=== PATIENT | female | born 1950 | race Caucasian/White ===

== ENCOUNTER 2021-12-28 18:05 | Outpatient (RCR) | payer BC, SELFPAY | END 2022-08-10 15:57 | disposition home or self-care (01) | LOC: MOW 18:05 | PROVIDERS: PCP Internal Medicine; Visit Provider Internal Medicine | DX: Z76.0 Encounter for issue of repeat prescription (principal) | CPT/HCPCS: S5170 ==

== ENCOUNTER 2021-12-30 14:07 | Outpatient (RCR) | payer MEDICARE, BC, MEDICAID, SELFPAY ==
--- OUTSIDE RECORDS SUMMARY | 2021-12-24 09:28 | XMS_ITS | Continuity of Care Document ---
:1950 Author Care Team Providers Name Role Phone MD Kaley E Attending Physician MD Kaley E Primary Care Physician Health Concerns Concerns Review problems and other documentation throughout for health concerns. Allergies, Adverse Reactions, Alerts Allergen Type Severity Reaction Last Verified Status Updated Nitrofurantoin Allergy Mild Rash November 26, Yes Activ e 2021 Lisinopril Allergy Mild Rash November 26, Yes Active 2021 Simvastatin Allergy Mild Rash November 26, Yes Active 2021 Atorvastatin Allergy Mild Rash November 26, Yes Active 2021 Rosuvastatin Allergy Mild Rash November 26, Yes Active 2021 Sulfa Antibiotics Allergy Moderate Rash November 26, Yes Ac tive 2021 Social History Smoking Status Status Start Date End Date Date of Observat ion Current some day November 28, 2021 12:35am smoker Observation Status Observation Response Date of Response History provided by Patient October 28, 2021 1:3 6am Medical Record October 28, 2021 1:3 6am Where do you live? Own home/apt October 28, 2021 1:3 6am With whom do you live? 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 Obstructive sleep apnea 2016 Active Vitamin D insufficiency Active Paroxysmal atrial fibrillation 2017 Active Macrocytosis without anemia 2018 Active Subjective memory complaints Active Mild cognitive impairment 2019 Active Lacunar infarct, acute 2021 Active Basal ganglia stroke 2021 Active Health care directive on file May 11, 2016 Active Cataract extraction status of eye Resolv ed Stapidectomy Resolved History of colonoscopy 2017 Resolved Medications Medication Status Dose Units Route Directions Qty Days Start End Ins tructions Date Date Acetaminophe Active 500 MG OR Daily as n needed (Acetaminoph en Extra Stren) 500 Mg TAB Apixaban Active 2.5 MG PO Twice A Day 180 Decembe (Eliquis) r 2nd, 2.5 Mg TAB 2020 4:57pm Aspirin Active 81 MG PO Daily 100 Calcium-Magn Active Unknow OR esium W/ n Dose Vitamin D (Calcium 600/Magnesiu m 300) Unknown Strength CAP Cholecalcife Active 1000 UNIT PO Daily 100 October rol (Vitamin 2nd, D) 1,000 2021 Unit TAB 3:28pm Flecainide Active 50 MG PO Twice A Day 90 Decembe Acetate r 2018 10:04am Folic Acid Active 3 MG PO Daily 30 Insulin Active 8 UNIT SUBQ Three Times 15 Aspart Daily With (Novolog Meals Flexpen) 100 Unit/Ml INJ Insulin Active 25 UNIT SC Qam Glargine-Yfg W/Breakfast n (Insulin Glargine) 100 Unit/Ml INJ Losartan Active 50 MG PO Daily 90 October Potassium 2021 4:02pm Melatonin Active 5 MG PO Bedtime as 100 needed Methotrexate Active 10 MG PO Every 7 Sodium Days Pravastatin Active 40 MG PO Bedtime 30 Sodium Sertraline Active 50 MG PO Daily 90 Decembe Hcl r 2020 3:00pm Triamcinolon Active 1 YUNIER TOP Twice A Day 15 e Acetonide (Triamcinolo ne Acetonide (Cream)) 0.1 % CRE Acetaminophe Disconti 650 MG PO Daily as Juluar n (Tylenol 8 nued needed y Hour , Arthritis) 2021 650 Mg TAB 1:18pm Acetaminophe Disconti 650 MG PO Februa n (Tylenol 8 nued ry Hour 27, Arthritis) 2019 650 Mg TAB 2:52pm Acetaminophe Disconti 1-2 TAB PO Every July Februa n/Hydrocodon nued Hours as e Bitart needed 2015, (Hydrocodone 2:04pm 2015 -Acetaminoph 9:39am en) 5 Mg/325 Mg TAB Albuterol Disconti 2 PUFF INH Every 4 January (Ventolin nued Hours as Hfa) 90 Mcg needed 2020, DOSE 1:43pm 2020 3:01pm Apixaban [facility] 2.5 MG [facility], er 2.5 Mg TAB 2019 08, 10:10am 2020 4:57pm Apixaban Disconti 2.5 MG PO Tw[facility] A Day [facility]ued r 21st, er 2.5 Mg TAB 2019, 4:38pm 2019 10:10a m Apixaban Disconti 5 MG PO Twice A Day 180 December (Eliquis) 5 nued 30th, 4th, Mg TAB 2016 2016 11:43am 2:39pm Aspirin Disconti 81 MG PO Daily December (Aspir-81) nued 4th, 81 Mg TAB 2016 5:20pm Azithromycin Disconti 250-50 MG PO Daily Januaryem 5 00 mg x 1 nued 0 17, day then 250 2020, mg daily x 4 1:43pm 2020 days 3:01pm Azithromycin Disconti 250-50 MG PO As Directed 6 uar A pril 500 MG ON DAY (Zithromax nued 0 y 24, 18, 1 THEN 250 MG Z-Julio Cesar) 250 2015 2015 DAILY X 4 Mg TAB 12:25pm 10:03a MORE DAYS m Calcium Disconti 500 MG PO Daily 100 January Carbonate nued 2019 9:56am Calcium Disconti 500 MG PO Twice A Day 200 January Carbonate nued 2017 1:57pm Carboxymethy Disconti 0.5 % OP as needed Januar lcellulose nued y Sodium , (Refresh 2017 Tears) 0.5 % 10:06a MARTÍN m Cephalexin Disconti 500 MG PO Three Times 30 Octo be nued A Day er r , 2019 1:16pm 1:32pm Cephalexin Disconti 500 MG PO Three Times 30 Novem Dece mb (Keflex) 500 nued A Day r , er Mg CAP 2018 12, 2:44pm 2018 9:43am Cephalexin Disconti 500 MG PO Three Times 17 July Febr ua (Keflex) 500 nued A Day , ry Mg CAP 2017, 2:00pm 2017 10:54a m Cephalexin Disconti 500 MG PO Three Times Decemberem (Keflex) 500 nued A Day , thao Mg CAP 2017 05, 12:15pm 2016 10:00a m Cephalexin Disconti 500 MG PO Three Times 20 January Januar (Keflex) 500 nued A Day , y Mg CAP 2015, 2:32pm 2016 10:06a m Cholecalcife Disconti 400 UNIT PO Daily January rol (Vitamin nued , D) 400 Unit 2019 TAB 9:56am Cholecalcife Disconti 400 UNIT PO Daily Decemb rol (Vitamin nued er D-3) 400 8th, Unit TAB 2017 8:31am Coral Disconti 1 OR Januar Calcium-Magn nued y esium W/ Vit , (Coral 2018 Calcium) CAP 1:15pm Covid-19 Disconti 30 MCG IM Once Marem (Sars-Cov-2) nued er thao Mrna Vir , , (Pfizer-Bion 2020 2020 tech 10:50am 11:47a Covid-19) 30 m Mcg/0.3 Ml INJ Diltiazem Disconti 120 MG PO Daily 30 Decee [facility] Hcl nued r 15, er (Diltiazem 2016, Hcl Er (12 3:26pm 2016 Hr)) 120 Mg 2:07pm CAP Diltiazem Disconti 120 MG PO Daily 90 Decee [facility] Hcl nued r 12th, er (Diltiazem 2016, Hcl Er (12 9:03am 2016 Hr)) 120 Mg 3:26pm CAP Diltiazem Disconti 120 MG PO Daily Januar Hcl Cd nued y 2017 1:15pm Ergocalcifer Disconti 36021 UNIT PO Once Weekly No vemb ol (Vitamin nued er er D) 50,000 , 15, Unit CAP 2016 2017 12:19pm 1:32pm Ergocalcifer Disconti 67104 UNIT PO Weekly October ol (Vitamin nued 30, D) 50,000 2016 Unt CAP 10:07a m Ergocalcifer Disconti 84910 UNIT PO Weekly Januaryuar ol (Vitamin nued , y D) 50,000 2015, Unt CAP 12:56pm 2016 10:06a m Ergocalcifer Disconti 70853 UNIT PO Weekly August ol (Vitamin nued , , D) 50,000 2015 2015 Unt CAP 1:05pm 1:51pm Flecainide Disconti 50 MG PO Twice A Day Februa Acetate nued ry 2019 2:52pm Flecainide Disconti 100 MG PO Twice A Day 60 October Acetate nued 2017 3:06pm 1:57pm Flecainide Disconti 100 MG PO Twice A Day 60 Februar October Acetate nued y 2017 11:48am 11:18a m Flecainide Disconti 100 MG PO Twice A Day 60 Decembe Febr ua Acetate nued r , ry 2016, 9:03am 2017 11:48a m Flecainide Disconti 50 MG PO Twice A Day Decemb Acetate nued er 2016 9:03am Fluconazole Disconti 150 MG PO Once ta ke once, the other tablets are to be held in reserve if (Diflucan) nued er er it recurr s 150 Mg TAB , 2016 10:55am 2:21pm Folic Acid Disconti 4 MG PO Daily nued ry 2018 11:40a m Folic Acid Disconti 3 MG GT Daily ua nued ry 2015 9:39am Gabapentin Disconti 600 MG PO Daily December 10:08a m Gabapentin Disconti 600-12 MG PO Bedtime r nued 2016 10:06a m Gabapentin Disconti 600 MG PO Bedtime Januaryuar nued , y 2015, 8:04am 2016 10:06a m Hydroxychlor Disconti 200 MG PO Daily 90 Decembe Decemb [place] nued r , er Sulfate 2019, 3:07pm 2019 12:08p m Hydroxychlor Disconti 200 MG PO Daily 90 Decembe Decemb [place] nued r , er Sulfate 2020 02, 3:43pm 2019 3:07pm Hydroxychlor Disconti 200 MG PO Daily 90 Decembe Decemb [place] nued r , er Sulfate 2019 7th, 11:47am 2019 3:43pm Hydroxychlor Disconti 200 MG PO Daily oquine nued er er Sulfate , 2017 3:01pm 11:47a m Infliximab Disconti 500 MG IV Q 8 Weeks October (Remicade nued , Admin Fee) 2021 10 Mg/Ml 12:26p SOLN m Influenza Disconti 0.5 ML IM Once Marem Virus nued er thao Vaccine , (Fluzone 2017 2017 High-Dose 3:00pm 3:18pm (65 Yrs And Older) 2017-) 1 Inj INJ Influenza Disconti 0.5 ML IM Once Virus nued r , er Vaccine 2018 10, Split 9:32am 2018 (Fluzone 9:35am High-Dose Pf 2019 0.5 Ml) 1 Inj INJ Influenza Disconti 0.5 ML IM Once Marem Virus nued er thao Vaccine , Split 2016 2016 (Fluzone 10:13am 10:15a High-Dose m (65 Yrs And Older) 2015-) 1 Inj INJ Influenza Disconti 0.5 ML IM Once Aprilobe Virus nued 6th, r 6th, Vaccine 2016 2016 Split 1:35pm 1:42pm (Fluzone High-Dose (65 Yrs And Older) 2015-) 1 Inj INJ Insulin Disconti 50 UNIT SUBQ Daily August Use as di rected, total daily dose approximately 50 units Aspart nued , , every day. (Novolog 2016 2021 Vial) 100 8:33am 10:48a Unit/1 Ml m SOLN Insulin Disconti 50 UNIT SUBQ Daily August Use as di rected, total daily dose approximately 50 units Aspart nued , , every day. (Novolog 2016 2016 Vial) 100 10:08am 8:33am Unit/1 Ml SOLN Insulin Disconti 50 UNIT SUBQ Daily August Use as directed, total daily dose approximately 50 units Aspart nued er , , every day. (Novolog 2015 2016 Vial) 100 11:02am 10:08a Unit/1 Ml m SOLN Insulin Disconti 5 UNIT SUBQ Three Times Aspart nued Daily With y (Novolog Meals , Vial) 100 2017 Unit/1 Ml 10:06a SOLN m Losartan Disconti 50 MG PO Daily 29 November Potassium nued 2021 4:02pm Methotrexate Disconti Unknow PO Every 7 ua Sodium nued n Dose Days ry 2018 8:12am Metoprolol Disconti 25 MG PO Daily December Succinate nued , , (Metoprolol 2016 2016 Succinate 11:39am 5:20pm Er) 25 Mg TABCR Naproxen Disconti 500 MG PO Daily as 19 January nued needed 2016 2:39pm Oseltamivir Disconti 75 MG PO Twice A Day August Phosphate nued , , (Tamiflu) 75 2017 2017 Mg CAP 4:32pm 1:59pm Polyethylene Disconti 17 GM PO Daily Januaryobe Pl ease take Glycol 3350 nued , r 17g suman y (Miralax) 2017, with full 3,350 Nf POW 4:28pm 2017 glass of 2:08pm liquid. Pravastatin Disconti 20 MG PO Bedtime July Sodium nued , , 2021 2021 11:50am 10:48a m Pravastatin Disconti 20 MG PO Bedtime 90 Decemb Sodium nued r 7th, er (Pravachol) 2019 8th, 20 Mg TAB 3:43pm 2019 3:07pm Pravastatin Disconti 20 MG PO Bedtime 90 mb Sodium nued y 27, er (Pravachol) 2019 7th, 20 Mg TAB 3:35pm 2019 3:43pm Pravastatin Disconti 20 MG PO Bedtime Augustua Sodium nued 4th, ry (Pravachol) 2018 27th, 20 Mg TAB 12:24pm 2019 3:35pm Pravastatin Disconti 20 MG PO Bedtime August Sodium nued r 4th, 4th, (Pravachol) 2017 2018 20 Mg TAB 3:48pm 12:24p m Pravastatin Disconti 20 MG PO Bedtime Decemb Sodium nued er er (Pravachol) 11th, 4th, 20 Mg TAB 2016 2017 10:36am 3:48pm Pravastatin Disconti 20 MG PO Bedtime Januaryem Sodium nued , thao (Pravachol) 2017 11th, 20 Mg TAB 11:54am 2017 10:36a m Pravastatin Disconti 20 MG PO Bedtime December Sodium nued , , (Pravachol) 2015 2016 20 Mg TAB 2:32pm 11:54a m Pravastatin Disconti 20 MG PO Bedtime 29 January Sodium nued , (Pravachol) 2015 20 Mg TAB 2:32pm Prednisone Disconti 20 MG PO Daily nued er er , 2016 10:46am 2:21pm Rivaroxaban Disconti 20 MG PO Bedtime 90 Decembe Decemb WITH MEAL (Xarelto) 20 nued r , er Mg TAB 2016, 10:13am 2016 2:17pm Sertraline Disconti 50 MG PO Daily 90 Decembe Decemb Hcl nued r 8th, er 2019, 3:07pm 2020 3:00pm Sertraline Disconti 50 MG PO Daily 90 Decembe Decemb Hcl nued r 7th, er 2020 8th, 3:43pm 2019 3:07pm Sertraline Disconti 50 MG PO Daily 90 Februar Decemb Hcl nued y , er 2020 , 3:35pm 2019 3:43pm Sertraline Disconti 50 MG PO Daily December Februa Hcl nued , 2018, 12:56pm 2019 3:35pm Sertraline Disconti 50 MG PO Daily December Hcl nued , 2018 3:53pm 12:56p m Sertraline Disconti 50 MG PO Daily December Hcl nued , 2017 4:34pm 3:53pm Sertraline Disconti 50 MG PO Daily 30 December Hcl nued 2017 4:34pm Sertraline Disconti 25 MG PO Daily December Hcl nued , 2015 2:32pm 10:07a m Sertraline Disconti 25 MG PO Daily 29 January Hcl nued 2015 2:32pm Varenicline Disconti 1 TABLET PO As Directed 02 April Trey keen TITRATE (Chantix nued , y DIRECTED ON Starter 2015, PACKAGE Pack) 0.5 4:49pm 2017 Mg/1 Mg TAB 10:06a m Varenicline Disconti 1 MG PO Twice A Day April uar Tartrate nued 14th, y (Chantix 2015, Continuing 4:49pm 2017 Pack) 1 Mg 10:06a TAB m Warfarin Disconti 2.5-5 MG PO Daily 180 [facility] Sun: 5mg, Mon:5mg, Tues:5mg, Wed:5mg, Thur:5mg, Fri:5mg Sodium nued r 9th, er Sat:5mg 2019, 12:22pm 2019 4:38pm Warfarin Disconti 2.5 MG PO Daily [facility] [place] 5 MG, M 5 Sodium nued r 8th, er MG, Tu 5 MG, 2020 02, W 5 MG, 5 3:07pm 2020 MG, F 5 MG, 3:55pm Sa 5 MG Warfarin Disconti 2.5 MG PO Daily [facility] [place] 5 MG, M 5 Sodium nued r 1st, er MG, Tu 5 MG, 2020 02, W 5 MG, 5 12:41pm 2020 MG, F 5 MG, 3:07pm Sa 5 MG Warfarin Disconti 2.5 MG PO Daily [place] 2. 5 MG, M 5 MG, Tu 2.5 MG, W 2.5 MG, Th 2.5 MG, F 2.5 Sodium nued r 16th, er MG, Sa 2.5 MG 2019 07, 3:09pm 2019 12:41p m Warfarin Disconti 2.5 MG PO Daily [place] 2. 5 MG, M 5 MG, Tu 2.5 MG, W 2.5 MG, Th 2.5 MG, F 2.5 Sodium nued r 2nd, er MG, Sa 2.5 M G 2019, 2:03pm 2019 3:09pm Warfarin Disconti 2.5 MG PO Daily April [place] 2. 5 MG, M 5 MG, Tu 2.5 MG, W 2.5 MG, Th 2.5 MG, F 2.5 Sodium nued 8th, er MG, Sa 2.5 MG 2019 08, 4:35pm 2019 2:03pm Warfarin Disconti 2.5 MG PO Daily [place] 2. 5 MG, M 5 MG, Tu 2.5 MG, W 2.5 MG, Th 2.5 MG, F 2.5 Sodium nued er r 8th, MG, Sa 2.5 M G 2019 4:35pm 1:31pm Warfarin Disconti 2.5 MG PO Daily January [place] 2.5 MG, M 5 MG, Tu 2.5 MG, W 2.5 MG, Th 2.5 MG, F 2.5 Sodium nued 27, thao MG, Sa 2.5 MG 2020 04, 8:24am 2019 1:31pm Warfarin Disconti 2.5 MG PO Daily January [place] 2.5 MG, M 5 MG, Tu 2.5 MG, W 2.5 MG, Th 2.5 MG, F 2.5 Sodium nued , , MG, Sa 2.5 MG 2019 2019 11:28am 8:24am Warfarin Disconti 2.5 MG PO Daily January [place] 2.5 MG, M 5 MG, Tu 2.5 MG, W 2.5 MG, Th 2.5 MG, F 2.5 Sodium nued , MG, Sa 2.5 MG 2019 2019 2:53pm 11:28a m Warfarin Disconti 2.5 MG PO Daily October [place] 2.5 MG, M 5 MG, Tu 2.5 MG, W 2.5 MG, Th 2.5 MG, F 2.5 Sodium nued , , MG, Sa 2.5 MG 2019 2019 1:33pm 2:53pm Warfarin Disconti 2.5 MG PO Daily October [place] 2.5 M G, M 5 MG, Tu 2.5 MG, W 2.5 MG, Th 2.5 MG, F 2.5 Sodium nued , nd, MG, Sa 2.5 MG 2019 2019 3:25pm 1:33pm Warfarin Disconti 2.5 MG PO Daily August [place] 2.5 M G, M 5 MG, Tu 2.5 MG, W 2.5 MG, Th 2.5 MG, F 5 MG, Sodium nued 24, 7th, Sa 2.5 MG 2019 2019 11:08am 3:25pm Warfarin Disconti 2.5 MG PO Daily August [place] 2.5 M G, M 5 MG, Tu 2.5 MG, W 2.5 MG, Th 2.5 MG, F 5 MG, Sodium nued 17, 24th, Sa 2.5 MG 2019 2019 1:21pm 11:08a m Warfarin Disconti 2.5 MG PO Daily August [place] 2.5 MG, M 5 MG, Tu 2.5 MG, W 2.5 MG, Th 2.5 MG, F 5 MG, Sodium nued y 18, 17th, Sa 2.5 MG 2019 2019 1:20pm 1:21pm Warfarin Disconti 2.5 MG PO Daily July [place] 2. 5 MG, M 5 MG, Tu 2.5 MG, W 2.5 MG, Th 2.5 MG, F 5 MG, Sodium nued , ry Sa 2.5 MG 2019, 3:06pm 2019 1:20pm Warfarin Disconti 2.5 MG PO Daily July [place] 2. 5 MG, M 5 MG, Tu 2.5 MG, W 2.5 MG, Th 2.5 MG, F 5 MG, Sodium nued th, y Sa 2.5 MG 2019, 3:53pm 2019 3:06pm Warfarin Disconti 2.5 MG PO Daily July [place] 2. 5 MG, M 5 MG, Tu 2.5 MG, W 2.5 MG, Th 2.5 MG, F 5 MG, Sodium nued 6th, y Sa 2.5 MG 2019, 3:07pm 2019 3:53pm Warfarin Disconti 2.5 MG PO Daily [place] 2. 5 MG, M 2.5 MG, Tu 2.5 MG, W 2.5 MG, Th 2.5 MG, F 5 Sodium nued r 27th, y 6th, MG, Sa 2.5 MG 2018 2019 10:47am 3:07pm Warfarin Disconti 2.5 MG PO Daily mb [place] 2. 5 MG, M 2.5 MG, Tu 2.5 MG, W 2.5 MG, Th 2.5 MG, F 5 Sodium nued r 6th, er MG, Sa 2.5 M G 2018, 2:09pm 2018 10:47a m Warfarin Disconti 2.5 MG PO Daily [facility] [place] 2. 5 MG, M 2.5 MG, Tu 2.5 MG, W 2.5 MG, Th 2.5 MG, F 5 Sodium nued r 29th, er MG, Sa 2.5 MG 2018 12, 2:05pm 2018 2:09pm Warfarin Disconti 2.5 MG PO Daily [place] 2. 5 MG, M 2.5 MG, Tu 2.5 MG, W 2.5 MG, Th 2.5 MG, F 2.5 Sodium nued r 19th, er MG, Sa 2.5 MG 2018, 3:02pm 2018 2:05pm Warfarin Disconti 2.5 MG PO Daily [place] 2. 5 MG, M 2.5 MG, Tu 2.5 MG, W 2.5 MG, Th 2.5 MG, F 2.5 Sodium nued r 15th, er MG, Sa 2.5 MG 2018, 12:17pm 2018 3:02pm Warfarin Disconti 2.5 MG PO Daily April [place] 2. 5 MG, M 2.5 MG, Tu 5 MG, W 2.5 MG, Th 5 MG, F 2.5 MG, Sodium nued rd, er Sa 2.5 MG 2018, 2:30pm 2018 12:17p m Warfarin Disconti 2.5 MG PO Daily April [place] 2. 5 MG, M 2.5 MG, Tu 5 MG, W 2.5 MG, Th 5 MG, F 2.5 MG, Sodium nued , r Sa 2.5 MG 2018, 2:38pm 2018 2:30pm Warfarin Disconti 2.5 MG PO Daily [facility] [place] 2. 5 MG, M 2.5 MG, Tu 5 MG, W 2.5 MG, Th 5 MG, F 2.5 MG, Sodium nued er r Sa 2.5 MG , 2018 9:31am 2:38pm Warfarin Disconti 2.5 MG PO Daily January [place] 2.5 MG, M 2.5 MG, Tu 5 MG, W 2.5 MG, Th 5 MG, F 2.5 MG, Sodium nued rd, thao Sa 2.5 MG 2018, 9:55am 2018 9:31am Warfarin Disconti 2.5 MG PO Daily December [place] 2.5 MG, M 2.5 MG, Tu 2.5 MG, W 2.5 MG, Th 2.5 MG, F 2.5 Sodium nued , , MG, Sa 2.5 MG 2018 2018 1:43pm 9:55am Warfarin Disconti 2.5 MG PO Daily December [place] 2.5 M G, M 2.5 MG, Tu 2.5 MG, W 2.5 MG, Th 2.5 MG, F 2.5 Sodium nued , , MG, Sa 2.5 MG 2018 2018 3:59pm 1:43pm Warfarin Disconti 2.5 MG PO Daily October [place] 2.5 M G, M 2.5 MG, Tu 2.5 MG, W 2.5 MG, Th 2.5 MG, F 2.5 Sodium nued , , MG, Sa 2.5 MG 2018 2018 2:58pm 3:59pm Warfarin Disconti 2.5 MG PO Daily October [place] 2.5 M G, M 2.5 MG, Tu 2.5 MG, W 2.5 MG, Th 2.5 MG, F 2.5 Sodium nued , , MG, Sa 2.5 MG 2018 2018 4:35pm 2:58pm Warfarin Disconti 2.5 MG PO Daily August [place] 2.5 M G, M 2.5 MG, Tu 2.5 MG, W 2.5 MG, Th 2.5 MG, F 2.5 Sodium nued , , MG, Sa 2.5 MG 2018 2018 12:56pm 4:35pm Warfarin Disconti 2.5 MG PO Daily July [place] 2.5 MG, M 2.5 MG, Tu 2.5 MG, W 2.5 MG, Th 2.5 MG, F 2.5 Sodium nued , , MG, Sa 2.5 MG 2018 2018 1:11pm 12:56p m Warfarin Disconti 2.5 MG PO Daily July [place] 2. 5 MG, M 2.5 MG, Tu 2.5 MG, W 2.5 MG, Th 2.5 MG, F 2.5 Sodium nued , MG, Sa 2.5 MG 2018, 4:23pm 2018 1:11pm Warfarin Disconti 2.5 MG PO Daily Julyr [place] 2. 5 MG, M 2.5 MG, Tu 2.5 MG, W 2.5 MG, Th 2.5 MG, F 5 Sodium nued , y MG, Sa 2.5 MG 2018, 1:40pm 2018 4:23pm Warfarin Disconti 2.5 MG PO Daily July [place] 2. 5 MG, M 5 MG, Tu 2.5 MG, W 5 MG, Th 2.5 MG, F 5 MG, Sa Sodium nued th, y 2.5 MG 2018, 4:05pm 2018 1:40pm Warfarin Disconti 2.5 MG PO Daily [facility] [place] 2. 5 MG, M 5 MG, Tu 2.5 MG, W 5 MG, Th 2.5 MG, F 5 MG, Sa Sodium nued r 26th, y 2.5 MG 2017, 3:00pm 2018 4:05pm Warfarin Disconti 2.5 MG PO Daily [facility] [place] 2. 5 MG, M 5 MG, Tu 2.5 MG, W 5 MG, Th 2.5 MG, F 5 MG, Sa Sodium nued r 10th, er 2.5 MG 2017, 2:56pm 2017 3:00pm Warfarin Disconti 2.5 MG PO Daily [place] 2. 5 MG, M 1.25 MG, Tu 2.5 MG, W 1.25 MG, Th 2.5 MG, F Sodium nued r , er 1.25 MG, Sa 2.5 MG 2018 04, 3:35pm 2017 2:56pm Warfarin Disconti 2.5 MG PO Daily [place] 2. 5 MG, M 2.5 MG, Tu 2.5 MG, W 2.5 MG, Th 2.5 MG, F 2.5 Sodium nued r , er MG, Sa 2.5 MG 2017, 2:16pm 2017 3:35pm Warfarin Disconti 2.5 MG PO Daily April [place] 2. 5 MG, M 2.5 MG, Tu 2.5 MG, W 2.5 MG, Th 2.5 MG, F 2.5 Sodium nued 24th, er MG, Sa 2.5 MG 2018 06, 8:44am 2017 2:16pm Warfarin Disconti 2.5 MG PO Daily Aprilobe [place] 2. 5 MG, M 2.5 MG, Tu 2.5 MG, W 2.5 MG, Th 2.5 MG, F 2.5 Sodium nued , r MG, Sa 2.5 MG 2017, 3:36pm 2017 8:44am Warfarin Disconti 2.5-5 MG PO Daily Aprilobe [place] 5 MG, M 5 MG, Tu 2.5 MG, W 5 MG, Th 0 MG, F 0 MG, Sa 2.5 Sodium nued 2nd, r MG 2017, 9:10am 2017 1:35pm Warfarin Disconti 2.5-5 MG PO Daily [facility] [place] 5 MG, M 5 MG, Tu 2.5 MG, W 5 MG, Th 0 MG, F 0 MG, Sa 2.5 Sodium nued er r 2nd, MG 2017 9:10am 4:20pm Warfarin Disconti 2.5-5 MG PO Daily 140 January [place] 5 M G, M 5 MG, Tu 2.5 MG, W 5 MG, Th 0 MG, F 0 MG, Sa 2.5 Sodium nued 2nd, thao MG 2017, 2:25pm 2017 4:20pm Warfarin Disconti 2.5-5 MG PO Daily 140 January [place] 5 M G, M 5 MG, Tu 2.5 MG, W 5 MG, Th 0 MG, F 0 MG, Sa 2.5 Sodium nued , 2nd, MG 2017 2017 11:02am 2:25pm Warfarin Disconti 2.5-5 MG PO Daily 140 December [place] 5 MG , M 5 MG, Tu 2.5 MG, W 5 MG, Th 0 MG, F 0 MG, Sa 2.5 Sodium nued , 2nd, MG 2017 2017 10:28am 11:02a m Warfarin Disconti 2.5-5 MG PO Daily 140 December [place] 5 MG, M 5 MG, Tu 2.5 MG, W 5 MG, Th 0 MG, F 0 MG, Sa 2.5 Sodium nued , 12th, MG 2017 2017 2:12pm 10:28a m Warfarin Disconti 2.5-5 MG PO Daily 140 December [place] 5 MG, M 5 MG, Tu 2.5 MG, W 5 MG, Th 2.5 MG, F 5 MG, Sa Sodium nued 14th, 14th, 2.5 MG 2017 2017 10:53am 2:12pm Warfarin Disconti 2.5-5 MG PO Daily 140 December [place] 5 MG, M 5 MG, Tu 2.5 MG, W 5 MG, Th 2.5 MG, F 5 MG, Sa Sodium nued 6th, 14th, 2.5 MG 2017 2017 4:20pm 10:53a m Warfarin Disconti 2.5-5 MG PO Daily 180 October [place] 5 MG, M 5 MG, Tu 2.5 MG, W 5 MG, Th 2.5 MG, F 5 MG, Sa Sodium nued 15th, 6th, 2.5 MG 2017 2017 11:17am 4:20pm Warfarin Disconti 2.5-5 MG PO Daily October [place] 5 MG, M 5 MG, Tu 2.5 MG, W 5 MG, Th 2.5 MG, F 5 MG, Sa Sodium nued 15, 15th, 2.5 MG 2017 2017 9:07am 11:17a m Warfarin Disconti 2.5-5 MG PO Daily 180 October [place] 2.5 M G, M 5 MG, Tu 5 MG, W 2.5 MG, Th 5 MG, F 2.5 MG, Sa Sodium nued 30, 15th, 5 MG 2017 2017 1:59pm 9:07am Warfarin Disconti 2.5-5 MG PO Daily October [place] 2.5 M G, M 5 MG, Tu 2.5 MG, W 2.5 MG, Th 5 MG, F 2.5 MG, Sodium nued , 30th, Sa 5 MG 2017 2017 1:27pm 1:59pm Warfarin Disconti 2.5-5 MG PO Daily August [place] 5 MG, M 2.5 MG, Tu 5 MG, W 2.5 MG, Th 5 MG, F 2.5 MG, Sa Sodium nued , 30th, 2.5 MG 2017 2017 1:59pm 1:27pm Warfarin Disconti 2.5-5 MG PO Daily July Sodium nued , 2017 4:07pm 1:59pm Warfarin Disconti 2.5-5 MG PO Daily 180 Sodium nued y 2017 4:07pm Warfarin Disconti 2.5-5 MG PO Daily 01 March [place] 2.5 MG, M Sodium nued th, 2.5 MG, Tu 2017 2.5 MG, W 2.5 9:55am MG, F 5 MG, Sa 2.5 MG Warfarin Disconti 2.5-5 MG PO Daily 01 March [place] 2.5 MG, M 0 MG, Tu 2.5 MG, W 2.5 MG, Th 0 MG, F 2.5 MG, Sodium nued 18th, Sa 2.5 MG 2016 1:41pm Warfarin Disconti 2.5-5 MG PO Daily 01 March [place] 2.5 MG, M 0 MG, Tu 2.5 MG, W 2.5 MG, Th 0 MG, F 2.5 MG, Sodium nued , Sa 2.5 MG 2016 10:20a m Warfarin Disconti 2.5-5 MG PO Daily 01 March Tu 0 MG , W 0 Sodium nued , MG, Th 5 MG 2016 1:56pm Warfarin Disconti 2.5-5 MG PO Daily 29 January [place] 2.5 M G, M 2.5 MG, Tu 0 MG, W 0 MG, Th 5 MG, F 2.5 MG, Sa Sodium nued , 2.5 MG 2016 10:13a m Warfarin Disconti 2.5-5 MG PO Daily 29 January [place] 2.5 M G, M 5 MG, Tu 2.5 MG, W 2.5 MG, Th 5 MG, F 2.5 MG, Sodium nued th, Sa 2.5 MG 2016 1:57pm Warfarin Disconti 2.5-5 MG PO Daily 29 January [place] 5 MG, W Sodium nued 17, 2.5 MG, Th 2016 2.5 MG, F 2.5 2:20pm MG, Sa 5 MG Warfarin Disconti 2.5-5 MG PO Daily 29 January Sodium nued 2016 10:50a m Warfarin Disconti 2.5 MG PO Daily December W 2.5 MG , Th Sodium nued , 2.5 MG, F 2.5 2016 2017 MG 11:18am 10:36a m Warfarin Disconti 2.5 MG PO Daily December Sodium nued 2016 11:52am 11:18a m Warfarin Disconti 5 MG PO Daily December Sodium nued 2016 5:20pm 11:52a m Immunizations Immunization Event Date Not Given Dose [employer]ine Reason Number Number Informatio n Statement (VIS) Deta esthela COVID-19 Pfizer July 032020 COVID-19 Pfizer August 042020 COVID-19 Pfizer March 07 PFIZER-BIO 2020 COVID-19 Pfizer November 092021 Hepatitis B Adult October 071999 Hepatitis B Adult February 211999 Hepatitis B Adult January 262010 HIB April 022012 Influenza May 032014 Influenza April 07 Sanofi 2015 Influenza March 05 Sanofi 2016 Influenza March 06 SANOFI 2017 Influenza May 08 SANOFI 2018 Influenza April 082020 Meningococcal April 02 (11Y-15Y) 2012 Prevnar Adult January 272014 Pneumovax Adult April 032012 Pneumovax Adult April 022007 Shingrix April 082020 Shingrix July 042021 Tetanus/Diptheria March 012011 Tdap March 01 (adolescent/adult 2011 ) Procedures Procedure Date Performed Status URINALYSIS AUTO W/SCOPE November 24, 2021 completed Relevant Diagnostic Tests and/or Laboratory Data Laboratory Results Test Date/Time Result Interpretation Reference Result Comment Performing Range Site Urine Color November 24, YELLOW YELLOW [facility] 2021 [address] [facility] 11:00am [facility] [address] Urine November 24, CLEAR CLEAR [facility] Lab Appearance 2021 [address] [facility] [facility] [place] 11:00am [facility] [address] Urine Glucose November 24, 3+ NEGATIVE [facility] Lab (UA) 2021 1999 [facility] 11:00am [facility] [address] Urine November 24, NEGATIVE NEGATIVE [facility] Bilirubin 2021 1999 [facility] 11:00am [facility] [address] Urine Ketones November 24, NEGATIVE NEGATIVE [facility] 2021 1999 [facility] 11:00am [facility] [address] Urine November 24, 1.025 1.000-1.03 [facility] Lab Specific 2021 0 1999 [facility] [place] 11:00am [facility] [address] Urine pH November 24, 6.0 5.0 - 8.5 [facility] 2021 1999 [facility] 11:00am [place] [address] Urine Protein November 24, NEGATIVE NEGATIVE [facility] 2021 1999 [facility] 11:00am [place] [address] Urine November 24, 0.2 0.2 [facility] Urobilinogen [facility]00am [place] [address] Urine Nitrite November 24, NEGATIVE NEGATIVE [facility] Lab 2021 1999 [facility] 11:00am [place] [address] Urine Blood November 24, NEGATIVE NEGATIVE [facility] 2021 1999 [facility] 11:00am [place] [address] Urine November 24, NEGATIVE NEGATIVE [facility] Leukocyte 2021 1999 [facility] Esterase 11:00am [place] [address] Urine WBC November 24, 0 0-2 [facility] 2021 1999 [facility] 11:00am [facility] [address] Urine RBC November 24, 0 0-2 [facility] 2021 1999 [facility] 11:00am [place] [address] Urine Other November 24, 0 0 [facility] Casts 2021 1999 [facility] 11:00am [place] [address] Urine Other November 24, 0 0 [facility] Crystals 2021 1999 [facility] 11:00am [place] [address] Urine November 24, FEW 0-FEW [facility] Squamous 2021 1999 [facility] Epithelial 11:00am [place] [address] Cells Urine November 24, 0 0-FEW [facility] Bacteria 2021 1999 [facility] 11:00am [place] [address] Urine Mucus November 24, 0 0 [facility] 2021 1999 [facility] 11:00am [place] [address] Urine November 24, 0 0 [facility] Amorphous 2021 1999 [facility] Sediment 11:00am [place] [address] Urine Other November 24, 0 [facility] Sediment 2021 1999 [facility] 11:00am [place] [address] Hepatitis C October NEGATIVE NEGATIVE [facility] Antibody 2021 [facility] [place] Screen 9:50am [place] [address] Hepatitis B October Positive NEGATIVE [facility] Surface 2021 [facility] [place] Antibody 9:50am [place] [address] TB Test (QFT) October NEGATIVE NEGATIVE M. Tuberculosis [facility] Gold In Tube 2021 infection NOT 20 00 [facility] 9:50am LIKELY but [facility] [address] cannot be excluded in cases of immunosuppressi on. CAUTION: The performance of QuantiFERON-TB Gold has not been evaluated in specimens from- Individuals with impaired or altered immune functions (HIV infections, transplant patients, those receiving immunosuppressi ve drugs such as corticosteroids ) and those with other clinical conditions (e.g., diabetes, hematological disorders)- Individuals younger than 17 years old- womenTesting performed at [facility], [address], [place] [address] Hepatitis B October Negative Negative INTERPRETIVE [facility] Core Total 2021 INFORMATION: [address] Antibody 9:50am Hepatitis B [facility] [address] Core Ab (Total)This assay should not be used for blood donor screening,assoc iated re-entry protocols, or for screening Human Cells,Tissues and Cellular and Tissue-Based Products (HCT/P).Perform ed By: [address] [id number] Director: Annabelle Cage MD, MS Diagnostic Imaging Reports Report Dictated Date/Time Dictated By Status May 11, 2017 Liz Ridley MD active 3:08pm [address] [address] ~DISCHARG E SUMMARY~ Patient: DIANN WONG MR #: [id number] : 1950 Age: 67 Sex: F MD: Liz Ridley MD Report #: [id number] Loc: NFP Dr montoya May 11, 2017 DIANN WONG [address] [facility] [address] A[address] [facility] [address] Dear Selma ([facility]), I looked up some information on the caus es of brittle nails and I learned the following. First of all, just getting o lder makes our nails more brittle. Secondly, sometimes there is an abnormal ity of the thyroid hormone level. You had your thyroid hormone checked in December and you had a normal level at that time. Thirdly, sometimes this is relate d to vitamin D deficiency and I see that your vitamin D level has been checked pe riodically over the last few years and that you are always low. On 03/16/2017 y our vitamin D level was 20, normal is 30-80, and I see that you were prescribe d the vitamin D 50,000 international units weekly for 3 months. After that I usually recommend that a person start on 2000 international units daily. I us ually recommend [employer] brand. Fourthly, sometimes dryness is affecting the nails, dryness of the skin and the hands also dries out the nails and they become more brittle. 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 It is also recommended to use a good nisha sturizer. The reference I checked said to use something containing alpha hydrox y acid or lanolin. I personally like a product called Working Hands. I get m ine in a little green tube and I bought mine on the internet on [employer]. Lastly, I found a good reference to the use of biotin; this is a type of a B vitamin. The recommendation is to get a biotin ultra formulation, 1 mg 2-3 times daily for 6 months. Of course it is recommended that we reduce trauma to the nails including biting of the nails, and it is also recommended to use a very fine nail file to file off any rough edges. I hope this information is helpful for y jethro. Thank you for allowing me to participate in your healthcare. Sincerely, Lzi Ridley M.D. [facility] [place] [facility] [place] jerardo COELLO:aliza Dictated By: Liz Ridley MD Signed By: Report Dictated Date/Time Dictated By Status September 10, 2018 Nata Roche MD active 12:44pm [place] [address] ~DISCHARG E SUMMARY~ Patient: DIANN WONG MR #: [id number] : 1950 Age: 68 Sex: F MD: Nata Roche MD Report #: [id number] Loc: NIM Dr montoya September 10, 2018 DIANN WONG [address] [place] [address] DR ALEMAN [address] [place] [id number] Dear Madhuri, ?? I hope this letter finds you well. This is to let you know results from your recent bone density test. As you may rem ember, your outside records indicated a past osteoporosis diagnosis, when previo usly checked at the [facility]. When I checked it here, you have osteopenia, wh ich is not quite as bad as osteoporosis, which is a good finding. You are not on any medication for your current osteoporosis/osteopenia, but do get adeq uate calcium and vitamin D. ?? I think the main thing would be to have you continue to get adequate weightbearing exercise, which stimulates the bone as a living crystal, and that would be the proper treatment. I would n ot make any other changes at this time. I am enclosing a copy for your review. ?? Very sincerely yours, Nata Roche MD Internal Medicine [facility] ? [facility]:aliza Enclosures: DEXA scan dated 09/06/2018. Dictated By: Nata Roche MD Signed By: Vital Signs Vital Reading Result Reference Range Collection Date/ Time Height 62 [in_i] November 26, 2021 9 :04am Height 157.48 cm November 26, 2021 9 :04am Weight 192.00 [lb_av] November 26, 2021 9 :04am Weight 87.30672 kg November 26, 2021 9 :04am Body Temperature 96.3 [degF] November 26, 2021 9:04am Body Temperature 35.72 Aliza November 26, 2021 9:04am BP Systolic 120 mm[Hg] November 26, 2021 9 :04am BP Diastolic 60 mm[Hg] November 26, 2021 9 :04am Heart Rate 80 /min November 26, 2021 9 :04am Respiratory rate 14 /min November 26, 2021 9:04am Body surface area 1.88 m2 November 26, 2021 9:04am BMI (Body Mass Index) 35.1 kg/m2 November 26, 2021 9:04am Advance Directives Advance Directive Response Recorded Date/Time Does Pt have Health Care No October 18 12:39pm Directive? Has patient completed a Yes November 28, 2021 1 2:35am Health Care Directive? Insurance Providers Guarantor Diann Wong Address [address] [facility] [address] Contact Info. 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 Type 1 diabetes with insulin pump failure: I will contact the [employer] rep to see if I can facilitate a replacement pump being sent out. I will also arrange for an educator from [employer] to meet with her. I have adjusted the sensitivity of her pump from 42 down to 25. We discussed that her sensitivity will be significantly less when her sugars are elevated and we discussed how to adjust her correction boluses for that. Plan of Treatment Instructions from visit on: 11/26/21 Please follow the provider's instructions as discussed during your visit. Future Tests Future scheduled test information is unavailable Pending Tests Pending diagnostic test information is unavailable Future Visits Future appointment information is unavailable Referrals to Other Providers Reason for Referral Start Provider Provider Contact Provider Address Referral Date Information Nata Roche Work Phone: [facility] [address] [facility] [phone] Future Procedures Procedure Name Scheduled Date CARD Echo W/ CF Dop STRESS Adenosine Regan Future Medications Future medication information is unavailable Patient Instructions Warfarin (By mouth) A-fib (Atrial Fibrillation) (DC) Vitamin K in Foods (GEN) Goals Ambulatory Goals Reach or maintain optimal well being.
[2021-12-30 14:30] VITALS: BP 147/84; PULSE 76; RESP 16; TEMP 36.3; O2SAT 96
[2021-12-30] MEDS: ACETAMINOPHEN 325 MG TABLET 650 MG PO (14:46)
[2021-12-30] MEDS: diphenhydrAMINE 25 MG CAPSULE PO (14:47)
[2021-12-30] MEDS: ABATACEPT IVPB (15:03)
[2021-12-30] MEDS: MALTOSE IVPB (15:03)
[2021-12-30] MEDS: TUBING PRIMARY IVPB (15:03)
[2021-12-30] MEDS: [UNRECOGNIZED DRUG - OTHER] IVPB (15:03)
== END 2021-12-30 23:59 | disposition home or self-care (01) ==
LOC: CCIC 14:07
PROVIDERS: PCP Internal Medicine; Visit Provider Clinical Nurse Specialist
DX: M06.9 Rheumatoid arthritis, unspecified (principal)
CPT/HCPCS: 96413; A9270; J0129

== ENCOUNTER 2022-01-27 13:59 | Outpatient (RCR) | payer MEDICARE, BC, MEDICAID, SELFPAY ==
--- NOTE | 2022-01-24 15:11 | ONC.NURNOTE ---
Authorization: User: Alisha Major Date: 12/02/21 07:04 Type: Eligibility Determination Note... Request received from [facility] for prior authorization of Nivolumab [id number]. Patient carries [employer] as primary insurance. Per [employer] Nivolumab has been approved for 480 Units(this equals 480 mg) per visit from 11/30/2021 through 12/02/2022. Authorization #[id number]
[2022-01-27 14:27] VITALS: BP 111/69; PULSE 74; RESP 16; TEMP 36.5; O2SAT 96
[2022-01-27] MEDS: diphenhydrAMINE 25 MG CAPSULE PO (14:42)
[2022-01-27] MEDS: ACETAMINOPHEN 325 MG TABLET 650 MG PO (14:43)
[2022-01-27] MEDS: ABATACEPT IVPB (15:09)
[2022-01-27] MEDS: MALTOSE IVPB (15:09)
[2022-01-27] MEDS: TUBING PRIMARY IVPB (15:09)
[2022-01-27] MEDS: [UNRECOGNIZED DRUG - OTHER] IVPB (15:09)
== END 2022-01-30 23:59 | disposition home or self-care (01) ==
LOC: CCIC 13:59
PROVIDERS: PCP Internal Medicine; Visit Provider Clinical Nurse Specialist
DX: M06.9 Rheumatoid arthritis, unspecified (principal)
CPT/HCPCS: 96365; A9270; J0129

== ENCOUNTER 2022-02-17 15:38 | Outpatient (REF) | payer MEDICARE, BC, SELFPAY ==
[2022-02-17 16:13] LABS: Basophils Absolute Auto 0.05 K/uL (0.00-0.30); Basophils Percent Auto 0.7 % (0.0-3.0); Eosinophils Absolute Auto 0.12 K/uL (0.00-0.50); Eosinophils Percent Auto 1.7 % (0.0-7.0); Hematocrit 37.2 % (33.0-51.0); Hemoglobin* 12.6 gm/dL (12.0-16.0); Lymphocytes Absolute Auto 1.91 K/uL (0.90-2.90); Lymphocytes Percent Auto 26.7 % (20-44); Mean Corpuscular HGB Conc 34 gm/dL (32-36); Mean Corpuscular Hemoglobin 34 pg (26-34); Mean Corpuscular Volume 102 fL (80-100); Monocytes Percent Auto 9.6 % (0.0-11.0); Neutrophils Absolute Auto 4.39 K/uL (1.7-7.0); Neutrophils Percent Auto 61.3 % (42.0-72.0); Platelet Count* 268 K/uL (140-440); RDW Coefficient of Variation % 15.2 % (11.5-15.5); Red Blood Count 3.66 m/uL (4.00-5.20); White Blood Count* 7.16 K/uL (4.50-11.00)
[2022-02-17 16:18] LABS: Slide Review Reflex No
[2022-02-17 16:22] LABS: Aspartate Amino Transferase* 33 U/L (12-35); Creatinine* 0.7 mg/dL (0.5-1.5); Estimated Glomerular Filt Rate 91 ml/min
[2022-02-17 16:26] LABS: C Reactive Protein* < 0.5 mg/dL (0.5-1.0)
[2022-02-17 17:10] LABS: Erythrocyte SedimentationRate* 34 mm/hr (2-20)
== END 2022-02-17 15:39 | disposition home or self-care (01) ==
LOC: NPINS 15:38
PROVIDERS: PCP Internal Medicine
DX: Z00.01 Encounter for general adult medical examination with abnormal findings (principal); E10.9 Type 1 diabetes mellitus without complications; E55.9 Vitamin D deficiency, unspecified; I48.0 Paroxysmal atrial fibrillation; M81.0 Age-related osteoporosis without current pathological fracture; G47.33 Obstructive sleep apnea (adult) (pediatric); N39.46 Mixed incontinence; E66.9 Obesity, unspecified; Z79.4 Long term (current) use of insulin; G31.84 Mild cognitive impairment of uncertain or unknown etiology; M06.9 Rheumatoid arthritis, unspecified; D75.89 Other specified diseases of blood and blood-forming organs; F33.41 Major depressive disorder, recurrent, in partial remission
CPT/HCPCS: 80048; 80061; 82043; 82565; 82570; 84450; 85025; 85651; 86140

== ENCOUNTER 2022-03-29 10:00 | Outpatient (RCR) | payer BC, MEDICARE, SELFPAY, MEDICAID ==
--- NOTE | 2022-01-11 12:45 | PT.OPEX ---
PT [place] Outpatient Eval PT [facility] Outpatient Eval Start: 01/10/22 13:56 Freq: Status: Active Protocol: Document 01/11/22 06:58 COBY (Rec: 01/11/22 07:05 COBY [id number]) E-Signed By Genesis Tan PT Physical Therapy Outpatient Evaluation Insurance Information Recert Due Date 04/07/22 Insurance Name Medicare B Medical Diagnosis S/P Stroke with Secondary Lt sided Hemiparesis and Lt sided Facial Droop Impaired ambulation Eval and Rx Referring MD Lawrence Tidwell suffered a stroke on . A brain MRI and CT of Head and Neck were completed for DX. She was stabilized and transfered to [place] for in-house rehabilitation. She was there for about 10 days and at [facility] terminal carman care until November 21 or so. [place] home. Using walker, which she had only been using if walking for more than 45 min or so (fairs, reunion gatherings, etc). We live in apartments on 2nd floor with elevator, live with her . No stairs required, but she can A/D stairs if required. She reports having some shoulder pain, but not terrible. Back to sleeping as before (get up 2-3 x to use bathroom). Denies N/T. Denies any falls since the stroke. Standing tolerance of 5 min, walk tolerance of 10 min with walking. Sitting is fine. Able to get in/out of cars. Careful with Lt leg. 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 Before the stroke I did all of our house keeping , grocery shopping and meal prep, laundry. Now, my is in the bathroom with me when I shower for safety, have grab bars. I can cook but just simple 3 ingredient meals . I am much more tired and rest/nap much more than before . They added a bar to help me get out of the bed so I am much more IND. Overall, I feel like I am about 75% my prior abilities. Primary difference is I get tired so fast, not vacuuming or dusting yet. Cannot stand safely, don't trust myself without the walker for more than 3-4 min or short 10-20 feet walking. Pain Comments Some dull pain at back of my neck, primarily with laying down to rest/pressure. No real RASHID. Tylenol helps. Some Lt shoulder pain and Lt hand pain (hand pain was present before the stroke) Date of Last Physician Visit 12/23/21 Current Work Status Retired Precautions Treatment Precautions/Contraindications CA, Diabetes, Arthritis, depression, heart condition, metal implants (stapes of ear) Weight Bearing Status Full Weight Bearing Objective Range of Motion grossly WFL with exception of trunk EXT 50% of normal. Feel tight not pain. hip EXT 0-3 deg Strength Rt sided grossly 4+/5 and Lt side grossly 4-/5 Swelling Monika LL use of compression socks, she has used them on/ off for many years, not from the stroke Palpation Hypertonicity at monika UT and report of discomfort at monika UB . She has been seen in PT for this in the past. No shoulder joint pain reported. Balance & Gait tandom stance average 7 sec SLS average: Rt Posture Slight FF at trunk and hips. Sensation/Reflexes Normal and symmetric monika patellar and biceps DTR Other/Pertinent Objective Sit to stand without use of UE on chair arms Functional Test Performed & Score LOMAS 48/56 Assessment Assessment/Impression 71 yo who suffered a stroke on 10/27/21. She was in a [facility] rehab facility and then [facility]. She has been home about 6 weeks. She arrived to dept via IND ambulation with use of walker. She ambulates with good stride length, slightly reduced heel strike, toe push off and occasional Lt toe catch. She can sit to stand without use of arms. Can NBOS with EC for 60 sec. SLS only 2 second average Rt leg and 1 sec on Lt leg. Reduced walking tolerance, fatiques quickly with ex (rests for a few min after 10 min of task completion). Her LOMAS score was 48/56. She is IND in bed mobility, good log rolling. She has weakness average of 4+ /5 on Rt side and 4-/5 on Lt UE/LE. She ambulates well with WW, but can ambulate for short durations (5 min) wihtout walker with only occasional reaching for brand. She can turn a full [place] of [place] slowly. A/D flight of 5 steps X 2 reps with use of hand rail and step to gait with dominant Rt side. She will benefit from cont skilled physical therapy to provide education in appropriate strength and endurance tasks, gait skills and balance/prop. Thank you for this referral. Plan of Care Rehabilitation Potential Good Physical Therapy Goals In 4-6 visits, Diann will be able to: 1. IND in/out of car without assistance in Lt leg lift 2. Shower IND with increased safety, feel comfortable without in room with her. 3. Increased standing tolerance with light UE use to resume dusting, meal prep up to 20 min In 10-12 visits, Diann will be able to: 1. A/D flight of 10 steps with use of just one hand railing and reciprocal pattern 2. Walk up to 30 min with least necessary AD, absence of toe catch 3. Resume vacuuming and reaching overhead to put away laundry 4. Report increased activity level to at least 90% PLOF ( currently at 75%) Coordination/Communication With Referral Source Treatment Plan/Direct Interventions Gait Training,Neuromuscular Re -ed,Therapeutic Activities, Therapeutic Exercises Frequency/Duration 1X/Wk for 12 visits Patient Will Be Discharged From Therapy Completion of LTG(s),Skills Plateau,Independent w/HEP, Independently Progressing Evaluation Billing Complexity Moderate Certification Information Initial Certification Date 01/11/22 Ending Certification Date 04/07/22 Document 01/11/22 10:21 CLK (Rec: 01/11/22 10:27 CLK [id number]) E-Signed By Genesis Tan, PT Physical Therapy Outpatient Evaluation Insurance Information Recert Due Date 04/07/22 Insurance Name Medicare B Medical Diagnosis S/P Stroke with Secondary Lt sided Hemiparesis and Lt sided Facial Droop Impaired ambulation Eval and Rx Referring MD Lawrence Mcdonough Diann suffered a stroke on . A brain MRI and CT of Head and Neck were completed for DX. She was stabilized and transfered to [place] for in-house rehabilitation. She was there for about 10 days and at [facility] detention care until November 21 or so. DC home. Using walker, which she had only been using if walking for more than 45 min or so (fairs, reunion gatherings, etc). We live in apartments on 2nd floor with elevator, live with her . No stairs required, but she can A/D stairs if required. She reports having some shoulder pain, but not terrible. Back to sleeping as before (get up 2-3 x to use bathroom). Denies N/T. Denies any falls since the stroke. Standing tolerance of 5 min, walk tolerance of 10 min with walking. Sitting is fine. Able to get in/out of cars. Careful with Lt leg. 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 Before the stroke I did all of our house keeping , grocery shopping and meal prep, laundry. Now, my is in the bathroom with me when I shower for safety, have grab bars. I can cook but just simple 3 ingredient meals . I am much more tired and rest/nap much more than before . They added a bar to help me get out of the bed so I am much more IND. Overall, I feel like I am about 75% my prior abilities. Primary difference is I get tired so fast, not vacuuming or dusting yet. Cannot stand safely, don't trust myself without the walker for more than 3-4 min or short 10-20 feet walking. Pain Comments Some dull pain at back of my neck, primarily with laying down to rest/pressure. No real RASHID. Tylenol helps. Some Lt shoulder pain and Lt hand pain (hand pain was present before the stroke) Date of Last Physician Visit 12/23/21 Current Work Status Retired Precautions Treatment Precautions/Contraindications CA, Diabetes, Arthritis, depression, heart condition, metal implants (stapes of ear) Weight Bearing Status Full Weight Bearing Objective Range of Motion grossly WFL with exception of trunk EXT 50% of normal. Feel tight not pain. hip EXT 0-3 deg Strength Rt sided grossly 4+/5 and Lt side grossly 4-/5 Swelling Monika LL use of compression socks, she has used them on/ off for many years, not from the stroke Palpation Hypertonicity at monika UT and report of discomfort at monika UB . She has been seen in PT for this in the past. No shoulder joint pain reported. Balance & Gait tandom stance average 7 sec SLS average: Rt Posture Slight FF at trunk and hips. Sensation/Reflexes Normal and symmetric monika patellar and biceps DTR Other/Pertinent Objective Sit to stand without use of UE on chair arms Functional Test Performed & Score LOMAS 48/56 Assessment Assessment/Impression 71 yo who suffered a stroke on 10/27/21. She was in a [facility] rehab facility and then [facility]. She has been home about 6 weeks. She arrived to dept via IND ambulation with use of walker. She ambulates with good stride length, slightly reduced heel strike, toe push off and occasional Lt toe catch. She can sit to stand without use of arms. Can NBOS with EC for 60 sec. SLS only 2 second average Rt leg and 1 sec on Lt leg. Reduced walking tolerance, fatiques quickly with ex (rests for a few min after 10 min of task completion). Her LOMAS score was 48/56. She is IND in bed mobility, good log rolling. She has weakness average of 4+ /5 on Rt side and 4-/5 on Lt UE/LE. She ambulates well with WW, but can ambulate for short durations (5 min) wihtout walker with only occasional reaching for brand. She can turn a full [place] of [place] slowly. A/D flight of 5 steps X 2 reps with use of hand rail and step to gait with dominant Rt side. She will benefit from cont skilled physical therapy to provide education in appropriate strength and endurance tasks, gait skills and balance/prop. Thank you for this referral. Plan of Care Rehabilitation Potential Good Physical Therapy Goals In 4-6 visits, Diann will be able to: 1. IND in/out of car without assistance in Lt leg lift 2. Shower IND with increased safety, feel comfortable without in room with her. 3. Increased standing tolerance with light UE use to resume dusting, meal prep up to 20 min In 10-12 visits, Diann will be able to: 1. A/D flight of 10 steps with use of just one hand railing and reciprocal pattern 2. Walk up to 30 min with least necessary AD, absence of toe catch 3. Resume vacuuming and reaching overhead to put away laundry 4. Report increased activity level to at least 90% PLOF ( currently at 75%) Coordination/Communication With Referral Source Treatment Plan/Direct Interventions Gait Training,Neuromuscular Re -ed,Therapeutic Activities, Therapeutic Exercises Frequency/Duration 1X/Wk for 12 visits Patient Will Be Discharged From Therapy Completion of LTG(s),Skills Plateau,Independent w/HEP, Independently Progressing Evaluation Billing Untimed Code Treatment Minutes 35 Complexity Moderate Certification Information Initial Certification Date 01/11/22 Ending Certification Date 04/07/22
--- NOTE | 2022-01-12 09:05 | PT.OPEX ---
PT [place] Outpatient Eval PT [facility] Outpatient Eval Start: 01/10/22 13:56 Freq: Status: Active Protocol: Document 01/11/22 06:58 COBY (Rec: 01/11/22 07:05 COBY [id number]) E-Signed By Genesis Tan PT Physical Therapy Outpatient Evaluation Insurance Information Recert Due Date 04/07/22 Insurance Name Medicare B Medical Diagnosis S/P Stroke with Secondary Lt sided Hemiparesis and Lt sided Facial Droop Impaired ambulation Eval and Rx Referring MD Lawrence Tidwell suffered a stroke on . A brain MRI and CT of Head and Neck were completed for DX. She was stabilized and transfered to [place] for in-house rehabilitation. She was there for about 10 days and at [facility]erman care until November 21 or so. DC home. Using walker, which she had only been using if walking for more than 45 min or so (fairs, reunion gatherings, etc). We live in apartments on 2nd floor with elevator, live with her . No stairs required, but she can A/D stairs if required. She reports having some shoulder pain, but not terrible. Back to sleeping as before (get up 2-3 x to use bathroom). Denies N/T. Denies any falls since the stroke. Standing tolerance of 5 min, walk tolerance of 10 min with walking. Sitting is fine. Able to get in/out of cars. Careful with Lt leg. 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 Before the stroke I did all of our house keeping , grocery shopping and meal prep, laundry. Now, my is in the bathroom with me when I shower for safety, have grab bars. I can cook but just simple 3 ingredient meals . I am much more tired and rest/nap much more than before . They added a bar to help me get out of the bed so I am much more IND. Overall, I feel like I am about 75% my prior abilities. Primary difference is I get tired so fast, not vacuuming or dusting yet. Cannot stand safely, don't trust myself without the walker for more than 3-4 min or short 10-20 feet walking. Pain Comments Some dull pain at back of my neck, primarily with laying down to rest/pressure. No real RASHID. Tylenol helps. Some Lt shoulder pain and Lt hand pain (hand pain was present before the stroke) Date of Last Physician Visit 12/23/21 Current Work Status Retired Precautions Treatment Precautions/Contraindications CA, Diabetes, Arthritis, depression, heart condition, metal implants (stapes of ear) Weight Bearing Status Full Weight Bearing Objective Range of Motion grossly WFL with exception of trunk EXT 50% of normal. Feel tight not pain. hip EXT 0-3 deg Strength Rt sided grossly 4+/5 and Lt side grossly 4-/5 Swelling Mon[place] use of compression socks, she has used them on/ off for many years, not from the stroke Palpation Hypertonicity at monika UT and report of discomfort at monika [facility] . She has been seen in PT for this in the past. No shoulder joint pain reported. Balance & Gait tandom stance average 7 sec SLS average: Rt Posture Slight FF at trunk and hips. Sensation/Reflexes Normal and symmetric monika patellar and biceps DTR Other/Pertinent Objective Sit to stand without use of UE on chair arms Functional Test Performed & Score LOMAS 48/56 Assessment Assessment/Impression 71 yo who suffered a stroke on 10/27/21. She was in a [facility] rehab facility and then [facility]. She has been home about 6 weeks. She arrived to dept via IND ambulation with use of walker. She ambulates with good stride length, slightly reduced heel strike, toe push off and occasional Lt toe catch. She can sit to stand without use of arms. Can NBOS with EC for 60 sec. SLS only 2 second average Rt leg and 1 sec on Lt leg. Reduced walking tolerance, fatiques quickly with ex (rests for a few min after 10 min of task completion). Her LOMAS score was 48/56. She is IND in bed mobility, good log rolling. She has weakness average of 4+ /5 on Rt side and 4-/5 on Lt UE/LE. She ambulates well with WW, but can ambulate for short durations (5 min) wihtout walker with only occasional reaching for brand. She can turn a full [place] slowly. A/D flight of 5 steps X 2 reps with use of hand rail and step to gait with dominant Rt side. She will benefit from cont skilled physical therapy to provide education in appropriate strength and endurance tasks, gait skills and balance/prop. Thank you for this referral. Plan of Care Rehabilitation Potential Good Physical Therapy Goals In 4-6 visits, Diann will be able to: 1. IND in/out of car without assistance in Lt leg lift 2. Shower IND with increased safety, feel comfortable without in room with her. 3. Increased standing tolerance with light UE use to resume dusting, meal prep up to 20 min In 10-12 visits, Diann will be able to: 1. A/D flight of 10 steps with use of just one hand railing and reciprocal pattern 2. Walk up to 30 min with least necessary AD, absence of toe catch 3. Resume vacuuming and reaching overhead to put away laundry 4. Report increased activity level to at least 90% PLOF ( currently at 75%) Coordination/Communication With Referral Source Treatment Plan/Direct Interventions Gait Training,Neuromuscular Re -ed,Therapeutic Activities, Therapeutic Exercises Frequency/Duration 1X/Wk for 12 visits Patient Will Be Discharged From Therapy Completion of LTG(s),Skills Plateau,Independent w/HEP, Independently Progressing Evaluation Billing Complexity Moderate Certification Information Initial Certification Date 01/11/22 Ending Certification Date 04/07/22 Document 01/11/22 10:21 CLK (Rec: 01/11/22 10:27 CLK [id number]) E-Signed By Genesis Tan, PT Physical Therapy Outpatient Evaluation Insurance Information Recert Due Date 04/07/22 Insurance Name Medicare B Medical Diagnosis S/P Stroke with Secondary Lt sided Hemiparesis and Lt sided Facial Droop Impaired ambulation Eval and Rx Referring MD Lawrence Mcdonough Diann suffered a stroke on . A brain MRI and CT of Head and Neck were completed for DX. She was stabilized and transfered to [place] for in-house rehabilitation. She was there for about 10 days and at [facility] retirement care until November 21 or so. DC home. Using walker, which she had only been using if walking for more than 45 min or so (fairs, reunion gatherings, etc). We live in apartments on 2nd floor with elevator, live with her . No stairs required, but she can A/D stairs if required. She reports having some shoulder pain, but not terrible. Back to sleeping as before (get up 2-3 x to use bathroom). Denies N/T. Denies any falls since the stroke. Standing tolerance of 5 min, walk tolerance of 10 min with walking. Sitting is fine. Able to get in/out of cars. Careful with Lt leg. 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 Before the stroke I did all of our house keeping , grocery shopping and meal prep, laundry. Now, my is in the bathroom with me when I shower for safety, have grab bars. I can cook but just simple 3 ingredient meals . I am much more tired and rest/nap much more than before . They added a bar to help me get out of the bed so I am much more IND. Overall, I feel like I am about 75% my prior abilities. Primary difference is I get tired so fast, not vacuuming or dusting yet. Cannot stand safely, don't trust myself without the walker for more than 3-4 min or short 10-20 feet walking. Pain Comments Some dull pain at back of my neck, primarily with laying down to rest/pressure. No real RASHID. Tylenol helps. Some Lt shoulder pain and Lt hand pain (hand pain was present before the stroke) Date of Last Physician Visit 12/23/21 Current Work Status Retired Precautions Treatment Precautions/Contraindications CA, Diabetes, Arthritis, depression, heart condition, metal implants (stapes of ear) Weight Bearing Status Full Weight Bearing Objective Range of Motion grossly WFL with exception of trunk EXT 50% of normal. Feel tight not pain. hip EXT 0-3 deg Strength Rt sided grossly 4+/5 and Lt side grossly 4-/5 Swelling Mon[place] LL use of compression socks, she has used them on/ off for many years, not from the stroke Palpation Hypertonicity at monika [place] and report of discomfort at monika [facility] . She has been seen in PT for this in the past. No shoulder joint pain reported. Balance & Gait tandom stance average 7 sec SLS average: Rt Posture Slight FF at trunk and hips. Sensation/Reflexes Normal and symmetric monika patellar and biceps DTR Other/Pertinent Objective Sit to stand without use of UE on chair arms Functional Test Performed & Score LOMAS 48/56 Assessment Assessment/Impression 71 yo who suffered a stroke on 10/27/21. She was in a [facility] rehab facility and then [facility]. She has been home about 6 weeks. She arrived to dept via IND ambulation with use of walker. She ambulates with good stride length, slightly reduced heel strike, toe push off and occasional Lt toe catch. She can sit to stand without use of arms. Can NBOS with EC for 60 sec. SLS only 2 second average Rt leg and 1 sec on Lt leg. Reduced walking tolerance, fatiques quickly with ex (rests for a few min after 10 min of task completion). Her LOMAS score was 48/56. She is IND in bed mobility, good log rolling. She has weakness average of 4+ /5 on Rt side and 4-/5 on Lt UE/LE. She ambulates well with WW, but can ambulate for short durations (5 min) wihtout walker with only occasional reaching for brand. She can turn a full [place] slowly. A/D flight of 5 steps X 2 reps with use of hand rail and step to gait with dominant Rt side. She will benefit from cont skilled physical therapy to provide education in appropriate strength and endurance tasks, gait skills and balance/prop. Thank you for this referral. Plan of Care Rehabilitation Potential Good Physical Therapy Goals In 4-6 visits, Diann will be able to: 1. IND in/out of car without assistance in Lt leg lift 2. Shower IND with increased safety, feel comfortable without in room with her. 3. Increased standing tolerance with light UE use to resume dusting, meal prep up to 20 min In 10-12 visits, Diann will be able to: 1. A/D flight of 10 steps with use of just one hand railing and reciprocal pattern 2. Walk up to 30 min with least necessary AD, absence of toe catch 3. Resume vacuuming and reaching overhead to put away laundry 4. Report increased activity level to at least 90% PLOF ( currently at 75%) Coordination/Communication With Referral Source Treatment Plan/Direct Interventions Gait Training,Neuromuscular Re -ed,Therapeutic Activities, Therapeutic Exercises Frequency/Duration 1X/Wk for 12 visits Patient Will Be Discharged From Therapy Completion of LTG(s),Skills Plateau,Independent w/HEP, Independently Progressing Evaluation Billing Untimed Code Treatment Minutes 35 Complexity Moderate Certification Information Initial Certification Date 01/11/22 Ending Certification Date 04/07/22
--- NOTE | 2022-01-12 14:52 | PT.OPDNX ---
[place] Outpatient Daily Note PT [facility] Outpatient Daily Note Start: 01/10/22 13:56 Freq: Status: Active Protocol: Document 01/11/22 10:21 CLK (Rec: 01/11/22 10:27 COBY [id number]) E-Signed By Genesis Tan, PT PT OP Daily Progress Note Visit Information Note Type Daily Note Visit Number 1 Insurance Information Recert Due Date 04/07/22 Insurance Name Medicare B Medical Diagnosis S/P Stroke with Secondary Lt sided Hemiparesis and Lt sided Facial Droop Impaired ambulation Eval and Rx Referring MD Lawrence Tidwell suffered a stroke on . A brain MRI and CT of Head and Neck were completed for DX. She was stabilized and transfered to [place] for in-house rehabilitation. She was there for about 10 days and at [facility] jail care until November 21 or so. [place] home. Using walker, which she had only been using if walking for more than 45 min or so (fairs, reunion gatherings, etc). We live in apartments on 2nd floor with elevator, live with her . No stairs required, but she can A/D stairs if required. She reports having some shoulder pain, but not terrible. Back to sleeping as before (get up 2-3 x to use bathroom). Denies N/T. Denies any falls since the stroke. Standing tolerance of 5 min, walk tolerance of 10 min with walking. Sitting is fine. Able to get in/out of cars. Careful with Lt leg. 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 Before the stroke I did all of our house keeping , grocery shopping and meal prep, laundry. Now, my is in the bathroom with me when I shower for safety, have grab bars. I can cook but just simple 3 ingredient meals . I am much more tired and rest/nap much more than before . They added a bar to help me get out of the bed so I am much more IND. Overall, I feel like I am about 75% my prior abilities. Primary difference is I get tired so fast, not vacuuming or dusting yet. Cannot stand safely, don't trust myself without the walker for more than 3-4 min or short 10-20 feet walking. Pain Comments Some dull pain at back of my neck, primarily with laying down to rest/pressure. No real RASHID. Tylenol helps. Some Lt shoulder pain and Lt hand pain (hand pain was present before the stroke) Precautions Treatment Precautions/Contraindications CA, Diabetes, Arthritis, depression, heart condition, metal implants (stapes of ear) Weight Bearing Status Full Weight Bearing Home Exercise Home Exercise Comments She reports/and demonstrates, HEP form PT in [facility] of: -standing with repetative arm use (sorting, reaching) -walk around center is of kitchen forward and backward' -Dbl heel raises -forward and side lunges -seated march in place and knee EXT -side to side weight shift in stance Objective Other/Pertinent Objective Sit to stand without use of UE on chair arms Functional Test Performed & Score LOMAS 48/56 Patient Instructed in Risks/Benefits Yes Therapeutic Exercise Therapeutic Exercise Minutes (minutes) 25 Therapeutic Exercise: To Restore We completed her above noted Functional Status current HEP , with additions for HEP and HO given for: -supine hip FF SLR X 5 reps -supine bridge wtih 3 sec HOLD X 5 reps -sdly hip ABD with OTB X 5 reps -sdly clam with OTB X 5 reps Gait & Stair Training Gait & Stair Training Comments Amb with WW, able to A/D flight of 5 steps with use of railing and step to gait. Treatment Minutes Untimed Code Treatment Minutes 35 Timed Code Treatment Minutes 25 Total Treatment Time 60 Billing Units Therapeutic Exercise Units 2 Assessment/Impression Assessment/Impression 71 yo who suffered a stroke on 10/27/21. She was in a [facility] rehab facility and then [facility]. She has been home about 6 weeks. She arrived to dept via IND ambulation with use of walker. She ambulates with good stride length, slightly reduced heel strike, toe push off and occasional Lt toe catch. She can sit to stand without use of arms. Can NBOS with EC for 60 sec. SLS only 2 second average Rt leg and 1 sec on Lt leg. Reduced walking tolerance, fatiques quickly with ex (rests for a few min after 10 min of task completion). Her LOMAS score was 48/56. She is IND in bed mobility, good log rolling. She has weakness average of 4+ /5 on Rt side and 4-/5 on Lt UE/LE. She ambulates well with WW, but can ambulate for short durations (5 min) wihtout walker with only occasional reaching for brand. She can turn a full [place] slowly. A/D flight of 5 steps X 2 reps with use of hand rail and step to gait with dominant Rt side. She will benefit from cont skilled physical therapy to provide education in appropriate strength and endurance tasks, gait skills and balance/prop. Thank you for this referral. Plan of Care Physical Therapy Goals In 4-6 visits, Diann will be able to: 1. IND in/out of car without assistance in Lt leg lift 2. Shower IND with increased safety, feel comfortable without in room with her. 3. Increased standing tolerance with light UE use to resume dusting, meal prep up to 20 min In 10-12 visits, Diann will be able to: 1. A/D flight of 10 steps with use of just one hand railing and reciprocal pattern 2. Walk up to 30 min with least necessary AD, absence of toe catch 3. Resume vacuuming and reaching overhead to put away laundry 4. Report increased activity level to at least 90% PLOF ( currently at 75%) Daily Plan of Care Continue per POC Daily Plan of Care Comments Progress with gait, prop/ balance and functional strength , kymberly Lt side Recertification Information Clinical Certification # #[id number] Patient's H.I.C.N.# # Initial Certification Date 01/11/22 I Certify That I Have Established All Therapy Services/Plan Physician Signature Shows Agreement Dates & Medical Necessity Physician Comment/Change Comment or Changes Physician Signature & Date Please Sign/Date Here Physician NPI Number #
== END 2022-05-11 11:07 | disposition home or self-care (01) ==
PROVIDERS: PCP Internal Medicine; Visit Provider Internal Medicine
DX: I69.354 Hemiplegia and hemiparesis following cerebral infarction affecting left non-dominant side (principal); Z51.89 Encounter for other specified aftercare
CPT/HCPCS: 97110; 97162

== ENCOUNTER 2022-03-29 14:00 | Outpatient (RCR) | payer BC, MEDICARE, MEDICAID, SELFPAY ==
[2022-03-01 13:53] VITALS: BP 112/71; PULSE 90; RESP 16; TEMP 36; O2SAT 95
[2022-03-01] MEDS: ACETAMINOPHEN 325 MG TABLET 650 MG PO (14:35)
[2022-03-01] MEDS: diphenhydrAMINE 25 MG CAPSULE PO (14:35)
[2022-03-01] MEDS: [UNRECOGNIZED DRUG - OTHER] IVPB (14:57)
[2022-03-01] MEDS: ABATACEPT IVPB (14:57)
[2022-03-01] MEDS: TUBING PRIMARY IVPB (14:57)
[2022-03-01] MEDS: MALTOSE IVPB (14:57)
--- NOTE | 2022-03-23 15:41 | ONC.NURNOTE ---
traffic i manager called stating pt had a change in insurance, pt has an infusion scheduled next week. Agriculture Laborer instructed RN to have pt or family fax or bring in copy of insurance care so that we can check to see if a PA is needed.
--- NOTE | 2022-03-25 12:05 | URNOTE ---
Addendum entered by Flor Urrutia RN 03/25/22 12:36: Note written in error. Addendum entered by Flor Urrutia RN 03/25/22 12:24: Authorization #[id number] from [employer]. Original Note: Request received for authorization for Abatacept ([id number]). Prior Authorization per [facility] ([facility]) Approved Orencia (Abatacept) 250mg vial, for 03/25/2022-03/24/2023 for Dx rheumatoid arthritis.
--- NOTE | 2022-03-25 14:27 | URNOTE ---
Request received from [facility] for prior authorization of Abatacept ([id number]). Per insurance [employer] plus patient is Approved for Orencia (Abatacept) from 03/25/2022- 03/24/2023. Authorization #[id number]
--- NOTE | 2022-03-25 15:06 | URNOTE ---
Request received from [facility] for prior authorization of Abatacept ([id number]). Per insurance [employer] plus patient is Approved for Orencia (Abatacept) from 03/25/2022- 03/24/2023. Authorization #[id number]
[2022-03-29 14:01] VITALS: BP 138/83; PULSE 83; RESP 16; TEMP 35.8; O2SAT 96
[2022-03-29] MEDS: diphenhydrAMINE 25 MG CAPSULE PO (14:17)
[2022-03-29] MEDS: ACETAMINOPHEN 325 MG TABLET 650 MG PO (14:17)
[2022-03-29] MEDS: TUBING PRIMARY IVPB (14:48)
[2022-03-29] MEDS: MALTOSE IVPB (14:48)
[2022-03-29] MEDS: [UNRECOGNIZED DRUG - OTHER] IVPB (14:48)
[2022-03-29] MEDS: ABATACEPT IVPB (14:48)
--- NOTE | 2022-04-22 08:33 | ONC.NURNOTE ---
Received notes from her Rheumatology clinic discontinuing Orencia and she will start injections at home of Methotrexate and Actemra and labs will be monitored per clinic.
== END 2022-08-28 23:59 | disposition home or self-care (01) ==
LOC: CCIC 14:00
PROVIDERS: PCP Internal Medicine; Referring Provider Internal Medicine; Visit Provider Clinical Nurse Specialist
DX: M06.9 Rheumatoid arthritis, unspecified (principal)
CPT/HCPCS: 96365; 97110; A9270; J0129

== ENCOUNTER 2022-08-04 10:39 | Observation (INO) | payer BC, SELFPAY ==
[2022-08-04] VITALS (25 sets, daily range): BP systolic 115–157; BP diastolic 60–104; PULSE 64–86; RESP 14–20; TEMP 35.7–36.8; O2SAT 92–97; BMI 34.8; BMI 36.5
--- NOTE | 2022-08-04 11:19 | ED_ITS ---
HPI - General Adult General Time Seen by Provider: 11:19 Date Seen: 08/04/22 Chief complaint: Altered Mental Status Stated complaint: Uncontrolled Glucose, Type 1 Time Seen by Provider: 08/04/22 11:18 Source: patient, family, RN notes reviewed and other ( Home health nurse was called and reviewed her concerns with nursing staff.) Mode of arrival: ambulatory Limitations: no limitations History of Present Illness HPI narrative: Gabi is a 72-year-old female accompanied by her into the ER with concerns for overall decline in inability to stay at home. Her home health nurse who visits once a week feels she is not safe at home anymore. Patient is a type 1 diabetic and has been so since age 29. Historically her control has been excellent. Her notes that she is the model diabetic care. She has an insulin pump and glucose monitor. Her sugars have been quite labile, she has been having them up into the 4 and 600s. She fell about a week ago on carpet, was just getting out of her chair. Did not hit her head and nothing was injured. She felt like her left leg just gave way. 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 They wonder she is maybe having some mini strokes at home. She has been having increased difficulty managing her diabetes, attempting to reset her pump herself. Her feels that ultimately she does get it right but there are concerns with this. He does not feel that he can help her or safely manage this. She initially went into rehabilitation after her stroke but they both agreed that they are going to try it at home and she was subsequently discharged to home. He is not feeling safe caring for her anymore. She has underlying rheumatoid arthritis. She states at night both of her legs just ache, not any specific joint. She has been feeling more short of breath as of late. They note more confusion at times. At times she states she feels a bit panicky but it does tend to go away. Related Data Home Medications Medication Instructions Recorded Confirmed acetaminophen 500 mg capsule 500 mg PO Q4-6H PRN 12/28/21 08/04/22 folic acid 1 mg tablet 3 mg PO DAILY 12/28/21 08/04/22 methotrexate sodium 2.5 mg tablet 10 mg PO QWEEK 12/28/21 08/04/22 blood sugar diagnostic (Contour #10 ea 03/03/22 06/28/22 Next Test Strips) pen needle, diabetic 31 gauge x #1,200 ea 03/03/22 06/28/22 5/16 (Droplet Pen Needle) alendronate 70 mg tablet 70 mg PO QWEEK 06/28/22 08/04/22 multivitamin with folic acid 400 1 tab PO QAM 06/28/22 08/04/22 mcg tablet (Tab-A-Imer) insulin lispro 100 unit/mL 55 unit subcut DAILY 08/04/22 08/04/22 subcutaneous solution pravastatin 40 mg tablet 40 mg PO HS 08/04/22 08/04/22 solifenacin 5 mg tablet (Vesicare) 5 mg PO DAILY 08/04/22 08/04/22 tocilizumab 162 mg/0.9 mL 162 mg subcut Q14D 08/04/22 08/04/22 subcutaneous syringe (Actemra) Previous Rx's Medication Instructions Recorded apixaban 2.5 mg tablet 2.5 mg PO BID #180 tabs 03/08/22 aspirin 81 mg tablet,delayed 81 mg PO DAILY #90 tabs 03/08/22 release (Adult Low Dose Aspirin) cholecalciferol (vitamin D3) 25 1,000 unit PO DAILY #90 caps 03/08/22 mcg (1,000 unit) capsule flecainide 50 mg tablet 50 mg PO Q12H #180 tabs 03/08/22 losartan 50 mg tablet 50 mg PO DAILY #90 tabs 03/08/22 sertraline 100 mg tablet 100 mg PO DAILY #90 tabs 03/08/22 blood-glucose sensor (Dexcom G6 #9 ea 03/09/22 Sensor device) blood-glucose transmitter (Dexcom #1 ea 03/09/22 G6 Transmitter device) isai.stocking,knee,reg,smal #6 ea 03/15/22 (T.E.D. Knee [id number]-Afuuphk misc) incontinence pad, liner, disp #60 ea 03/15/22 varenicline 1 mg tablet (Chantix) 1 mg PO BID #56 tabs 06/28/22 Allergies Allergy/AdvReac Type Severity Reaction Status Date / Time Sulfa (Sulfonamide Allergy Intermediate Rash Verified 08/04/22 10:56 Antibiotics) atorvastatin Allergy Mild Rash Verified 08/04/22 10:56 lisinopril Allergy Mild Rash Verified 08/04/22 10:56 nitrofurantoin Allergy Mild Rash Verified 08/04/22 10:56 rosuvastatin Allergy Mild Rash Verified 08/04/22 10:56 simvastatin Allergy Mild Rash Verified 08/04/22 10:56 Review of Systems Status of ROS: Reports: 10 or more systems reviewed and unremarkable except as noted in History and below PFSH PFSH Surgical History History of colonoscopy (2017) Status post cataract extraction Family History Father Colon cancer Sister Colon cancer, Onset Age: 70 Brother Colon cancer Other Family history of colon cancer Social History Narrative: , nonsmoker, retired Smoking Status: Former smoker What tobacco products do you use: cigarettes Smoking quit date/years: <= 15 years ago Do you use any of these nicotine containing products: None Second hand tobacco smoke exposure: No How often do you have a drink containing alcohol: monthly or less How many standard drinks containing alcohol do you have on a typical day: 1 or 2 AUDIT-C Alcohol total score: 1 Non-prescribed substance use: denies use Little interest or pleasure in doing things: nearly every day Feeling down, depressed, or hopeless: more than half the days service: No Exam Const: Vital Signs, click to edit/add: Vital Signs - 24 hr 08/04/22 11:01 08/04/22 12:51 08/04/22 11:47 Temperature 96.2 F L Pulse Rate 73 Pulse Rate [Pulse Oximeter] 83 Respiratory Rate 16 Blood Pressure Blood Pressure [Ri ght Upper Arm] 115/70 Pulse Oximetry 96 95 95 Oxygen Delivery Me thod Room Air 08/04/22 11:49 08/04/22 12:00 08/04/22 12:02 Temperature Pulse Rate 68 73 66 Pulse Rate [Pulse Oximeter] Respiratory Rate Blood Pressure 124/77 132/71 Blood Pressure [Ri ght Upper Arm] Pulse Oximetry 96 96 96 Oxygen Delivery Me thod 08/04/22 12:30 08/04/22 12:31 08/04/22 13:00 Temperature Pulse Rate 66 64 67 Pulse Rate [Pulse Oximeter] Respiratory Rate Blood Pressure 128/67 Blood Pressure [Ri ght Upper Arm] Pulse Oximetry 95 96 96 Oxygen Delivery Me thod 08/04/22 13:02 08/04/22 13:12 08/04/22 13:32 Temperature Pulse Rate 67 79 Pulse Rate [Pulse Oximeter] Respiratory Rate 16 Blood Pressure 135/67 129/104 H Blood Pressure [Ri ght Upper Arm] Pulse Oximetry 97 96 Oxygen Delivery Me thod Documenting provider has reviewed patient's vital signs: yes Common normals: no apparent distress, oriented x3, no limitations, alert and well nourished General appearance: cooperative, comfortable, well kempt, well developed and frail appearing Nutritional appearance: overweight HENMT: Common normals: normocephalic, head/scalp atraumatic, hearing grossly normal bilaterally, external ears normal, external nose normal, nasal mucous membranes and turbinates normal, moist oral mucous membranes, oropharynx normal, dentition normal and gingiva normal Head and scalp: normocephalic and atraumatic Face and sinus: normal facial exam Nose: external nose normal and nasal mucous membranes and turbinates normal External ear: external ears normal Eye: Common normals: PERRL, EOMs intact bilaterally, conjunctivae normal and no scleral icterus Conjunctiva: conjunctiva(e) normal Pupil: PERRL Neck & C-Spine: Common normals: full ROM, no lymphadenopathy, supple, no meningeal signs, no JVD and thyroid normal Thyroid: thyroid normal Resp: Common normals: normal respiratory effort, no retractions, no use of accessory muscles and clear to auscultation bilaterally Auscultation: clear to auscultation bilaterally Cardio: Common normals: no JVD, regular rate, regular rhythm, S1 normal heart sound, S2 normal heart sound, no gallops, no clicks, no murmurs and no rub Rate: regular rate Rhythm: regular rhythm Heart sounds: S1 normal and S2 normal GI: Common normals: Normal to inspection, nondistended, normoactive bowel sounds present, soft to palpation, non-tender, no hepatosplenomegaly and no masses Palpation: soft and no hepatosplenomegaly Extremity: Other: Has compression stockings on, undoubtedly probably has some underlying pitting edema but her compression stockings are tight. Neuro: Common normals: oriented x3, CN's II-XII intact bilaterally, moves all extremities and no sensory deficits noted Sensorium/orientation: alert Meningeal signs: no meningeal signs Speech: speech normal Other: On rapid alternating finger movements I can only get her to do a pincer grasp, does not move through her other fingers on her right hand. Interestingly on her left she does the rapid alternating finger movements normally. Facial no upper extremity strength are symmetrical and normal. She has normal strength about her feet on the left side but her leg lift on the left side is certainly weaker than the right. Psych: Appearance: [facility] Course Course Hospital Course: We will do full complement of labs, look at the viral triple swab. We will get a portable chest x-ray. I am ordering a plain noncontrast MRI of her brain to see if there is any more ischemic or stroke pathology that is developed. I see no new symptoms as far as neurologic changes given her history. Is possible that her diabetes is becoming labile. The nursing staff notes that she is due for a new monitor or perhaps pump. There are attempting to get that situated and worked out. In any event, they report not feeling safe with her at home. Is likely she will need hospitalization. I will look for any potential sources such as stroke, respiratory, infectious, metabolic, cardiac reasons for her changes. Will be doing a D-dimer but am doubtful that shortness of breath would be due to pulmonary emboli given that she is on chronic anticoagulation. Have put in a social and political studies professor consult, will likely be talking to our hospitalist. Consultations Consultation #1: Have spoken with the hospitalist, they will accept. Have reviewed labs and imaging. MRI did not end up being done as patient had just placed a new monitor on and did not have another 1. Thus went ahead and did a noncontrast head CT. Patient had no acute symptoms that would require the advanced imaging certainly, but did think MRI would be most helpful in delineating underlying stroke pathology. Nonetheless, noncontrast head CT was obtained and only showed the prior old stroke. Did review the elevated D-dimer with the hospitalist, no hypoxia, no tachycardia here, on Eliquis already. Agreed with not proceeding with chest CT PE protocol at this time. She has underlying autoimmune disease which could certainly escalate a D-dimer. Time: 14:38 Vital Signs Vital signs: Initial Vital Signs Temperature 96.2 F L 08/04/22 11:01 Temperature Source Temporal Artery Scan 08/04/22 11:01 Pulse Rate 83 08/04/22 11:01 Pulse Rhythm 08/04/22 11:01 Pulse Strength 3+ Normal 08/04/22 11:01 Respiratory Rate 16 08/04/22 11:01 Blood Pressure 115/70 08/04/22 11:01 Blood Pressure Mean 85 08/04/22 11:01 Blood Pressure Position Sitting 08/04/22 11:01 Pulse Oximetry 96 08/04/22 11:01 Oxygen Delivery Method 08/04/22 11:01 Vital Signs Temperature 96.2 F L 08/04/22 11:01 Pulse Rate 83 08/04/22 11:01 Respiratory Rate 16 08/04/22 11:01 Blood Pressure 115/70 08/04/22 11:01 Pulse Oximetry 96 08/04/22 11:01 Oxygen Delivery Method 08/04/22 11:01 Temperature 96.2 F L 08/04/22 11:01 Pulse Rate 79 08/04/22 13:12 Respiratory Rate 16 08/04/22 13:02 Blood Pressure 129/104 H 08/04/22 13:32 Pulse Oximetry 96 08/04/22 13:12 Oxygen Delivery Method 08/04/22 11:01 Medical Decision Making Lab Data Lab results reviewed: Yes I reviewed the patient's lab results Labs: Lab Results 08/04/22 08/04/22 08/04/22 Range/Units 11:40 11:45 11:45 WBC 5.71 (4.50-11.00) K/uL RBC 3.61 L (4.00-5.20) m/uL Hgb 12.8 (12.0-16.0) gm/dL Hct 36.3 (33.0-51.0) % MCV 101 H (80-100) fL MCH 36 H (26-34) pg MCHC 35 (32-36) gm/dL RDW Coeff of Steve 15.6 H (11.5-15.5) % Plt Count 221 (140-440) K/uL Neut % (Auto) 59.4 (42.0-72.0) % Lymph % (Auto) 27.1 (20-44) % Ponce % (Auto) 10.3 (0.0-11.0) % Eos % (Auto) 2.1 (0.0-7.0) % Baso % (Auto) 0.9 (0.0-3.0) % Neut # (Auto) 3.39 (1.7-7.0) K/uL Lymph # (Auto) 1.55 (0.90-2.90) K/uL Ponce # (Auto) 0.60 (0.00-0.90) K/UL Eos # (Auto) 0.12 (0.00-0.50) K/uL Baso # (Auto) 0.05 (0.00-0.30) K/uL ESR 7 (2-20) mm/hr D-Dimer Quant (PE/DVT) (0.00-0.50) ug/ml VBG pH (7.32-7.43) VBG pCO2 (40-50) mmHG VBG pO2 (25-47) mmHG VBG HCO3 (21-28) mmol/L Sodium (135-149) mmol/L Potassium (3.6-5.1) mmol/L Chloride (96-114) mmol/L Carbon Dioxide (20-32) mmol/L BUN (7-30) mg/dL Creatinine (0.5-1.5) mg/dL Estimated Creat Clear Estimated GFR ml/min Glucose (60-115) mg/dL Lactate (0.5-1.9) mmol/L Calcium (8.4-10.6) mg/dL Magnesium (1.5-2.6) mg/dL Total Bilirubin (0.1-1.5) mg/dL AST (12-35) U/L ALT (4-35) U/L Alkaline Phosphatase (40-150) U/L C-Reactive Protein (0.5-1.0) mg/dL NT-Pro-B Natriuret Pep pg/mL Total Protein (6.0-8.3) g/dL Albumin (3.3-5.0) g/dL Urine Color (Yellow) Urine Appearance (Clear) Urine pH (5.0-8.5) Ur Specific [place] (1.000-1.030) Urine Protein (Negative) Urine Glucose (UA) (Negative) Urine Ketones (Negative) Urine Blood (Negative) Urine Nitrite (Negative) Urine Bilirubin (Negative) Urine Urobilinogen (0.2-1.0) Ur Leukocyte Esterase (Negative) Urine RBC (0-2) Urine WBC (0-5) Ur Squamous Epith Cells (None-Few) Urine Bacteria (None) SARS-CoV-2 (PCR) (Negative) Influenza Type A (PCR) (Negative) Influenza Type B (PCR) (Negative) RSV (PCR) (Negative) POC Troponin I 0.00 L (0.01-0.04) ng/ml 08/04/22 08/04/22 08/04/22 Range/Units 11:45 11:45 11:45 WBC (4.50-11.00) K/uL RBC (4.00-5.20) m/uL Hgb (12.0-16.0) gm/dL Hct (33.0-51.0) % MCV (80-100) fL MCH (26-34) pg MCHC (32-36) gm/dL RDW Coeff of Steve (11.5-15.5) % Plt Count (140-440) K/uL Neut % (Auto) (42.0-72.0) % Lymph % (Auto) (20-44) % Ponce % (Auto) (0.0-11.0) % Eos % (Auto) (0.0-7.0) % Baso % (Auto) (0.0-3.0) % Neut # (Auto) (1.7-7.0) K/uL Lymph # (Auto) (0.90-2.90) K/uL Ponce # (Auto) (0.00-0.90) K/UL Eos # (Auto) (0.00-0.50) K/uL Baso # (Auto) (0.00-0.30) K/uL ESR (2-20) mm/hr D-Dimer Quant (PE/DVT) 2.22 H (0.00-0.50) ug/ml VBG pH (7.32-7.43) VBG pCO2 (40-50) mmHG VBG pO2 (25-47) mmHG VBG HCO3 (21-28) mmol/L Sodium 131 L (135-149) mmol/L Potassium 4.3 (3.6-5.1) mmol/L Chloride 100 (96-114) mmol/L Carbon Dioxide 25 (20-32) mmol/L BUN 15 (7-30) mg/dL Creatinine 0.5 (0.5-1.5) mg/dL Estimated Creat Clear 39.63 Estimated GFR 99 ml/min Glucose 296 H (60-115) mg/dL Lactate (0.5-1.9) mmol/L Calcium 8.6 (8.4-10.6) mg/dL Magnesium (1.5-2.6) mg/dL Total Bilirubin 0.8 (0.1-1.5) mg/dL AST 38 H (12-35) U/L ALT 48 H (4-35) U/L Alkaline Phosphatase 59 (40-150) U/L C-Reactive Protein 0.5 (0.5-1.0) mg/dL NT-Pro-B Natriuret Pep pg/mL Total Protein 6.7 (6.0-8.3) g/dL Albumin 3.8 (3.3-5.0) g/dL Urine Color (Yellow) Urine Appearance (Clear) Urine pH (5.0-8.5) Ur Specific [place] (1.000-1.030) Urine Protein (Negative) Urine Glucose (UA) (Negative) Urine Ketones (Negative) Urine Blood (Negative) Urine Nitrite (Negative) Urine Bilirubin (Negative) Urine Urobilinogen (0.2-1.0) Ur Leukocyte Esterase (Negative) Urine RBC (0-2) Urine WBC (0-5) Ur Squamous Epith Cells (None-Few) Urine Bacteria (None) SARS-CoV-2 (PCR) Negative SARS-CoV-2 (Negative) Influenza Type A (PCR) Negative PCR FLU A (Negative) Influenza Type B (PCR) Negative PCR FLU B (Negative) RSV (PCR) Negative PCR RSV (Negative) POC Troponin I (0.01-0.04) ng/ml 08/04/22 08/04/22 08/04/22 Range/Units 11:45 11:45 11:45 WBC (4.50-11.00) K/uL RBC (4.00-5.20) m/uL Hgb (12.0-16.0) gm/dL Hct (33.0-51.0) % MCV (80-100) fL MCH (26-34) pg MCHC (32-36) gm/dL RDW Coeff of Steve (11.5-15.5) % Plt Count (140-440) K/uL Neut % (Auto) (42.0-72.0) % Lymph % (Auto) (20-44) % Ponce % (Auto) (0.0-11.0) % Eos % (Auto) (0.0-7.0) % Baso % (Auto) (0.0-3.0) % Neut # (Auto) (1.7-7.0) K/uL Lymph # (Auto) (0.90-2.90) K/uL [place]once # (Auto) (0.00-0.90) K/UL Eos # (Auto) (0.00-0.50) K/uL Baso # (Auto) (0.00-0.30) K/uL ESR (2-20) mm/hr D-Dimer Quant (PE/DVT) (0.00-0.50) ug/ml VBG pH 7.432 H (7.32-7.43) VBG pCO2 42 (40-50) mmHG VBG pO2 42.8 (25-47) mmHG VBG HCO3 28 (21-28) mmol/L Sodium (135-149) mmol/L Potassium (3.6-5.1) mmol/L Chloride (96-114) mmol/L Carbon Dioxide (20-32) mmol/L BUN (7-30) mg/dL Creatinine (0.5-1.5) mg/dL Estimated Creat Clear Estimated GFR ml/min Glucose (60-115) mg/dL Lactate 2.5 H (0.5-1.9) mmol/L Calcium (8.4-10.6) mg/dL Magnesium 1.7 (1.5-2.6) mg/dL Total Bilirubin (0.1-1.5) mg/dL AST (12-35) U/L ALT (4-35) U/L Alkaline Phosphatase (40-150) U/L C-Reactive Protein (0.5-1.0) mg/dL NT-Pro-B Natriuret Pep 120 pg/mL Total Protein (6.0-8.3) g/dL Albumin (3.3-5.0) g/dL Urine Color (Yellow) Urine Appearance (Clear) Urine pH (5.0-8.5) Ur Specific [place] (1.000-1.030) Urine Protein (Negative) Urine Glucose (UA) (Negative) Urine Ketones (Negative) Urine Blood (Negative) Urine Nitrite (Negative) Urine Bilirubin (Negative) Urine Urobilinogen (0.2-1.0) Ur Leukocyte Esterase (Negative) Urine RBC (0-2) Urine WBC (0-5) Ur Squamous Epith Cells (None-Few) Urine Bacteria (None) SARS-CoV-2 (PCR) (Negative) Influenza Type A (PCR) (Negative) Influenza Type B (PCR) (Negative) RSV (PCR) (Negative) POC Troponin I (0.01-0.04) ng/ml 08/04/22 Range/Units 13:05 WBC (4.50-11.00) K/uL RBC (4.00-5.20) m/uL Hgb (12.0-16.0) gm/dL Hct (33.0-51.0) % MCV (80-100) fL MCH (26-34) pg MCHC (32-36) gm/dL RDW Coeff of Steve (11.5-15.5) % Plt Count (140-440) K/uL Neut % (Auto) (42.0-72.0) % Lymph % (Auto) (20-44) % [place]once % (Auto) (0.0-11.0) % Eos % (Auto) (0.0-7.0) % Baso % (Auto) (0.0-3.0) % Neut # (Auto) (1.7-7.0) K/uL Lymph # (Auto) (0.90-2.90) K/uL [place]once # (Auto) (0.00-0.90) K/UL Eos # (Auto) (0.00-0.50) K/uL Baso # (Auto) (0.00-0.30) K/uL ESR (2-20) mm/hr D-Dimer Quant (PE/DVT) (0.00-0.50) ug/ml VBG pH (7.32-7.43) VBG pCO2 (40-50) mmHG VBG pO2 (25-47) mmHG VBG HCO3 (21-28) mmol/L Sodium (135-149) mmol/L Potassium (3.6-5.1) mmol/L Chloride (96-114) mmol/L Carbon Dioxide (20-32) mmol/L BUN (7-30) mg/dL Creatinine (0.5-1.5) mg/dL Estimated Creat Clear Estimated GFR ml/min Glucose (60-115) mg/dL Lactate (0.5-1.9) mmol/L Calcium (8.4-10.6) mg/dL Magnesium (1.5-2.6) mg/dL Total Bilirubin (0.1-1.5) mg/dL AST (12-35) U/L ALT (4-35) U/L Alkaline Phosphatase (40-150) U/L C-Reactive Protein (0.5-1.0) mg/dL NT-Pro-B Natriuret Pep pg/mL Total Protein (6.0-8.3) g/dL Albumin (3.3-5.0) g/dL Urine Color Yellow (Yellow) Urine Appearance Clear (Clear) Urine pH 6.5 (5.0-8.5) Ur Specific [place] 1.025 (1.000-1.030) Urine Protein Negative (Negative) Urine Glucose (UA) 2+ A (Negative) Urine Ketones Negative (Negative) Urine Blood Negative (Negative) Urine Nitrite Negative (Negative) Urine Bilirubin Negative (Negative) Urine Urobilinogen 0.2 (0.2-1.0) Ur Leukocyte Esterase Negative (Negative) Urine RBC 0-2 (0-2) Urine WBC 0-2 (0-5) Ur Squamous Epith Cells Few (None-Few) Urine Bacteria Moderate A (None) SARS-CoV-2 (PCR) (Negative) Influenza Type A (PCR) (Negative) Influenza Type B (PCR) (Negative) RSV (PCR) (Negative) POC Troponin I (0.01-0.04) ng/ml Imaging Data Chest x-ray: Attestation: I have reviewed the pertinent imaging results. My impression: I see no acute pneumonia, no CHF on my preliminary review this portable chest x- ray. Radiologist's impression: Patient: KATE WONG Facility:?[facility] Patient ID:?[id number] Site Patient ID:?[id number]. Site :?[id number] Study:?XRay Chest 1 VIEW PORTABLE-08/04/2022 11:58:41 AM Ordering Physician:?Jasmin Méndez Final Report: INDICATION: shortness of breath TECHNIQUE: Chest radiograph 1 view COMPARISON: 06/21/2017, 01/03/2017 FINDINGS: The sensitivity and specificity of the exam are moderately limited by the patient`s body habitus. Mediastinum: The mediastinum is normal in appearance. The heart silhouette is normal in size and morphology. Lung: Both lungs are unremarkable in appearance. No sign of pleural effusion seen. No pneumothorax is identified. Bone and Soft tissue: Unremarkable for age. IMPRESSION: 1. No acute cardiopulmonary disease is seen. Dictated by: Dionicio Rivera MD @ 08/04/2022 12:37:20 (Electronic Signature) CT scan - head: Attestation: I have reviewed the pertinent imaging results. Radiologist's impression: Patient: KATE WONG Facility:?[facility] Patient ID:?[id number] Site Patient ID:?[id number]. Site :?[id number] Study:?CT Head w/o Contrast-08/04/2022 12:58:32 PM Ordering Physician:?Jasmin Méndez Final Report: INDICATION: Increasing weakness and confusion TECHNIQUE: CT head without contrast. COMPARISON: Head CT 10/27/2021 FINDINGS: CSF spaces: Within normal limits for age. Brain parenchyma: The sarkar-white differentiation is normal. No sign of mass, hemorrhage, or midline shift. Mild low-density in the deep white matter. 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 Skull base and calvarium: The visualized paranasal sinuses and mastoid air cells demonstrate no acute or significant findings. The visualized orbits are grossly unremarkable. No skull fractures. Atherosclerosis. IMPRESSION: 1. No intracranial bleed or mass effect. 2. 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 Nonspecific white matter disease, likely microangiopathy. Please note that all CT scans at this facility use dose modulation, iterative reconstruction, and/or weight-based dosing when appropriate to reduce radiation dose to as low as reasonably achievable. Dictated by Jesus Farmer MD @ 08/04/2022 2:14:17 PM (Electronic Signature) ECG Data Attestation: I personally reviewed and interpreted this ECG as follows: (Normal sinus rhythm, 65 beats per minute. No arrhythmia, no acute ischemia on my review. QT corrected 426 milliseconds.) Critical Care Time Critical Care Time Critical Care Time: No Discharge Plan Discharge Clinical Impression: Rheumatoid arthritis, Frailty syndrome in geriatric patient, Shortness of breath, Type 1 diabetes mellitus, Falls Prescriptions: No Action (DME) pen needle, diabetic [Droplet Pen Needle] 31 gauge x 5/16 needle See Rx Instructions .ROUTE .MEDSUPPLY Qty: 1200 Rx Instructions: As directed (DME) Contour Next Test Strips Strip See Rx Instructions .ROUTE .MEDSUPPLY Qty: 10 Label Comments: TEST FIVE TIMES DAILY Rx Instructions: As directed alendronate 70 mg tablet 70 mg PO QWEEK Rx Instructions: MONDAY multivitamin with folic acid [Tab-A-Imer] 400 mcg tablet 1 tab PO QAM varenicline [Chantix] 1 mg tablet 1 mg PO BID Qty: 56 6RF acetaminophen 500 mg capsule 500 mg PO Q4-6H PRN folic acid 1 mg tablet 3 mg PO DAILY methotrexate sodium 2.5 mg tablet 10 mg PO QWEEK Rx Instructions: MONDAY Actemra 162 mg/0.9 mL syringe 162 mg SUBCUT Q14D pravastatin 40 mg tablet 40 mg PO HS insulin lispro 100 unit/mL solution 55 unit subcut DAILY Rx Instructions: Per insulin pump solifenacin [Vesicare] 5 mg tablet 5 mg PO DAILY apixaban 2.5 mg tablet 2.5 mg PO BID Qty: 180 0RF aspirin [Adult Low Dose Aspirin] 81 mg tablet,delayed release (DR/EC) 81 mg PO DAILY Qty: 90 2RF cholecalciferol (vitamin D3) 25 mcg (1,000 unit) capsule 1,000 unit PO DAILY Qty: 90 2RF flecainide 50 mg tablet 50 mg PO Q12H Qty: 180 2RF losartan 50 mg tablet 50 mg PO DAILY Qty: 90 2RF sertraline 100 mg tablet 100 mg PO DAILY Qty: 90 3RF (DME) Dexcom G6 Transmitter Device See Rx Instructions .Route Qty: 1 3RF Rx Instructions: Change every 3 months. (DME) Dexcom G6 Sensor Device See Rx Instructions .Route Qty: 9 3RF Rx Instructions: Change every 10 days (DME) T.E.D. Knee Ppycri-[id number]-Oscfsvg Misc See Rx Instructions .Route Qty: 6 0RF Rx Instructions: As directed (DME) incontinence pad, liner, disp Pad See Rx Instructions .Route Qty: 60 6RF Rx Instructions: As directed Follow Up/Referrals: Nata Roche MD [Primary Care Provider] -
--- NOTE | 2022-08-04 11:29 | PC.NURSE ---
Spoke with patients [facility] nurse, Gabby. [phone]. She stated that she has been seeing Patient weekly since october after her stroke. She has noticed that she has been more sleepy over the last few months and her blood sugar reports from her dexacom have been very high and very low. She said patient has been falling more at home and her isn't able pick her up safely or manage her blood sugars safely. Family was with patient over luisana and realized how poor her cognition is. Dr. Roche is her PCP but Dr. Beebe manages her diabetes. She stated that patient should get a new pump but has not been able to get that yet.
--- NOTE | 2022-08-04 11:39 | CRLHL7_ITS ---
For Patients: As a result of the Century Cures Act, medical imaging exams and procedure reports are released immediately into your electronic medical record. You may view this report before your referring provider. If you have questions, please contact your health care provider. INDICATION: shortness of breath TECHNIQUE: Chest radiograph 1 view COMPARISON: 06/21/2017, 01/03/2017 FINDINGS: The sensitivity and specificity of the exam are moderately limited by the patient`s body habitus. Mediastinum: The mediastinum is normal in appearance. The heart silhouette is normal in size and morphology. Lung: Both lungs are unremarkable in appearance. No sign of pleural effusion seen. No pneumothorax is identified. Bone and Soft tissue: Unremarkable for age. IMPRESSION: 1. No acute cardiopulmonary disease is seen. Dictated by: Dionicio Rivera MD @ 08/04/2022 12:37:20 (Electronically Signed)
[2022-08-04 11:57] LABS: HCO3 VBG 28 mmol/L (21-28); PCO2 VBG 42 mmHG (40-50); PO2 VBG 42.8 mmHG (25-47); pH VBG 7.432 (7.32-7.43)
[2022-08-04 11:58] LABS: Lactate* 2.5 mmol/L (0.5-1.9)
[2022-08-04 12:01] LABS: Basophils Absolute Auto 0.05 K/uL (0.00-0.30); Basophils Percent Auto 0.9 % (0.0-3.0); Eosinophils Absolute Auto 0.12 K/uL (0.00-0.50); Eosinophils Percent Auto 2.1 % (0.0-7.0); Hematocrit 36.3 % (33.0-51.0); Hemoglobin* 12.8 gm/dL (12.0-16.0); Immature Granulocytes Abs Auto 0.01 K/uL (0.00-0.30); Immature Granulocytes Pct Auto 0.2 %; Lymphocytes Absolute Auto 1.55 K/uL (0.90-2.90); Lymphocytes Percent Auto 27.1 % (20-44); Mean Corpuscular HGB Conc 35 gm/dL (32-36); Mean Corpuscular Hemoglobin 36 pg (26-34); Mean Corpuscular Volume 101 fL (80-100); Monocytes Percent Auto 10.3 % (0.0-11.0); Neutrophils Absolute Auto 3.39 K/uL (1.7-7.0); Neutrophils Percent Auto 59.4 % (42.0-72.0); Platelet Count* 221 K/uL (140-440); RDW Coefficient of Variation % 15.6 % (11.5-15.5); Red Blood Count 3.61 m/uL (4.00-5.20); White Blood Count* 5.71 K/uL (4.50-11.00)
[2022-08-04 12:10] LABS: Slide Review Reflex No
[2022-08-04 12:22] LABS: Chloride* 100 mmol/L (96-114)
[2022-08-04 12:23] LABS: Albumin* 3.8 g/dL (3.3-5.0); D Dimer Quantitative* 2.22 ug/ml (0.00-0.50); Potassium* 4.3 mmol/L (3.6-5.1); Sodium* 131 mmol/L (135-149)
[2022-08-04 12:25] LABS: Creatinine* 0.5 mg/dL (0.5-1.5); Est. Creatinine Clearance* 39.63; Estimated Glomerular Filt Rate 99 ml/min
[2022-08-04 12:26] LABS: Alanine Aminotransferase* 48 U/L (4-35); Alkaline Phosphatase* 59 U/L (40-150); Aspartate Amino Transferase* 38 U/L (12-35); Bilirubin Total* 0.8 mg/dL (0.1-1.5); Blood Urea Nitrogen* 15 mg/dL (7-30); Carbon Dioxide* 25 mmol/L (20-32); Glucose* 296 mg/dL (60-115); Total Protein* 6.7 g/dL (6.0-8.3)
[2022-08-04 12:27] LABS: Calcium* 8.6 mg/dL (8.4-10.6); Magnesium* 1.7 mg/dL (1.5-2.6)
[2022-08-04 12:29] LABS: C Reactive Protein* 0.5 mg/dL (0.5-1.0)
--- NOTE | 2022-08-04 12:29 | CRLHL7_ITS ---
For Patients: As a result of the Century Cures Act, medical imaging exams and procedure reports are released immediately into your electronic medical record. You may view this report before your referring provider. If you have questions, please contact your health care provider. INDICATION: Increasing weakness and confusion TECHNIQUE: CT head without contrast. COMPARISON: Head CT 10/27/2021 FINDINGS: CSF spaces: Within normal limits for age. Brain parenchyma: The sarkar-white differentiation is normal. No sign of mass, hemorrhage, or midline shift. Mild low-density in the deep white matter. 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 Skull base and calvarium: The visualized paranasal sinuses and mastoid air cells demonstrate no acute or significant findings. The visualized orbits are grossly unremarkable. No skull fractures. Atherosclerosis. IMPRESSION: 1. No intracranial bleed or mass effect. 2. 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 Nonspecific white matter disease, likely microangiopathy. Please note that all CT scans at this facility use dose modulation, iterative reconstruction, and/or weight-based dosing when appropriate to reduce radiation dose to as low as reasonably achievable. Dictated by Jesus Farmer MD @ 08/04/2022 2:14:17 PM (Electronically Signed)
[2022-08-04 12:36] LABS: NT Pro B Type NatriureticPept* 120 pg/mL
[2022-08-04 12:39] LABS: PCR FLU A Negative PCR FLU A (Negative); PCR FLU B Negative PCR FLU B (Negative); PCR RSV Negative PCR RSV (Negative)
[2022-08-04 12:46] LABS: Erythrocyte SedimentationRate* 7 mm/hr (2-20)
[2022-08-04 13:01] LABS: SARS PCR* Negative SARS-CoV-2 (Negative)
[2022-08-04 13:20] LABS: Appearance Urine Clear (Clear); Bilirubin Urine Negative (Negative); Blood Urine Negative (Negative); Color Urine Yellow (Yellow); Glucose Urine 2+ (Negative); Ketones Urine Negative (Negative); Leukocyte Esterase Urine Negative (Negative); Nitrite Urine Negative (Negative); Protein Urine Negative (Negative); Specific Gravity Urine 1.025 (1.000-1.030); Urobilinogen Urine 0.2 (0.2-1.0); pH Urine 6.5 (5.0-8.5)
[2022-08-04 13:37] LABS: Bacteria Urine Moderate; RBC Urine 0-2 (0-2); Squamous Epithelial Cell Urine Few (None-Few); WBC Urine 0-2 (0-5)
--- NOTE | 2022-08-04 14:29 | PC.NURSE ---
Blood glucose checked on patient's dexacom before lunch. This was 209. Checked 30min after lunch and it was 228.
--- NOTE | 2022-08-04 15:15 | PC.NURSE ---
Report given to ZENIA Short on M/[facility]. All belongings sent with patient. Called patients , to let him know what room she was going to. Patients also stated that he ordered another dexacom and it should be here tomorrow. If the MDs decide she needs an MRI, her current dexacom can be removed but not thrown as there is a chip in there that is thousands of dollars and can be reused on the next one. Called [facility] and communicated this to them.
--- NOTE | 2022-08-04 15:54 | PM.IMHP1 ---
Hospitalist- H&P: HPI History of Present Illness Time Seen by Provider: 15:00 Date Seen: 08/04/22 Chief complaint: multiple falls, labile blood glucose levels, DMT1 Narrative: Diann Hahn is a 72 year old woman with known DMT1, on insulin pump, receiving about 55 units insulin daily, with labile blood sugars ranging from 100-600, not able to manage on her own. Has not been working with her physician, Dr. Adriel Beebe, but has been making adjustments on her own. She is not sure why this is occurring. Denies fever, rigors, diaphoresis. Denies dysuria, urgency, frequency, hematuria. Denies diarrhea. Denies any cellulitis. Additionally, she has had multiple falls, usually when trying to transfer even with use of her walker. She states that her her right leg gives out on her, as it has since her thalamic stroke this past October 2021. Some days she does not notice the lower extremity weakness another day she does. Denies head injury, or any other injuries. Acknowledges intermittent episodes of confusion, or at least do more difficulty with concentrating. Patient's home health nurse has concluded that it is not safe for the patient to be home any longer at this time. Reportedly her has made the same conclusion, indicating that he can no longer keep up with her needs. Additionally, does receive some support from family members live nearby as well, and particularly her son, Edisno. Review of Systems Status of ROS: Reports: 10 or more systems reviewed and unremarkable except as noted in History and below Narrative: She indicates that since her stroke she has been rather sleepy. She sometimes sleeps upwards of 14-16 hours per day. Not nearly as active as she has been in the past. After her stroke this past October of 2021, she received transitional care services in the [facility] with help from Physical and Occupational therapy for a while. Subsequently she was discharged home with home health nursing support once a week. She has continued to receive this level of support since then. Nurse sets up her medications weekly. Denies weight gain or weight loss. Denies night sweats. Denies polyuria, polydipsia, polyphagia. Nevertheless her blood sugars are quite high. Acknowledges decreased interest in eating. Denies any new focal motor neurologic deficits. No recent febrile illnesses. Denies myalgias or arthralgias. Denies blood loss of any sort. Taking her medications as prescribed. Has chronic intermittent left-sided chest discomfort as she has had for years. This is not new. This is not different. Denies chest heaviness, pressure, or tightness. States she has had more dyspnea with exertion over the last several weeks. Denies paroxysmal nocturnal dyspnea or orthopnea. Denies syncope or near-syncope. Denies loss of consciousness. Denies vertigo or lightheadedness. Denies nausea or vomiting. Denies palpitations or chest fluttering. Denies unilateral bilateral lower extremity edema. Indicates that her bowel and bladder function are satisfactory. No concerns in that regard. Denies difficulty with swallowing. Denies dyspepsia. [facility] Medical History (Updated 08/04/22 @ 16:38 by Cas Grijalva MD) Adenomatous polyp of colon (2016) Cerebrovascular disease Depression (2011) Essential hypertension Family history of colon cancer Health care directive on file (05/11/16) Macrocytosis without anemia (2017) Mild cognitive impairment (2019) Mixed incontinence Nicotine dependence Obesity with body mass index 30 or greater Obstructive sleep apnea syndrome (2015) Osteoporosis Paroxysmal atrial fibrillation (2016) Rheumatoid arthritis (2010) Subjective memory complaints Type 1 diabetes mellitus (1979) Surgical History History of colonoscopy (2016) Status post cataract extraction Family History Father Colon cancer Sister Colon cancer, Onset Age: 70 Brother Colon cancer Other Family history of colon cancer Social History Narrative: , nonsmoker, retired Highest level of school completed/degree received: high school graduate Smoking Status: Former smoker What tobacco products do you use: cigarettes Smoking quit date/years: <= 15 years ago Do you use any of these nicotine containing products: None Second hand tobacco smoke exposure: No How often do you have a drink containing alcohol: monthly or less How many standard drinks containing alcohol do you have on a typical day: 1 or 2 AUDIT-C Alcohol total score: 1 Non-prescribed substance use: denies use Little interest or pleasure in doing things: nearly every day Feeling down, depressed, or hopeless: more than half the days service: No Meds Home Medications and Allergies Home Medications Medication Instructions Recorded Confirmed Type acetaminophen 500 mg capsule 500 mg PO Q4-6H PRN 12/28/21 08/04/22 History folic acid 1 mg tablet 3 mg PO DAILY 12/28/21 08/04/22 History methotrexate sodium 2.5 mg tablet 10 mg PO QWEEK 12/28/21 08/04/22 History blood sugar diagnostic (Contour #10 ea 03/03/22 06/28/22 History Next Test Strips) pen needle, diabetic 31 gauge x #1,200 ea 03/03/22 06/28/22 History 5/16 (Droplet Pen Needle) alendronate 70 mg tablet 70 mg PO QWEEK 06/28/22 08/04/22 History multivitamin with folic acid 400 1 tab PO QAM 06/28/22 08/04/22 History mcg tablet (Tab-A-Imer) insulin lispro 100 unit/mL 55 unit subcut DAILY 08/04/22 08/04/22 History subcutaneous solution pravastatin 40 mg tablet 40 mg PO HS 08/04/22 08/04/22 History solifenacin 5 mg tablet (Vesicare) 5 mg PO DAILY 08/04/22 08/04/22 History tocilizumab 162 mg/0.9 mL 162 mg subcut Q14D 08/04/22 08/04/22 History subcutaneous syringe (Actemra) Allergies Allergy/AdvReac Type Severity Reaction Status Date / Time Sulfa (Sulfonamide Allergy Intermediate Rash Verified 08/04/22 10:56 Antibiotics) atorvastatin Allergy Mild Rash Verified 08/04/22 10:56 lisinopril Allergy Mild Rash Verified 08/04/22 10:56 nitrofurantoin Allergy Mild Rash Verified 08/04/22 10:56 rosuvastatin Allergy Mild Rash Verified 08/04/22 10:56 simvastatin Allergy Mild Rash Verified 08/04/22 10:56 Exam Narrative: Exam Narrative: Appears comfortable. No acute distress. Appears tired. Alert, oriented to self, place, time, situation. Interactive, articulate, cooperative. Mood and affect are congruent. Vision and hearing are grossly normal. No conjunctival injection or icterus. Buccal mucosa is dry with dentition in fair repair. Midline nasal septum. Neck is supple. Midline trachea. Normal thyroid. No JVD or hepatojugular reflux. No carotid bruits. Does not have lymphadenopathy in the pre or postauricular chains, anterior or posterior cervical chains, supra or infraclavicular fossa, submental worse sub mandibular fossa, or axilla bilaterally. Lungs are clear to auscultation without wheezing rhonchi, or rales. Chest wall excursions are full. No CVA tenderness. Heart tones with regular rhythm with occasional extrasystole. Normal S1-S2. No obvious murmur, gallop, or rub. PMI is not laterally displaced. Abdomen with active bowel sounds, soft, nontender. No rebound or guarding. Trace edema pretibially bilaterally. Skin is warm, dry, intact. I do not test her gait or ability to transfer at this time. Able to sit up in the bed psych examine her. No obvious focal abnormalities. Const: Vital Signs, click to edit/add: Vital Signs - 24 hr 08/04/22 11:01 08/04/22 12:51 08/04/22 11:47 Temperature 96.2 F L Pulse Rate 73 Pulse Rate [Pulse Oximeter] 83 Pulse Rate [Right Radial] Respiratory Rate 16 Blood Pressure Blood Pressure [Ri ght Arm] Blood Pressure [Ri ght Upper Arm] 115/70 Pulse Oximetry 96 95 95 Oxygen Delivery Me thod Room Air 08/04/22 11:49 08/04/22 12:00 08/04/22 12:02 Temperature Pulse Rate 68 73 66 Pulse Rate [Pulse Oximeter] Pulse Rate [Right Radial] Respiratory Rate Blood Pressure 124/77 132/71 Blood Pressure [Ri ght Arm] Blood Pressure [Ri ght Upper Arm] Pulse Oximetry 96 96 96 Oxygen Delivery Me thod 08/04/22 12:30 08/04/22 12:31 08/04/22 13:00 Temperature Pulse Rate 66 64 67 Pulse Rate [Pulse Oximeter] Pulse Rate [Right Radial] Respiratory Rate Blood Pressure 128/67 Blood Pressure [Ri ght Arm] Blood Pressure [Ri ght Upper Arm] Pulse Oximetry 95 96 96 Oxygen Delivery Me thod 08/04/22 13:02 08/04/22 13:12 08/04/22 13:32 Temperature Pulse Rate 67 79 Pulse Rate [Pulse Oximeter] Pulse Rate [Right Radial] Respiratory Rate 16 Blood Pressure 135/67 129/104 H Blood Pressure [Ri ght Arm] Blood Pressure [Ri ght Upper Arm] Pulse Oximetry 97 96 Oxygen Delivery Me thod 08/04/22 13:55 08/04/22 14:00 08/04/22 14:01 Temperature Pulse Rate 78 75 76 Pulse Rate [Pulse Oximeter] Pulse Rate [Right Radial] Respiratory Rate Blood Pressure 136/70 Blood Pressure [Ri ght Arm] Blood Pressure [Ri ght Upper Arm] Pulse Oximetry 94 95 95 Oxygen Delivery Me thod 08/04/22 14:30 08/04/22 14:31 08/04/22 15:00 Temperature Pulse Rate 82 83 86 Pulse Rate [Pulse Oximeter] Pulse Rate [Right Radial] Respiratory Rate Blood Pressure 117/60 Blood Pressure [Ri ght Arm] Blood Pressure [Ri ght Upper Arm] Pulse Oximetry 94 92 96 Oxygen Delivery Me thod 08/04/22 15:02 08/04/22 15:40 08/04/22 15:40 Temperature 97.0 F L Pulse Rate 83 Pulse Rate [Pulse Oximeter] Pulse Rate [Right Radial] 79 Respiratory Rate 20 Blood Pressure 137/70 Blood Pressure [Ri ght Arm] 157/80 H Blood Pressure [Ri ght Upper Arm] Pulse Oximetry 96 97 97 [facility] 08/04/22 15:43 08/04/22 15:50 Temperature 97.0 F L Pulse Rate Pulse Rate [Pulse Oximeter] Pulse Rate [Right Radial] 79 Respiratory Rate 20 20 Blood Pressure Blood Pressure [Ri ght Arm] 157/80 H Blood Pressure [Ri ght Upper Arm] Pulse Oximetry 97 97 Oxygen Delivery Me od Room Air Room Air Hospitalist - H&P: Result Labs Labs: Short CBC 08/04/22 Range/Units 11:45 WBC 5.71 (4.50-11.00) K/uL Hgb 12.8 (12.0-16.0) gm/dL Hct 36.3 (33.0-51.0) % Plt Count 221 (140-440) K/uL BMP 08/04/22 11:45 Sodium 131 L Potassium 4.3 Chloride 100 Carbon Dioxide 25 BUN 15 Creatinine 0.5 Glucose 296 H Calcium 8.6 Liver Function 08/04/22 Range/Units 11:45 Total Bilirubin 0.8 (0.1-1.5) mg/dL AST 38 H (12-35) U/L ALT 48 H (4-35) U/L Alkaline Phosphatase 59 (40-150) U/L Albumin 3.8 (3.3-5.0) g/dL Urine 08/04/22 Range/Units 13:05 Urine Color Yellow (Yellow) Urine Appearance Clear (Clear) Urine pH 6.5 (5.0-8.5) Ur Specific [place] 1.025 (1.000-1.030) Urine Protein Negative (Negative) Urine Glucose (UA) 2+ A (Negative) Imaging CT scan - head: Attestation: I have reviewed the pertinent imaging results. Radiologist's impression: 1. No intracranial bleed or mass effect. 2. 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 Nonspecific white matter disease, likely microangiopathy. Assessment and Plan Assessment and plan (1) Frailty syndrome in geriatric patient: Status: Acute (2) Shortness of breath: Problem comment: Differential diagnoses includes decreased LV function, rheumatoid lung, COPD, physically deconditioned state, physical debility. Doubt pulmonary embolism given chronically anticoagulated state. Status: Acute (3) Falls: Problem comment: Suspect this is multifactorial including from physically deconditioned state, physical debility, and possibly related to her evolving decline in cognition as well. Status: Acute (4) Labile blood glucose: Status: Acute (5) Type 1 diabetes mellitus: Problem comment: followed by Dr. Beebe Status: Acute (6) Rheumatoid arthritis: Status: Acute (7) Subjective memory complaints: Problem comment: MMSE 28/30 with minimally abnormal clock face 06/21 Status: Acute Plan 1. Reviewed impression with patient. 2. Recommended admission to the hospital for observation given that it is unsafe for her to return to her home at this time. 3. Have already initiated dialogue with social services assistant who will initiate efforts to find a safe place for the patient to live in. 4. Will monitor her blood glucose levels here in the hospital for now continue with her insulin pump use. May need to discuss with Dr. Beebe in terms of how to make adjustments in the administration of her insulin via the insulin pump. 5. Physical therapy and occupational therapy to assist with efforts to further assess patient and render recommendations. 6. Will check echocardiogram given the patient's sense of dyspnea. 7. Patient agreeable with above stated plans and recommendations. 8. Will work with patient family.
[2022-08-04 16:38] LABS: Hemoglobin A1C* 8.46 % (0-5.6)
--- NOTE | 2022-08-04 18:40 | PC.NURSE ---
end of shift. pt was admitted @ 1520. she is weak no pain, SL is patent. she has a Dexcom to her left upper arm. SL to left arm/ she is up with 1 assist walker and GB. she is a fall risk, alarms are on. she has a insulin pump to her abd. 2.5 basal and she got 4.2 units with meals carb counting. BS was 99 @ supper. Echo was done. she is alert x3. she has able to change her insulin pump site and add insulin to her pump. RN was watching and she did it correct.
[2022-08-04] MEDS: INSULIN PUMP (PT OWN) 1 EACH SUBCUT (18:52)
[2022-08-04] MEDS: PRAVASTATIN SODIUM 20 MG TABLET 40 MG PO (20:28)
[2022-08-04] MEDS: FLECAINIDE ACETATE 50 MG TABLET PO (20:30)
[2022-08-04] MEDS: APIXABAN 5 MG TABLET 2.5 MG PO (20:31)
[2022-08-04] MEDS: SODIUM CHLORIDE 0.9 % (FLUSH) 10 ML SYRINGE 5 ML IVF (20:33)
[2022-08-05] VITALS (7 sets, daily range): BP systolic 116–159; BP diastolic 60–83; PULSE 69–78; RESP 18; TEMP 36.4–37.1; O2SAT 93–96
--- NOTE | 2022-08-05 06:30 | PC.NURSE ---
END OF SHIFT NOTE: PT PLEASANT AND COOPERATIVE WITH CARES. PT REPORTS HAVING CHRONIC INTERMITTENT CHEST DISCOMFORT. PT REPORTS SOB WITH EXERTION.?AMBULATES WITH 4WHEELED WALKER, GB, A1. VSS ON RA; AFEBRILE.?DM TYPE 1; PT HAS DEXCOM GLUCOMETER AND MEDTRONIC INSULIN PUMP.?PT BASAL RATE OF 2.6UNITS/HR. PT GAVE 2UNITS OF INSULIN BOLUS FOR A BG OF 267 @2030. PT CONTINUES TO MONITOR SELF WITH DEXCOM NOC. PT DENIES N/V. MILD COGNITIVE IMPAIRMENT; OCCASIONALLY FORGETFUL. EKG COMPLETED THIS MORNING.
[2022-08-05] MEDS: APIXABAN 5 MG TABLET 2.5 MG PO ×2 (08:32→20:50)
[2022-08-05] MEDS: ASPIRIN 81 MG TABLET EC PO (08:33)
[2022-08-05] MEDS: FOLIC ACID 1 MG TABLET 3 MG PO (08:34)
[2022-08-05] MEDS: FLECAINIDE ACETATE 50 MG TABLET PO ×2 (08:34→20:50)
[2022-08-05] MEDS: SERTRALINE 100 MG TABLET PO (08:35)
[2022-08-05] MEDS: LOSARTAN POTASSIUM 50 MG TABLET PO (08:35)
[2022-08-05 09:25] LABS: HCO3 VBG 32 mmol/L (21-28); Ionized Calcium* 1.13 mmol/L (1.11-1.30); Lactate* 1.2 mmol/L (0.5-1.9); PCO2 VBG 53 mmHG (40-50); PO2 VBG 27.3 mmHG (25-47)
[2022-08-05 09:28] LABS: Hematocrit 39.6 % (33.0-51.0); Hemoglobin* 13.6 gm/dL (12.0-16.0); Mean Corpuscular HGB Conc 34 gm/dL (32-36); Mean Corpuscular Hemoglobin 35 pg (26-34); Mean Corpuscular Volume 102 fL (80-100); Platelet Count* 233 K/uL (140-440); Red Blood Count 3.87 m/uL (4.00-5.20); White Blood Count* 4.05 K/uL (4.50-11.00)
[2022-08-05 09:30] LABS: Slide Review Reflex No
[2022-08-05 09:50] LABS: Chloride* 101 mmol/L (96-114); Potassium* 4.6 mmol/L (3.6-5.1); Sodium* 135 mmol/L (135-149)
[2022-08-05 09:53] LABS: Blood Urea Nitrogen* 12 mg/dL (7-30); Calcium* 8.7 mg/dL (8.4-10.6); Carbon Dioxide* 30 mmol/L (20-32); Creatinine* 0.5 mg/dL (0.5-1.5); Est. Creatinine Clearance* 37.81; Estimated Glomerular Filt Rate 99 ml/min; Glucose* 200 mg/dL (60-115)
[2022-08-05 09:54] LABS: Magnesium* 1.8 mg/dL (1.5-2.6)
[2022-08-05 10:08] LABS: NT Pro B Type NatriureticPept* 179 pg/mL; Troponin I* < 0.01 ng/mL (0.01-0.04)
[2022-08-05 10:10] LABS: Procalcitonin* 0.09 ng/mL (<0.50)
[2022-08-05] MEDS: ACETAMINOPHEN 325 MG TABLET 650 MG PO (12:04)
[2022-08-05] MEDS: SODIUM CHLORIDE 0.9 % (FLUSH) 10 ML SYRINGE 5 ML IVF ×2 (12:27→20:52)
[2022-08-05] MEDS: 0.9 % SODIUM CHLORIDE 500 ML 500 ML 250 ML IV (12:37)
--- NOTE | 2022-08-05 14:37 | PC.SOCIAL ---
Discharge Planning: Pt resides at home in [place] with spouse. Pt understands recommendations for SNF at time of discharge for rehab stay, indicates that she has medical assistance that was used for prior SNF stay (insurance card provided to registration), and prefers [facility] or [place] facilities. [facility] has bed availability and will accept pt for admission on Monday if medically stable for discharge at that time. Pt provides permission for social services counselor to speak with spouse, Roni, and spouse approves of d/c plan as well. PAS complete: [id number]. UR completing pre-authorization that is needed. No further SW needs at this time.
--- NOTE | 2022-08-05 14:46 | P.IMPN_ITS ---
Progress Note: A&P Assessment and plan (1) Frailty syndrome in geriatric patient: Problem details: -multifactorial. insulin mismanagement, h/o of stroke and failed rehab, cognitive decline, inactivity/sedentary lifestyle. supposted to go down to our LT on 08/08 Status: Acute (2) Shortness of breath: Problem details: -echo reassuring. remains on room air. Differential diagnoses includes decreased LV function, rheumatoid lung, COPD, physically deconditioned state, physical debility. Doubt pulmonary embolism given chronically anticoagulated state. Status: Acute (3) Falls: Problem details: Suspect this is multifactorial including from physically deconditioned state, physical debility, and possibly related to her evolving decline in cognition as well. Status: Acute (4) Labile blood glucose: Problem details: will likely need to monitor all use of the pump or just d/c this treatment option for injectable insulin. Status: Acute (5) Type 1 diabetes mellitus: Problem details: on bolus/basal insulin pump and CGM A1C is 8.4 Status: Acute (6) Rheumatoid arthritis: Status: Acute (7) Subjective memory complaints: Problem details: MMSE 28/30 with minimally abnormal clock face 06/21 Status: Acute Subjective Date Seen: 08/05/22 Interval history: Daily Progress Note - Hospital Medicine Day #: 2 CC: Type 1 DM, frequent falls, cognitive decline, hx of stroke in 2021 OVERNIGHT UPDATES FROM STAFF & MED, LAB, IMAGING UPDATES -stable overnight -demonstrates she gets confused easy with her pump, there is executive function loss and poor memory -weak left leg; getting some therapy over the last year from LT, acute rehab, home health. -SOB - deconditioning. Afebrile since admission Blood pressure 116/60 Pulse 70 Respiratory rate 18 Pulse ox 93, room air White blood cell count 4.0 Hemoglobin stable Platelet count 233 PH 7.4 Electrolytes are normal, renal functions normal Lactate has come down from 2.5-1.2 Hemoglobin A1c 8.5 TSH, procalcitonin, BNP, troponin, CRP are all negative/reassuring CT reveals the old thalamic lacunar infarct that we knew about Chest x-ray negative Urine is negative Echo yesterday shows a normal left ventricular function. EF is normal. Some mild diastolic filling pressures under increased. I will enlarged left atrium. Normal pulmonary pressures. Objective: Vitals: see above Lungs: Clear. Cardiac: S1S2. Disposition/Potential discharge - Likely to return to previous living situation. Total time is 35 minutes with greater than 50% spent in counseling and coordination of care. Exam Const: Vital Signs, click to edit/add: Vital Signs - 24 hr 08/04/22 15:00 08/04/22 15:02 08/04/22 15:40 Temperature 97.0 F L Pulse Rate 86 83 Pulse Rate [Pulse Oximeter] Pulse Rate [Right Radial] 79 Respiratory Rate 20 Blood Pressure 137/70 Blood Pressure [Ri ght Arm] 157/80 H Pulse Oximetry 96 96 97 Oxygen Delivery Ma thod Room Air 08/04/22 15:40 08/04/22 15:43 08/04/22 15:50 Temperature 97.0 F L Pulse Rate Pulse Rate [Pulse Oximeter] Pulse Rate [Right Radial] 79 Respiratory Rate 20 20 Blood Pressure Blood Pressure [Ri ght Arm] 157/80 H Pulse Oximetry 97 97 97 [facility] Room Air Room Air 08/04/22 19:00 08/04/22 20:20 08/04/22 20:20 Temperature 97.6 F Pulse Rate Pulse Rate [Pulse Oximeter] 83 83 Pulse Rate [Right Radial] Respiratory Rate 14 14 14 Blood Pressure Blood Pressure [Ri ght Arm] 125/77 Pulse Oximetry 96 96 Oxygen Delivery Ma thod Room Air Room Air 08/04/22 23:30 08/05/22 03:00 08/05/22 07:00 Temperature 98.3 F 97.6 F Pulse Rate Pulse Rate [Pulse Oximeter] 65 78 Pulse Rate [Right Radial] Respiratory Rate 16 18 18 Blood Pressure Blood Pressure [Ri ght Arm] 127/65 131/68 Pulse Oximetry 95 95 94 Oxygen Delivery Ma thod Room Air Room Air Room Air 08/05/22 07:00 08/05/22 07:00 08/05/22 12:04 Temperature 97.7 F 97.9 F Pulse Rate Pulse Rate [Pulse Oximeter] 71 Pulse Rate [Right Radial] 71 Respiratory Rate 18 18 Blood Pressure Blood Pressure [Ri ght Arm] 118/83 Pulse Oximetry 95 Oxygen Delivery Ma thod Room Air 08/05/22 11:00 Temperature 97.9 F Pulse Rate Pulse Rate [Pulse Oximeter] 70 Pulse Rate [Right Radial] Respiratory Rate 18 Blood Pressure Blood Pressure [Ri ght Arm] 116/60 Pulse Oximetry 93 Oxygen Delivery Me thod Room Air Labs Labs: Laboratory Results - last 24 hr 08/04/22 08/04/22 08/05/22 11:45 11:45 09:17 WBC 4.05 L RBC 3.87 L Hgb 13.6 Hct 39.6 MCV 102 H MCH 35 H MCHC 34 Plt Count 233 VBG pH VBG pCO2 VBG pO2 VBG HCO3 Sodium Potassium Chloride Carbon Dioxide BUN Creatinine Estimated Creat Clear Estimated GFR Glucose Hemoglobin A1c 8.46 H Lactate Calcium Ionized Calcium Prasad Magnesium Troponin I NT-Pro-B Natriuret Pep Procalcitonin TSH 1.970 08/05/22 08/05/22 08/05/22 09:17 09:17 09:17 WBC RBC Hgb Hct MCV MCH MCHC Plt Count VBG pH 7.390 VBG pCO2 53 H VBG pO2 27.3 VBG HCO3 32 H Sodium 135 Potassium 4.6 Chloride 101 Carbon Dioxide 30 BUN 12 Creatinine 0.5 Estimated Creat Clear 37.81 Estimated GFR 99 Glucose 200 H Hemoglobin A1c Lactate 1.2 Calcium 8.7 Ionized Calcium Prasad 1.13 Magnesium 1.8 Troponin I < 0.01 L NT-Pro-B Natriuret Pep 179 Procalcitonin 0.09 TSH 2.310
[2022-08-05] MEDS: INSULIN PUMP (PT OWN) 1 EACH SUBCUT (17:21)
--- NOTE | 2022-08-05 17:51 | PC.NURSE ---
Shift Note: Pt cheerful and pleasant. VS WNL and LS COA. Afebrile. Pt sounds knowledgeable when discussing insulin pump, has some difficulty navigating her pump for historical information/setting checks. She is successful with minimal staff assistance. Pt accurately able to count carbs for meals. Stated this morning her bolus dose, but with history check it appears she did not actually administer the intended dose with breakfast. Patient was later able to demonstrate total competency with her pump and administering bolus insulin at lunch and with afternoon snack. She appropriately counted carbs and administered bolus doses independently. in to visit this afternoon, brought new Dexacom. verified he is willing to change it when due and will update nursing staff. Pt plan is to discharge to [facility] on Monday.
[2022-08-05] MEDS: PRAVASTATIN SODIUM 20 MG TABLET 40 MG PO (20:50)
[2022-08-06] MEDS: ACETAMINOPHEN 325 MG TABLET 650 MG PO (00:27)
[2022-08-06 02:58] VITALS: BP 157/75; PULSE 76; RESP 18; TEMP 36.6; O2SAT 95
--- NOTE | 2022-08-06 06:22 | PC.NURSE ---
Status [id number] Alert and oriented but forgetful. Denies pain. VSS on room air. Glucose monitoring per Dexcom. Pt has insulin pump and is managing with RN witnessing. HS glucose of 233, pt declined to give bolus dose of insulin d/t dropping fast at night. Up with stand by and walker. Pt requesting something for sleep, PRN Tylenol and aromatherapy given with relief noted. Pt observed resting well between cares. ?
[2022-08-06 06:34] LABS: Hematocrit 35.5 % (33.0-51.0); Hemoglobin* 12.1 gm/dL (12.0-16.0); Mean Corpuscular HGB Conc 34 gm/dL (32-36); Mean Corpuscular Hemoglobin 35 pg (26-34); Mean Corpuscular Volume 103 fL (80-100); Platelet Count* 203 K/uL (140-440); Red Blood Count 3.46 m/uL (4.00-5.20); White Blood Count* 4.82 K/uL (4.50-11.00)
[2022-08-06 06:47] LABS: Slide Review Reflex No
[2022-08-06 06:49] LABS: Albumin* 3.4 g/dL (3.3-5.0); Chloride* 104 mmol/L (96-114)
[2022-08-06 06:50] LABS: Sodium* 135 mmol/L (135-149)
[2022-08-06 06:52] LABS: Aspartate Amino Transferase* 53 U/L (12-35); Bilirubin Total* 0.5 mg/dL (0.1-1.5); Carbon Dioxide* 27 mmol/L (20-32); Creatinine* 0.5 mg/dL (0.5-1.5); Est. Creatinine Clearance* 37.81; Estimated Glomerular Filt Rate 99 ml/min
[2022-08-06 06:53] LABS: Alanine Aminotransferase* 59 U/L (4-35); Alkaline Phosphatase* 58 U/L (40-150); Blood Urea Nitrogen* 15 mg/dL (7-30); Calcium* 8.3 mg/dL (8.4-10.6); Glucose* 132 mg/dL (60-115); Total Protein* 6.3 g/dL (6.0-8.3)
[2022-08-06 07:00] VITALS: BP 146/74; PULSE 73; RESP 18; TEMP 36.8; O2SAT 93; O2SAT 96
--- NOTE | 2022-08-06 08:06 | PM.IMPN1 ---
Progress Note: A&P Assessment and plan (1) Frailty syndrome in geriatric patient: Problem details: -multifactorial. insulin mismanagement, h/o of stroke and failed rehab, cognitive decline, inactivity/sedentary lifestyle. LT on 08/08 Status: Acute (2) Shortness of breath: Problem details: -echo reassuring. remains on room air. Differential diagnoses includes decreased LV function, rheumatoid lung, COPD, physically deconditioned state, physical debility. Doubt pulmonary embolism given chronically anticoagulated state. Status: Acute (3) Falls: Problem details: Suspect this is multifactorial including from physically deconditioned state, physical debility, and possibly related to her evolving decline in cognition as well. Status: Acute (4) Labile blood glucose: Problem details: We are transitioning from insulin pump to injectables. Patient cannot operate her insulin pump any longer, cognitively, and this poses a great risk if she were to bolus more insulin than needed. Status: Acute (5) Type 1 diabetes mellitus: Problem details: Continue CGM. Pharmacy helped direct her insulin starting doses, 12 units of Levemir b.i.d., 4 units with meals, sliding scale insulin. This will likely need continued adjustment as we transition from her pump to injectables. A1C is 8.4 Status: Acute (6) Rheumatoid arthritis: Status: Acute (7) Subjective memory complaints: Problem details: MMSE 28/30 with minimally abnormal clock face 06/21 Status: Acute Subjective Date Seen: 08/06/22 Interval history: Daily Progress Note - Hospital Medicine #: 3 CC: Type 1 DM, frequent falls, cognitive decline, hx of stroke in 2021 OVERNIGHT UPDATES FROM STAFF & MED, LAB, IMAGING UPDATES -stable overnight -demonstrates she gets confused easy with her pump, there is executive function loss and poor memory -weak left leg; getting some therapy over the last year from [facility], acute rehab, home health. -SOB - deconditioning. 157/75. Pulse 76. Respiratory 18. Temp 97.9?. O2 sat 96% on room air. Blood glucose checks: 198, 99, 134, 278, 214, 150, 249, then is jumped up to 400+ Echo yesterday Normal LV size. Normal wall thickness. EF 60-65%. Moderately enlarged left atrium. Global systolic RV function is normal. Normal pulmonary pressure Labs reviewed from this morning since admission. Stable. Objective: Vitals: see above Lungs: Clear. Cardiac: S1S2. Disposition/Potential discharge - Likely to return to previous living situation. Total time is 35 minutes with greater than 50% spent in counseling and coordination of care. Exam Const: Vital Signs, click to edit/add: Vital Signs - 24 hr 08/05/22 12:04 08/05/22 11:00 08/05/22 15:00 Temperature 97.9 F 97.9 F Pulse Rate [Pulse Oximeter] 70 69 Respiratory Rate 18 18 Blood Pressure [Ri ght Arm] 116/60 Pulse Oximetry 93 Oxygen Delivery Me thod Room Air 08/05/22 15:00 08/05/22 15:00 08/06/22 07:00 Temperature 98.7 F Pulse Rate [Pulse Oximeter] 69 Respiratory Rate 18 18 18 Blood Pressure [Ri ght Arm] 131/66 Pulse Oximetry 94 94 96 Oxygen Delivery Me thod Room Air Room Air Room Air 08/05/22 20:45 08/05/22 23:00 08/05/22 23:00 Temperature 98 F 98 F Pulse Rate [Pulse Oximeter] 72 70 Respiratory Rate 18 18 18 Blood Pressure [Ri ght Arm] 134/81 159/73 H Pulse Oximetry 93 96 96 Oxygen Delivery Me thod Room Air Room Air Room Air 08/05/22 23:00 08/06/22 02:58 Temperature 97.9 F Pulse Rate [Pulse Oximeter] 70 76 Respiratory Rate 18 18 Blood Pressure [Ri ght Arm] 157/75 H Pulse Oximetry 95 Oxygen Delivery Me thod Room Air Labs Labs: Laboratory Results - last 24 hr 08/05/22 08/05/22 08/05/22 09:17 09:17 09:17 WBC 4.05 L RBC 3.87 L Hgb 13.6 Hct 39.6 MCV 102 H MCH 35 H MCHC 34 Plt Count 233 VBG pH 7.390 VBG pCO2 53 H VBG pO2 27.3 VBG HCO3 32 H Sodium 135 Potassium 4.6 Chloride 101 Carbon Dioxide 30 BUN 12 Creatinine 0.5 Estimated Creat Clear 37.81 Estimated GFR 99 Glucose 200 H Lactate 1.2 Calcium 8.7 Ionized Calcium Prasad 1.13 Magnesium 1.8 Total Bilirubin AST ALT Alkaline Phosphatase Troponin I < 0.01 L NT-Pro-B Natriuret Pep 179 Total Protein Albumin Procalcitonin 0.09 TSH 08/05/22 08/06/22 08/06/22 09:17 05:08 05:08 WBC 4.82 RBC 3.46 L Hgb 12.1 Hct 35.5 MCV 103 H MCH 35 H MCHC 34 Plt Count 203 VBG pH VBG pCO2 VBG pO2 VBG HCO3 Sodium 135 Potassium 4.0 Chloride 104 Carbon Dioxide 27 BUN 15 Creatinine 0.5 Estimated Creat Clear 37.81 Estimated GFR 99 Glucose 132 H Lactate Calcium 8.3 L Ionized Calcium Prasad Magnesium Total Bilirubin 0.5 AST 53 H ALT 59 H Alkaline Phosphatase 58 Troponin I NT-Pro-B Natriuret Pep Total Protein 6.3 Albumin 3.4 Procalcitonin TSH 2.310
[2022-08-06] MEDS: SERTRALINE 100 MG TABLET PO (10:02)
[2022-08-06] MEDS: APIXABAN 5 MG TABLET 2.5 MG PO ×2 (10:02→19:47)
[2022-08-06] MEDS: ASPIRIN 81 MG TABLET EC PO (10:03)
[2022-08-06] MEDS: FOLIC ACID 1 MG TABLET 3 MG PO (10:03)
[2022-08-06] MEDS: LOSARTAN POTASSIUM 50 MG TABLET PO (10:03)
[2022-08-06] MEDS: FLECAINIDE ACETATE 50 MG TABLET PO ×2 (10:08→19:47)
[2022-08-06] MEDS: SODIUM CHLORIDE 0.9 % (FLUSH) 10 ML SYRINGE 5 ML IVF ×2 (10:32→19:49)
[2022-08-06 11:00] VITALS: BP 137/68; PULSE 73; RESP 18; TEMP 36.6; O2SAT 94
[2022-08-06 15:00] VITALS: BP 146/78; PULSE 77; RESP 16; RESP 18; TEMP 36.9; O2SAT 94; O2SAT 96
[2022-08-06] MEDS: PRAVASTATIN SODIUM 20 MG TABLET 40 MG PO (19:47)
[2022-08-06 19:54] VITALS: BP 135/59; PULSE 68; RESP 16; TEMP 36.7; O2SAT 95
[2022-08-06] MEDS: MELATONIN 3 MG TABLET PO (21:47)
[2022-08-06] MEDS: guaiFENesin 100 MG/ML CUP PO (21:47)
[2022-08-06 23:00] VITALS: PULSE 68; RESP 16; O2SAT 95
[2022-08-07 03:00] VITALS: BP 149/71; PULSE 70; RESP 16; TEMP 36.6; O2SAT 94
--- NOTE | 2022-08-07 06:48 | PC.NURSE ---
Status [id number] Alert and oriented but forgetful. Denies pain. VSS on room air. Glucose monitoring via Dexcom. HS glucose 156. Pt no longer has insulin pump. Received 1 unit of Novolog and 12 units of Levemir at bedtime. Glucose checks overnight ranged between high 200 to mid 300. Pt requested melatonin and cough syrup at bedtime. Up with stand by and walker. Voiding without difficulty. Pt observed resting well between cares.
[2022-08-07 07:00] VITALS: BP 131/7; PULSE 66; RESP 16; TEMP 36.6; O2SAT 94
[2022-08-07] MEDS: APIXABAN 5 MG TABLET 2.5 MG PO ×2 (09:11→21:28)
[2022-08-07] MEDS: FOLIC ACID 1 MG TABLET 3 MG PO (09:12)
[2022-08-07] MEDS: ASPIRIN 81 MG TABLET EC PO (09:12)
[2022-08-07] MEDS: SERTRALINE 100 MG TABLET PO (09:12)
[2022-08-07] MEDS: SODIUM CHLORIDE 0.9 % (FLUSH) 10 ML SYRINGE 5 ML IVF ×2 (09:12→21:33)
[2022-08-07] MEDS: LOSARTAN POTASSIUM 50 MG TABLET PO (09:12)
[2022-08-07] MEDS: ACETAMINOPHEN 325 MG TABLET 650 MG PO ×2 (09:16→21:32)
[2022-08-07] MEDS: FLECAINIDE ACETATE 50 MG TABLET PO ×2 (09:17→21:28)
--- NOTE | 2022-08-07 12:59 | PM.IMPN1 ---
Progress Note: A&P Assessment and plan (1) Frailty syndrome in geriatric patient: Problem details: -multifactorial. insulin mismanagement, h/o of stroke and failed rehab, cognitive decline, inactivity/sedentary lifestyle. LT on 08/08 Status: Acute (2) Labile blood glucose: Problem details: We are transitioning from insulin pump to injectables. Patient cannot operate her insulin pump any longer, cognitively, and this poses a great risk if she were to bolus more insulin than needed. 08/07/2022: We are increasing her Levemir b.i.d. to 14 units, regular insulin 7 units with each meal and a sliding scale. Status: Acute (3) Shortness of breath: Problem details: -echo reassuring. remains on room air. Differential diagnoses includes decreased LV function, rheumatoid lung, COPD, physically deconditioned state, physical debility. Doubt pulmonary embolism given chronically anticoagulated state. Status: Acute (4) Falls: Problem details: Suspect this is multifactorial including from physically deconditioned state, physical debility, and possibly related to her evolving decline in cognition as well. Status: Acute (5) Type 1 diabetes mellitus: Problem details: Continue CGM. Pharmacy helped direct her insulin starting doses, 14 units of Levemir b.i.d., 7 units with meals, sliding scale insulin. This will likely need continued adjustment as we transition from her pump to injectables. A1C is 8.4 Status: Acute (6) Rheumatoid arthritis: Status: Acute (7) Subjective memory complaints: Problem details: MMSE 28/30 with minimally abnormal clock face 06/21 Status: Acute Subjective Date Seen: 08/07/22 Interval history: Daily Progress Note - Hospital Medicine Day #: 4 CC: Type 1 DM, frequent falls, cognitive decline, hx of stroke in 2021 OVERNIGHT UPDATES FROM STAFF & MED, LAB, IMAGING UPDATES -stable overnight -demonstrates she gets confused easy with her pump, there is executive function loss and poor memory -weak left leg; getting some therapy over the last year [facility], acute rehab, home health. -SOB - deconditioning. 131/70. Pulse 66. Rest were 16. Afebrile. She is on room air satting 94%. Blood sugar elevated to 418 yesterday afternoon, however she did miss her noon insulin. She had a catch-up dose of 10 units subQ x1 given, this brought her blood sugar back down to 156. She did eat cake last night and her blood sugar this morning was 300. As we have transitioned from her pump to injectable insulin, pharmacy has been quite helpful and calculating her insulin needs. Echo this hospitalization: Normal LV size. Normal wall thickness. EF 60-65%. Moderately enlarged left atrium. Global systolic RV function is normal. Normal pulmonary pressure Labs reviewed from this morning since admission. Stable. Objective: Vitals: see above Lungs: Clear. Cardiac: S1S2. Disposition/Potential discharge - Likely to return to previous living situation. Total time is 35 minutes with greater than 50% spent in counseling and coordination of care. Exam Const: Vital Signs, click to edit/add: Vital Signs - 24 hr 08/06/22 15:00 08/06/22 15:00 08/06/22 15:00 Temperature 98.5 F Pulse Rate [Pulse Oximeter] 77 Respiratory Rate 18 18 16 Blood Pressure [Ri ght Arm] 146/78 H Pulse Oximetry 94 96 Oxygen Delivery Me thod Room Air Room Air 08/06/22 19:54 08/06/22 23:00 08/06/22 23:00 Temperature 98.1 F Pulse Rate [Pulse Oximeter] 68 68 Respiratory Rate 16 16 Blood Pressure [Ri ght Arm] 135/59 L Pulse Oximetry 95 95 Oxygen Delivery Me thod Room Air Room Air 08/07/22 03:00 08/07/22 07:00 08/07/22 07:00 Temperature 97.8 F 97.8 F Pulse Rate [Pulse Oximeter] 70 66 Respiratory Rate 16 16 16 Blood Pressure [Ri ght Arm] 149/71 H 131/7 L Pulse Oximetry 94 94 94 Oxygen Delivery Me thod Room Air Room Air Room Air 08/07/22 07:00 Temperature Pulse Rate [Pulse Oximeter] 66 Respiratory Rate 16 Blood Pressure [Ri ght Arm] Pulse Oximetry Oxygen Delivery Me thod
[2022-08-07 13:00] VITALS: BP 139/65; PULSE 74; RESP 18; TEMP 36.5; O2SAT 95
[2022-08-07 15:00] VITALS: BP 145/81; PULSE 62; RESP 14; TEMP 36.7; O2SAT 93; O2SAT 96
--- NOTE | 2022-08-07 20:03 | PC.NURSE ---
End of shift-- Very pleasant and cooperative patient. VSS and pt is afebrile. SPO2 maintained >90% on RA. She c/o mild pains in her shoulders and legs today, but appears well managed with Tylenol. Blood sugars remained elevated in 200-300s and pt was given insulin per MD order. See EMAR for details. She ambulated in bathroom and hallway today with SBA and walker and tolerated it well. Report to ZENIA Hughes.
[2022-08-07] MEDS: PRAVASTATIN SODIUM 20 MG TABLET 40 MG PO (21:27)
[2022-08-07] MEDS: NYSTATIN POWDER 1 APPLIC TOPICAL (21:28)
[2022-08-07 21:44] VITALS: BP 137/74; PULSE 66; RESP 18; TEMP 36.7; O2SAT 93
[2022-08-07] MEDS: guaiFENesin 100 MG/ML CUP PO (21:50)
[2022-08-07 23:00] VITALS: RESP 18; O2SAT 93
[2022-08-08 03:28] VITALS: BP 159/90; PULSE 73; RESP 18; TEMP 36.5; O2SAT 95
[2022-08-08 07:00] VITALS: BP 158/83; PULSE 78; RESP 18; TEMP 36.5; O2SAT 96
--- NOTE | 2022-08-08 07:01 | PC.NURSE ---
Status [id number] Alert and oriented. Denies pain. VSS on room air. Continuous glucose monitoring via Dexcom. HS glucose 314, SSI and Levemir given. Overnight glucose checks PRN. BG 140?s around 00, pt had juice and crackers so it wouldn?t get loo low, then BG 120?s around 0300 and additional juice was requested by patient. By 0600 BG was in the 90's so pt had edgar crackers. Up with stand by and walker. Pt observed resting between cares. Plan to d/c to [facility] today.
[2022-08-08] MEDS: APIXABAN 5 MG TABLET 2.5 MG PO (09:48)
[2022-08-08] MEDS: LOSARTAN POTASSIUM 50 MG TABLET PO (09:48)
[2022-08-08] MEDS: FLECAINIDE ACETATE 50 MG TABLET PO (09:48)
[2022-08-08] MEDS: FOLIC ACID 1 MG TABLET 3 MG PO (09:48)
[2022-08-08] MEDS: SERTRALINE 100 MG TABLET PO (09:48)
[2022-08-08] MEDS: NYSTATIN POWDER 1 APPLIC TOPICAL (09:49)
[2022-08-08] MEDS: ASPIRIN 81 MG TABLET EC PO (09:49)
[2022-08-08 11:00] VITALS: BP 149/76; PULSE 68; RESP 18; TEMP 36.7; O2SAT 96
--- NOTE | 2022-08-08 12:45 | P.DS_ITS ---
DS: Providers Provider Time Seen by Provider: 12:40 Date Seen: 08/08/22 Date of admission: 08/04/22 14:53 Primary care physician: Nata Roche MD Admitting Clinician: Cas Grijalva MD Consults: 08/04/22 11:42 Consult to Print And Pattern Designer [CONS] Urgent Comment: Reason for Consult:: Discharge Planning Needs 08/04/22 15:38 Consult to Occupational Therapy [CONS] Routine Comment: Reason(s) for OT Consult:: Evaluate and Treat Any Restrictions?:: No Restrictions Comment: falls. cognition? Consult to Physical Therapy [CONS] Routine Comment: Reason(s) for PT Consult:: Evaluate and Treat Any Restrictions?:: No Restrictions Comment: falls Consult to Print And Pattern Designer [CONS] Routine Comment: Reason for Consult:: Discharge Planning Needs Attending Physician on discharge: [place] Amaya MD Date of Discharge: 08/08/22 DS: Diagnosis Discharge Diagnosis (1) Subjective memory complaints: Status: Acute Problem details: MMSE 28/30 with minimally abnormal clock face 06/21 (2) Rheumatoid arthritis: Status: Chronic (3) Type 1 diabetes mellitus: Status: Chronic Problem details: A1C is 8.4 (4) Labile blood glucose: Status: Acute Problem details: Patient cannot operate her insulin pump any longer, cognitively, and this poses a great risk if she were to bolus more insulin than needed. (5) Frailty syndrome in geriatric patient: Status: Acute Problem details: -multifactorial. insulin mismanagement, h/o of stroke and failed rehab, cognitive decline, inactivity/sedentary lifestyle. (6) Shortness of breath: Status: Acute Problem details: -echo reassuring. remains on room air. Differential diagnoses includes decreased LV function, rheumatoid lung, COPD, physically deconditioned state, physical debility. Doubt pulmonary embolism given chronically anticoagulated state. (7) Falls: Status: Acute Problem details: Suspect this is multifactorial including from physically deconditioned state, physical debility, and possibly related to her evolving decline in cognition as well. DS: Summary Hospital Course Hospital Course: This is a 72-year-old female with history of stroke with residual right leg weakness and diabetes mellitus type 1 who uses an insulin pump, but has had labile blood sugars at home and recent falls likely secondary to hypoglycemia. She has a home health nurse who concluded that it was no longer safe for her to be home and her reportedly came to the same conclusion. She was admitted to the hospital for these concerns. While here she has demonstrated that she gets confused easily with her insulin pump. Her MMSE was 28/30 within minimally abnormal clock face 06/21. She has executive function loss and poor memory. While here she had a workup that included basic labs, TSH, prolactin, BNP, troponin, and CRP. Of note her white count was 4 and hemoglobin was stable at 8.5. Lactate was initially 2.5 that came down to 1.2. TSH prolactin BNP troponin and CRP were all reassuring. CT head showed an old thalamic infarct and chest x-ray and urine were unremarkable. An echocardiogram was obtained while she was here that showed a normal left ventricular function and EF. There was some mild diastolic filling pressure increase. She has been participating in therapy and is in stable condition now on injectable long-acting insulin with a sliding scale. She is no longer using her insulin pump. Time Spent with Patient Time attestation: Total time spent providing and/or coordinating discharge services: Exam Narrative: Exam Narrative: General: No acute distress. Awake, alert, oriented x3. No pallor. No jaundice. Oropharynx: Clear. Mucous membranes moist. Cardiovascular: Regular rate and rhythm. No murmurs, gallops, or rubs. Respiratory: Clear to auscultation bilaterally. No wheezes or crackles. Const: Vital Signs, click to edit/add: Vital Signs - 24 hr 08/07/22 13:00 08/07/22 15:00 08/07/22 15:00 Temperature 97.7 F 98.0 F Pulse Rate [Pulse Oximeter] 74 62 Respiratory Rate 18 14 14 Blood Pressure [Ri ght Arm] 139/65 145/81 H Pulse Oximetry 95 93 96 Oxygen Delivery Me thod Room Air Room Air Room Air 08/07/22 15:00 08/07/22 21:44 08/07/22 23:00 Temperature 98.0 F Pulse Rate [Pulse Oximeter] 62 66 Respiratory Rate 14 18 18 Blood Pressure [Ri ght Arm] 137/74 Pulse Oximetry 93 93 Oxygen Delivery Me thod Room Air Room Air 08/07/22 23:00 08/08/22 03:28 08/08/22 07:00 Temperature 97.7 F Pulse Rate [Pulse Oximeter] 73 78 Respiratory Rate 18 18 18 Blood Pressure [Ri ght Arm] 159/90 H Pulse Oximetry 95 Oxygen Delivery Me thod Room Air 08/08/22 07:00 08/08/22 07:00 08/08/22 11:00 Temperature 97.7 F 98.0 F Pulse Rate [Pulse Oximeter] 78 68 Respiratory Rate 18 18 18 Blood Pressure [Ri ght Arm] 158/83 H 149/76 H Pulse Oximetry 96 96 96 Oxygen Delivery Me thod Room Air Room Air Room Air DS: Data Data Completed and Pending Completed studies during hospitalization: Ordering Physician: Honey Castellanos M.D. Date of Service: 08/04/22 Procedure(s): XR chest 1V portable Accession Number(s): [id number] cc: Nata Roche M.D.; Honey Castellanos M.D.~ For Patients: As a result of the Cures Act, medical imaging exams and procedure reports are released immediately into your electronic medical record. You may view this report before your referring provider. If you have questions, please contact your health care provider. INDICATION: shortness of breath TECHNIQUE: Chest radiograph 1 view COMPARISON: 06/21/2017, 01/03/2017 FINDINGS: The sensitivity and specificity of the exam are moderately limited by the patient`s body habitus. Mediastinum: The mediastinum is normal in appearance. The heart silhouette is normal in size and morphology. Lung: Both lungs are unremarkable in appearance. No sign of pleural effusion seen. No pneumothorax is identified. Bone and Soft tissue: Unremarkable for age. IMPRESSION: 1. No acute cardiopulmonary disease is seen. Dictated by: Dionicio Rivera MD @ 08/04/2022 12:37:20 (Electronically Signed) Ordering Physician: Honey Castellanos M.D. Date of Service: 08/04/22 Procedure(s): CT head/brain wo con Accession Number(s): [id number] cc: Nata Roche M.D.; Honey Castellanos M.D.~ For Patients: As a result of the Cures Act, medical imaging exams and procedure reports are released immediately into your electronic medical record. You may view this report before your referring provider. If you have questions, please contact your health care provider. INDICATION: Increasing weakness and confusion TECHNIQUE: CT head without contrast. COMPARISON: Head CT 10/27/2021 FINDINGS: CSF spaces: Within normal limits for age. Brain parenchyma: The sarkar-white differentiation is normal. No sign of mass, hemorrhage, or midline shift. Mild low-density in the deep white matter. 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 Skull base and calvarium: The visualized paranasal sinuses and mastoid air cells demonstrate no acute or significant findings. The visualized orbits are grossly unremarkable. No skull fractures. Atherosclerosis. IMPRESSION: 1. No intracranial bleed or mass effect. 2. 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 Nonspecific white matter disease, likely microangiopathy. Please note that all CT scans at this facility use dose modulation, iterative reconstruction, and/or weight-based dosing when appropriate to reduce radiation dose to as low as reasonably achievable. Dictated by Jesus Farmer MD @ 08/04/2022 2:14:17 PM (Electronically Signed) 08/04/2022 12:21 p.m. EKG: Normal sinus rhythm. 65 beats per minute. Normal EKG. 08/04/2022 echocardiogram: Normal LV size, normal wall thickness, normal global systolic function with an estimated EF of 60-65%. Moderately enlarged left atrium. Grade 2 pattern of LV diastolic filling. Right ventricular cavity size is normal, global systolic RV function is normal. The aortic valve is sclerotic and tricuspid, no stenosis and no regurgitation. The mitral valve is sclerotic, trace mitral regurgitation. No pericardial effusion. No definite shunt seen across the atrial septum. Normal estimated pulmonary pressures by tricuspid regurgitation velocity and right atrial pressure (24 mm Hg plus RAP). Discharge Plan Discharge Disposition: [facility] Date of Admission: 08/04/22 14:53 Attending Provider on Discharge: [place] Amaya Primary Care Provider: Nata Roche Discharge Medications: New insulin aspart U-100 [Novolog FlexPen U-100 Insulin] 100 unit/mL (3 mL) Insulin Pen 7 unit subcut TIDWM Qty: 5 0RF Levemir FlexTouch U-100 Insuln 100 unit/mL (3 mL) Insulin Pen 14 unit subcut Q12H Qty: 5 0RF insulin aspart U-100 [Novolog FlexPen U-100 Insulin] 100 unit/mL (3 mL) Insulin Pen See Rx Instructions .ROUTE .COMPLEX Qty: 15 0RF Rx Instructions: Blood Glucose 150 or less No coverage Blood Glucose 151-200 1 unit Blood Glucose 201-250 2 units Blood Glucose 251-300 3 units Blood Glucose 301-350 4 units Blood Glucose 351 to 400 5 units Blood Glucose 401 and greater 6 units and recheck in 2 hours Continued alendronate 70 mg tablet 70 mg PO QWEEK Rx Instructions: MONDAY multivitamin with folic acid [Tab-A-Imer] 400 mcg tablet 1 tab PO QAM varenicline [Chantix] 1 mg tablet 1 mg PO BID Qty: 56 6RF acetaminophen 500 mg capsule 500 mg PO Q4-6H PRN folic acid 1 mg tablet 3 mg PO DAILY methotrexate sodium 2.5 mg tablet 10 mg PO QWEEK Rx Instructions: MONDAY Actemra 162 mg/0.9 mL syringe 162 mg SUBCUT Q14D pravastatin 40 mg tablet 40 mg PO HS solifenacin [Vesicare] 5 mg tablet 5 mg PO DAILY apixaban 2.5 mg tablet 2.5 mg PO BID Qty: 180 0RF aspirin [Adult Low Dose Aspirin] 81 mg tablet,delayed release (DR/EC) 81 mg PO DAILY Qty: 90 2RF cholecalciferol (vitamin D3) 25 mcg (1,000 unit) capsule 1,000 unit PO DAILY Qty: 90 2RF flecainide 50 mg tablet 50 mg PO Q12H Qty: 180 2RF losartan 50 mg tablet 50 mg PO DAILY Qty: 90 2RF sertraline 100 mg tablet 100 mg PO DAILY Qty: 90 3RF Discontinued insulin lispro 100 unit/mL solution 55 unit subcut DAILY Rx Instructions: Per insulin pump Discharge Orders: Discharge Order (Routine); Ordered 08/08/22 Ordered By: [place] Amaya Activity Level: Activity as Tolerated and Up with assist Discharge Diet: Diabetic Follow Up Appointments: Nata Roche MD [Primary Care Provider] - 08/22/22 (1-2 weeks ) Admit to: SNF Discharge Potential: Poor Length of Stay: >90 days Can use facility standing orders?: Yes Code Status: DNR/DNI Rehab Potential: Fair Therapy: Physical Therapy and Occupational Therapy Therapy Orders: Evaluate and Treat Oxygen: No Urinary Catheter: No Glucose Checks: At meals and at bedtime Orders are good >30 days: Yes
--- NOTE | 2022-08-08 15:45 | PC.NURSE ---
Discharge: Alert and oriented. Denies pain. VSS on room air. Continuous glucose monitoring via Dexcom. Assist of one w/four wheeled-walker. IV removed intact. Discharge instructions given and belongings list signed. Pt. discharged to LT today at 1250. Nurse to nurse given to Jeanna Yu.
== END 2022-08-08 12:50 ==
LOC: ED 12:07 → MEDSURG 14:53
PROVIDERS: Family Medicine; Admitting Provider Internal Medicine; Emergency Provider Family Medicine; PCP Internal Medicine; Visit Provider Internal Medicine
DX: R41.81 Age-related cognitive decline (principal); M06.9 Rheumatoid arthritis, unspecified; M35.9 Systemic involvement of connective tissue, unspecified; E10.649 Type 1 diabetes mellitus with hypoglycemia without coma; R29.6 Repeated falls; R06.02 Shortness of breath; I48.91 Unspecified atrial fibrillation; Z86.79 Personal history of other diseases of the circulatory system; I69.398 Other sequelae of cerebral infarction; Z72.3 Lack of physical exercise; Z79.01 Long term (current) use of anticoagulants; Z79.4 Long term (current) use of insulin; Z79.82 Long term (current) use of aspirin; Z96.41 Presence of insulin pump (external) (internal); I10 Essential (primary) hypertension; Z66 Do not resuscitate; M79.604 Pain in right leg; M79.605 Pain in left leg; R79.89 Other specified abnormal findings of blood chemistry; R41.0 Disorientation, unspecified; Z80.0 Family history of malignant neoplasm of digestive organs; Z87.891 Personal history of nicotine dependence; Z98.49 Cataract extraction status, unspecified eye; M81.0 Age-related osteoporosis without current pathological fracture; R59.9 Enlarged lymph nodes, unspecified; R41.89 Other symptoms and signs involving cognitive functions and awareness; R53.1 Weakness
CPT/HCPCS: 36415; 70450; 71045; 80048; 80053; 81001; 82330; 82803; 82962; 83036; 83605; 83735; 83880; 84145; 84443; 84484; 85025; 85027; 85379; 85651; 86140; 87086; 87502; 87634; 87635; 93005; 93306; 94761; 96360; 96361; 96372; 97110; 97116; 97161; 97165; 97535; 99284; 99285; A9270; G0378; J7120; J8610

== ENCOUNTER 2022-08-08 11:32 | Inpatient (IN) | payer BC, SELFPAY ==
--- NOTE | 2022-08-08 13:29 | PC.NURSE ---
Resident was admitted from [facility] today related to rheumatoid arthritis, DM type 1, fragility syndrome, HX: CVA, HTN, depression, mild cognitive deficit. Qualified hospital stay was 08/04/22-08/08/22. Today will be first covered day of coverage. Resident and notified of coverage due to fci and therapy (PT, OT,). Resident will receive PT/OT 5x/wkly. After therapy complete will likely be a LTC resident.
--- NOTE | 2022-08-08 14:22 | LTC.ADM ---
LTC Admission Note: o Admit from:[facility] surg o Mode of transport: Wheel chair o Accompanied by: o Transferred via: Assist of 1 with walker o Admitting dx: diabetic type 1, A-fib, Rheumatid antritis,CVD, multiple falls, Hx of Stroke o Mentation:Forgetful o Vital Signs:Bp 125/76, P 74, R 18, T 97.3, O2 sat 92% on RA, o Lung sounds: Clear o Overall condition: stable o Pain: Denied pain o Mood/Behavior: Pleasant and smiling at the time of arrival to LTC., o Wound care: None o Assistance level with ADL?s: Assist of 1 o Mobility: Transfer assist of 1 with walker o Eating: Regular diet
--- NOTE | 2022-08-08 14:54 | PC.NURSE ---
Medicare: Resident was admitted to LT with a diagnosis of Type 1 DM, A-Fib, Rheumatoid Arthritis, CVD, hx of stroke and multiple falls at home. She is scheduled for PT and OT during her stay with mobility. Currently she is free of pain and only taken her schedule medication. Toleration diet well. Due to her uncontrolled diabetic, we care currently doing Accu checks every QID to stabilize her blood sugar. Resident is currently on 1 assist with gait belt with transfers. Independent with ambulation in room, one assist SBA to/fro meals. 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
[2022-08-08 15:00] VITALS: TEMP 36.6; O2SAT 95
--- NOTE | 2022-08-08 15:00 | PC.NURSE ---
Consent Use Psychotropic: Verbal over the phone consent received by /POA Vinicius Hahn that is ok with Sertraline being given for depression. Reviewed side effects. Resident receiving before admission and treatment needed.
[2022-08-08 15:39] LABS: SARS PCR* Negative SARS-CoV-2 (Negative)
--- NOTE | 2022-08-08 17:02 | PC.NURSE ---
Up coming Appointment: Will be in [place] on the 11 of August, at 10:40 am, for 'ear fit' on a new ordered hearing aids.
[2022-08-08 17:22] VITALS: BP 137/78; PULSE 63; RESP 20; TEMP 36.6; O2SAT 95
--- NOTE | 2022-08-08 17:37 | PC.NURSE ---
New med request: Resident has requested for melatonin. Request noted in SIMULATION TECH book.
[2022-08-08] MEDS: PRAVASTATIN SODIUM 40 MG TABLET PO (20:02)
[2022-08-08] MEDS: FLECAINIDE ACETATE 50 MG TABLET PO (20:02)
[2022-08-08 20:25] VITALS: BP 131/78; PULSE 63; RESP 20; TEMP 36.6; O2SAT 95
--- NOTE | 2022-08-08 20:38 | PC.NURSE ---
Health status: Resident complaints of chronic sinus; hence, requesting Sudafed or Mucinex. Noted in CAT TENDER book.
[2022-08-09] VITALS (8 sets, daily range): BP systolic 131–148; BP diastolic 68–80; PULSE 4–73; RESP 18; TEMP 35.8–36.6; O2SAT 93–97
[2022-08-09] MEDS: ASPIRIN 81 MG TABLET EC PO (08:50)
[2022-08-09] MEDS: APIXABAN 5 MG TABLET 2.5 MG PO ×2 (08:51→15:34)
[2022-08-09] MEDS: FOLIC ACID 1 MG TABLET 3 MG PO (08:51)
[2022-08-09] MEDS: MULTIVITAMIN/MINERALS 1 TABLET 1 TAB PO (08:52)
[2022-08-09] MEDS: LOSARTAN POTASSIUM 50 MG TABLET PO (08:52)
[2022-08-09] MEDS: SERTRALINE 100 MG TABLET PO (08:55)
[2022-08-09] MEDS: FLECAINIDE ACETATE 50 MG TABLET PO ×2 (08:55→20:05)
--- NOTE | 2022-08-09 10:28 | PC.NURSE ---
Health status: Resident denied pain. No nonverbal indiction of pain/discomfort noted or reported so far.Alert and oriented but forgetful. VSS on room air. BS 137, Insulin administered, no additional insulin give this morning. Assist of 1 with transfer, up with stand by and walker in and out of BR, Voiding without difficulty. Limited assist of one with dressing. Ate 75% of her breakfast. Diann observed resting well between meals and cares in her room recliner.?
--- NOTE | 2022-08-09 12:11 | PC.NURSE ---
Order: Guaifenesin 600mg BID PRN per resident request by Viktoria BARRIOS. Melatonin not ordered d/t autoimmune disorder.
--- NOTE | 2022-08-09 12:30 | PC.NURSE ---
Side rail Assessment/Providers Orders/Informed Consent: Completed side rail utilization assessment, RBVO both bed rails up to always promote independence/positioning. Requested by resident. DX: rheumatoid arthritis per Nicole Blum NP. Bed rail informed consent form signed and filed. FDA side rail pamphlet given to resident. Intervention in place/Care Plan and Care Sheets updated.
--- NOTE | 2022-08-09 12:45 | PC.NURSE ---
Order: Okay to change to Insulin pens by Viktoria BARRIOS.
--- NOTE | 2022-08-09 14:00 | PC.NURSE ---
NOMNC: Resident was admitted from [facility] with DM1, rheumatoid arthritis Hx CVA, Hx falls. Hospital stay 08/04-08/08. Resident had orders for OT/PT.. Resident did receive these skilled inpatient services. It was determined by the IDT and resident that therapies will end 08/12/22. Explained to resident that the residents last day of coverage will 08/12/22. Starting on 08/13/22 residents coverage at this facility will be private pay. She does have [place] payment. Paperwork given that if resident/family disagrees with this determination they will have until noon on 08/10/22? to call [employer] @ to appeal this decision.? Denial letter reviewed. They will not appeal. Sent to UR department,? given to resident, and original was placed in paper chart. Resident has used 9 days of coverage.
[2022-08-09] MEDS: ACETAMINOPHEN 325 MG TABLET PO (14:13)
--- NOTE | 2022-08-09 14:23 | PC.NURSE ---
Medicare: Resident admitted with a diagnosis of Type 1 DM, A-Fib, Rheumatoid Arthritis, CVD, hx of stroke and multiple falls. Received PT,OT as scheduled, tolerating well. Accu checks done QID. Needs one assist, gait belt with transfers. Independent with ambulation in room, one assist SBA to/fro meals.No c/o of pain but if she does can have Tylenol pso. Goal: [facility] stay.
--- NOTE | 2022-08-09 15:20 | PC.SOCIAL ---
Completed [facility]-1503 form and faxed to [facility] at [phone]. Placed form in resident's chart. Social Work will follow up as necessary.
[2022-08-09] MEDS: PRAVASTATIN SODIUM 40 MG TABLET PO (20:05)
[2022-08-09] MEDS: guaiFENesin 600 MG TAB.ER.12H PO (23:19)
[2022-08-09] MEDS: ACETAMINOPHEN 500 MG TABLET PO (23:58)
[2022-08-10] VITALS (7 sets, daily range): BP systolic 155–170; BP diastolic 78–79; PULSE 65–66; RESP 18; TEMP 35.8–37.1; O2SAT 93–95; BMI 37.3
[2022-08-10] MEDS: NON-FORMULARY MEDICATION PO (07:00)
[2022-08-10] MEDS: FOLIC ACID 1 MG TABLET 3 MG PO (07:46)
[2022-08-10] MEDS: SERTRALINE 100 MG TABLET PO (07:46)
[2022-08-10] MEDS: APIXABAN 5 MG TABLET 2.5 MG PO ×3 (07:46→17:40)
[2022-08-10] MEDS: ASPIRIN 81 MG TABLET EC PO (07:46)
[2022-08-10] MEDS: FLECAINIDE ACETATE 50 MG TABLET PO ×2 (07:46→19:55)
[2022-08-10] MEDS: LOSARTAN POTASSIUM 50 MG TABLET PO (07:47)
[2022-08-10] MEDS: MULTIVITAMIN/MINERALS 1 TABLET 1 TAB PO (07:47)
[2022-08-10 11:30] LABS: SARS PCR* Negative SARS-CoV-2 (Negative)
--- NOTE | 2022-08-10 12:43 | PC.NURSE ---
Medicare: Resident admitted with a diagnosis of Type 1 DM, A-Fib, Rheumatoid Arthritis, CVD, hx of stroke and multiple falls. Received PT,OT as scheduled, tolerating well. Accu checks done QID. Needs one assist, gait belt with transfers. Independent with ambulation in room, one assist SBA to/fro meals.
--- NOTE | 2022-08-10 14:44 | PC.SOCIAL ---
Phone call to resident's , Roni, to discuss scheduling resident's care conference. Roni informed that Monday August 15, 2022 at 1:15 pm will work for him. Roni informed that it is best to call him to provide the care conference date/time for future conferences. Informed Roni that we e-mail the notice each time a care conference is set so family has the call in information if needed. Roni stated that he will try to be in person each time, but he is glad he has the option. Roni provided his e-mail address which is [email or web address]. Social work will follow up as necessary.
[2022-08-10] MEDS: PRAVASTATIN SODIUM 40 MG TABLET PO (19:55)
[2022-08-10] MEDS: ACETAMINOPHEN 325 MG TABLET 650 MG PO (20:04)
[2022-08-11] MEDS: ACETAMINOPHEN 500 MG TABLET PO ×2 (06:38→19:53)
[2022-08-11] MEDS: APIXABAN 5 MG TABLET 2.5 MG PO ×2 (07:55→16:58)
[2022-08-11] MEDS: FOLIC ACID 1 MG TABLET 3 MG PO (07:55)
[2022-08-11] MEDS: ASPIRIN 81 MG TABLET EC PO (07:55)
[2022-08-11] MEDS: MULTIVITAMIN/MINERALS 1 TABLET 1 TAB PO (07:56)
[2022-08-11] MEDS: LOSARTAN POTASSIUM 50 MG TABLET PO (07:56)
[2022-08-11] MEDS: SERTRALINE 100 MG TABLET PO (07:57)
[2022-08-11] MEDS: FLECAINIDE ACETATE 50 MG TABLET PO ×2 (07:57→20:01)
[2022-08-11 09:41] VITALS: BP 147/88; PULSE 82; RESP 18; TEMP 36.1; O2SAT 94
--- NOTE | 2022-08-11 09:46 | PC.NURSE ---
Outing: Went out with ambulatory with walker for hearing aid fit.
--- NOTE | 2022-08-11 12:08 | PC.NURSE ---
Return: Back with bilateral hearing aids. Happy she can hear well.
--- NOTE | 2022-08-11 13:38 | PC.NURSE ---
Medicare: Has PT/OT 5x/week, tolerating well. VS fine. Needs one assist, walker with transfers and ambulation in the acuña, independent in room. Complain of intermittent pain relief with PRN Tylenol. Goal: [facility] stay.
[2022-08-11] MEDS: PRAVASTATIN SODIUM 40 MG TABLET PO (20:01)
[2022-08-11 20:49] VITALS: TEMP 36.6; O2SAT 95
[2022-08-11 23:00] VITALS: TEMP 36.8; O2SAT 95
[2022-08-12] MEDS: ACETAMINOPHEN 500 MG TABLET PO ×3 (01:42→20:41)
[2022-08-12 07:00] VITALS: BP 122/73; PULSE 76; RESP 18; TEMP 36.1; O2SAT 95
--- NOTE | 2022-08-12 08:06 | PC.NURSE ---
Admit day 5 covid swab test done & sent to lab.
[2022-08-12] MEDS: ASPIRIN 81 MG TABLET EC PO (08:35)
[2022-08-12] MEDS: FOLIC ACID 1 MG TABLET 3 MG PO (08:35)
[2022-08-12] MEDS: LOSARTAN POTASSIUM 50 MG TABLET PO (08:35)
[2022-08-12] MEDS: MULTIVITAMIN/MINERALS 1 TABLET 1 TAB PO (08:35)
[2022-08-12] MEDS: APIXABAN 5 MG TABLET 2.5 MG PO ×2 (08:35→15:46)
[2022-08-12] MEDS: FLECAINIDE ACETATE 50 MG TABLET PO ×2 (08:36→20:40)
[2022-08-12] MEDS: SERTRALINE 100 MG TABLET PO (08:36)
[2022-08-12 09:05] LABS: SARS PCR* Negative SARS-CoV-2 (Negative)
--- NOTE | 2022-08-12 12:36 | PC.NURSE ---
Recert Visit: Resident seen by Dr. Carrillo. Orders reviewed and renewed for 45 days with changes. Order:Continue Varenicline 1 mg BID X 8 weeks, continue accu checks QID, update CARE AID/MD Q Monday & Monday with accu checks, only use sliding scale Insulin before meals. Change sliding scale as follows: Accu check Units Novolog 0-200 0 201 - 250 1 251 - 300 2 301 -350 3 351- 400 4 over 400 5 & recheck in 2 hours. Nystatin powder under breasts & abd folds BID X 14d then BID PRN, Voltaren gel 1% to painful joints TID.
--- NOTE | 2022-08-12 13:55 | PC.NURSE ---
Medicare charting: Resident complains pain to bilateral shoulders, arms and legs, applied ice and warm washcloths and given Tylenol 500mg prn which was effective upon followups. BS 141 at 0730 and 208 at 1145, given Insulin as ordered. Limited assist of one with dressing. able to complete the rest of ADL's independent after set ups. Ate well in her room for both meals.
[2022-08-12 15:00] VITALS: TEMP 36.6; O2SAT 95
[2022-08-12] MEDS: NYSTATIN POWDER 1 APPLIC TOPICAL (17:18)
[2022-08-12] MEDS: PRAVASTATIN SODIUM 40 MG TABLET PO (20:40)
[2022-08-12 21:31] VITALS: TEMP 36.6; O2SAT 95
[2022-08-12 23:00] VITALS: TEMP 36.8; O2SAT 95
[2022-08-13] MEDS: ACETAMINOPHEN 500 MG TABLET PO ×2 (00:53→20:28)
[2022-08-13 07:00] VITALS: BP 120/75; PULSE 79; RESP 18; TEMP 36.2; O2SAT 95
[2022-08-13] MEDS: NYSTATIN POWDER 1 APPLIC TOPICAL ×2 (08:30→16:36)
[2022-08-13] MEDS: ASPIRIN 81 MG TABLET EC PO (08:39)
[2022-08-13] MEDS: FOLIC ACID 1 MG TABLET 3 MG PO (08:39)
[2022-08-13] MEDS: APIXABAN 5 MG TABLET 2.5 MG PO ×2 (08:39→16:36)
[2022-08-13] MEDS: LOSARTAN POTASSIUM 50 MG TABLET PO (08:40)
[2022-08-13] MEDS: MULTIVITAMIN/MINERALS 1 TABLET 1 TAB PO (08:40)
[2022-08-13] MEDS: FLECAINIDE ACETATE 50 MG TABLET PO ×2 (08:41→20:08)
[2022-08-13] MEDS: SERTRALINE 100 MG TABLET PO (08:41)
--- NOTE | 2022-08-13 13:23 | PC.NURSE ---
Medicare Charting: Resident continues with PT/OT 5x/week, no therapy session scheduled for this shift.? VS : Bp 120/75, R 18, Temp 97.3, P 79, O2 sat 95% on RA, BS 224 at 0800 and 225 at 1200, administered Insulin as ordered. Independent with ADL's in her room with staff assisting with Teds to bilateral lower extremities.? Independent with transfers uses walker in and out BR and ambulation in the acuña. She complains minor pain to bilateral shoulders and neck pain which was effective with scheduled Voltaren gel.
[2022-08-13 18:37] VITALS: TEMP 36.7; O2SAT 97
[2022-08-13] MEDS: PRAVASTATIN SODIUM 40 MG TABLET PO (20:08)
[2022-08-13 23:00] VITALS: TEMP 36.8; O2SAT 97
[2022-08-14 07:00] VITALS: BP 121/72; PULSE 84; RESP 16; TEMP 36.3; O2SAT 97
[2022-08-14] MEDS: FOLIC ACID 1 MG TABLET 3 MG PO (08:16)
[2022-08-14] MEDS: ASPIRIN 81 MG TABLET EC PO (08:16)
[2022-08-14] MEDS: APIXABAN 5 MG TABLET 2.5 MG PO ×2 (08:16→16:01)
[2022-08-14] MEDS: MULTIVITAMIN/MINERALS 1 TABLET 1 TAB PO (08:17)
[2022-08-14] MEDS: LOSARTAN POTASSIUM 50 MG TABLET PO (08:17)
[2022-08-14] MEDS: SERTRALINE 100 MG TABLET PO (08:19)
[2022-08-14] MEDS: FLECAINIDE ACETATE 50 MG TABLET PO ×2 (08:19→19:59)
[2022-08-14] MEDS: NYSTATIN POWDER 1 APPLIC TOPICAL ×2 (08:20→17:13)
--- NOTE | 2022-08-14 14:45 | PC.NURSE ---
Medicare : Resident continues with PT/OT 5x/week, no therapy session scheduled for this shift.?BS: 168 and 257 at 12 noon. administered Insulin as ordered. VS : Bp 121/72, R 18, Temp 97.3, P 84, O2 sat 97% on RA. Independent with ADL's in her room with staff assisting with Teds to bilateral lower extremities.? Independent with transfers uses walker in and out BR and ambulation in the acuña. No complaints of pain, pain manges with scheduled Voltaren gel to bilateral shoulders and neck.
[2022-08-14] MEDS: PRAVASTATIN SODIUM 40 MG TABLET PO (19:59)
[2022-08-14 21:47] VITALS: TEMP 36.6; O2SAT 93
[2022-08-14 23:00] VITALS: TEMP 36.8; O2SAT 94
[2022-08-15] MEDS: ACETAMINOPHEN 500 MG TABLET PO (02:59)
[2022-08-15] MEDS: LOSARTAN POTASSIUM 50 MG TABLET PO (08:05)
[2022-08-15] MEDS: FOLIC ACID 1 MG TABLET 3 MG PO (08:05)
[2022-08-15] MEDS: APIXABAN 5 MG TABLET 2.5 MG PO ×2 (08:05→16:48)
[2022-08-15] MEDS: MULTIVITAMIN/MINERALS 1 TABLET 1 TAB PO (08:05)
[2022-08-15] MEDS: ASPIRIN 81 MG TABLET EC PO (08:05)
[2022-08-15] MEDS: NYSTATIN POWDER 1 APPLIC TOPICAL ×2 (08:06→16:51)
[2022-08-15] MEDS: SERTRALINE 100 MG TABLET PO (08:06)
[2022-08-15] MEDS: FLECAINIDE ACETATE 50 MG TABLET PO ×2 (08:06→20:02)
[2022-08-15 10:05] VITALS: TEMP 36.1; O2SAT 94
[2022-08-15 11:41] LABS: SARS PCR* Negative SARS-CoV-2 (Negative)
[2022-08-15 13:52] VITALS: BP 134/84; PULSE 79; RESP 18; TEMP 36.1; O2SAT 94
--- NOTE | 2022-08-15 13:54 | PC.NURSE ---
Medicare: PT/OT 5x/week, tolerating well. Vital signs okay. No complain of pain. Ambulates/transfers in room per self with a walker.
--- NOTE | 2022-08-15 14:11 | PC.NURSE ---
COVID OUTBREAK TESTING Resident gave verbal consent for outbreak COVID testing. Resident is currently asymptomatic.? Resident/family will be notified only if resident is positive.
--- NOTE | 2022-08-15 14:23 | PC.SOCIAL ---
Resident's care conference was held today. Resident finished her PT and OT on 08/12 and will be here long tern. She is moving to a larger room at the end of this week. 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 She will close her case and refer her to [facility] for marine oil terminal superintendent case management. Resident's mood remains stable but resident was offered inhouse therapist, which resident does not feel she needs at this time. Resident completed a POLST and is a DNR/DNI.
[2022-08-15 15:00] VITALS: TEMP 36.6; O2SAT 94; BMI 37.3
--- NOTE | 2022-08-15 16:00 | PC.NURSE ---
CARE CONFERENCE: Care conference meeting held with all members of care team present. Resident and her present.? Nursing reviewed that resident is now independent in room and in hallway after receiving therapy. She recieved therapy from 08/08 (day of admission)-08/12. Reviewed medications and changes that have been made. Care plan reviewed and updated. POLST reviewed and signed. Uses no restraints. Does use 2 side rails up to assist with positioning.? Resident is given medications by staff.? Vulnerable due to mobility limitations and cognitive impairment. Resident SS spoke about AL and expectations that will be needed for move to this type of setting. Reviewed health, cognition and strength may make retirement care the safest option. Resident stated she would like to have small portions. Block Operator will update this. is going to bring in pear juice per residents request. Resident given medication list. She would like to have Tylenol and Tums scheduled. She would like to discuss restless legs with provider when able. Resident requested to be put on podiatry list. Have fingernails cut. Resident will be moving to a larger room this week and would like to take the recliner in her room with her. No further questions/concerns by family at this time.
[2022-08-15] MEDS: PRAVASTATIN SODIUM 40 MG TABLET PO (20:02)
[2022-08-15 23:00] VITALS: TEMP 36.8; O2SAT 94
[2022-08-16] MEDS: ACETAMINOPHEN 500 MG TABLET PO ×2 (01:53→20:20)
[2022-08-16] MEDS: ASPIRIN 81 MG TABLET EC PO (08:13)
[2022-08-16] MEDS: APIXABAN 5 MG TABLET 2.5 MG PO ×2 (08:13→16:11)
[2022-08-16] MEDS: FOLIC ACID 1 MG TABLET 3 MG PO (08:13)
[2022-08-16] MEDS: MULTIVITAMIN/MINERALS 1 TABLET 1 TAB PO (08:14)
[2022-08-16] MEDS: LOSARTAN POTASSIUM 50 MG TABLET PO (08:14)
[2022-08-16] MEDS: FLECAINIDE ACETATE 50 MG TABLET PO ×2 (08:16→20:21)
[2022-08-16] MEDS: SERTRALINE 100 MG TABLET PO (08:18)
[2022-08-16] MEDS: NYSTATIN POWDER 1 APPLIC TOPICAL ×2 (08:18→16:58)
[2022-08-16 09:55] VITALS: TEMP 36.2; O2SAT 95
--- NOTE | 2022-08-16 10:11 | PC.SPIRITC ---
Madhuri spoke about her gratitude for being at [facility] along with the grief that comes from transitioning to a residential care facility. Family and braden are important to Madhuri, she is Hindu but does not have a jehovah's witness home. Per Madhuri, it is important for me to have a positive attitude. Senior System Operator provided time to process changes, introduction to the department, and support.
[2022-08-16 10:50] VITALS: BP 137/75; PULSE 68; RESP 18; TEMP 36.2; O2SAT 95
--- NOTE | 2022-08-16 11:22 | PC.NURSE ---
Order: Tylenol 500mg PO HS per resident request.
--- NOTE | 2022-08-16 14:00 | PC.NURSE ---
POLST: done by EDGE BANDING OFF BEARER. Copy faxed to [employer].
--- NOTE | 2022-08-16 15:00 | PC.NURSE ---
Residents came and asked that he take home the Dexcom products to use if resident goes out during visits in the summer. He will remove the one in her arm and take the chip home with him this week. No Dexcom will be used in facility after he removes the current system.
[2022-08-16 16:47] VITALS: TEMP 36.8; O2SAT 95
[2022-08-16] MEDS: PRAVASTATIN SODIUM 40 MG TABLET PO (20:21)
[2022-08-16 23:00] VITALS: TEMP 36.9; O2SAT 94
--- NOTE | 2022-08-17 03:12 | PC.NURSE ---
WEEKLY CHARTING - WEEK 2: Vital signs reviewed - elevated BPs noted. Temporary and admission care plan reviewed. No changes made at this time. Independent with transfers and ambulation. Uses 4WW for ambulation. Independent with bed mobility. Uses right 1/4 side rail for enabler. Per fall risk assessment, is at high risk for falls. Fall interventions: call light within reach, 4WW at bedside, bed in low position with brakes locked.
[2022-08-17] MEDS: NON-FORMULARY MEDICATION PO (05:41)
--- NOTE | 2022-08-17 06:56 | PC.NURSE ---
Week #2-Mobility: Baseline care plan and temporary care plan reviewed. No changes made. Nothing added to temporary care plan. Resident is independent with transfers and ambulation in room. SBA in halls, however is ambulating independently in halls also. Ambulates with a walker. Independent with bed mobility/repositioning. (R) 1/4 side rail up at all times for independence/positioning. No alarms. Vital signs reviewed, occasional elevated BP's. Continue weekly VS monitoring. Refer to REPORTS ANALYST/MD as needed. Fall: No falls since admission. Is a high fall risk according to assessment done on 08/12/22. Fall interventions: (R) 1/4 SR up, call light within reach, walker at bedside, bed in low position.
[2022-08-17] MEDS: ASPIRIN 81 MG TABLET EC PO (08:25)
[2022-08-17] MEDS: LOSARTAN POTASSIUM 50 MG TABLET PO (08:26)
[2022-08-17] MEDS: MULTIVITAMIN/MINERALS 1 TABLET 1 TAB PO (08:26)
[2022-08-17] MEDS: FOLIC ACID 1 MG TABLET 3 MG PO (08:26)
[2022-08-17] MEDS: APIXABAN 5 MG TABLET 2.5 MG PO ×2 (08:26→16:09)
[2022-08-17] MEDS: SERTRALINE 100 MG TABLET PO (08:28)
[2022-08-17] MEDS: NYSTATIN POWDER 1 APPLIC TOPICAL ×2 (08:28→16:36)
[2022-08-17] MEDS: FLECAINIDE ACETATE 50 MG TABLET PO ×2 (08:28→19:40)
[2022-08-17] MEDS: ACETAMINOPHEN 500 MG TABLET PO ×2 (08:42→19:40)
[2022-08-17 09:28] VITALS: TEMP 36.2; O2SAT 95
[2022-08-17 14:55] VITALS: BMI 37.3
[2022-08-17 15:00] VITALS: TEMP 36.6; O2SAT 95
[2022-08-17] MEDS: PRAVASTATIN SODIUM 40 MG TABLET PO (19:40)
[2022-08-17 23:00] VITALS: TEMP 36.8; O2SAT 93
[2022-08-18] MEDS: ACETAMINOPHEN 500 MG TABLET PO ×2 (05:06→20:14)
[2022-08-18] MEDS: SERTRALINE 100 MG TABLET PO (08:01)
[2022-08-18] MEDS: NYSTATIN POWDER 1 APPLIC TOPICAL ×2 (08:02→16:53)
[2022-08-18] MEDS: FLECAINIDE ACETATE 50 MG TABLET PO ×2 (08:02→20:15)
[2022-08-18] MEDS: LOSARTAN POTASSIUM 50 MG TABLET PO (08:03)
[2022-08-18] MEDS: APIXABAN 5 MG TABLET 2.5 MG PO ×2 (08:03→16:18)
[2022-08-18] MEDS: MULTIVITAMIN/MINERALS 1 TABLET 1 TAB PO (08:03)
[2022-08-18] MEDS: ASPIRIN 81 MG TABLET EC PO (08:03)
[2022-08-18] MEDS: FOLIC ACID 1 MG TABLET 3 MG PO (08:03)
[2022-08-18 09:01] VITALS: TEMP 36.6; O2SAT 96
--- NOTE | 2022-08-18 11:05 | PC.NURSE ---
Status/order: N/P here, accu checks reviewed. New order : Insulin detemir increased from 14 unit to 16 units subcut Q12H and order Tab Calcium Carbonate 500mg QID PRN as per resident request.
[2022-08-18 16:31] VITALS: TEMP 36.8; O2SAT 95
[2022-08-18] MEDS: PRAVASTATIN SODIUM 40 MG TABLET PO (20:15)
[2022-08-18 23:00] VITALS: TEMP 36.9; O2SAT 95
[2022-08-19] MEDS: ASPIRIN 81 MG TABLET EC PO (08:27)
[2022-08-19] MEDS: APIXABAN 5 MG TABLET 2.5 MG PO ×2 (08:27→16:38)
[2022-08-19] MEDS: FOLIC ACID 1 MG TABLET 3 MG PO (08:27)
[2022-08-19] MEDS: MULTIVITAMIN/MINERALS 1 TABLET 1 TAB PO (08:29)
[2022-08-19] MEDS: LOSARTAN POTASSIUM 50 MG TABLET PO (08:29)
[2022-08-19] MEDS: NYSTATIN POWDER 1 APPLIC TOPICAL ×2 (08:30→20:47)
[2022-08-19] MEDS: FLECAINIDE ACETATE 50 MG TABLET PO ×2 (08:31→20:10)
[2022-08-19] MEDS: SERTRALINE 100 MG TABLET PO (08:31)
[2022-08-19 10:17] VITALS: TEMP 36.4; O2SAT 98
--- NOTE | 2022-08-19 10:23 | PC.NURSE ---
Addendum entered by Diann Leavitt RN 08/19/22 10:35: Also notified resident wants blood sugar check @ 0200 when dexcom machine removed. Original Note: Status: Dr. Carrillo updated accu checks reviewed by PAPER MILL MANAGER 08/18/22, Nancy rosenthal.
--- NOTE | 2022-08-19 13:39 | PC.NURSE ---
MDS ADL Clarificatio: ADL assistance provided by staff. Errors made in charing. Resident recently discharged from therapy. Has rheumatoid arthritis, DM1, and frequent falls. Resident independent without set up for adls except for dressing as staff has to put on bilateral bienvenido stocking daily, on in am, off at hs. Resident has incontinence of urine at times. Can manage her own incontinence. Continent of bowels. Ambulatory with walker. Observe for changes. Proceed to plan of care.
--- NOTE | 2022-08-19 13:44 | PC.NURSE ---
Room transfer: Resident transfer from room 237 to room 270 at 1330 hours. She was helped by staff and her .
--- NOTE | 2022-08-19 13:57 | PC.NURSE ---
High blood sugar: Resident BS was 484 at 11am as resident had cinnamon roll and pop corn (caramel).Resident was advise not to take unhealthy snack which could spike her sugar level and cause other complications.
[2022-08-19 15:00] VITALS: TEMP 36.3; O2SAT 98
[2022-08-19] MEDS: ACETAMINOPHEN 500 MG TABLET PO (20:10)
[2022-08-19] MEDS: PRAVASTATIN SODIUM 40 MG TABLET PO (20:10)
--- NOTE | 2022-08-19 22:01 | PC.NURSE ---
Blood Glucose: Director Of Capital Giving checked resident's blood sugar at 2014 and reading was 86. Resident instructed to eat snacks and was given apple juice. Resident stated she ate fruit cup, 1/2 banana, string cheese and drank juice. Rechecked BS at 21:45 and reading was 203. Admin of 16 units of Levemir insulin was given.
[2022-08-19 23:00] VITALS: TEMP 36.1; O2SAT 98
[2022-08-20] MEDS: APIXABAN 5 MG TABLET 2.5 MG PO ×2 (07:38→17:58)
[2022-08-20] MEDS: ASPIRIN 81 MG TABLET EC PO (07:38)
[2022-08-20] MEDS: FOLIC ACID 1 MG TABLET 3 MG PO (07:39)
[2022-08-20] MEDS: LOSARTAN POTASSIUM 50 MG TABLET PO (07:40)
[2022-08-20] MEDS: MULTIVITAMIN/MINERALS 1 TABLET 1 TAB PO (07:40)
[2022-08-20] MEDS: SERTRALINE 100 MG TABLET PO (07:42)
[2022-08-20] MEDS: FLECAINIDE ACETATE 50 MG TABLET PO ×2 (07:42→20:46)
[2022-08-20] MEDS: NYSTATIN POWDER 1 APPLIC TOPICAL ×2 (08:13→20:45)
[2022-08-20 10:10] VITALS: TEMP 36.3; O2SAT 90
--- NOTE | 2022-08-20 13:41 | PC.NURSE ---
Outing: Resident left with for outing, will be back about 6
[2022-08-20 15:00] VITALS: TEMP 36.4; O2SAT 98
[2022-08-20] MEDS: ACETAMINOPHEN 500 MG TABLET PO (20:45)
[2022-08-20] MEDS: PRAVASTATIN SODIUM 40 MG TABLET PO (20:46)
[2022-08-20 23:00] VITALS: TEMP 36.6; O2SAT 97
[2022-08-21] MEDS: CALCIUM CARBONATE 500 MG CHEW PO (02:44)
[2022-08-21] MEDS: ASPIRIN 81 MG TABLET EC PO (07:42)
[2022-08-21] MEDS: APIXABAN 5 MG TABLET 2.5 MG PO ×2 (07:43→16:04)
[2022-08-21] MEDS: FOLIC ACID 1 MG TABLET 3 MG PO (07:43)
[2022-08-21] MEDS: LOSARTAN POTASSIUM 50 MG TABLET PO (07:43)
[2022-08-21] MEDS: MULTIVITAMIN/MINERALS 1 TABLET 1 TAB PO (07:43)
[2022-08-21] MEDS: NYSTATIN POWDER 1 APPLIC TOPICAL (07:44)
[2022-08-21] MEDS: SERTRALINE 100 MG TABLET PO (07:45)
[2022-08-21] MEDS: FLECAINIDE ACETATE 50 MG TABLET PO ×2 (07:45→20:33)
[2022-08-21 10:32] VITALS: TEMP 36.4; O2SAT 96
[2022-08-21 15:00] VITALS: TEMP 37; O2SAT 95
[2022-08-21] MEDS: ACETAMINOPHEN 500 MG TABLET PO (20:32)
[2022-08-21] MEDS: PRAVASTATIN SODIUM 40 MG TABLET PO (20:33)
--- NOTE | 2022-08-21 22:01 | PC.NURSE ---
Status: Resident has refused to use Nystatin powder. Wants to use her own powder.
[2022-08-21 23:00] VITALS: TEMP 36.2; O2SAT 92
[2022-08-22] MEDS: APIXABAN 5 MG TABLET 2.5 MG PO ×2 (08:23→15:53)
[2022-08-22] MEDS: LOSARTAN POTASSIUM 50 MG TABLET PO (08:23)
[2022-08-22] MEDS: FOLIC ACID 1 MG TABLET 3 MG PO (08:23)
[2022-08-22] MEDS: ASPIRIN 81 MG TABLET EC PO (08:23)
[2022-08-22] MEDS: SERTRALINE 100 MG TABLET PO (08:24)
[2022-08-22] MEDS: MULTIVITAMIN/MINERALS 1 TABLET 1 TAB PO (08:24)
[2022-08-22] MEDS: FLECAINIDE ACETATE 50 MG TABLET PO ×2 (08:24→19:58)
[2022-08-22] MEDS: NYSTATIN POWDER 1 APPLIC TOPICAL ×2 (08:24→15:55)
[2022-08-22 09:41] VITALS: TEMP 36.3; O2SAT 92
--- NOTE | 2022-08-22 11:26 | PC.NURSE ---
COVID OUTBREAK TESTING Resident gave verbal consent for outbreak COVID testing. Resident is currently asymptomatic.? Resident/family will be notified only if resident is positive.
[2022-08-22 12:11] LABS: SARS PCR* Negative SARS-CoV-2 (Negative)
[2022-08-22] MEDS: ACETAMINOPHEN 500 MG TABLET PO (19:58)
[2022-08-22] MEDS: PRAVASTATIN SODIUM 40 MG TABLET PO (20:24)
[2022-08-22 23:00] VITALS: TEMP 35.9; O2SAT 99
[2022-08-23] MEDS: FOLIC ACID 1 MG TABLET 3 MG PO (07:13)
[2022-08-23] MEDS: APIXABAN 5 MG TABLET 2.5 MG PO ×2 (07:13→15:32)
[2022-08-23] MEDS: ASPIRIN 81 MG TABLET EC PO (07:13)
[2022-08-23] MEDS: MULTIVITAMIN/MINERALS 1 TABLET 1 TAB PO (07:14)
[2022-08-23] MEDS: LOSARTAN POTASSIUM 50 MG TABLET PO (07:14)
[2022-08-23] MEDS: ACETAMINOPHEN 500 MG TABLET PO ×2 (07:15→20:03)
[2022-08-23] MEDS: SERTRALINE 100 MG TABLET PO (07:15)
[2022-08-23] MEDS: FLECAINIDE ACETATE 50 MG TABLET PO ×2 (07:17→20:12)
[2022-08-23] MEDS: NYSTATIN POWDER 1 APPLIC TOPICAL ×2 (07:19→15:33)
[2022-08-23 10:11] VITALS: TEMP 36.6; O2SAT 95
--- NOTE | 2022-08-23 12:51 | PC.NURSE ---
Status/Order: Accu checks reviewed by DAY CAMP UNIT LEADER. Order: Increase Novolog 7u to 9 units @ 11,16.
--- NOTE | 2022-08-23 14:12 | PC.PHA1 ---
Addendum entered and electronically signed by Jordyn Angeles 08/23/22 14:32: send to Nicole Blum Original Note: PICKLING MACHINE OPERATOR PHARMACIST'S MEDICATION REVIEW: MEDICATION MONITORING:Sertraline 100 mg daily Chantix for smoking cessation IRREGULARITY OR COMMENTS:Patient admitted early August 2022 after hospital stay resulting from multiple falls at home. Long history of type 1 diabetes with blood sugars managed by insulin pump, pump has now been discontinued and replaced with bolus and basal insulin dosing via pens. Chantix continues after starting pre-hospital stay, patient tolerating with no GI side effects or sleep walking. Sertraline dose appropriate for patient's currant situation, GDR clinically contraindicated at this time. Apixaban and aspirin post stroke and cardiac history. Extensive medication list with indications existing for all prescribed (polypharmacy). SUGGESTED COURSE OF ACTION TAKEN:Patient being well managed at time of review, no medication recommendations.
[2022-08-23 15:00] VITALS: TEMP 36.6; O2SAT 95
[2022-08-23] MEDS: PRAVASTATIN SODIUM 40 MG TABLET PO (20:12)
[2022-08-23 23:00] VITALS: TEMP 36.6; O2SAT 95
[2022-08-24] MEDS: NON-FORMULARY MEDICATION PO (07:19)
[2022-08-24] MEDS: ASPIRIN 81 MG TABLET EC PO (07:28)
[2022-08-24] MEDS: FOLIC ACID 1 MG TABLET 3 MG PO (07:28)
[2022-08-24] MEDS: APIXABAN 5 MG TABLET 2.5 MG PO ×2 (07:28→16:20)
[2022-08-24] MEDS: LOSARTAN POTASSIUM 50 MG TABLET PO (07:29)
[2022-08-24] MEDS: MULTIVITAMIN/MINERALS 1 TABLET 1 TAB PO (07:29)
[2022-08-24] MEDS: SERTRALINE 100 MG TABLET PO (07:30)
[2022-08-24] MEDS: NYSTATIN POWDER 1 APPLIC TOPICAL ×2 (07:30→16:22)
[2022-08-24] MEDS: FLECAINIDE ACETATE 50 MG TABLET PO ×2 (07:30→20:28)
[2022-08-24] MEDS: ACETAMINOPHEN 500 MG TABLET PO ×2 (07:47→20:27)
[2022-08-24 10:34] VITALS: TEMP 36.4; O2SAT 95
[2022-08-24 15:00] VITALS: TEMP 36.6; O2SAT 95
[2022-08-24] MEDS: PRAVASTATIN SODIUM 40 MG TABLET PO (20:28)
[2022-08-24 23:55] VITALS: TEMP 36.4; O2SAT 94
--- NOTE | 2022-08-25 00:57 | PC.NURSE ---
WEEKLY CHARTING - WEEK 3: Vital signs reviewed. Temporary and comprehensive care plan reviewed with no changes. Resident uses call light and staff assist her to the bathroom at night using walker. She has yeast infection under her breast and abdomen folds which she uses Nystatin cream. It is overall improving. Resident is a diabetes and skin assessment is conducted daily during her cares and during bath day to ensure skin integrity remain intact. Her Tissue Tolerance Test indicates Q3hrs and she is currently turn every 3 hours at night to prevent pressure sore.
[2022-08-25] MEDS: ACETAMINOPHEN 500 MG TABLET PO ×2 (05:27→20:38)
--- NOTE | 2022-08-25 06:42 | PC.NURSE ---
Weekly Week #3: Vital signs reviewed with no issues Temporary care plan reviewed with no changes made Care plan reviewed with no changes Skin check showed that resident has redness to L breast and L abdominal fold Resident is I with toileting and most other ADL's. Does need total help with bienvenido hose and hearing aids.
[2022-08-25] MEDS: FOLIC ACID 1 MG TABLET 3 MG PO (08:51)
[2022-08-25] MEDS: LOSARTAN POTASSIUM 50 MG TABLET PO (08:51)
[2022-08-25] MEDS: APIXABAN 5 MG TABLET 2.5 MG PO ×2 (08:51→17:06)
[2022-08-25] MEDS: MULTIVITAMIN/MINERALS 1 TABLET 1 TAB PO (08:51)
[2022-08-25] MEDS: ASPIRIN 81 MG TABLET EC PO (08:51)
[2022-08-25] MEDS: FLECAINIDE ACETATE 50 MG TABLET PO ×2 (08:52→20:38)
[2022-08-25] MEDS: NYSTATIN POWDER 1 APPLIC TOPICAL ×2 (08:52→20:13)
[2022-08-25] MEDS: SERTRALINE 100 MG TABLET PO (08:52)
[2022-08-25 09:57] VITALS: TEMP 36.3; O2SAT 93
[2022-08-25 15:00] VITALS: TEMP 36.8; O2SAT 95
[2022-08-25] MEDS: PRAVASTATIN SODIUM 40 MG TABLET PO (20:38)
[2022-08-25 23:00] VITALS: TEMP 36.6; O2SAT 96
[2022-08-26 01:53] VITALS: TEMP 36.6
[2022-08-26] MEDS: ACETAMINOPHEN 500 MG TABLET PO (01:53)
--- NOTE | 2022-08-26 04:15 | PC.NURSE ---
WEEK 3 TOILETING AND SKIN Vitals review, stable, except the blood sugar , high some days , was 327 at 2 am. Temporary and comprehensive care plan reviewed with no changes. Resident uses call light? and staff assist her to the bathroom at night using walker, continent of bowel and bladder. She has redness and yeast under her breast and abdomen folds, Nystatin cream applied for care. It is overall improving. Resident is a diabetes and skin assessment is conducted daily during her cares and during bath day to ensure skin integrity remain intact. Her Tissue Tolerance Test indicates Q3hrs and she? is currently turn every 3 hours at night to prevent pressure sore.? ? ?
[2022-08-26 07:00] VITALS: TEMP 36.5; O2SAT 95
[2022-08-26] MEDS: APIXABAN 5 MG TABLET 2.5 MG PO ×2 (08:19→15:12)
[2022-08-26] MEDS: FOLIC ACID 1 MG TABLET 3 MG PO (08:19)
[2022-08-26] MEDS: ASPIRIN 81 MG TABLET EC PO (08:19)
[2022-08-26] MEDS: MULTIVITAMIN/MINERALS 1 TABLET 1 TAB PO (08:20)
[2022-08-26] MEDS: LOSARTAN POTASSIUM 50 MG TABLET PO (08:20)
[2022-08-26] MEDS: FLECAINIDE ACETATE 50 MG TABLET PO ×2 (08:22→19:24)
[2022-08-26] MEDS: SERTRALINE 100 MG TABLET PO (08:23)
[2022-08-26] MEDS: NYSTATIN POWDER 1 APPLIC TOPICAL (08:32)
--- NOTE | 2022-08-26 11:11 | PC.NURSE ---
Status/Order: Resident seen by Dr Carrillo, accu check reviewed and updated resident pain. 1. Increase AM dose of Insulin Aspart to 9 units ( aspart dose will be 9 units TID AC) 2. Update MD with Accu check in 1 week. 3 Please make sure her alendronate dose is given 1st thing in the morning on empty stomach. 4 Monitor for symptoms of upset stomach daily x1 week and note if it correlates to Alendronate dose. Update result in 1week. 5 Increase acetaminophen dose to 1000mg PO QHS and continue PRN dose as ordered.
[2022-08-26 15:00] VITALS: TEMP 36.6; O2SAT 94
[2022-08-26] MEDS: PRAVASTATIN SODIUM 40 MG TABLET PO (19:24)
[2022-08-26] MEDS: ACETAMINOPHEN 500 MG TABLET 1000 MG PO (19:24)
--- NOTE | 2022-08-26 21:56 | PC.NURSE ---
Bowel Status: Last charted BM was 08/24/22. Resident refused MOM.
[2022-08-27 01:19] VITALS: TEMP 36.6; O2SAT 91
--- NOTE | 2022-08-27 05:43 | PC.NURSE ---
Status: Residents Blood Glucose is at 66, was given crackers, grape juice, and a cheese stick. Blood Glucose was checked again half an hour later and Blood Glucose was at 123. Resident denies feeling any symptoms of hypoglycemia at any time.
[2022-08-27 07:00] VITALS: TEMP 36.5; O2SAT 95
[2022-08-27] MEDS: ASPIRIN 81 MG TABLET EC PO (08:38)
[2022-08-27] MEDS: APIXABAN 5 MG TABLET 2.5 MG PO ×2 (08:43→17:00)
[2022-08-27] MEDS: MULTIVITAMIN/MINERALS 1 TABLET 1 TAB PO (08:43)
[2022-08-27] MEDS: LOSARTAN POTASSIUM 50 MG TABLET PO (08:43)
[2022-08-27] MEDS: FOLIC ACID 1 MG TABLET 3 MG PO (08:43)
[2022-08-27] MEDS: SERTRALINE 100 MG TABLET PO (08:44)
[2022-08-27] MEDS: FLECAINIDE ACETATE 50 MG TABLET PO ×2 (08:44→19:52)
[2022-08-27 15:00] VITALS: TEMP 36.6; O2SAT 96
[2022-08-27 16:00] VITALS: BP 137/75; PULSE 68; PULSE 74; RESP 18; TEMP 36.6; O2SAT 96
[2022-08-27] MEDS: PRAVASTATIN SODIUM 40 MG TABLET PO (19:52)
[2022-08-27] MEDS: ACETAMINOPHEN 500 MG TABLET 1000 MG PO (19:52)
[2022-08-28 00:18] VITALS: TEMP 36.6; O2SAT 96
[2022-08-28 06:53] VITALS: TEMP 36.6
[2022-08-28] MEDS: ACETAMINOPHEN 500 MG TABLET PO (06:53)
[2022-08-28 07:00] VITALS: TEMP 36.1; O2SAT 95
[2022-08-28] MEDS: ASPIRIN 81 MG TABLET EC PO (08:54)
[2022-08-28] MEDS: APIXABAN 5 MG TABLET 2.5 MG PO (08:54)
[2022-08-28] MEDS: LOSARTAN POTASSIUM 50 MG TABLET PO (08:54)
[2022-08-28] MEDS: FOLIC ACID 1 MG TABLET 3 MG PO (08:54)
[2022-08-28] MEDS: MULTIVITAMIN/MINERALS 1 TABLET 1 TAB PO (08:55)
[2022-08-28] MEDS: SERTRALINE 100 MG TABLET PO (08:55)
[2022-08-28] MEDS: FLECAINIDE ACETATE 50 MG TABLET PO ×2 (08:55→19:38)
--- NOTE | 2022-08-28 13:31 | PC.NURSE ---
Out of Facility: Resident was picked up by , to go shopping, at 12:51. Indicated returning to facility at, approximately, 1700. No medications were sent with her.
--- NOTE | 2022-08-28 13:56 | PC.NURSE ---
Resident out with her for shopping. She will be back at 5Pm for supper.
[2022-08-28 15:00] VITALS: TEMP 36.6; O2SAT 96
--- NOTE | 2022-08-28 17:30 | PC.NURSE ---
Returned to Facility: Resident returned to [facility] at 1730. 1600 medications given.
[2022-08-28] MEDS: ACETAMINOPHEN 500 MG TABLET 1000 MG PO (19:38)
[2022-08-28] MEDS: PRAVASTATIN SODIUM 40 MG TABLET PO (19:38)
[2022-08-28 23:00] VITALS: TEMP 35.8; O2SAT 96
[2022-08-29] MEDS: ACETAMINOPHEN 500 MG TABLET PO (01:43)
[2022-08-29] MEDS: FOLIC ACID 1 MG TABLET 3 MG PO (08:20)
[2022-08-29] MEDS: APIXABAN 5 MG TABLET 2.5 MG PO ×2 (08:20→15:30)
[2022-08-29] MEDS: LOSARTAN POTASSIUM 50 MG TABLET PO (08:20)
[2022-08-29] MEDS: MULTIVITAMIN/MINERALS 1 TABLET 1 TAB PO (08:20)
[2022-08-29] MEDS: ASPIRIN 81 MG TABLET EC PO (08:20)
[2022-08-29] MEDS: FLECAINIDE ACETATE 50 MG TABLET PO ×2 (08:21→19:44)
[2022-08-29] MEDS: SERTRALINE 100 MG TABLET PO (08:21)
[2022-08-29 10:52] VITALS: TEMP 36.3; O2SAT 96
--- NOTE | 2022-08-29 12:08 | PC.NURSE ---
COVID OUTBREAK TESTING Resident gave verbal consent for outbreak COVID testing. Resident is currently asymptomatic.? Resident/family will be notified only if resident is positive.
[2022-08-29 15:00] VITALS: TEMP 36.4; O2SAT 93
[2022-08-29 16:04] LABS: SARS PCR* Negative SARS-CoV-2 (Negative)
[2022-08-29] MEDS: ACETAMINOPHEN 500 MG TABLET 1000 MG PO (19:43)
[2022-08-29] MEDS: PRAVASTATIN SODIUM 40 MG TABLET PO (19:44)
[2022-08-29 23:00] VITALS: TEMP 36.7; O2SAT 95
[2022-08-30] MEDS: ACETAMINOPHEN 500 MG TABLET PO ×2 (02:44→14:09)
[2022-08-30] MEDS: ASPIRIN 81 MG TABLET EC PO (07:56)
[2022-08-30] MEDS: APIXABAN 5 MG TABLET 2.5 MG PO ×2 (07:58→16:22)
[2022-08-30] MEDS: MULTIVITAMIN/MINERALS 1 TABLET 1 TAB PO (07:59)
[2022-08-30] MEDS: FOLIC ACID 1 MG TABLET 3 MG PO (07:59)
[2022-08-30] MEDS: LOSARTAN POTASSIUM 50 MG TABLET PO (07:59)
[2022-08-30] MEDS: SERTRALINE 100 MG TABLET PO (08:01)
[2022-08-30] MEDS: FLECAINIDE ACETATE 50 MG TABLET PO ×2 (08:01→20:42)
[2022-08-30 10:03] VITALS: TEMP 36.6; O2SAT 97
--- NOTE | 2022-08-30 11:19 | PC.NURSE ---
Order: Refresh eye drop 1 drop both eyes QID PRN (OK to self adm. and leave at bedside, Increase Voltaren gel TID to QID @ 08,15,20,00 by Viktoria BARRIOS.
[2022-08-30] MEDS: PRAVASTATIN SODIUM 40 MG TABLET PO (20:42)
[2022-08-30] MEDS: ACETAMINOPHEN 500 MG TABLET 1000 MG PO (20:42)
[2022-08-30 22:27] VITALS: TEMP 36.6; O2SAT 95
[2022-08-30 23:00] VITALS: TEMP 36.6; O2SAT 96
[2022-08-31] MEDS: ACETAMINOPHEN 500 MG TABLET PO (05:16)
[2022-08-31 07:00] VITALS: TEMP 36.2; O2SAT 100
[2022-08-31] MEDS: SERTRALINE 100 MG TABLET PO (07:37)
[2022-08-31] MEDS: FOLIC ACID 1 MG TABLET 3 MG PO (07:37)
[2022-08-31] MEDS: MULTIVITAMIN/MINERALS 1 TABLET 1 TAB PO (07:37)
[2022-08-31] MEDS: APIXABAN 5 MG TABLET 2.5 MG PO ×2 (07:37→17:32)
[2022-08-31] MEDS: FLECAINIDE ACETATE 50 MG TABLET PO ×2 (07:37→20:13)
[2022-08-31] MEDS: LOSARTAN POTASSIUM 50 MG TABLET PO (07:37)
[2022-08-31] MEDS: ASPIRIN 81 MG TABLET EC PO (07:38)
--- NOTE | 2022-08-31 11:05 | PC.NURSE ---
CARE CONFERENCE: Care conference meeting held with all members of care team present. Resident present. present over the phone.? Nursing reviewed that resident is now independent in room and in hallway after receiving therapy. She received therapy from 08/08 (day of admission)-08/12. Reviewed medications and changes that have been made. Care plan reviewed and updated. POLST reviewed and signed. Uses no restraints. Does use 2 side rails up to assist with positioning.? Resident is given medications by staff. Is able to administer own eye drops. Vulnerable due to mobility limitations and cognitive impairment. Resident stated she would like to be a regular diet so that she can receive dessert. HYDRAULIC OPERATOR updated on board. Resident stated she would like to have small portions. Grid Maker will update this. Resident states she is having difficulty sleeping. HYDRAULIC OPERATOR updated via board. Resident has upcoming hearing aide appointments on September 05 and . will be picking her up and brining her. Resident has a right shoulder soreness that she states is from overworking it at exercise class. Order asked for Megan Stiles. Would like to have more Tylenol or pain relief scheduled. At this time would like PRN Tylenol. Nurse notified. Email has been sent to podiatry with request to be placed on list. No further questions/concerns by family at this time.
--- NOTE | 2022-08-31 14:21 | PC.NURSE ---
OUt of Facility: Resident out to her apartment with her daughter Lamont at 1410. She will be back at 1700. No med sent with her.
[2022-08-31 15:00] VITALS: TEMP 36.8; O2SAT 98
[2022-08-31] MEDS: ACETAMINOPHEN 500 MG TABLET 1000 MG PO (20:12)
[2022-08-31] MEDS: PRAVASTATIN SODIUM 40 MG TABLET PO (20:13)
--- NOTE | 2022-08-31 22:32 | PC.NURSE ---
Status: Resident returned with daughter to unit @ 17:45. Scheduled meds given. BS check 247. 9 units scheduled plus 1 unit coverage for total of 10 units admin prior to meal.
[2022-08-31 23:00] VITALS: TEMP 36.8; O2SAT 94
--- NOTE | 2022-09-01 04:00 | PC.NURSE ---
WEEKLY CHARTING - WEEK 4: Vital signs reviewed - no concerns. Baseline and temporary care plan reviewed - no change. No documented behaviors since admission. Receives sertraline 100mg daily with no noted adverse effects. Able to communicate needs. Hearing impaired. Wears bilateral hearing aids. Visual deficit is corrected with glasses. Oriented x3. Has had multiple medication changes since admission. Health condition stable.
[2022-09-01] MEDS: APIXABAN 5 MG TABLET 2.5 MG PO (07:48)
[2022-09-01] MEDS: LOSARTAN POTASSIUM 50 MG TABLET PO (07:48)
[2022-09-01] MEDS: ASPIRIN 81 MG TABLET EC PO (07:48)
[2022-09-01] MEDS: FOLIC ACID 1 MG TABLET 3 MG PO (07:48)
[2022-09-01] MEDS: FLECAINIDE ACETATE 50 MG TABLET PO ×2 (07:49→20:17)
[2022-09-01] MEDS: MULTIVITAMIN/MINERALS 1 TABLET 1 TAB PO (07:49)
[2022-09-01] MEDS: SERTRALINE 100 MG TABLET PO (07:50)
--- NOTE | 2022-09-01 09:44 | PC.NURSE ---
Paperwork sent to In house podiatry to be placed on the upcoming list.
[2022-09-01 13:23] VITALS: TEMP 36.6; O2SAT 97
--- NOTE | 2022-09-01 13:28 | PC.NURSE ---
Outing: Went out with daughter to visit her apartment and be back @ 6052.
--- NOTE | 2022-09-01 13:48 | PC.NURSE ---
Week #4: Baseline care plan reviewed, no changes made. Nothing added to temporary care plan. Resident does communicate needs and use the call light. Impaired vision corrected by glasses. Has hearing impairment. Wears bilateral hearing aids, and prefers to keep in room with her. Is cognitively intact. Does not self administer medications. Blood sugar monitored TID AC & @ 0200. Vital signs, no concerns. Mood/Behavior: No issues since admission. Receives Zoloft 100mg with no adverse effects. Continue to monitor mood/behavior changes.
--- NOTE | 2022-09-01 14:24 | PC.NURSE ---
N.O: Okay for aqua K pad for shoulder pain QID prn
--- NOTE | 2022-09-01 14:25 | PC.NURSE ---
Order: Change Tylenol 500mg Q4H PRN to Q6H PRN. New: Tylenol 1000mg BID.
[2022-09-01 15:00] VITALS: TEMP 36.6; O2SAT 97
[2022-09-01] MEDS: PRAVASTATIN SODIUM 40 MG TABLET PO (20:17)
--- NOTE | 2022-09-01 20:42 | PC.NURSE ---
Podiatry: Sent resident information to [facility] for upcoming podiatry appointment per residents request.
--- NOTE | 2022-09-01 22:54 | PC.NURSE ---
Return to Facility: Returned to [facility] at 1745.
[2022-09-01 23:00] VITALS: TEMP 36.6; O2SAT 93
--- NOTE | 2022-09-02 06:42 | PC.NURSE ---
Weekly dose of alendronate was to be administered on Thursday 08/31. No supply was available from pharmacy. Dose was administered 09/01.
[2022-09-02] MEDS: ACETAMINOPHEN 500 MG TABLET 1000 MG PO ×2 (07:49→16:40)
[2022-09-02] MEDS: ASPIRIN 81 MG TABLET EC PO (07:50)
[2022-09-02] MEDS: APIXABAN 5 MG TABLET 2.5 MG PO ×2 (07:51→16:37)
[2022-09-02] MEDS: FOLIC ACID 1 MG TABLET 3 MG PO (07:51)
[2022-09-02] MEDS: MULTIVITAMIN/MINERALS 1 TABLET 1 TAB PO (07:52)
[2022-09-02] MEDS: LOSARTAN POTASSIUM 50 MG TABLET PO (07:52)
[2022-09-02] MEDS: FLECAINIDE ACETATE 50 MG TABLET PO ×2 (07:53→20:16)
[2022-09-02] MEDS: SERTRALINE 100 MG TABLET PO (07:55)
[2022-09-02 10:57] VITALS: TEMP 36.1; O2SAT 96
[2022-09-02 15:00] VITALS: TEMP 36.8; O2SAT 95
[2022-09-02] MEDS: PRAVASTATIN SODIUM 40 MG TABLET PO (20:16)
[2022-09-02 23:00] VITALS: TEMP 36.6; O2SAT 96
[2022-09-03] MEDS: ACETAMINOPHEN 500 MG TABLET PO (01:10)
[2022-09-03] MEDS: ACETAMINOPHEN 500 MG TABLET 1000 MG PO ×2 (09:07→16:15)
[2022-09-03] MEDS: ASPIRIN 81 MG TABLET EC PO (09:07)
[2022-09-03] MEDS: LOSARTAN POTASSIUM 50 MG TABLET PO (09:08)
[2022-09-03] MEDS: FOLIC ACID 1 MG TABLET 3 MG PO (09:08)
[2022-09-03] MEDS: APIXABAN 5 MG TABLET 2.5 MG PO ×2 (09:08→16:15)
[2022-09-03] MEDS: MULTIVITAMIN/MINERALS 1 TABLET 1 TAB PO (09:08)
[2022-09-03] MEDS: FLECAINIDE ACETATE 50 MG TABLET PO ×2 (09:09→20:21)
[2022-09-03] MEDS: SERTRALINE 100 MG TABLET PO (09:11)
[2022-09-03 13:09] VITALS: TEMP 36.7; O2SAT 94
[2022-09-03 15:00] VITALS: TEMP 36.6; O2SAT 95
[2022-09-03] MEDS: PRAVASTATIN SODIUM 40 MG TABLET PO (20:21)
[2022-09-03 23:00] VITALS: TEMP 36.4; O2SAT 95
[2022-09-04 02:15] VITALS: TEMP 36.4
[2022-09-04] MEDS: ACETAMINOPHEN 500 MG TABLET PO (02:15)
[2022-09-04] MEDS: ASPIRIN 81 MG TABLET EC PO (07:37)
[2022-09-04] MEDS: ACETAMINOPHEN 500 MG TABLET 1000 MG PO ×2 (07:37→17:24)
[2022-09-04] MEDS: APIXABAN 5 MG TABLET 2.5 MG PO ×2 (07:38→17:24)
[2022-09-04] MEDS: LOSARTAN POTASSIUM 50 MG TABLET PO (07:38)
[2022-09-04] MEDS: FOLIC ACID 1 MG TABLET 3 MG PO (07:38)
[2022-09-04] MEDS: MULTIVITAMIN/MINERALS 1 TABLET 1 TAB PO (07:39)
[2022-09-04] MEDS: FLECAINIDE ACETATE 50 MG TABLET PO ×2 (07:40→20:21)
[2022-09-04] MEDS: SERTRALINE 100 MG TABLET PO (07:40)
[2022-09-04 10:39] VITALS: TEMP 36.6; O2SAT 94
--- NOTE | 2022-09-04 12:42 | PC.NURSE ---
Outing: Resident left with for outing
[2022-09-04 15:00] VITALS: TEMP 36.8; O2SAT 95
[2022-09-04] MEDS: PRAVASTATIN SODIUM 40 MG TABLET PO (20:21)
[2022-09-04 21:55] VITALS: BMI 37.8
[2022-09-04 23:00] VITALS: TEMP 36.8; O2SAT 95
[2022-09-05 02:17] VITALS: TEMP 36.8
[2022-09-05] MEDS: ACETAMINOPHEN 500 MG TABLET PO (02:17)
[2022-09-05 05:43] VITALS: TEMP 36.8
[2022-09-05] MEDS: ASPIRIN 81 MG TABLET EC PO (07:32)
[2022-09-05] MEDS: ACETAMINOPHEN 500 MG TABLET 1000 MG PO ×2 (07:32→16:37)
[2022-09-05] MEDS: APIXABAN 5 MG TABLET 2.5 MG PO ×2 (07:32→16:37)
[2022-09-05] MEDS: MULTIVITAMIN/MINERALS 1 TABLET 1 TAB PO (07:33)
[2022-09-05] MEDS: FOLIC ACID 1 MG TABLET 3 MG PO (07:33)
[2022-09-05] MEDS: LOSARTAN POTASSIUM 50 MG TABLET PO (07:33)
[2022-09-05] MEDS: SERTRALINE 100 MG TABLET PO (07:35)
[2022-09-05] MEDS: FLECAINIDE ACETATE 50 MG TABLET PO ×2 (07:35→20:14)
--- NOTE | 2022-09-05 10:00 | PC.NURSE ---
COVID OUTBREAK TESTING Resident gave verbal consent for outbreak COVID testing. Resident is currently asymptomatic.? Resident/family will be notified only if resident is positive.
[2022-09-05 10:15] VITALS: TEMP 36.3; O2SAT 96
[2022-09-05 11:52] LABS: SARS PCR* Negative SARS-CoV-2 (Negative)
--- NOTE | 2022-09-05 13:00 | PC.NURSE ---
Outing: Resident left with for eye appointment
--- NOTE | 2022-09-05 16:00 | PC.NURSE ---
Resident returned from appointment. Advised resident that podiatry has been cancelled for tomorrow per [facility] House [facility].
[2022-09-05] MEDS: PRAVASTATIN SODIUM 40 MG TABLET PO (20:14)
[2022-09-05 21:25] VITALS: TEMP 36.2; O2SAT 96
--- NOTE | 2022-09-05 21:31 | PC.NURSE ---
Skin: Resident has no noted redness in the groin area, intervention completed.
[2022-09-05 23:00] VITALS: TEMP 36.4; O2SAT 92
[2022-09-06 01:59] VITALS: TEMP 36.4
[2022-09-06] MEDS: ACETAMINOPHEN 500 MG TABLET PO (01:59)
[2022-09-06 07:00] VITALS: TEMP 36.2; O2SAT 95
[2022-09-06] MEDS: ASPIRIN 81 MG TABLET EC PO (08:02)
[2022-09-06] MEDS: ACETAMINOPHEN 500 MG TABLET 1000 MG PO ×2 (08:02→15:35)
[2022-09-06] MEDS: MULTIVITAMIN/MINERALS 1 TABLET 1 TAB PO (08:03)
[2022-09-06] MEDS: FOLIC ACID 1 MG TABLET 3 MG PO (08:03)
[2022-09-06] MEDS: APIXABAN 5 MG TABLET 2.5 MG PO ×2 (08:03→15:35)
[2022-09-06] MEDS: LOSARTAN POTASSIUM 50 MG TABLET PO (08:03)
[2022-09-06] MEDS: FLECAINIDE ACETATE 50 MG TABLET PO ×2 (08:05→20:45)
[2022-09-06] MEDS: SERTRALINE 100 MG TABLET PO (08:05)
--- NOTE | 2022-09-06 11:26 | PC.SPIRITC ---
I provided visit for support and connection. Madhuri talked about how supported she feels at [facility] and grateful for getting a room.
[2022-09-06 15:00] VITALS: TEMP 36.6; O2SAT 95
[2022-09-06] MEDS: PRAVASTATIN SODIUM 40 MG TABLET PO (20:45)
[2022-09-06 23:00] VITALS: TEMP 36.7; O2SAT 96
[2022-09-07] MEDS: ACETAMINOPHEN 500 MG TABLET PO (00:12)
[2022-09-07] MEDS: NON-FORMULARY MEDICATION PO (05:09)
[2022-09-07 07:00] VITALS: TEMP 36.1; O2SAT 94
[2022-09-07] MEDS: ACETAMINOPHEN 500 MG TABLET 1000 MG PO ×2 (08:34→17:02)
[2022-09-07] MEDS: ASPIRIN 81 MG TABLET EC PO (08:34)
[2022-09-07] MEDS: APIXABAN 5 MG TABLET 2.5 MG PO ×2 (08:35→17:02)
[2022-09-07] MEDS: FOLIC ACID 1 MG TABLET 3 MG PO (08:35)
[2022-09-07] MEDS: LOSARTAN POTASSIUM 50 MG TABLET PO (08:35)
[2022-09-07] MEDS: MULTIVITAMIN/MINERALS 1 TABLET 1 TAB PO (08:35)
[2022-09-07] MEDS: SERTRALINE 100 MG TABLET PO (08:36)
[2022-09-07] MEDS: FLECAINIDE ACETATE 50 MG TABLET PO ×2 (08:36→20:16)
[2022-09-07 15:00] VITALS: TEMP 36.9; O2SAT 94
[2022-09-07] MEDS: PRAVASTATIN SODIUM 40 MG TABLET PO (20:16)
--- NOTE | 2022-09-08 01:46 | PC.NURSE ---
Week 1: Baseline care plan reviewed, no changes made. Nothing added to temporary care plan. Vitals reviewed some elevated BP continues to check weekly. Res needed limited assist of 1 with bathing, dressing, Independent of grooming and oral hygiene. Pain: Res has chronic shoulder, neck pain and knee pain which control of scheduled acetaminophen 1000mg BID, Acetaminophen 500 mg Q6hrs PRN, scheduled voltaren gel 1% QID and Aqua K pad QID PRN. Pain regime is effective. Res is on regular/regular diet as per Res request. able to eat independently after set. No chewing, no swallowing issue.
[2022-09-08 03:00] VITALS: TEMP 36.6; O2SAT 96
--- NOTE | 2022-09-08 03:30 | PC.NURSE ---
Blood glucose at 02:30 was 57, Res was awake and oriented, asymptomatic. She managed to use the bathroom. Offered 1 cup of grape fruit and 1 packed of Oreo. after 30 minutes, blood sugar reading was 137.
--- NOTE | 2022-09-08 06:57 | PC.NURSE ---
Week #1-ADL's: Baseline and temporary care plan reviewed. No changes made. Temporary care plan updated: aqua k-pad PRN to (L) shoulder. Resident needs minimal assist with dressing lower half. Is independent with grooming, oral cares and feeding. Will ask for assist as needed. One assist with bathing. Is on regular diet per her request. No problems with chewing/swallowing reported. Is diabetic, HS snack. Vital signs reviewed, no concerns. Pain: Has chronic neck/shoulder, knee pain r/t arthritis. Pain is managed with Tylenol 1000mg BID, Voltaren gel 1% QID, Tylenol 500mg Q6H PRN and has used occasionally with relief. Aqua K-pad to shoulders PRN which is helpful as resident reported. She is able to verbalize need for pain.
[2022-09-08] MEDS: ACETAMINOPHEN 500 MG TABLET 1000 MG PO ×2 (07:44→17:22)
[2022-09-08] MEDS: ASPIRIN 81 MG TABLET EC PO (07:45)
[2022-09-08] MEDS: LOSARTAN POTASSIUM 50 MG TABLET PO (07:45)
[2022-09-08] MEDS: APIXABAN 5 MG TABLET 2.5 MG PO ×2 (07:45→17:22)
[2022-09-08] MEDS: FOLIC ACID 1 MG TABLET 3 MG PO (07:45)
[2022-09-08] MEDS: MULTIVITAMIN/MINERALS 1 TABLET 1 TAB PO (07:46)
[2022-09-08] MEDS: FLECAINIDE ACETATE 50 MG TABLET PO ×2 (07:46→20:41)
[2022-09-08] MEDS: SERTRALINE 100 MG TABLET PO (07:47)
[2022-09-08 10:37] VITALS: TEMP 36.4; O2SAT 94
--- NOTE | 2022-09-08 13:26 | PC.NURSE ---
Outing: Resident left with for outing
[2022-09-08 16:17] VITALS: TEMP 36.6; O2SAT 95
[2022-09-08] MEDS: PRAVASTATIN SODIUM 40 MG TABLET PO (20:41)
--- NOTE | 2022-09-08 21:52 | PC.NURSE ---
Resident returned to unit @ 1600. Attended activity and stated she felt her blood sugars were low. Flat Spring Assembler checked blood sugar with reading of 53. Ate ice cream and rechecked at 1700 and reading was 215. Scheduled insulin given prior to meal.
[2022-09-09] MEDS: ACETAMINOPHEN 500 MG TABLET PO ×2 (01:42→10:21)
[2022-09-09] MEDS: ACETAMINOPHEN 500 MG TABLET 1000 MG PO ×2 (08:41→15:06)
[2022-09-09] MEDS: APIXABAN 5 MG TABLET 2.5 MG PO ×2 (08:41→15:06)
[2022-09-09] MEDS: ASPIRIN 81 MG TABLET EC PO (08:41)
[2022-09-09] MEDS: FOLIC ACID 1 MG TABLET 3 MG PO (08:42)
[2022-09-09] MEDS: MULTIVITAMIN/MINERALS 1 TABLET 1 TAB PO (08:42)
[2022-09-09] MEDS: LOSARTAN POTASSIUM 50 MG TABLET PO (08:42)
[2022-09-09] MEDS: FLECAINIDE ACETATE 50 MG TABLET PO ×2 (08:43→19:39)
[2022-09-09] MEDS: SERTRALINE 100 MG TABLET PO (08:43)
--- NOTE | 2022-09-09 10:34 | NUTR.NU ---
RDN informed of resident having a low blood sugar reading a few nights ago (57). Resident should be offered snack before bedtime that contains carbohydrates and protein. RDN visited with resident and provided list of Diabetic-friendly snacks that is available in [facility]. List of snacks include: -Fresh Fruit or applesauce + string cheese -Crackers with cheese or peanut butter -1/2 Peanut Butter or meat sandwich -Cheerios (low sugar) with milk -Fig Newtons -Yogurt with fruit Resident reported the she has been having some snacks before bed. Snack once daily provides an additional ~100-200 kcals and ~5-10 grams protein. RDN also provided a copy of snack list to Nurses for staff to reference. RDN will put in snack intervention. Resident had no questions or concerns at this time. RDN will follow-up with nutrition assessment at later date.
[2022-09-09 15:00] VITALS: TEMP 36.7; O2SAT 98
[2022-09-09] MEDS: PRAVASTATIN SODIUM 40 MG TABLET PO (19:39)
[2022-09-10] MEDS: ACETAMINOPHEN 500 MG TABLET PO (02:16)
[2022-09-10] MEDS: FOLIC ACID 1 MG TABLET 3 MG PO (08:59)
[2022-09-10] MEDS: APIXABAN 5 MG TABLET 2.5 MG PO ×2 (08:59→16:26)
[2022-09-10] MEDS: ASPIRIN 81 MG TABLET EC PO (08:59)
[2022-09-10] MEDS: ACETAMINOPHEN 500 MG TABLET 1000 MG PO ×2 (08:59→16:26)
[2022-09-10] MEDS: LOSARTAN POTASSIUM 50 MG TABLET PO (09:00)
[2022-09-10] MEDS: MULTIVITAMIN/MINERALS 1 TABLET 1 TAB PO (09:00)
[2022-09-10] MEDS: FLECAINIDE ACETATE 50 MG TABLET PO ×2 (09:01→20:08)
[2022-09-10] MEDS: SERTRALINE 100 MG TABLET PO (09:02)
--- NOTE | 2022-09-10 13:13 | PC.NURSE ---
OUt of Facility:? Resident out with to her at [address] She will be back at 1700. No med sent with her.
[2022-09-10 15:00] VITALS: TEMP 36.6; O2SAT 96
[2022-09-10 16:00] VITALS: BP 127/78; PULSE 66; PULSE 68; RESP 18; TEMP 36.6; O2SAT 96; BMI 37.8
[2022-09-10] MEDS: PRAVASTATIN SODIUM 40 MG TABLET PO (20:08)
[2022-09-11] MEDS: ACETAMINOPHEN 500 MG TABLET PO (01:42)
[2022-09-11] MEDS: ASPIRIN 81 MG TABLET EC PO (08:42)
[2022-09-11] MEDS: ACETAMINOPHEN 500 MG TABLET 1000 MG PO ×2 (08:42→16:00)
[2022-09-11] MEDS: APIXABAN 5 MG TABLET 2.5 MG PO ×2 (08:43→16:00)
[2022-09-11] MEDS: LOSARTAN POTASSIUM 50 MG TABLET PO (08:43)
[2022-09-11] MEDS: FOLIC ACID 1 MG TABLET 3 MG PO (08:43)
[2022-09-11] MEDS: MULTIVITAMIN/MINERALS 1 TABLET 1 TAB PO (08:43)
[2022-09-11] MEDS: FLECAINIDE ACETATE 50 MG TABLET PO ×2 (08:50→20:26)
[2022-09-11] MEDS: SERTRALINE 100 MG TABLET PO (08:50)
--- NOTE | 2022-09-11 13:38 | PC.NURSE ---
Out for lunch: Resident went out with family for birthday celebration and will be back in the evening at 1700 hours. Resident informed that she will be taking her medication once she comes back.
[2022-09-11 15:00] VITALS: TEMP 36.6; O2SAT 95
--- NOTE | 2022-09-11 16:52 | PC.NURSE ---
Outing status: Resident returned to [facility] at 1640, from family birthday democrat.
[2022-09-11] MEDS: PRAVASTATIN SODIUM 40 MG TABLET PO (20:26)
[2022-09-12] MEDS: ACETAMINOPHEN 500 MG TABLET PO (02:11)
[2022-09-12] MEDS: APIXABAN 5 MG TABLET 2.5 MG PO ×2 (08:28→16:32)
[2022-09-12] MEDS: ACETAMINOPHEN 500 MG TABLET 1000 MG PO ×2 (08:28→16:32)
[2022-09-12] MEDS: ASPIRIN 81 MG TABLET EC PO (08:28)
[2022-09-12] MEDS: FOLIC ACID 1 MG TABLET 3 MG PO (08:28)
[2022-09-12] MEDS: LOSARTAN POTASSIUM 50 MG TABLET PO (08:28)
[2022-09-12] MEDS: MULTIVITAMIN/MINERALS 1 TABLET 1 TAB PO (08:29)
[2022-09-12] MEDS: FLECAINIDE ACETATE 50 MG TABLET PO ×2 (08:30→19:53)
[2022-09-12] MEDS: SERTRALINE 100 MG TABLET PO (08:30)
[2022-09-12 15:00] VITALS: TEMP 36.5; O2SAT 63
[2022-09-12] MEDS: PRAVASTATIN SODIUM 40 MG TABLET PO (19:53)
[2022-09-13] MEDS: ACETAMINOPHEN 500 MG TABLET PO (03:14)
[2022-09-13] MEDS: ASPIRIN 81 MG TABLET EC PO (08:18)
[2022-09-13] MEDS: ACETAMINOPHEN 500 MG TABLET 1000 MG PO ×2 (08:18→15:45)
[2022-09-13] MEDS: APIXABAN 5 MG TABLET 2.5 MG PO ×2 (08:18→15:45)
[2022-09-13] MEDS: FOLIC ACID 1 MG TABLET 3 MG PO (08:19)
[2022-09-13] MEDS: LOSARTAN POTASSIUM 50 MG TABLET PO (08:19)
[2022-09-13] MEDS: MULTIVITAMIN/MINERALS 1 TABLET 1 TAB PO (08:20)
[2022-09-13] MEDS: SERTRALINE 100 MG TABLET PO (08:21)
[2022-09-13] MEDS: FLECAINIDE ACETATE 50 MG TABLET PO ×2 (08:21→19:52)
[2022-09-13 15:02] VITALS: TEMP 36.4; O2SAT 96
[2022-09-13] MEDS: PRAVASTATIN SODIUM 40 MG TABLET PO (19:52)
[2022-09-14] MEDS: ACETAMINOPHEN 500 MG TABLET PO (00:12)
[2022-09-14] MEDS: NON-FORMULARY MEDICATION PO (05:12)
[2022-09-14] MEDS: ACETAMINOPHEN 500 MG TABLET 1000 MG PO ×2 (08:26→17:01)
[2022-09-14] MEDS: APIXABAN 5 MG TABLET 2.5 MG PO ×2 (08:27→17:02)
[2022-09-14] MEDS: LOSARTAN POTASSIUM 50 MG TABLET PO (08:27)
[2022-09-14] MEDS: MULTIVITAMIN/MINERALS 1 TABLET 1 TAB PO (08:27)
[2022-09-14] MEDS: ASPIRIN 81 MG TABLET EC PO (08:27)
[2022-09-14] MEDS: FOLIC ACID 1 MG TABLET 3 MG PO (08:27)
[2022-09-14] MEDS: FLECAINIDE ACETATE 50 MG TABLET PO ×2 (08:32→20:21)
[2022-09-14] MEDS: SERTRALINE 100 MG TABLET PO (08:32)
--- NOTE | 2022-09-14 08:47 | PC.PHA1 ---
THEATER PROJECTIONIST PHARMACIST'S MEDICATION REVIEW: MEDICATION MONITORING:Sertraline 100 mg daily Chantix for smoking cessation IRREGULARITY OR COMMENTS:Patient adjusting to her new surroundings. Her main issue since last review are fluctuations in blood sugars, per review of , ANNA and RN notes this is being addressed via changes in insulin dosing and diet. Prior to admit patient on insulin pump but current adjustments of bolus and basal insulin have been ordered. I do note the mention of stomach discomfort and Chantix could also be contributing but patient may need to discuss with providers before determining if culprit as she does take frequent LOAs and may feel the need to smoke. Patient doing well per nursing notes therefore I would not suggest GDR of sertraline at this time, would like to see less changes to her insulin regimen as sign of adequate adjustment to her new lifestyle. SUGGESTED COURSE OF ACTION TAKEN:If stomach upset continues may need to discuss if Chantix is cause.
[2022-09-14 15:00] VITALS: TEMP 36.8; O2SAT 95
[2022-09-14] MEDS: PRAVASTATIN SODIUM 40 MG TABLET PO (20:21)
--- NOTE | 2022-09-15 01:15 | PC.NURSE ---
WEEKLY CHARTING - WEEK 2: Vital signs reviewed - no concerns. Temporary and admission care plan reviewed - no change. Transfers and ambulates independently with 4WW. Calls for SBA ambulating to/from toilet at night. Independent with bed mobility. Uses right 1/4 side rail as enabler. At high risk for falls per fall risk assessment. Fall interventions: call light in reach, 4WW at bedside, bed in low position with brakes locked.
[2022-09-15] MEDS: ACETAMINOPHEN 500 MG TABLET PO (02:40)
--- NOTE | 2022-09-15 06:17 | PC.NURSE ---
Podiatry: Seen by physiognomist, no order.
--- NOTE | 2022-09-15 07:09 | PC.NURSE ---
Week #2 - Mobility: Baseline and temporary care plan reviewed. No changes made, nothing added to temporary care plan. Transfers/ambulates independently with 4ww. Independent with bed and chair mobility. (R) 1/4 side rail up at all times to promote independence/positioning. No alarms. Vital signs reviewed, no concerns. Fall: No falls since admission. Is a high fall risk according to assessment done on 08/19/22. Fall interventions: call light within reach, bed in low position with brakes locked, walker at bedside.
[2022-09-15] MEDS: ASPIRIN 81 MG TABLET EC PO (08:27)
[2022-09-15] MEDS: ACETAMINOPHEN 500 MG TABLET 1000 MG PO ×2 (08:27→15:53)
[2022-09-15] MEDS: LOSARTAN POTASSIUM 50 MG TABLET PO (08:28)
[2022-09-15] MEDS: MULTIVITAMIN/MINERALS 1 TABLET 1 TAB PO (08:28)
[2022-09-15] MEDS: FOLIC ACID 1 MG TABLET 3 MG PO (08:28)
[2022-09-15] MEDS: APIXABAN 5 MG TABLET 2.5 MG PO ×2 (08:28→15:54)
[2022-09-15] MEDS: SERTRALINE 100 MG TABLET PO (08:29)
[2022-09-15] MEDS: FLECAINIDE ACETATE 50 MG TABLET PO ×2 (08:29→20:43)
[2022-09-15 15:00] VITALS: TEMP 36.9; O2SAT 96
[2022-09-15] MEDS: PRAVASTATIN SODIUM 40 MG TABLET PO (20:43)
[2022-09-16] MEDS: ACETAMINOPHEN 500 MG TABLET PO (00:40)
[2022-09-16 02:27] VITALS: TEMP 36.6; O2SAT 95
[2022-09-16] MEDS: ASPIRIN 81 MG TABLET EC PO (07:30)
[2022-09-16] MEDS: ACETAMINOPHEN 500 MG TABLET 1000 MG PO ×2 (07:30→20:19)
[2022-09-16] MEDS: FOLIC ACID 1 MG TABLET 3 MG PO (07:31)
[2022-09-16] MEDS: LOSARTAN POTASSIUM 50 MG TABLET PO (07:31)
[2022-09-16] MEDS: APIXABAN 5 MG TABLET 2.5 MG PO ×2 (07:31→16:27)
[2022-09-16] MEDS: MULTIVITAMIN/MINERALS 1 TABLET 1 TAB PO (07:31)
[2022-09-16] MEDS: SERTRALINE 100 MG TABLET PO (07:33)
[2022-09-16] MEDS: FLECAINIDE ACETATE 50 MG TABLET PO ×2 (07:33→20:19)
[2022-09-16 10:35] VITALS: TEMP 36.4; O2SAT 97
--- NOTE | 2022-09-16 12:02 | PC.NURSE ---
Status/Order: Resident seen by Dr. Carrillo for c/o of neck/shoulder pain not relieved with current pain regimen. Order: Increase Tylenol to 1000mg TID & D/C PRN, Plain films C-Spine, PT eval & treat, help arrange rheumatology f/u appt., Tramadol 50mg 1 tab PO Q6H PRN.
--- NOTE | 2022-09-16 12:18 | CRLHL7_ITS ---
For Patients: As a result of the Century Cures Act, medical imaging exams and procedure reports are released immediately into your electronic medical record. You may view this report before your referring provider. If you have questions, please contact your health care provider. INDICATION: Neck and shoulder pain. TECHNIQUE: Cervical spine, 2 views. COMPARISON: CTA neck 10/27/2021. FINDINGS: No acute fracture identified. Vertebral body heights are well maintained. Normal vertebral body alignment. Multilevel endplate spurring and facet arthropathy. No significant disc space narrowing. No prevertebral soft tissue swelling. Interstitial opacities in the lung apices. IMPRESSION: 1. No acute findings. 2. Spondylotic changes of the cervical spine. Dictated by Hafsa Barr MD @ 09/16/2022 3:14:00 PM (Electronically Signed)
[2022-09-16 15:00] VITALS: TEMP 36.7; O2SAT 95
[2022-09-16] MEDS: PRAVASTATIN SODIUM 40 MG TABLET PO (20:19)
[2022-09-16] MEDS: TRAMADOL HCL 50 MG TABLET PO (21:28)
[2022-09-17 00:30] VITALS: TEMP 36.6; O2SAT 95
[2022-09-17] MEDS: ACETAMINOPHEN 500 MG TABLET 1000 MG PO ×3 (07:24→20:33)
[2022-09-17] MEDS: ASPIRIN 81 MG TABLET EC PO (07:24)
[2022-09-17] MEDS: LOSARTAN POTASSIUM 50 MG TABLET PO (07:25)
[2022-09-17] MEDS: APIXABAN 5 MG TABLET 2.5 MG PO ×2 (07:25→16:37)
[2022-09-17] MEDS: MULTIVITAMIN/MINERALS 1 TABLET 1 TAB PO (07:25)
[2022-09-17] MEDS: FOLIC ACID 1 MG TABLET 3 MG PO (07:25)
[2022-09-17] MEDS: FLECAINIDE ACETATE 50 MG TABLET PO ×2 (07:26→20:34)
[2022-09-17] MEDS: SERTRALINE 100 MG TABLET PO (07:27)
[2022-09-17 10:55] VITALS: TEMP 36.6; O2SAT 94
[2022-09-17 15:00] VITALS: TEMP 36.7; O2SAT 95
[2022-09-17 16:00] VITALS: BP 134/72; PULSE 66; RESP 18; TEMP 36.7; O2SAT 95; BMI 38.7
[2022-09-17] MEDS: PRAVASTATIN SODIUM 40 MG TABLET PO (20:34)
[2022-09-17] MEDS: TRAMADOL HCL 50 MG TABLET PO (20:34)
--- NOTE | 2022-09-17 22:28 | PC.NURSE ---
Resident had bath this evening and tag writer assessed skin. No areas of concern at this time. Bruise fading on abdomen from insulin pump removal.
[2022-09-18 02:11] VITALS: TEMP 36.6; O2SAT 96
[2022-09-18] MEDS: TRAMADOL HCL 50 MG TABLET PO ×2 (03:01→21:31)
[2022-09-18] MEDS: ACETAMINOPHEN 500 MG TABLET 1000 MG PO ×3 (07:28→20:20)
[2022-09-18] MEDS: ASPIRIN 81 MG TABLET EC PO (07:28)
[2022-09-18] MEDS: APIXABAN 5 MG TABLET 2.5 MG PO ×2 (07:29→17:43)
[2022-09-18] MEDS: LOSARTAN POTASSIUM 50 MG TABLET PO (07:29)
[2022-09-18] MEDS: FOLIC ACID 1 MG TABLET 3 MG PO (07:29)
[2022-09-18] MEDS: MULTIVITAMIN/MINERALS 1 TABLET 1 TAB PO (07:29)
[2022-09-18] MEDS: SERTRALINE 100 MG TABLET PO (07:30)
[2022-09-18] MEDS: FLECAINIDE ACETATE 50 MG TABLET PO ×2 (07:30→20:20)
[2022-09-18 11:00] VITALS: TEMP 36.6; O2SAT 94
--- NOTE | 2022-09-18 13:32 | PC.NURSE ---
Outing: Resident out with , should return around 4.
[2022-09-18 15:00] VITALS: TEMP 36.8; O2SAT 95
[2022-09-18] MEDS: PRAVASTATIN SODIUM 40 MG TABLET PO (20:20)
--- NOTE | 2022-09-18 21:40 | PC.NURSE ---
Resident c/o 12/10 neck pain. Given Tramadol 50mg PRN. Requested to sleep in recliner so she can continue using K-pad for heat to neck and shoulders.
[2022-09-18 23:56] VITALS: TEMP 36.6; O2SAT 93
[2022-09-19] MEDS: TRAMADOL HCL 50 MG TABLET PO ×2 (05:20→21:33)
[2022-09-19] MEDS: ACETAMINOPHEN 500 MG TABLET 1000 MG PO ×3 (07:15→19:59)
[2022-09-19] MEDS: ASPIRIN 81 MG TABLET EC PO (07:15)
[2022-09-19] MEDS: APIXABAN 5 MG TABLET 2.5 MG PO ×2 (07:15→15:49)
[2022-09-19] MEDS: LOSARTAN POTASSIUM 50 MG TABLET PO (07:16)
[2022-09-19] MEDS: FOLIC ACID 1 MG TABLET 3 MG PO (07:16)
[2022-09-19] MEDS: MULTIVITAMIN/MINERALS 1 TABLET 1 TAB PO (07:16)
[2022-09-19] MEDS: FLECAINIDE ACETATE 50 MG TABLET PO ×2 (07:17→20:00)
[2022-09-19] MEDS: SERTRALINE 100 MG TABLET PO (07:18)
--- NOTE | 2022-09-19 09:52 | PC.NURSE ---
Rheumatology appointment [phone]. Spoke with resident about her follow up with rheumatology. She has an appointment scheduled on 10/26/22 @ 0830. will provide her with transportation to appointment.
--- NOTE | 2022-09-19 10:00 | PC.NURSE ---
COVID OUTBREAK TESTING Resident gave verbal consent for outbreak COVID testing. Resident is currently asymptomatic.? Resident/family will be notified only if resident is positive.
[2022-09-19 10:27] VITALS: TEMP 36.9; O2SAT 94
[2022-09-19 11:28] LABS: SARS PCR* Negative SARS-CoV-2 (Negative)
--- NOTE | 2022-09-19 13:28 | PC.NURSE ---
Outing: Resident left with for outing till about 3
[2022-09-19 16:41] VITALS: TEMP 36.2; O2SAT 96
[2022-09-19] MEDS: PRAVASTATIN SODIUM 40 MG TABLET PO (20:00)
[2022-09-20 00:05] VITALS: TEMP 36.4; O2SAT 93
[2022-09-20] MEDS: ASPIRIN 81 MG TABLET EC PO (08:23)
[2022-09-20] MEDS: ACETAMINOPHEN 500 MG TABLET 1000 MG PO ×3 (08:23→19:42)
[2022-09-20] MEDS: APIXABAN 5 MG TABLET 2.5 MG PO ×2 (08:23→15:54)
[2022-09-20] MEDS: FOLIC ACID 1 MG TABLET 3 MG PO (08:23)
[2022-09-20] MEDS: MULTIVITAMIN/MINERALS 1 TABLET 1 TAB PO (08:24)
[2022-09-20] MEDS: LOSARTAN POTASSIUM 50 MG TABLET PO (08:24)
[2022-09-20] MEDS: FLECAINIDE ACETATE 50 MG TABLET PO ×2 (08:26→19:43)
[2022-09-20] MEDS: SERTRALINE 100 MG TABLET PO (08:26)
[2022-09-20 12:15] VITALS: TEMP 36.2; O2SAT 96
[2022-09-20 15:00] VITALS: TEMP -13.4; TEMP 7.9; O2SAT 97
[2022-09-20] MEDS: PRAVASTATIN SODIUM 40 MG TABLET PO (19:42)
[2022-09-20 23:00] VITALS: TEMP 36.7; O2SAT 95
[2022-09-21] MEDS: TRAMADOL HCL 50 MG TABLET PO ×2 (03:04→20:34)
[2022-09-21] MEDS: NON-FORMULARY MEDICATION PO (05:20)
[2022-09-21] MEDS: LOSARTAN POTASSIUM 50 MG TABLET PO (08:13)
[2022-09-21] MEDS: ASPIRIN 81 MG TABLET EC PO (08:13)
[2022-09-21] MEDS: MULTIVITAMIN/MINERALS 1 TABLET 1 TAB PO (08:13)
[2022-09-21] MEDS: FOLIC ACID 1 MG TABLET 3 MG PO (08:13)
[2022-09-21] MEDS: ACETAMINOPHEN 500 MG TABLET 1000 MG PO ×3 (08:13→20:20)
[2022-09-21] MEDS: APIXABAN 5 MG TABLET 2.5 MG PO ×2 (08:13→17:17)
[2022-09-21] MEDS: SERTRALINE 100 MG TABLET PO (08:14)
[2022-09-21] MEDS: FLECAINIDE ACETATE 50 MG TABLET PO ×2 (08:14→20:20)
[2022-09-21 10:40] VITALS: TEMP 36.4; O2SAT 94
[2022-09-21 15:00] VITALS: TEMP 36.6; O2SAT 95
[2022-09-21] MEDS: PRAVASTATIN SODIUM 40 MG TABLET PO (20:20)
--- NOTE | 2022-09-21 22:28 | PC.NURSE ---
Resident was given Tramadol 50mg at 2033 for neck pain. Rated pain 5/10. Continues to use K-pad as well for intervention. States she will sleep in recliner as it is too hard for her to reposition herself in bed.
[2022-09-21 23:00] VITALS: TEMP 36.7; O2SAT 95
[2022-09-22] MEDS: LOSARTAN POTASSIUM 50 MG TABLET PO (07:38)
[2022-09-22] MEDS: ASPIRIN 81 MG TABLET EC PO (07:38)
[2022-09-22] MEDS: ACETAMINOPHEN 500 MG TABLET 1000 MG PO ×3 (07:38→20:37)
[2022-09-22] MEDS: APIXABAN 5 MG TABLET 2.5 MG PO ×2 (07:38→17:14)
--- NOTE | 2022-09-22 07:38 | PC.NURSE ---
Week #3 - Toileting: Baseline and temporary care plan reviewed. No changes made, nothing added to temporary care plan. Resident is continent of bowel and bladder. Is independent with all toileting including pads, ryan cares and clothing management. Wears pull ups. will call for assist as needed. Vital signs reviewed, no concerns. Continue with weekly monitoring. Skin: No issues at this time. Is able to report with concerns. Checked is routinely checked on bath day.
[2022-09-22] MEDS: MULTIVITAMIN/MINERALS 1 TABLET 1 TAB PO (07:39)
[2022-09-22] MEDS: FLECAINIDE ACETATE 50 MG TABLET PO ×2 (07:46→20:39)
[2022-09-22] MEDS: SERTRALINE 100 MG TABLET PO (07:46)
[2022-09-22] MEDS: FOLIC ACID 1 MG TABLET 3 MG PO (08:19)
[2022-09-22 10:15] VITALS: TEMP 36.3; O2SAT 96
--- NOTE | 2022-09-22 13:24 | PC.NURSE ---
Outing: Resident is out with , will be back at 5pm
[2022-09-22 15:00] VITALS: TEMP 36.7; O2SAT 96
--- NOTE | 2022-09-22 17:20 | PC.NURSE ---
Resident returned to unit @ 1700 accompanied by .
[2022-09-22] MEDS: PRAVASTATIN SODIUM 40 MG TABLET PO (20:39)
--- NOTE | 2022-09-22 21:45 | PC.NURSE ---
Acemtra 162mg/0.9mL injection was not available from pharmacy yesterday for scheduled dose. Was delivered tonight and administered @ 2116. Injection site right upper abdomen.
[2022-09-22 23:00] VITALS: TEMP 36.7; O2SAT 94
[2022-09-23] MEDS: TRAMADOL HCL 50 MG TABLET PO ×2 (02:54→20:25)
[2022-09-23] MEDS: ACETAMINOPHEN 500 MG TABLET 1000 MG PO ×3 (07:59→20:02)
[2022-09-23] MEDS: ASPIRIN 81 MG TABLET EC PO (07:59)
[2022-09-23] MEDS: APIXABAN 5 MG TABLET 2.5 MG PO ×2 (08:00→15:31)
[2022-09-23] MEDS: FOLIC ACID 1 MG TABLET 3 MG PO (08:00)
[2022-09-23] MEDS: LOSARTAN POTASSIUM 50 MG TABLET PO (08:01)
[2022-09-23] MEDS: MULTIVITAMIN/MINERALS 1 TABLET 1 TAB PO (08:01)
[2022-09-23] MEDS: SERTRALINE 100 MG TABLET PO (08:26)
[2022-09-23] MEDS: FLECAINIDE ACETATE 50 MG TABLET PO ×2 (08:26→20:02)
[2022-09-23 10:22] VITALS: TEMP 36.6; O2SAT 97
--- NOTE | 2022-09-23 10:31 | PC.NURSE ---
Status: Resident is back from chiro appointment with . Recommends stretching and follow up with PT.
--- NOTE | 2022-09-23 13:24 | PC.NURSE ---
Skin Care: Resident has a bruise on her neck and shoulder area due to chiropractor treatment . This is normal expectation.
[2022-09-23 15:00] VITALS: TEMP 36.6; O2SAT 97
[2022-09-23] MEDS: PRAVASTATIN SODIUM 40 MG TABLET PO (20:02)
[2022-09-23 23:00] VITALS: TEMP 36.7; O2SAT 94
[2022-09-24] MEDS: TRAMADOL HCL 50 MG TABLET PO ×3 (03:01→20:23)
[2022-09-24 07:00] VITALS: TEMP 36.7; O2SAT 97
[2022-09-24] MEDS: APIXABAN 5 MG TABLET 2.5 MG PO ×2 (08:14→15:09)
[2022-09-24] MEDS: ASPIRIN 81 MG TABLET EC PO (08:14)
[2022-09-24] MEDS: ACETAMINOPHEN 500 MG TABLET 1000 MG PO ×3 (08:14→19:39)
[2022-09-24] MEDS: LOSARTAN POTASSIUM 50 MG TABLET PO (08:15)
[2022-09-24] MEDS: MULTIVITAMIN/MINERALS 1 TABLET 1 TAB PO (08:15)
[2022-09-24] MEDS: FOLIC ACID 1 MG TABLET 3 MG PO (08:15)
[2022-09-24] MEDS: FLECAINIDE ACETATE 50 MG TABLET PO ×2 (08:16→19:40)
[2022-09-24] MEDS: SERTRALINE 100 MG TABLET PO (08:17)
[2022-09-24 15:00] VITALS: TEMP 36.6; O2SAT 96
[2022-09-24 16:00] VITALS: BP 129/78; PULSE 66; RESP 18; TEMP 36.6; O2SAT 96
[2022-09-24] MEDS: PRAVASTATIN SODIUM 40 MG TABLET PO (19:39)
[2022-09-24 23:00] VITALS: TEMP 36.6; O2SAT 95
[2022-09-25] MEDS: TRAMADOL HCL 50 MG TABLET PO ×2 (02:40→20:30)
[2022-09-25 07:00] VITALS: TEMP 36.1; O2SAT 94
[2022-09-25] MEDS: ACETAMINOPHEN 500 MG TABLET 1000 MG PO ×3 (07:57→19:55)
[2022-09-25] MEDS: APIXABAN 5 MG TABLET 2.5 MG PO ×2 (08:04→16:18)
[2022-09-25] MEDS: ASPIRIN 81 MG TABLET EC PO (08:04)
[2022-09-25] MEDS: LOSARTAN POTASSIUM 50 MG TABLET PO (08:05)
[2022-09-25] MEDS: FOLIC ACID 1 MG TABLET 3 MG PO (08:05)
[2022-09-25] MEDS: MULTIVITAMIN/MINERALS 1 TABLET 1 TAB PO (08:05)
[2022-09-25] MEDS: FLECAINIDE ACETATE 50 MG TABLET PO ×2 (08:06→19:56)
[2022-09-25] MEDS: SERTRALINE 100 MG TABLET PO (08:06)
[2022-09-25 15:00] VITALS: TEMP 36.4; O2SAT 96
[2022-09-25 16:00] VITALS: BMI 38.7
[2022-09-25] MEDS: PRAVASTATIN SODIUM 40 MG TABLET PO (19:55)
[2022-09-25 23:00] VITALS: TEMP 36.6; O2SAT 94
[2022-09-26] MEDS: TRAMADOL HCL 50 MG TABLET PO ×3 (05:00→20:21)
[2022-09-26] MEDS: APIXABAN 5 MG TABLET 2.5 MG PO ×2 (07:19→15:26)
[2022-09-26] MEDS: ACETAMINOPHEN 500 MG TABLET 1000 MG PO ×3 (07:19→20:20)
[2022-09-26] MEDS: FOLIC ACID 1 MG TABLET 3 MG PO (07:19)
[2022-09-26] MEDS: ASPIRIN 81 MG TABLET EC PO (07:19)
[2022-09-26] MEDS: LOSARTAN POTASSIUM 50 MG TABLET PO (07:20)
[2022-09-26] MEDS: MULTIVITAMIN/MINERALS 1 TABLET 1 TAB PO (07:20)
[2022-09-26] MEDS: SERTRALINE 100 MG TABLET PO (07:28)
[2022-09-26] MEDS: FLECAINIDE ACETATE 50 MG TABLET PO ×2 (07:28→20:20)
--- NOTE | 2022-09-26 12:08 | PC.NURSE ---
COVID OUTBREAK TESTING Resident gave verbal consent for outbreak COVID testing. Resident is currently asymptomatic.? Resident/family will be notified only if resident is positive.
[2022-09-26 12:41] LABS: SARS PCR* Negative SARS-CoV-2 (Negative)
[2022-09-26 13:37] VITALS: TEMP 36.5; O2SAT 96
[2022-09-26 15:00] VITALS: TEMP 36.6; O2SAT 96
--- NOTE | 2022-09-26 17:17 | PC.NURSE ---
Blood sugar at 1600 was 65, Res felt sweaty and light headed. Slot Operations Manager gave 2 cookies and chocolate milk as per Res request. BG recheck after 30mins, reading of 165. res stated felt better at this time.
[2022-09-26] MEDS: PRAVASTATIN SODIUM 40 MG TABLET PO (20:20)
[2022-09-26 23:00] VITALS: TEMP 36.9; O2SAT 95
[2022-09-27] MEDS: TRAMADOL HCL 50 MG TABLET PO ×3 (02:38→20:15)
[2022-09-27] MEDS: APIXABAN 5 MG TABLET 2.5 MG PO ×2 (08:32→15:42)
[2022-09-27] MEDS: ASPIRIN 81 MG TABLET EC PO (08:32)
[2022-09-27] MEDS: ACETAMINOPHEN 500 MG TABLET 1000 MG PO ×3 (08:32→20:14)
[2022-09-27] MEDS: FOLIC ACID 1 MG TABLET 3 MG PO (08:32)
[2022-09-27] MEDS: FLECAINIDE ACETATE 50 MG TABLET PO ×2 (08:33→20:15)
[2022-09-27] MEDS: MULTIVITAMIN/MINERALS 1 TABLET 1 TAB PO (08:33)
[2022-09-27] MEDS: SERTRALINE 100 MG TABLET PO (08:33)
[2022-09-27] MEDS: LOSARTAN POTASSIUM 50 MG TABLET PO (08:33)
[2022-09-27 10:11] VITALS: TEMP 36.3; O2SAT 96
--- NOTE | 2022-09-27 10:39 | PC.NURSE ---
Order: FINISHED METAL REPAIRER here aware resident continue to complain of neck/shoulder pain and wants stronger pain medicine. PT to see, Tramadol 50mg @ HS added. Resident notified of new orders.
[2022-09-27 16:16] VITALS: TEMP 36.8; O2SAT 96
[2022-09-27] MEDS: PRAVASTATIN SODIUM 40 MG TABLET PO (20:15)
[2022-09-27 23:00] VITALS: TEMP 36.8; O2SAT 97
[2022-09-28] MEDS: TRAMADOL HCL 50 MG TABLET PO ×3 (02:29→20:27)
[2022-09-28] MEDS: NON-FORMULARY MEDICATION PO (05:28)
[2022-09-28] MEDS: LOSARTAN POTASSIUM 50 MG TABLET PO (08:14)
[2022-09-28] MEDS: APIXABAN 5 MG TABLET 2.5 MG PO ×2 (08:14→16:35)
[2022-09-28] MEDS: ACETAMINOPHEN 500 MG TABLET 1000 MG PO ×3 (08:14→20:27)
[2022-09-28] MEDS: FOLIC ACID 1 MG TABLET 3 MG PO (08:14)
[2022-09-28] MEDS: MULTIVITAMIN/MINERALS 1 TABLET 1 TAB PO (08:14)
[2022-09-28] MEDS: ASPIRIN 81 MG TABLET EC PO (08:14)
[2022-09-28] MEDS: FLECAINIDE ACETATE 50 MG TABLET PO ×2 (08:15→20:27)
[2022-09-28] MEDS: SERTRALINE 100 MG TABLET PO (08:15)
[2022-09-28 10:04] VITALS: TEMP 36.4; O2SAT 96
--- NOTE | 2022-09-28 12:04 | PC.NURSE ---
Spoke to [facility] [phone] to discuss if labs need to be drawn before upcoming October appt. They will return call after speaking with provider.
--- NOTE | 2022-09-28 14:16 | PC.NURSE ---
Resident has an appointment scheduled for 10/10/22 @ 5815 for rheumatology. will transport. [facility] will send fax with orders for labs to be drawn on 10/07/22.
[2022-09-28 15:00] VITALS: TEMP 36.7; O2SAT 97
[2022-09-28] MEDS: PRAVASTATIN SODIUM 40 MG TABLET PO (20:27)
[2022-09-28 23:00] VITALS: TEMP 36.7; O2SAT 94
[2022-09-29] MEDS: TRAMADOL HCL 50 MG TABLET PO ×3 (02:57→20:10)
--- NOTE | 2022-09-29 03:59 | PC.NURSE ---
WEEKLY CHARTING - WEEK 4: Vital signs reviewed - no concerns. Temporary and admission care plan reviewed - no change. No documented behaviors in the last month. Receives sertraline 100mg daily with no noted adverse effects. Able to communicate needs without difficulty. Wears bilateral hearing aids for hearing impairment. Visual deficit is corrected with glasses. Mild cognitive impairment and forgetfulness. Medications administered by licensed nurse. May keep PRN eye drops at bedside for self administration. Health condition stable.
[2022-09-29] MEDS: ACETAMINOPHEN 500 MG TABLET 1000 MG PO ×3 (08:40→20:10)
[2022-09-29] MEDS: ASPIRIN 81 MG TABLET EC PO (08:40)
[2022-09-29] MEDS: APIXABAN 5 MG TABLET 2.5 MG PO ×2 (08:41→15:16)
[2022-09-29] MEDS: FOLIC ACID 1 MG TABLET 3 MG PO (08:41)
[2022-09-29] MEDS: LOSARTAN POTASSIUM 50 MG TABLET PO (08:43)
[2022-09-29] MEDS: MULTIVITAMIN/MINERALS 1 TABLET 1 TAB PO (08:43)
[2022-09-29] MEDS: SERTRALINE 100 MG TABLET PO (08:46)
[2022-09-29] MEDS: FLECAINIDE ACETATE 50 MG TABLET PO ×2 (08:46→20:10)
[2022-09-29 08:58] VITALS: TEMP 36.4; O2SAT 96
--- NOTE | 2022-09-29 13:03 | PC.NURSE ---
WEEKLY CHARTING - WEEK 4: Vital signs reviewed - no concerns. Temporary and comprehensive care plan reviewed - no change. Resident does not have any behavior issue document past month, very social and participated in the department activities. Receives sertraline 100mg daily with no noted adverse effects. Able to communicate needs without difficulty. Wears bilateral hearing aids for hearing impairment. Visual deficit is corrected with glasses. Mild cognitive impairment and forgetfulness.Medications administered by licensed nurse and resident has only PRN eye drops at bedside for self administration. Health condition stable and able to ambulate using walker by herself.
[2022-09-29 15:00] VITALS: TEMP 36.5; O2SAT 97
--- NOTE | 2022-09-29 15:16 | PC.NURSE ---
IDT note: physical therapy dc'd today, goals met.
[2022-09-29] MEDS: PRAVASTATIN SODIUM 40 MG TABLET PO (20:28)
[2022-09-29 23:00] VITALS: TEMP 36.8; O2SAT 94
[2022-09-30] MEDS: TRAMADOL HCL 50 MG TABLET PO ×2 (02:57→20:30)
[2022-09-30] MEDS: ASPIRIN 81 MG TABLET EC PO (07:05)
[2022-09-30] MEDS: ACETAMINOPHEN 500 MG TABLET 1000 MG PO ×3 (07:05→20:29)
[2022-09-30] MEDS: LOSARTAN POTASSIUM 50 MG TABLET PO (07:06)
[2022-09-30] MEDS: APIXABAN 5 MG TABLET 2.5 MG PO ×2 (07:06→17:00)
[2022-09-30] MEDS: MULTIVITAMIN/MINERALS 1 TABLET 1 TAB PO (07:06)
[2022-09-30] MEDS: FOLIC ACID 1 MG TABLET 3 MG PO (07:06)
[2022-09-30] MEDS: SERTRALINE 100 MG TABLET PO (07:08)
[2022-09-30] MEDS: FLECAINIDE ACETATE 50 MG TABLET PO ×2 (07:08→20:29)
[2022-09-30 10:23] VITALS: TEMP 36.5; O2SAT 98
[2022-09-30 15:00] VITALS: TEMP 36.6; O2SAT 95
[2022-09-30] MEDS: PRAVASTATIN SODIUM 40 MG TABLET PO (20:29)
[2022-09-30 23:52] VITALS: TEMP 36.8; O2SAT 96
[2022-10-01] MEDS: TRAMADOL HCL 50 MG TABLET PO ×2 (02:39→19:50)
[2022-10-01] MEDS: ACETAMINOPHEN 500 MG TABLET 1000 MG PO ×3 (07:28→19:50)
[2022-10-01] MEDS: ASPIRIN 81 MG TABLET EC PO (07:28)
[2022-10-01] MEDS: MULTIVITAMIN/MINERALS 1 TABLET 1 TAB PO (07:29)
[2022-10-01] MEDS: FOLIC ACID 1 MG TABLET 3 MG PO (07:29)
[2022-10-01] MEDS: APIXABAN 5 MG TABLET 2.5 MG PO ×2 (07:29→17:55)
[2022-10-01] MEDS: LOSARTAN POTASSIUM 50 MG TABLET PO (07:29)
[2022-10-01] MEDS: SERTRALINE 100 MG TABLET PO (07:30)
[2022-10-01] MEDS: FLECAINIDE ACETATE 50 MG TABLET PO ×2 (07:30→19:50)
[2022-10-01 10:23] VITALS: TEMP 36.5; O2SAT 95
--- NOTE | 2022-10-01 12:46 | PC.NURSE ---
outing: Resident left for outing with
[2022-10-01 15:00] VITALS: TEMP 36.8; O2SAT 96
[2022-10-01 16:00] VITALS: BP 134/82; PULSE 71; RESP 18; TEMP 36.8; O2SAT 96
[2022-10-01] MEDS: PRAVASTATIN SODIUM 40 MG TABLET PO (19:50)
--- NOTE | 2022-10-01 19:56 | PC.NURSE ---
Return: Resident returned from outing with @ [id number].
[2022-10-02 00:11] VITALS: TEMP 36.2; O2SAT 95
[2022-10-02] MEDS: TRAMADOL HCL 50 MG TABLET PO ×3 (02:17→21:09)
[2022-10-02] MEDS: ACETAMINOPHEN 500 MG TABLET 1000 MG PO ×3 (07:26→19:36)
[2022-10-02] MEDS: APIXABAN 5 MG TABLET 2.5 MG PO ×2 (07:27→16:14)
[2022-10-02] MEDS: LOSARTAN POTASSIUM 50 MG TABLET PO (07:27)
[2022-10-02] MEDS: ASPIRIN 81 MG TABLET EC PO (07:27)
[2022-10-02] MEDS: MULTIVITAMIN/MINERALS 1 TABLET 1 TAB PO (07:27)
[2022-10-02] MEDS: FOLIC ACID 1 MG TABLET 3 MG PO (07:27)
[2022-10-02] MEDS: FLECAINIDE ACETATE 50 MG TABLET PO ×2 (07:28→19:36)
[2022-10-02] MEDS: SERTRALINE 100 MG TABLET PO (07:28)
[2022-10-02 10:08] VITALS: TEMP 36.6; O2SAT 96
[2022-10-02 15:00] VITALS: TEMP 36.3; O2SAT 96
[2022-10-02 16:00] VITALS: BP 132/81; PULSE 74; RESP 17; TEMP 36.3; O2SAT 98
[2022-10-02] MEDS: PRAVASTATIN SODIUM 40 MG TABLET PO (20:03)
[2022-10-02 23:51] VITALS: TEMP 36.5; O2SAT 95
[2022-10-03] MEDS: TRAMADOL HCL 50 MG TABLET PO ×3 (03:10→20:41)
[2022-10-03 07:00] VITALS: TEMP 36.7; O2SAT 95
[2022-10-03] MEDS: ACETAMINOPHEN 500 MG TABLET 1000 MG PO ×3 (07:06→20:40)
[2022-10-03] MEDS: FOLIC ACID 1 MG TABLET 3 MG PO (08:16)
[2022-10-03] MEDS: APIXABAN 5 MG TABLET 2.5 MG PO ×2 (08:16→17:23)
[2022-10-03] MEDS: ASPIRIN 81 MG TABLET EC PO (08:16)
[2022-10-03] MEDS: LOSARTAN POTASSIUM 50 MG TABLET PO (08:16)
[2022-10-03] MEDS: MULTIVITAMIN/MINERALS 1 TABLET 1 TAB PO (08:17)
[2022-10-03] MEDS: FLECAINIDE ACETATE 50 MG TABLET PO ×2 (08:19→20:41)
[2022-10-03] MEDS: SERTRALINE 100 MG TABLET PO (08:19)
--- NOTE | 2022-10-03 10:57 | PC.NURSE ---
COVID OUTBREAK TESTING Resident and residents gave verbal consent for outbreak COVID testing. Resident is currently asymptomatic.? Resident/family will be notified only if resident is positive.
--- NOTE | 2022-10-03 11:03 | PC.NURSE ---
Resident going out for lunch to [facility] [employer] at this time and will then be going out with . Resident has a chiropractor appointment scheduled in [place] at noon and informs staff that she will then be going to her 's new apartment. Resident and state resident will return approximately 1700 or 1730 this evening. Resident has been given lunch insulin and noon medication before leaving as she is going to lunch at this time. plant taxonomy teacher aware.
[2022-10-03 11:53] LABS: SARS PCR* Negative SARS-CoV-2 (Negative)
[2022-10-03 15:00] VITALS: TEMP 36.4; O2SAT 95
[2022-10-03] MEDS: PRAVASTATIN SODIUM 40 MG TABLET PO (20:40)
--- NOTE | 2022-10-03 21:00 | PC.NURSE ---
Resident came back from her chiropractor appointment? at 1658. She did like it she said.
[2022-10-04 01:26] VITALS: TEMP 36.4; O2SAT 96
[2022-10-04] MEDS: TRAMADOL HCL 50 MG TABLET PO (02:58)
[2022-10-04] MEDS: ASPIRIN 81 MG TABLET EC PO (07:32)
[2022-10-04] MEDS: MULTIVITAMIN/MINERALS 1 TABLET 1 TAB PO (07:32)
[2022-10-04] MEDS: ACETAMINOPHEN 500 MG TABLET 1000 MG PO ×3 (07:32→20:16)
[2022-10-04] MEDS: LOSARTAN POTASSIUM 50 MG TABLET PO (07:32)
[2022-10-04] MEDS: FOLIC ACID 1 MG TABLET 3 MG PO (07:32)
[2022-10-04] MEDS: APIXABAN 5 MG TABLET 2.5 MG PO ×2 (07:32→15:51)
[2022-10-04] MEDS: FLECAINIDE ACETATE 50 MG TABLET PO ×2 (07:34→20:17)
[2022-10-04] MEDS: SERTRALINE 100 MG TABLET PO (07:34)
[2022-10-04 10:18] VITALS: TEMP 36.6; O2SAT 93
--- NOTE | 2022-10-04 10:52 | PC.NURSE ---
Addendum entered by Diann Leavitt RN 10/04/22 11:00: Correction: MRI of cervical spine not neck. Original Note: Accu Checks, Pain/Order: ELEVATOR ERECTOR HELPER, Viktoria here. Accu Checks reviewed (high values), pain not relieved with Ultram noted. Order: Discontinue Ultram 50mg HS & Q6H PRN, Start Oxycodone 2.5mg @ HS & Q6H PRN, Increase Solifenacin to 10mg daily, Increase Levemir to 25 units @ , MRI of neck.
--- NOTE | 2022-10-04 11:44 | PC.NURSE ---
Lab: CBC/Diff, AST, Creatinine w/Estimated GFR, CRP, Sed Rate on 10/05 by Viktoria BARRIOS before Rheumatology appt. on 10/10/22. Fax results to Dr. Almas Rivero [phone].
[2022-10-04 15:00] VITALS: TEMP 36.4; O2SAT 95
[2022-10-04] MEDS: OXYCODONE 5 MG TABLET 2.5 MG PO (20:14)
[2022-10-04] MEDS: PRAVASTATIN SODIUM 40 MG TABLET PO (20:16)
[2022-10-04 23:00] VITALS: TEMP 36.9; O2SAT 95
[2022-10-05] MEDS: OXYCODONE 5 MG TABLET 2.5 MG PO ×2 (02:47→20:30)
[2022-10-05] MEDS: NON-FORMULARY MEDICATION PO (05:05)
[2022-10-05 07:34] LABS: Basophils Absolute Auto 0.06 K/uL (0.00-0.30); Basophils Percent Auto 1.1 % (0.0-3.0); Eosinophils Percent Auto 3.8 % (0.0-7.0); Hematocrit 40.2 % (33.0-51.0); Immature Granulocytes Abs Auto 0.01 K/uL (0.00-0.30); Immature Granulocytes Pct Auto 0.2 %; Lymphocytes Absolute Auto 1.93 K/uL (0.90-2.90); Lymphocytes Percent Auto 36.8 % (20-44); Mean Corpuscular HGB Conc 35 gm/dL (32-36); Mean Corpuscular Hemoglobin 35 pg (26-34); Mean Corpuscular Volume 102 fL (80-100); Monocytes Percent Auto 10.1 % (0.0-11.0); Neutrophils Absolute Auto 2.52 K/uL (1.7-7.0); Platelet Count* 311 K/uL (140-440); RDW Coefficient of Variation % 15.1 % (11.5-15.5); Red Blood Count 3.96 m/uL (4.00-5.20); White Blood Count* 5.25 K/uL (4.50-11.00)
[2022-10-05 07:41] LABS: Slide Review Reflex No
[2022-10-05 08:01] LABS: Chloride* 102 mmol/L (96-114); Potassium* 4.8 mmol/L (3.6-5.1); Sodium* 137 mmol/L (135-149)
[2022-10-05] MEDS: APIXABAN 5 MG TABLET 2.5 MG PO ×2 (08:02→17:20)
[2022-10-05] MEDS: ACETAMINOPHEN 500 MG TABLET 1000 MG PO ×3 (08:02→20:19)
[2022-10-05] MEDS: ASPIRIN 81 MG TABLET EC PO (08:02)
[2022-10-05] MEDS: MULTIVITAMIN/MINERALS 1 TABLET 1 TAB PO (08:03)
[2022-10-05] MEDS: LOSARTAN POTASSIUM 50 MG TABLET PO (08:03)
[2022-10-05] MEDS: FOLIC ACID 1 MG TABLET 3 MG PO (08:03)
[2022-10-05 08:04] LABS: Aspartate Amino Transferase* 42 U/L (12-35); Blood Urea Nitrogen* 24 mg/dL (7-30); Carbon Dioxide* 30 mmol/L (20-32); Creatinine* 0.5 mg/dL (0.5-1.5); Est. Creatinine Clearance* 35.99; Estimated Glomerular Filt Rate 99 ml/min
[2022-10-05] MEDS: FLECAINIDE ACETATE 50 MG TABLET PO ×2 (08:04→20:20)
[2022-10-05] MEDS: SERTRALINE 100 MG TABLET PO (08:04)
[2022-10-05 08:05] LABS: Calcium* 9.1 mg/dL (8.4-10.6); Glucose* 153 mg/dL (60-115)
[2022-10-05 08:07] LABS: C Reactive Protein* 0.6 mg/dL (0.5-1.0)
[2022-10-05 09:21] LABS: Erythrocyte SedimentationRate* 12 mm/hr (2-20)
[2022-10-05 10:02] VITALS: TEMP 36.3; O2SAT 96
--- NOTE | 2022-10-05 10:11 | PC.NURSE ---
Lab results requested by Dr. Rivero, [place] faxed.
--- NOTE | 2022-10-05 13:30 | PC.NURSE ---
MIRELA: Resident went out with her for Chiropractor appt at 1400 hours. She left facility at 1315 and will be back at 1730
[2022-10-05 15:00] VITALS: TEMP 36.6; O2SAT 95
[2022-10-05] MEDS: PRAVASTATIN SODIUM 40 MG TABLET PO (20:20)
--- NOTE | 2022-10-05 22:16 | PC.NURSE ---
Resident returned from outing at 17:15.
[2022-10-05 23:00] VITALS: TEMP 36.6; O2SAT 95
--- NOTE | 2022-10-06 02:35 | PC.NURSE ---
WEEKLY CHARTING - WEEK 1: Vital signs reviewed - no concerns. Temporary and comprehensive care plan reviewed - no change. Hx of chronic neck/shoulder pain. Receives acetaminophen 1000mg TID, application of diclofenac gel QID, and oxycodone 2.5mg at HS and Q6 hours PRN for pain management. Also uses non-pharmacological measures such as repositioning, ice pack, aqua-K pad. Is independent with ADLs including dressing, grooming, and oral cares. Staff assist with application/removal of BHUMIKA stockings daily. Set-up and supervision with bathing. Eats independently. No chewing/swallowing problems. Receives regular diet per resident request. HS snack nightly.
[2022-10-06] MEDS: OXYCODONE 5 MG TABLET 2.5 MG PO ×2 (04:15→19:38)
--- NOTE | 2022-10-06 06:42 | PC.NURSE ---
Week #1 - ADL's: Comprehensive and temporary care plan reviewed. No changes made and nothing added to temporary care plan. Resident is independent with dressing, grooming, oral cares, and feeding. Will ask for assist as needed. Needs set up and supervision with bathing. Is on regular diet per her request. Receives HS snack. No problems with chewing/swallowing reported. Vital signs reviewed, no concerns. Pain: Has chronic neck and shoulder pain r/t arthritis & continues to complain of pain. Receives Tylenol 1000mg TID, Voltaren gel QID to painful joints, 4/4 Ultram discontinued and changed to Oxycodone 2.5mg @ HS & Q6H PRN per resident request for stronger pain medication. Changing position, aqua-K pad, chiropractor is helpful. MRI of cervical spine today.
--- NOTE | 2022-10-06 07:04 | PC.NURSE ---
Imaging: Resident to imaging for MRI with staff in wheelchair.
--- NOTE | 2022-10-06 07:15 | CRLHL7_ITS ---
For Patients: As a result of the Century Cures Act, medical imaging exams and procedure reports are released immediately into your electronic medical record. You may view this report before your referring provider. If you have questions, please contact your health care provider. Indication: Severe neck pain. Technique: MRI of the cervical spine was performed without the use of intravenous contrast. Comparison: Cervical spine radiographs 09/16/2022. Findings: The vertebral body heights appear maintained without evidence of fracture. No discrete T1 hypointense marrow infiltrating process. Mild multilevel disc height loss and desiccation. Straightening of the cervical lordosis. Hemangioma within the C7 vertebral body. No abnormal cord signal. C2-3: No spinal canal or neural foraminal narrowing. C3-4: No spinal canal or neural foraminal narrowing. C4-5: Disc osteophyte complex with left paracentral disc protrusion. Mild spinal canal narrowing. Moderately severe left and mild right neural foraminal narrowing secondary to uncovertebral and facet hypertrophy. Potential impingement of the left C5 nerve. C5-6: Disc bulge with minimal spinal canal narrowing. Mild to moderate neural foraminal narrowing secondary to uncovertebral joint and facet hypertrophy. C6-7: No spinal canal narrowing. Mild neural foraminal narrowing secondary to uncovertebral joint and facet hypertrophy. C7-T1: No spinal canal or neural foraminal narrowing. Partially visualized chronic scattered microvascular change within the vinnie. Impression: 1. At C4-5, left paracentral disc protrusion. Mild spinal canal narrowing. Moderately severe left neural foraminal narrowing with potential impingement of the left C5 nerve. 2. At C5-6, mild to moderate neural foraminal narrowing. 3. Milder spondylosis at the remaining cervical levels. 4. No abnormal cord signal. Dictated by Yandel Licona MD @ 10/06/2022 12:38:14 PM (Electronically Signed)
[2022-10-06] MEDS: FOLIC ACID 1 MG TABLET 3 MG PO (07:36)
[2022-10-06] MEDS: ASPIRIN 81 MG TABLET EC PO (07:36)
[2022-10-06] MEDS: MULTIVITAMIN/MINERALS 1 TABLET 1 TAB PO (07:36)
[2022-10-06] MEDS: LOSARTAN POTASSIUM 50 MG TABLET PO (07:36)
[2022-10-06] MEDS: ACETAMINOPHEN 500 MG TABLET 1000 MG PO ×3 (07:36→19:38)
[2022-10-06] MEDS: APIXABAN 5 MG TABLET 2.5 MG PO ×2 (07:36→15:39)
[2022-10-06] MEDS: FLECAINIDE ACETATE 50 MG TABLET PO ×2 (07:36→19:38)
[2022-10-06] MEDS: SERTRALINE 100 MG TABLET PO (07:37)
--- NOTE | 2022-10-06 08:08 | PC.NURSE ---
Return : Back from imaging with staff.
[2022-10-06 13:10] VITALS: TEMP 36.2; O2SAT 97
[2022-10-06 15:00] VITALS: TEMP 36.2; O2SAT 97
[2022-10-06] MEDS: PRAVASTATIN SODIUM 40 MG TABLET PO (19:38)
--- NOTE | 2022-10-06 22:09 | PC.NURSE ---
Acemtra 162mg/0.9mL injection was not available from pharmacy yesterday for scheduled dose. Was delivered tonight and administered @ 2013. Injection site right lower abdomen.?
[2022-10-06 23:00] VITALS: TEMP 36.6; O2SAT 94
[2022-10-07] MEDS: OXYCODONE 5 MG TABLET 2.5 MG PO ×2 (03:00→20:25)
[2022-10-07] MEDS: APIXABAN 5 MG TABLET 2.5 MG PO ×2 (07:39→15:22)
[2022-10-07] MEDS: ACETAMINOPHEN 500 MG TABLET 1000 MG PO ×3 (07:39→20:22)
[2022-10-07] MEDS: ASPIRIN 81 MG TABLET EC PO (07:39)
[2022-10-07] MEDS: FOLIC ACID 1 MG TABLET 3 MG PO (07:39)
[2022-10-07] MEDS: MULTIVITAMIN/MINERALS 1 TABLET 1 TAB PO (07:40)
[2022-10-07] MEDS: LOSARTAN POTASSIUM 50 MG TABLET PO (07:40)
[2022-10-07] MEDS: FLECAINIDE ACETATE 50 MG TABLET PO ×2 (07:41→20:23)
[2022-10-07] MEDS: SERTRALINE 100 MG TABLET PO (07:42)
[2022-10-07 10:32] VITALS: TEMP 36.3; O2SAT 98
--- NOTE | 2022-10-07 12:18 | PC.NURSE ---
Addendum entered by Diann Leavitt RN 10/07/22 13:38: MRI result reviewed by Dr. Carrillo with resident and resident . Original Note: MRI: Result reviewed by Dr. Carrillo. Order: Prednisone 40mg daily x 5 days, Aqua K-Pad to RUE Q1H PRN pain.
[2022-10-07 15:00] VITALS: TEMP 36.4; O2SAT 96
[2022-10-07] MEDS: PRAVASTATIN SODIUM 40 MG TABLET PO (20:22)
[2022-10-07 23:00] VITALS: TEMP 36.6; O2SAT 94
[2022-10-08] MEDS: OXYCODONE 5 MG TABLET 2.5 MG PO ×2 (02:40→19:52)
[2022-10-08 07:00] VITALS: TEMP 36.6; O2SAT 97
[2022-10-08] MEDS: ASPIRIN 81 MG TABLET EC PO (08:35)
[2022-10-08] MEDS: FOLIC ACID 1 MG TABLET 3 MG PO (08:35)
[2022-10-08] MEDS: ACETAMINOPHEN 500 MG TABLET 1000 MG PO ×3 (08:35→19:51)
[2022-10-08] MEDS: LOSARTAN POTASSIUM 50 MG TABLET PO (08:35)
[2022-10-08] MEDS: APIXABAN 5 MG TABLET 2.5 MG PO ×2 (08:35→17:10)
[2022-10-08] MEDS: MULTIVITAMIN/MINERALS 1 TABLET 1 TAB PO (08:36)
[2022-10-08] MEDS: FLECAINIDE ACETATE 50 MG TABLET PO ×2 (08:36→19:52)
[2022-10-08] MEDS: SERTRALINE 100 MG TABLET PO (08:37)
[2022-10-08] MEDS: predniSONE 20 MG TABLET 40 MG PO (08:37)
--- NOTE | 2022-10-08 13:15 | PC.NURSE ---
Resident going out with at this time. She had lunch here and reports she will return in time for supper.
[2022-10-08 15:00] VITALS: TEMP 36.9; O2SAT 94
--- NOTE | 2022-10-08 17:25 | PC.NURSE ---
Returned to facility: Resident returned to [facility] @ 0778.
[2022-10-08] MEDS: PRAVASTATIN SODIUM 40 MG TABLET PO (19:51)
[2022-10-08 23:00] VITALS: TEMP 36.7; O2SAT 94
[2022-10-09] MEDS: OXYCODONE 5 MG TABLET 2.5 MG PO ×2 (02:58→19:32)
[2022-10-09] MEDS: FOLIC ACID 1 MG TABLET 3 MG PO (08:18)
[2022-10-09] MEDS: APIXABAN 5 MG TABLET 2.5 MG PO ×2 (08:18→17:30)
[2022-10-09] MEDS: ACETAMINOPHEN 500 MG TABLET 1000 MG PO ×3 (08:18→19:32)
[2022-10-09] MEDS: ASPIRIN 81 MG TABLET EC PO (08:18)
[2022-10-09] MEDS: MULTIVITAMIN/MINERALS 1 TABLET 1 TAB PO (08:19)
[2022-10-09] MEDS: LOSARTAN POTASSIUM 50 MG TABLET PO (08:19)
[2022-10-09] MEDS: SERTRALINE 100 MG TABLET PO (08:20)
[2022-10-09] MEDS: predniSONE 20 MG TABLET 40 MG PO (08:20)
[2022-10-09] MEDS: FLECAINIDE ACETATE 50 MG TABLET PO ×2 (08:20→19:33)
[2022-10-09 10:31] VITALS: TEMP 36.4; O2SAT 95
--- NOTE | 2022-10-09 11:54 | PC.NURSE ---
MIRELA: Resident went out with at 1145 and will be back at 2000 hours. Everning medication Eliquis and Insulin pen (Novolog) was given to with sliding scale instructions.
[2022-10-09] MEDS: PRAVASTATIN SODIUM 40 MG TABLET PO (19:32)
[2022-10-09 20:51] VITALS: BP 134/77; PULSE 97; RESP 19; TEMP 36.9; O2SAT 94; BMI 38.6
--- NOTE | 2022-10-09 22:01 | PC.NURSE ---
Resident returned from outing @ 7389. Returned with insulin pen.
--- NOTE | 2022-10-09 22:03 | PC.NURSE ---
Skin assessment: Resident had bath this evening. Has bruise on middle abdomen measuring 3cm x 3cm. States it is from an insulin injection within the past few days. Denies any pain or discomfort.
[2022-10-09 23:00] VITALS: TEMP 36.7; O2SAT 95
[2022-10-10] MEDS: OXYCODONE 5 MG TABLET 2.5 MG PO ×2 (03:47→19:56)
[2022-10-10 07:00] VITALS: TEMP 36.6; O2SAT 99
[2022-10-10] MEDS: ASPIRIN 81 MG TABLET EC PO (08:15)
[2022-10-10] MEDS: ACETAMINOPHEN 500 MG TABLET 1000 MG PO ×3 (08:15→19:56)
[2022-10-10] MEDS: APIXABAN 5 MG TABLET 2.5 MG PO ×2 (08:15→16:57)
[2022-10-10] MEDS: FOLIC ACID 1 MG TABLET 3 MG PO (08:15)
[2022-10-10] MEDS: LOSARTAN POTASSIUM 50 MG TABLET PO (08:15)
[2022-10-10] MEDS: FLECAINIDE ACETATE 50 MG TABLET PO ×2 (08:16→19:56)
[2022-10-10] MEDS: predniSONE 20 MG TABLET 40 MG PO (08:16)
[2022-10-10] MEDS: MULTIVITAMIN/MINERALS 1 TABLET 1 TAB PO (08:16)
[2022-10-10] MEDS: SERTRALINE 100 MG TABLET PO (08:17)
--- NOTE | 2022-10-10 10:04 | PC.NURSE ---
Resident going out at this time with in order to attend noon rheumatology appointment at [place]. Resident being sent with consult paperwork including current orders, noon Tylenol, Novolog pen to administer with lunch, sealed needles for insulin pen (extras sent with in case resident needs), glucometer, alcohol wipes, lancets, glucometer strips and gauze. earth science teacher aware.
--- NOTE | 2022-10-10 12:50 | PC.NURSE ---
COVID OUTBREAK TESTING Resident gave verbal consent for outbreak COVID testing. Resident is currently asymptomatic.? Resident/family will be notified only if resident is positive.
[2022-10-10 15:00] VITALS: TEMP 36.7; O2SAT 96
--- NOTE | 2022-10-10 17:03 | PC.NURSE ---
Arrived in facility at 1625 from Rheumatology appointment accompanied by .
--- NOTE | 2022-10-10 17:11 | PC.NURSE ---
Appointment summary: 10/10/22 For the RA, Continued disease activity on her current therapy. Recommendation: Change actemra to Sub injection 162mg every 7 days. Continue methotrexate 10mg by mouth once weekly Continue Folic Acid 3mg daily Cervical radiculopathy Recommend visit with spine clinic Recommend continuing to work with physical therapist. Osteoporosis She has significant amount of oral pills to help offload burden of administration of fosamax, we are going to instead switch to reclast Therapy. Recommendations: Stop oral alendronate (fosamax) Start Reclast IV once yearly (ordered) day of infusion Before the reclast, start acetaminophen 500mg twice daily and continue for the next 2-3 days to reduce chance of infusion side effects. Refer to Physical Therapy for Radiculopathy Cervial
[2022-10-10] MEDS: PRAVASTATIN SODIUM 40 MG TABLET PO (19:56)
[2022-10-10 21:37] LABS: SARS PCR* Negative SARS-CoV-2 (Negative)
[2022-10-10 23:00] VITALS: TEMP 36.7; O2SAT 96
--- NOTE | 2022-10-11 04:44 | PC.NURSE ---
BLOOD GLUCOSE: Scheduled 0200 blood glucose obtained with reading of 51. Resident denies any s/sx of hypoglycemia. Resident had snack of cereal with milk and juice. Blood glucose rechecked approximately 30 minutes later with reading of 113.
[2022-10-11] MEDS: APIXABAN 5 MG TABLET 2.5 MG PO ×2 (08:09→15:12)
[2022-10-11] MEDS: ACETAMINOPHEN 500 MG TABLET 1000 MG PO ×3 (08:09→20:12)
[2022-10-11] MEDS: ASPIRIN 81 MG TABLET EC PO (08:09)
[2022-10-11] MEDS: FOLIC ACID 1 MG TABLET 3 MG PO (08:09)
[2022-10-11] MEDS: LOSARTAN POTASSIUM 50 MG TABLET PO (08:10)
[2022-10-11] MEDS: MULTIVITAMIN/MINERALS 1 TABLET 1 TAB PO (08:10)
[2022-10-11] MEDS: predniSONE 20 MG TABLET 40 MG PO (08:11)
[2022-10-11] MEDS: FLECAINIDE ACETATE 50 MG TABLET PO ×2 (08:11→20:12)
[2022-10-11] MEDS: SERTRALINE 100 MG TABLET PO (08:11)
[2022-10-11 10:31] VITALS: TEMP 36.4; O2SAT 98
--- NOTE | 2022-10-11 13:25 | PC.NURSE ---
Mint Wafer Depositor visit on 10/10/22 with recommendations noted by Viktoria BARRIOS.
[2022-10-11 16:00] VITALS: TEMP 36.5; O2SAT 97
--- NOTE | 2022-10-11 16:18 | PC.NURSE ---
Resident picked edge sewing machine operator by at 16:15 to watch baseball game.
--- NOTE | 2022-10-11 17:38 | PC.NURSE ---
Resident came back in facility at 1730 with .
[2022-10-11] MEDS: PRAVASTATIN SODIUM 40 MG TABLET PO (20:12)
[2022-10-11] MEDS: OXYCODONE 5 MG TABLET 2.5 MG PO (20:12)
[2022-10-11 23:00] VITALS: TEMP 36.6; O2SAT 94
[2022-10-12] MEDS: OXYCODONE 5 MG TABLET 2.5 MG PO ×2 (04:15→19:48)
[2022-10-12 07:00] VITALS: TEMP 36.4; O2SAT 94
[2022-10-12] MEDS: ACETAMINOPHEN 500 MG TABLET 1000 MG PO ×3 (08:07→19:48)
[2022-10-12] MEDS: ASPIRIN 81 MG TABLET EC PO (08:08)
[2022-10-12] MEDS: LOSARTAN POTASSIUM 50 MG TABLET PO (08:08)
[2022-10-12] MEDS: FOLIC ACID 1 MG TABLET 3 MG PO (08:08)
[2022-10-12] MEDS: APIXABAN 5 MG TABLET 2.5 MG PO ×2 (08:08→16:13)
[2022-10-12] MEDS: MULTIVITAMIN/MINERALS 1 TABLET 1 TAB PO (08:08)
[2022-10-12] MEDS: SERTRALINE 100 MG TABLET PO (08:09)
[2022-10-12] MEDS: FLECAINIDE ACETATE 50 MG TABLET PO ×2 (08:09→19:48)
[2022-10-12] MEDS: predniSONE 20 MG TABLET 40 MG PO (08:09)
--- NOTE | 2022-10-12 14:13 | PC.PHA1 ---
CLERICAL SPECIALIST PHARMACIST'S MEDICATION REVIEW: MEDICATION MONITORING:Sertraline 100 mg daily IRREGULARITY OR COMMENTS:Patient is adjusting well to her new surroundings. Apixaban and daily aspirin continues. Chantix has been discontinued, patient not currently taking anything for smoking cessation. Recent MD visit resulting in Actemra injection weekly and stopping alendronate and trying Reclast iv infusion yearly. Basal, bolus with sliding scale insulin regimen. SUGGESTED COURSE OF ACTION TAKEN:If Reclast infusion not available from [facility], order will need to be [facility] to [facility] or will patient get infusion at Dr. Rivero's office.
[2022-10-12 15:00] VITALS: TEMP 36.7; O2SAT 95
[2022-10-12] MEDS: PRAVASTATIN SODIUM 40 MG TABLET PO (19:48)
[2022-10-12 23:00] VITALS: TEMP 36.4; O2SAT 95
[2022-10-13] MEDS: OXYCODONE 5 MG TABLET 2.5 MG PO ×2 (02:00→20:17)
--- NOTE | 2022-10-13 03:42 | PC.NURSE ---
WEEKLY CHARTING - WEEK 2: Vital signs reviewed - no concerns. Temporary and comprehensive care plan reviewed - no change. Transfers and ambulates independently with 4WW. Continues to utilize call light for SBA ambulating to/from the bathroom at night. Independent with bed mobility. 1/4 right side rail up at all times as enabler. At high risk for falls per last fall risk assessment. Fall interventions: call light in reach, 4WW in reach, bed in low position with brakes locked, non-slip footwear.
[2022-10-13] MEDS: ACETAMINOPHEN 500 MG TABLET 1000 MG PO ×3 (08:22→20:14)
[2022-10-13] MEDS: APIXABAN 5 MG TABLET 2.5 MG PO ×2 (08:23→15:07)
[2022-10-13] MEDS: LOSARTAN POTASSIUM 50 MG TABLET PO (08:23)
[2022-10-13] MEDS: MULTIVITAMIN/MINERALS 1 TABLET 1 TAB PO (08:23)
[2022-10-13] MEDS: FOLIC ACID 1 MG TABLET 3 MG PO (08:23)
[2022-10-13] MEDS: ASPIRIN 81 MG TABLET EC PO (08:23)
[2022-10-13] MEDS: FLECAINIDE ACETATE 50 MG TABLET PO ×2 (08:24→20:15)
[2022-10-13] MEDS: SERTRALINE 100 MG TABLET PO (08:24)
[2022-10-13 10:28] VITALS: TEMP 36.4; O2SAT 86
--- NOTE | 2022-10-13 10:54 | PC.NURSE ---
Spoke to resident about upcoming appointments and new orders from the training development manager Desiree Rivero for Reclast IV therapy. IV therapy needs to be ordered by provider. Called [facility] @ [phone]. Order will be faxed to unit and sent to IV infusion center here on campus. Resident made her own appointment with spine clinic from December 2022. She will give details to staff closer to the date. will transport. Physical therapy will be following up with resident on 10/04/2022.
--- NOTE | 2022-10-13 13:28 | PC.NURSE ---
Blood sugar Status: Resident blood sugar at 0700 was 64, snack was given and recheck and it was 108, insulin was given with breakfast. Blood sugar at 1100 was 67, snack given ,recheck and it was 120 and insulin was given with lunch.
[2022-10-13 15:00] VITALS: TEMP 36.6; O2SAT 96
[2022-10-13] MEDS: PRAVASTATIN SODIUM 40 MG TABLET PO (20:15)
--- NOTE | 2022-10-13 21:29 | PC.NURSE ---
Low Blood Sugar: 1840 resident stopped by nurses station reporting she suspected her blood sugar was low d/t symptoms she was experiencing. Blood sugar was checked - 73 mg/dL. Interventions included snack of rice krispy bar, and 4 oz. apple juice. Blood sugar after one hour check was - 165 mg/dL.
--- NOTE | 2022-10-13 22:27 | PC.NURSE ---
Week #2-Mobility: Care plan/temporary care plan reviewed. No changes necessary. No additions to temporary care plan necessary. Resident is independent w/transfers/ambulation in room. SBA in in halls/also independent in halls. Ambulates w/walker. Independent w/bed mobility/repositoning. 1/4 side rail up @ all times. No alarms. Fall: No falls for past one month.
[2022-10-13 23:00] VITALS: TEMP 36.8; O2SAT 96
--- NOTE | 2022-10-14 07:10 | PC.NURSE ---
Weekly Charting, Week 2 - Mobility: Comprehensive and temporary care plan reviewed. No changes made, noting added to temporary care plan. Resident is independent with transfers and ambulation using a 4ww. Is able to ask for assist if needed. Independent with bed/chair positioning. (R) 1/4 side rail up at all times for independence/bed positioning. Vital signs reviewed, no concerns. Continue with weekly monitoring. Fall: No falls the past month. Remains a high fall risk according to assessment done on 08/19. Fall interventions: Call light within reach, bed in low position with brakes locked, walker at bedside within reach, star falling magnet, gripper socks, non slip shoes soles, remind to ask for assist as needed.
[2022-10-14] MEDS: ACETAMINOPHEN 500 MG TABLET 1000 MG PO ×3 (08:15→19:03)
[2022-10-14] MEDS: FOLIC ACID 1 MG TABLET 3 MG PO (08:15)
[2022-10-14] MEDS: APIXABAN 5 MG TABLET 2.5 MG PO ×2 (08:15→15:53)
[2022-10-14] MEDS: ASPIRIN 81 MG TABLET EC PO (08:15)
[2022-10-14] MEDS: LOSARTAN POTASSIUM 50 MG TABLET PO (08:16)
[2022-10-14] MEDS: SERTRALINE 100 MG TABLET PO (08:17)
[2022-10-14] MEDS: MULTIVITAMIN/MINERALS 1 TABLET 1 TAB PO (08:17)
[2022-10-14] MEDS: FLECAINIDE ACETATE 50 MG TABLET PO ×2 (08:17→19:03)
[2022-10-14 10:58] VITALS: TEMP 36.4; O2SAT 96
[2022-10-14 15:00] VITALS: TEMP 37; O2SAT 98
[2022-10-14] MEDS: PRAVASTATIN SODIUM 40 MG TABLET PO (19:03)
[2022-10-14] MEDS: OXYCODONE 5 MG TABLET 2.5 MG PO (19:04)
--- NOTE | 2022-10-14 21:29 | PC.NURSE ---
Low Blood Sugar: 17:00 residents blood glucose was 61. Novolog w/held. Resident was asymptomatic. Snack of juice, cereal, cookies was given. 20:00 Blood sugar = 221. Insulin administered.
[2022-10-15 00:15] VITALS: TEMP 36.7; O2SAT 98
[2022-10-15] MEDS: OXYCODONE 5 MG TABLET 2.5 MG PO ×2 (03:36→19:50)
[2022-10-15] MEDS: ACETAMINOPHEN 500 MG TABLET 1000 MG PO ×3 (07:27→19:49)
[2022-10-15] MEDS: ASPIRIN 81 MG TABLET EC PO (07:27)
[2022-10-15] MEDS: FOLIC ACID 1 MG TABLET 3 MG PO (07:30)
[2022-10-15] MEDS: MULTIVITAMIN/MINERALS 1 TABLET 1 TAB PO (07:30)
[2022-10-15] MEDS: APIXABAN 5 MG TABLET 2.5 MG PO ×2 (07:30→16:38)
[2022-10-15] MEDS: LOSARTAN POTASSIUM 50 MG TABLET PO (07:30)
[2022-10-15] MEDS: SERTRALINE 100 MG TABLET PO (07:31)
[2022-10-15] MEDS: FLECAINIDE ACETATE 50 MG TABLET PO ×2 (07:31→19:49)
--- NOTE | 2022-10-15 11:30 | PC.NURSE ---
Outing: Resident left with for outing, back about 5
[2022-10-15 13:07] VITALS: TEMP 36.8; O2SAT 93
[2022-10-15 15:00] VITALS: TEMP 36.2; O2SAT 96
[2022-10-15] MEDS: PRAVASTATIN SODIUM 40 MG TABLET PO (19:49)
--- NOTE | 2022-10-15 21:40 | PC.NURSE ---
Resident returned: Resident returned to facility @ 16:35.
[2022-10-15 23:56] VITALS: TEMP 36.6; O2SAT 97
[2022-10-16] MEDS: LOSARTAN POTASSIUM 50 MG TABLET PO (07:57)
[2022-10-16] MEDS: APIXABAN 5 MG TABLET 2.5 MG PO ×2 (07:57→15:56)
[2022-10-16] MEDS: FOLIC ACID 1 MG TABLET 3 MG PO (07:57)
[2022-10-16] MEDS: ACETAMINOPHEN 500 MG TABLET 1000 MG PO ×3 (07:57→20:04)
[2022-10-16] MEDS: ASPIRIN 81 MG TABLET EC PO (07:57)
[2022-10-16] MEDS: FLECAINIDE ACETATE 50 MG TABLET PO ×2 (07:58→20:05)
[2022-10-16] MEDS: SERTRALINE 100 MG TABLET PO (07:58)
[2022-10-16] MEDS: MULTIVITAMIN/MINERALS 1 TABLET 1 TAB PO (07:58)
[2022-10-16 10:55] VITALS: TEMP 36.6; O2SAT 96
[2022-10-16 15:00] VITALS: TEMP 36.1; O2SAT 96
[2022-10-16 16:00] VITALS: BP 134/75; RESP 18
[2022-10-16] MEDS: PRAVASTATIN SODIUM 40 MG TABLET PO (20:04)
[2022-10-16] MEDS: OXYCODONE 5 MG TABLET 2.5 MG PO (20:05)
[2022-10-16 23:53] VITALS: TEMP 36.6; O2SAT 96
[2022-10-17] MEDS: OXYCODONE 5 MG TABLET 2.5 MG PO ×2 (02:57→20:14)
[2022-10-17] MEDS: ASPIRIN 81 MG TABLET EC PO (07:28)
[2022-10-17] MEDS: FOLIC ACID 1 MG TABLET 3 MG PO (07:28)
[2022-10-17] MEDS: APIXABAN 5 MG TABLET 2.5 MG PO ×2 (07:28→16:05)
[2022-10-17] MEDS: LOSARTAN POTASSIUM 50 MG TABLET PO (07:28)
[2022-10-17] MEDS: MULTIVITAMIN/MINERALS 1 TABLET 1 TAB PO (07:28)
[2022-10-17] MEDS: ACETAMINOPHEN 500 MG TABLET 1000 MG PO ×3 (07:28→20:14)
[2022-10-17] MEDS: FLECAINIDE ACETATE 50 MG TABLET PO ×2 (07:29→20:15)
[2022-10-17] MEDS: SERTRALINE 100 MG TABLET PO (07:29)
--- NOTE | 2022-10-17 11:59 | PC.NURSE ---
COVID OUTBREAK TESTING Resident gave verbal consent for outbreak COVID testing. Resident is currently asymptomatic.? Resident/family will be notified only if resident is positive.
[2022-10-17 12:40] LABS: SARS PCR* Negative SARS-CoV-2 (Negative)
[2022-10-17 13:09] VITALS: TEMP 36.4; O2SAT 95
[2022-10-17 15:14] VITALS: TEMP 36.4; O2SAT 95
[2022-10-17] MEDS: PRAVASTATIN SODIUM 40 MG TABLET PO (20:14)
[2022-10-17 23:00] VITALS: TEMP 36.5; O2SAT 95
[2022-10-18] MEDS: OXYCODONE 5 MG TABLET 2.5 MG PO ×2 (03:01→20:26)
--- NOTE | 2022-10-18 05:53 | PC.NURSE ---
BLood sugar monitoring BG checked at 0530 is 167 after apple juice and crackers.
[2022-10-18 07:00] VITALS: TEMP 36.7; O2SAT 98
[2022-10-18] MEDS: ASPIRIN 81 MG TABLET EC PO (08:03)
[2022-10-18] MEDS: ACETAMINOPHEN 500 MG TABLET 1000 MG PO ×3 (08:03→20:24)
[2022-10-18] MEDS: LOSARTAN POTASSIUM 50 MG TABLET PO (08:04)
[2022-10-18] MEDS: FOLIC ACID 1 MG TABLET 3 MG PO (08:04)
[2022-10-18] MEDS: APIXABAN 5 MG TABLET 2.5 MG PO ×2 (08:04→17:39)
[2022-10-18] MEDS: MULTIVITAMIN/MINERALS 1 TABLET 1 TAB PO (08:04)
[2022-10-18] MEDS: FLECAINIDE ACETATE 50 MG TABLET PO ×2 (08:05→20:24)
[2022-10-18] MEDS: SERTRALINE 100 MG TABLET PO (08:05)
--- NOTE | 2022-10-18 08:40 | PC.NURSE ---
Resident taking prune juice this morning as she reports last BM was on 10/16/22.
--- NOTE | 2022-10-18 13:33 | PC.NURSE ---
MIRELA : Resident went out with family till [id number]
[2022-10-18 15:00] VITALS: TEMP 36.6; O2SAT 97
[2022-10-18] MEDS: PRAVASTATIN SODIUM 40 MG TABLET PO (20:24)
--- NOTE | 2022-10-18 21:09 | PC.NURSE ---
Resident returned: Resident returned to facility 5:30 p.m.
[2022-10-18 23:00] VITALS: TEMP 36.3; O2SAT 99
[2022-10-19] MEDS: OXYCODONE 5 MG TABLET 2.5 MG PO ×2 (01:05→19:24)
--- NOTE | 2022-10-19 03:39 | PC.NURSE ---
Blood glucose: Resident 0200 blood glucose is 52, alert and oriented and no signs of hypoglycemia noted, snack and juice given, glucose recheck and is 108
[2022-10-19] MEDS: ACETAMINOPHEN 500 MG TABLET 1000 MG PO ×3 (08:16→19:24)
[2022-10-19] MEDS: FOLIC ACID 1 MG TABLET 3 MG PO (08:16)
[2022-10-19] MEDS: APIXABAN 5 MG TABLET 2.5 MG PO ×2 (08:17→15:51)
[2022-10-19] MEDS: LOSARTAN POTASSIUM 50 MG TABLET PO (08:17)
[2022-10-19] MEDS: ASPIRIN 81 MG TABLET EC PO (08:17)
[2022-10-19] MEDS: MULTIVITAMIN/MINERALS 1 TABLET 1 TAB PO (08:21)
[2022-10-19] MEDS: FLECAINIDE ACETATE 50 MG TABLET PO ×2 (08:21→19:24)
[2022-10-19] MEDS: SERTRALINE 100 MG TABLET PO (08:21)
--- NOTE | 2022-10-19 11:54 | NUTR.NU ---
Nutrition Update: RDN was informed by nursing staff that resident was interested in losing weight and carbohydrate counting. Resident is currently on a Diabetic diet. RDN met with resident whom reported she used to carbohydrate count, however she could not recall exactly how many carbohydrate choices she would have at each meal. She also mentioned that she is interested in losing weight and would like to have smaller portions. Weight history: 08/09/2022 191 lb 2oz 09/04/2022 193 lb 9.6oz 10/09/2022 197 lb 12.8oz Weight gain of 4 pounds within 30 days and 6 pounds within 90 days is not a significant gain, however weight has been trending up recently. In Nutrition Assessment on 08/10/2022, resident did ask for small portions at meals and RDN did inform staff and write small portions on resident's diet card. RDN reminding staff at [facility] today of resident requesting small portions. RDN also encouraged resident to ask for small portions as needed. RDN provided resident with two handouts, myplate information systems planner and carbohydrate counting from [facility]. Discussed basics of carbohydrate counting including sources of carbohydrates, serving sizes, and label reading. Discussed using the plate method for carbohydrate-controlled, balanced meals that include ? plate non-starchy vegetables, ? plate protein, and 2-3 servings of carbohydrates per meal for weight loss (fruit, whole grains, legumes, milk, yogurt) and 1-2 per snack. Also discussed asking for non-carbohydrate foods such as protein and non-starchy vegetables if she would like seconds. Resident had no additional questions or concerns at this time. RDN will continue to monitor weight monthly and follow up as needed.
--- NOTE | 2022-10-19 14:20 | PC.NURSE ---
Bacteriology Teacher called [facility] to reorder supply of Novolog & Levemir and was informed that supply of both medications will be sent out this evening.
[2022-10-19] MEDS: PRAVASTATIN SODIUM 40 MG TABLET PO (19:24)
--- NOTE | 2022-10-20 00:27 | PC.NURSE ---
WEEKLY CHARTING WEEK3: Vital signs reviewed, stable except blood sugar is poorly controlled. Has episode of Low Blood sugar at 0200 Comprehensive care plan and temporary care plan reviewed. no changes made. Toileting: Is continent of bowel and bladder. Able to use call light for help to use the bathroom. Prefer to use medium pull ups. Res is independent of ryan care and clothing management. Skin: No skin issue noted. Skin check on bath days and during cares.
[2022-10-20] MEDS: OXYCODONE 5 MG TABLET 2.5 MG PO ×2 (02:12→19:41)
[2022-10-20] MEDS: ASPIRIN 81 MG TABLET EC PO (07:52)
[2022-10-20] MEDS: APIXABAN 5 MG TABLET 2.5 MG PO ×2 (07:52→17:05)
[2022-10-20] MEDS: FOLIC ACID 1 MG TABLET 3 MG PO (07:52)
[2022-10-20] MEDS: ACETAMINOPHEN 500 MG TABLET 1000 MG PO ×3 (07:52→19:38)
[2022-10-20] MEDS: MULTIVITAMIN/MINERALS 1 TABLET 1 TAB PO (07:53)
[2022-10-20] MEDS: LOSARTAN POTASSIUM 50 MG TABLET PO (07:53)
[2022-10-20] MEDS: FLECAINIDE ACETATE 50 MG TABLET PO ×2 (07:54→19:39)
[2022-10-20] MEDS: SERTRALINE 100 MG TABLET PO (07:54)
--- NOTE | 2022-10-20 10:21 | PC.NURSE ---
Weekly week #3: Vital signs reviewed with no issues Temporary care plan reviewed with no changes Comprehensive care plan reviewed with no changes No skin issues at this time Is I with all ADLS
--- NOTE | 2022-10-20 10:30 | PC.SPIRITC ---
I provided visit for support and connection.
--- NOTE | 2022-10-20 13:15 | PC.NURSE ---
Outing: Resident left for outing with , will be back around 5
--- NOTE | 2022-10-20 15:54 | PC.NURSE ---
[facility] nurse Gabby called and stated that they received the infusion order from Dr. Rivero at [place] and that resident is scheduled for a lab draw on 10/27/22 and will have her Reclast Infusion on 10/28/22 @ 10:30am. Resident and nurses station calendar updated.
[2022-10-20] MEDS: PRAVASTATIN SODIUM 40 MG TABLET PO (19:39)
[2022-10-21] MEDS: OXYCODONE 5 MG TABLET 2.5 MG PO ×2 (02:38→19:57)
[2022-10-21] MEDS: ACETAMINOPHEN 500 MG TABLET 1000 MG PO ×3 (08:03→19:57)
[2022-10-21] MEDS: LOSARTAN POTASSIUM 50 MG TABLET PO (08:04)
[2022-10-21] MEDS: APIXABAN 5 MG TABLET 2.5 MG PO ×2 (08:04→15:43)
[2022-10-21] MEDS: MULTIVITAMIN/MINERALS 1 TABLET 1 TAB PO (08:04)
[2022-10-21] MEDS: ASPIRIN 81 MG TABLET EC PO (08:04)
[2022-10-21] MEDS: FOLIC ACID 1 MG TABLET 3 MG PO (08:04)
[2022-10-21] MEDS: SERTRALINE 100 MG TABLET PO (08:05)
[2022-10-21] MEDS: FLECAINIDE ACETATE 50 MG TABLET PO ×2 (08:05→19:57)
--- NOTE | 2022-10-21 08:17 | PC.NURSE ---
Informational note: Resident reports she had a medium formed BM yesterday when asked. She is therefore not on bowel protocol today.
[2022-10-21] MEDS: PRAVASTATIN SODIUM 40 MG TABLET PO (19:57)
[2022-10-22] MEDS: OXYCODONE 5 MG TABLET 2.5 MG PO ×3 (02:56→20:29)
[2022-10-22] MEDS: ASPIRIN 81 MG TABLET EC PO (08:17)
[2022-10-22] MEDS: ACETAMINOPHEN 500 MG TABLET 1000 MG PO ×3 (08:17→20:29)
[2022-10-22] MEDS: LOSARTAN POTASSIUM 50 MG TABLET PO (08:18)
[2022-10-22] MEDS: MULTIVITAMIN/MINERALS 1 TABLET 1 TAB PO (08:18)
[2022-10-22] MEDS: APIXABAN 5 MG TABLET 2.5 MG PO ×2 (08:18→16:25)
[2022-10-22] MEDS: FOLIC ACID 1 MG TABLET 3 MG PO (08:18)
[2022-10-22] MEDS: SERTRALINE 100 MG TABLET PO (08:19)
[2022-10-22] MEDS: FLECAINIDE ACETATE 50 MG TABLET PO ×2 (08:19→20:29)
[2022-10-22] MEDS: PRAVASTATIN SODIUM 40 MG TABLET PO (20:29)
[2022-10-23] MEDS: OXYCODONE 5 MG TABLET 2.5 MG PO ×2 (05:58→20:06)
[2022-10-23] MEDS: ASPIRIN 81 MG TABLET EC PO (07:26)
[2022-10-23] MEDS: FOLIC ACID 1 MG TABLET 3 MG PO (07:26)
[2022-10-23] MEDS: ACETAMINOPHEN 500 MG TABLET 1000 MG PO ×3 (07:26→20:06)
[2022-10-23] MEDS: APIXABAN 5 MG TABLET 2.5 MG PO ×2 (07:26→16:20)
[2022-10-23] MEDS: FLECAINIDE ACETATE 50 MG TABLET PO ×2 (07:27→20:06)
[2022-10-23] MEDS: MULTIVITAMIN/MINERALS 1 TABLET 1 TAB PO (07:27)
[2022-10-23] MEDS: LOSARTAN POTASSIUM 50 MG TABLET PO (07:27)
[2022-10-23] MEDS: SERTRALINE 100 MG TABLET PO (07:28)
--- NOTE | 2022-10-23 13:23 | PC.NURSE ---
Outing: Resident left with for outing, she will be back at 17:30.
[2022-10-23 16:00] VITALS: BP 141/71; PULSE 66; RESP 18; TEMP 36.6; O2SAT 97; BMI 40.1
[2022-10-23] MEDS: PRAVASTATIN SODIUM 40 MG TABLET PO (20:06)
--- NOTE | 2022-10-23 21:26 | PC.NURSE ---
Skin Concern: What appears to be yeasty and redness to abdominal folds noted during bath assessment. Area cleansed, patted dry, and Inter-DRY applied to absolve moisture. Resident has Nystatin powder in her bathroom, no order for application.
--- NOTE | 2022-10-24 06:15 | PC.NURSE ---
BLOOD GLUCOSE: Scheduled 0200 blood glucose level obtained with reading of 50. No noted s/sx of hypoglycemia. Resident had juice and edgar crackers. Blood glucose rechecked approximately 30 minutes later with reading of 130.
[2022-10-24] MEDS: FOLIC ACID 1 MG TABLET 3 MG PO (07:38)
[2022-10-24] MEDS: ASPIRIN 81 MG TABLET EC PO (07:38)
[2022-10-24] MEDS: MULTIVITAMIN/MINERALS 1 TABLET 1 TAB PO (07:38)
[2022-10-24] MEDS: ACETAMINOPHEN 500 MG TABLET 1000 MG PO ×3 (07:38→19:59)
[2022-10-24] MEDS: LOSARTAN POTASSIUM 50 MG TABLET PO (07:38)
[2022-10-24] MEDS: APIXABAN 5 MG TABLET 2.5 MG PO ×2 (07:38→15:16)
[2022-10-24] MEDS: FLECAINIDE ACETATE 50 MG TABLET PO ×2 (07:39→20:00)
[2022-10-24] MEDS: SERTRALINE 100 MG TABLET PO (07:39)
[2022-10-24] MEDS: OXYCODONE 5 MG TABLET 2.5 MG PO (20:00)
[2022-10-24] MEDS: PRAVASTATIN SODIUM 40 MG TABLET PO (20:00)
[2022-10-24 22:08] VITALS: BMI 40.2
[2022-10-25] MEDS: OXYCODONE 5 MG TABLET 2.5 MG PO ×2 (02:21→19:59)
[2022-10-25] MEDS: ASPIRIN 81 MG TABLET EC PO (07:49)
[2022-10-25] MEDS: ACETAMINOPHEN 500 MG TABLET 1000 MG PO ×3 (07:49→19:59)
[2022-10-25] MEDS: APIXABAN 5 MG TABLET 2.5 MG PO ×2 (07:50→16:16)
[2022-10-25] MEDS: LOSARTAN POTASSIUM 50 MG TABLET PO (07:50)
[2022-10-25] MEDS: MULTIVITAMIN/MINERALS 1 TABLET 1 TAB PO (07:50)
[2022-10-25] MEDS: FOLIC ACID 1 MG TABLET 3 MG PO (07:50)
[2022-10-25] MEDS: FLECAINIDE ACETATE 50 MG TABLET PO ×2 (07:51→19:59)
[2022-10-25] MEDS: SERTRALINE 100 MG TABLET PO (07:51)
--- NOTE | 2022-10-25 10:41 | PC.NURSE ---
Status: SHEET METAL HELPER, Viktoira here updated of elevated weights ( 8lbs in 2 weeks) with 1+-2 pitting edema BLE, some low blood sugar values & redness on abd folds. Resident seen with orders. Lasix 20mg daily, decrease HS Levimir to 20units, Nystatin Cream TID.
[2022-10-25] MEDS: NYSTATIN CREAM 30 GM 1 APPLIC TOPICAL ×2 (11:52→20:52)
--- NOTE | 2022-10-25 13:45 | NUTR.NU ---
Addendum entered and electronically signed by Judy Thornton RD 10/26/22 10:55: Patient is currently on a Regular diet, not a diabetic diet. RDN spoke to DIRECTOR EDUCATIONAL RADIO whom agreed to request diet order change to Diabetic diet due to resident's desire to count carbohydrates and weight loss. RDN wrote diet order change request in AGENCY APPOINTMENTS SUPERVISOR book. Original Note: Nutrition Follow-up: RDN visited with resident due to AGENCY APPOINTMENTS SUPERVISOR request regarding carbohydrate counting and desire for weight loss. RDN had visited resident regarding these topics recently, on 10/19/2022 and provided handouts to support discussion. Resident continues on a Diabetic diet. Resident report she had biscuits and gravy, eggs, muffin, and milk for breakfast this morning. RDN reviewed carbohydrate counting with resident and recommended she focus on 2-3 carbohydrate choices per meal for diabetes management and weight loss. Resident was in agreement and reported she has counted carbohydrates in the past. RDN also reviewed what foods contain carbohydrates and which foods do not contain carbohydrates (free foods) with resident. Resident was interested in nursing staff to ask resident what she would like to have at each meal so she can choose carbohydrate containing foods. RDN passed this information along to GEORGEONs. RDN will continue to monitor weight monthly and follow-up prn.
[2022-10-25] MEDS: PRAVASTATIN SODIUM 40 MG TABLET PO (19:59)
[2022-10-26] MEDS: ASPIRIN 81 MG TABLET EC PO (07:56)
[2022-10-26] MEDS: ACETAMINOPHEN 500 MG TABLET 1000 MG PO ×3 (07:56→20:34)
[2022-10-26] MEDS: FUROSEMIDE 20 MG TABLET PO (07:57)
[2022-10-26] MEDS: APIXABAN 5 MG TABLET 2.5 MG PO ×2 (07:57→16:08)
[2022-10-26] MEDS: FOLIC ACID 1 MG TABLET 3 MG PO (07:57)
[2022-10-26] MEDS: LOSARTAN POTASSIUM 50 MG TABLET PO (07:58)
[2022-10-26] MEDS: MULTIVITAMIN/MINERALS 1 TABLET 1 TAB PO (07:59)
[2022-10-26] MEDS: FLECAINIDE ACETATE 50 MG TABLET PO ×2 (08:00→20:34)
[2022-10-26] MEDS: SERTRALINE 100 MG TABLET PO (08:00)
[2022-10-26] MEDS: NYSTATIN CREAM 30 GM 1 APPLIC TOPICAL ×3 (08:00→20:34)
[2022-10-26 08:40] VITALS: BMI 40.2
--- NOTE | 2022-10-26 09:21 | PC.NURSE ---
Resident could not recall if her last BM was yesterday or the day before. She did take prune juice when offered to promote BM.
[2022-10-26] MEDS: PRAVASTATIN SODIUM 40 MG TABLET PO (20:34)
[2022-10-26] MEDS: OXYCODONE 5 MG TABLET 2.5 MG PO (20:34)
--- NOTE | 2022-10-27 02:39 | PC.NURSE ---
WEEKLY CHARTING - WEEK 4: Vital signs reviewed without concern. Temporary and comprehensive care plan reviewed with no changes. No behaviors documented in the last month. Currently on sertraline 100mg daily with no adverse drug effects noted. Communicates needs verbally without difficulty. Bilateral hearing aids used for hearing impairment. Visual deficit is corrected with glasses. Has mild cognitive impairment with forgetfulness. All oral medications administered by licensed nurse. May keep PRN eye drops at bedside for self-administration. Health condition currently stable.
[2022-10-27] MEDS: FOLIC ACID 1 MG TABLET 3 MG PO (08:14)
[2022-10-27] MEDS: ACETAMINOPHEN 500 MG TABLET 1000 MG PO ×3 (08:14→19:49)
[2022-10-27] MEDS: APIXABAN 5 MG TABLET 2.5 MG PO ×2 (08:14→15:00)
[2022-10-27] MEDS: ASPIRIN 81 MG TABLET EC PO (08:14)
[2022-10-27] MEDS: FUROSEMIDE 20 MG TABLET PO (08:15)
[2022-10-27] MEDS: LOSARTAN POTASSIUM 50 MG TABLET PO (08:15)
[2022-10-27] MEDS: FLECAINIDE ACETATE 50 MG TABLET PO ×2 (08:18→19:49)
[2022-10-27] MEDS: NYSTATIN CREAM 30 GM 1 APPLIC TOPICAL ×3 (08:18→19:49)
[2022-10-27] MEDS: SERTRALINE 100 MG TABLET PO (08:18)
[2022-10-27] MEDS: MULTIVITAMIN/MINERALS 1 TABLET 1 TAB PO (08:18)
--- NOTE | 2022-10-27 11:27 | PC.NURSE ---
Weekly Charting - Week 4: Comprehensive and temporary care plan reviewed. No changes made. Nothing added to temporary care plan. No changes noted in communication, hearing, vision, or orientation. She does communicate her needs. Has some hearing difficulty. Wears bilateral hearing aids. Visual deficit corrected by glasses. Has mild cognitive impairment with some forgetfulness. Chronic health condition stable. Nurse administers all medications except for eye drop that she can self administer and kept with her. Vital signs, no concerns. Mood/Behavior: Has had no issues. Is on Zoloft 100mg daily with no adverse effects noted. No changes in medication.
[2022-10-27] MEDS: OXYCODONE 5 MG TABLET 2.5 MG PO (19:49)
[2022-10-27] MEDS: PRAVASTATIN SODIUM 40 MG TABLET PO (19:49)
[2022-10-28] MEDS: OXYCODONE 5 MG TABLET 2.5 MG PO ×2 (03:41→20:06)
[2022-10-28] MEDS: APIXABAN 5 MG TABLET 2.5 MG PO ×2 (07:45→16:41)
[2022-10-28] MEDS: ACETAMINOPHEN 500 MG TABLET 1000 MG PO ×3 (07:45→20:05)
[2022-10-28] MEDS: ASPIRIN 81 MG TABLET EC PO (07:45)
[2022-10-28] MEDS: FUROSEMIDE 20 MG TABLET PO (07:46)
[2022-10-28] MEDS: MULTIVITAMIN/MINERALS 1 TABLET 1 TAB PO (07:46)
[2022-10-28] MEDS: LOSARTAN POTASSIUM 50 MG TABLET PO (07:46)
[2022-10-28] MEDS: FOLIC ACID 1 MG TABLET 3 MG PO (07:46)
[2022-10-28] MEDS: SERTRALINE 100 MG TABLET PO (07:47)
[2022-10-28] MEDS: FLECAINIDE ACETATE 50 MG TABLET PO ×2 (07:47→20:06)
[2022-10-28] MEDS: NYSTATIN CREAM 30 GM 1 APPLIC TOPICAL ×3 (08:13→20:06)
[2022-10-28 10:08] VITALS: BMI 43.0
[2022-10-28] MEDS: PRAVASTATIN SODIUM 40 MG TABLET PO (20:06)
[2022-10-29] MEDS: OXYCODONE 5 MG TABLET 2.5 MG PO ×2 (02:13→20:15)
[2022-10-29] MEDS: ASPIRIN 81 MG TABLET EC PO (07:48)
[2022-10-29] MEDS: ACETAMINOPHEN 500 MG TABLET 1000 MG PO ×3 (07:48→20:14)
[2022-10-29] MEDS: FOLIC ACID 1 MG TABLET 3 MG PO (07:48)
[2022-10-29] MEDS: APIXABAN 5 MG TABLET 2.5 MG PO ×2 (07:48→17:36)
[2022-10-29] MEDS: LOSARTAN POTASSIUM 50 MG TABLET PO (07:48)
[2022-10-29] MEDS: MULTIVITAMIN/MINERALS 1 TABLET 1 TAB PO (07:48)
[2022-10-29] MEDS: FUROSEMIDE 20 MG TABLET PO (07:48)
[2022-10-29] MEDS: FLECAINIDE ACETATE 50 MG TABLET PO ×2 (07:49→20:15)
[2022-10-29] MEDS: SERTRALINE 100 MG TABLET PO (07:49)
[2022-10-29] MEDS: NYSTATIN CREAM 30 GM 1 APPLIC TOPICAL ×3 (07:49→20:15)
--- NOTE | 2022-10-29 13:19 | PC.NURSE ---
Outing: Resident left with , will be back around 5
[2022-10-29] MEDS: PRAVASTATIN SODIUM 40 MG TABLET PO (20:15)
--- NOTE | 2022-10-29 21:54 | PC.NURSE ---
Resident returned from outing @ 1824.
[2022-10-30] MEDS: OXYCODONE 5 MG TABLET 2.5 MG PO ×2 (02:13→19:56)
[2022-10-30] MEDS: ASPIRIN 81 MG TABLET EC PO (07:41)
[2022-10-30] MEDS: LOSARTAN POTASSIUM 50 MG TABLET PO (07:41)
[2022-10-30] MEDS: APIXABAN 5 MG TABLET 2.5 MG PO ×2 (07:41→16:53)
[2022-10-30] MEDS: ACETAMINOPHEN 500 MG TABLET 1000 MG PO ×3 (07:41→19:56)
[2022-10-30] MEDS: FUROSEMIDE 20 MG TABLET PO (07:41)
[2022-10-30] MEDS: FOLIC ACID 1 MG TABLET 3 MG PO (07:41)
[2022-10-30] MEDS: SERTRALINE 100 MG TABLET PO (07:42)
[2022-10-30] MEDS: MULTIVITAMIN/MINERALS 1 TABLET 1 TAB PO (07:42)
[2022-10-30] MEDS: FLECAINIDE ACETATE 50 MG TABLET PO ×2 (08:24→19:56)
[2022-10-30] MEDS: NYSTATIN CREAM 30 GM 1 APPLIC TOPICAL ×3 (08:24→19:56)
--- NOTE | 2022-10-30 09:58 | PC.NURSE ---
Skin: Was noted that resident's abdominal folds and ryan area redness is not improving with the nystatin cream. Note left for POSTIE for order for nystatin powder
--- NOTE | 2022-10-30 12:40 | PC.NURSE ---
Outing: Resident left with for outing, back about 5
[2022-10-30 16:00] VITALS: BP 138/62; PULSE 17; PULSE 69; RESP 17; TEMP 36.7; O2SAT 95
[2022-10-30] MEDS: PRAVASTATIN SODIUM 40 MG TABLET PO (19:56)
[2022-10-31] MEDS: OXYCODONE 5 MG TABLET 2.5 MG PO ×2 (02:38→20:04)
[2022-10-31] MEDS: LOSARTAN POTASSIUM 50 MG TABLET PO (07:37)
[2022-10-31] MEDS: FUROSEMIDE 20 MG TABLET PO (07:37)
[2022-10-31] MEDS: ACETAMINOPHEN 500 MG TABLET 1000 MG PO ×3 (07:37→20:01)
[2022-10-31] MEDS: ASPIRIN 81 MG TABLET EC PO (07:37)
[2022-10-31] MEDS: FOLIC ACID 1 MG TABLET 3 MG PO (07:37)
[2022-10-31] MEDS: APIXABAN 5 MG TABLET 2.5 MG PO ×2 (07:37→17:18)
[2022-10-31] MEDS: FLECAINIDE ACETATE 50 MG TABLET PO ×2 (07:38→20:02)
[2022-10-31] MEDS: MULTIVITAMIN/MINERALS 1 TABLET 1 TAB PO (07:38)
[2022-10-31] MEDS: SERTRALINE 100 MG TABLET PO (07:38)
[2022-10-31] MEDS: NYSTATIN CREAM 30 GM 1 APPLIC TOPICAL ×3 (07:38→20:01)
[2022-10-31 12:50] VITALS: BMI 40.0
--- NOTE | 2022-10-31 13:26 | PC.NURSE ---
Outing: Resident out with , back around 5
[2022-10-31] MEDS: PRAVASTATIN SODIUM 40 MG TABLET PO (20:02)
[2022-11-01] MEDS: OXYCODONE 5 MG TABLET 2.5 MG PO ×2 (02:26→20:38)
[2022-11-01] MEDS: APIXABAN 5 MG TABLET 2.5 MG PO ×2 (08:00→16:03)
[2022-11-01] MEDS: ASPIRIN 81 MG TABLET EC PO (08:00)
[2022-11-01] MEDS: ACETAMINOPHEN 500 MG TABLET 1000 MG PO ×3 (08:00→20:37)
[2022-11-01] MEDS: FOLIC ACID 1 MG TABLET 3 MG PO (08:00)
[2022-11-01] MEDS: FUROSEMIDE 20 MG TABLET PO (08:00)
[2022-11-01] MEDS: MULTIVITAMIN/MINERALS 1 TABLET 1 TAB PO (08:01)
[2022-11-01] MEDS: FLECAINIDE ACETATE 50 MG TABLET PO ×2 (08:01→20:37)
[2022-11-01] MEDS: LOSARTAN POTASSIUM 50 MG TABLET PO (08:01)
[2022-11-01] MEDS: SERTRALINE 100 MG TABLET PO (08:02)
[2022-11-01] MEDS: NYSTATIN CREAM 30 GM 1 APPLIC TOPICAL (08:22)
--- NOTE | 2022-11-01 08:57 | PC.NURSE ---
Client Development Director called [facility] at this time to request supply of Novofine needles be sent out this evening.
--- NOTE | 2022-11-01 10:25 | PC.NURSE ---
Order: Nystatin Cream TID changed to TID PRN d/t skin issue not getting better. New order: Nystatin powder BID by Viktoria BARRIOS.
--- NOTE | 2022-11-01 11:00 | PC.NURSE ---
Diet: Changed to diabetic diet per RDN recommendation. Resident is in agreement with diet.
[2022-11-01] MEDS: NYSTATIN POWDER 1 APPLIC TOPICAL (16:03)
[2022-11-01] MEDS: PRAVASTATIN SODIUM 40 MG TABLET PO (20:37)
[2022-11-02] MEDS: OXYCODONE 5 MG TABLET 2.5 MG PO ×2 (05:27→19:08)
[2022-11-02] MEDS: FOLIC ACID 1 MG TABLET 3 MG PO (07:55)
[2022-11-02] MEDS: ASPIRIN 81 MG TABLET EC PO (07:55)
[2022-11-02] MEDS: APIXABAN 5 MG TABLET 2.5 MG PO ×2 (07:55→15:52)
[2022-11-02] MEDS: ACETAMINOPHEN 500 MG TABLET 1000 MG PO ×3 (07:55→19:08)
[2022-11-02] MEDS: LOSARTAN POTASSIUM 50 MG TABLET PO (07:56)
[2022-11-02] MEDS: FUROSEMIDE 20 MG TABLET PO (07:56)
[2022-11-02] MEDS: MULTIVITAMIN/MINERALS 1 TABLET 1 TAB PO (07:56)
[2022-11-02] MEDS: SERTRALINE 100 MG TABLET PO (07:58)
[2022-11-02] MEDS: FLECAINIDE ACETATE 50 MG TABLET PO ×2 (07:58→19:09)
[2022-11-02] MEDS: NYSTATIN POWDER 1 APPLIC TOPICAL ×2 (07:58→15:52)
[2022-11-02 08:18] LABS: Chloride* 97 mmol/L (96-114); Sodium* 129 mmol/L (135-149)
[2022-11-02 08:19] LABS: Potassium* 4.6 mmol/L (3.6-5.1)
[2022-11-02 08:21] LABS: Blood Urea Nitrogen* 17 mg/dL (7-30); Carbon Dioxide* 26 mmol/L (20-32); Creatinine* 0.5 mg/dL (0.5-1.5); Est. Creatinine Clearance* 35.99; Estimated Glomerular Filt Rate 99 ml/min
[2022-11-02 08:22] LABS: Calcium* 8.4 mg/dL (8.4-10.6); Glucose* 133 mg/dL (60-115)
[2022-11-02 09:57] VITALS: BMI 39.8
[2022-11-02] MEDS: PRAVASTATIN SODIUM 40 MG TABLET PO (19:08)
[2022-11-03] MEDS: OXYCODONE 5 MG TABLET 2.5 MG PO ×2 (02:01→20:20)
--- NOTE | 2022-11-03 02:17 | PC.NURSE ---
WEEKLY CHARTING - WEEK 1: Vital signs reviewed without concern. Temporary and comprehensive care plan reviewed - no changes. Hx of chronic pain r/t RA. Receives acetaminophen 1000mg TID, diclofenac gel applied QID, and oxycodone 2.5mg at HS and Q6 hours PRN. Uses additional non-pharmacological measures for pain management such as repositioning, application of ice pack and aqua-K pad. Independent with ADLs. Requests assistance as needed. Staff assist with application/removal of BHUMIKA stockings daily. Requires set-up and supervision with weekly bathing. Eats independently. No chewing/swallowing problems. Receives a diabetic diet with regular textures and thin liquids. HS snack nightly for blood glucose maintenance/stability through the night.
--- NOTE | 2022-11-03 07:05 | PC.NURSE ---
Weekly Charting, Week 1 - ADL's: Comprehensive and temporary care plan reviewed. No changes made and nothing added to temporary care plan. Resident is independent with dressing, grooming, oral cares, and feeding. Will ask for assist as needed. Staff assist with application/removal of teds. Needs set up and supervision with bathing. / Diet changed to diabetic, regular texture, thin liquids. Receives HS snack for blood glucose maintenance. No problems with chewing/swallowing reported. Vital signs reviewed, no concerns. Pain: Has chronic neck and shoulder pain r/t arthritis. Pain controlled with Tylenol 1000mg TID, Voltaren gel QID to painful joints, Oxycodone 2.5mg @ HS & Q6H PRN which she ask mostly around 0200. aqua-K pad is also in place. She is able to verbalize need for pain. Initialized on 10/06/22 06:42 - END OF NOTE
[2022-11-03] MEDS: ASPIRIN 81 MG TABLET EC PO (07:48)
[2022-11-03] MEDS: APIXABAN 5 MG TABLET 2.5 MG PO ×2 (07:48→16:07)
[2022-11-03] MEDS: ACETAMINOPHEN 500 MG TABLET 1000 MG PO ×3 (07:48→20:18)
[2022-11-03] MEDS: FUROSEMIDE 20 MG TABLET PO (07:48)
[2022-11-03] MEDS: FOLIC ACID 1 MG TABLET 3 MG PO (07:48)
[2022-11-03] MEDS: MULTIVITAMIN/MINERALS 1 TABLET 1 TAB PO (07:49)
[2022-11-03] MEDS: LOSARTAN POTASSIUM 50 MG TABLET PO (07:49)
[2022-11-03] MEDS: NYSTATIN POWDER 1 APPLIC TOPICAL ×2 (07:49→16:07)
[2022-11-03] MEDS: SERTRALINE 100 MG TABLET PO (07:49)
[2022-11-03] MEDS: FLECAINIDE ACETATE 50 MG TABLET PO ×2 (07:49→20:19)
--- NOTE | 2022-11-03 14:52 | PC.NURSE ---
Discussed Sertraline dose with Nicole Blum SENIOR SOFTWARE DEVELOPER today. At this time since resident was admitted in August and has had many life changes. No change in medication at this time. Next review to be January 2023.
[2022-11-03] MEDS: PRAVASTATIN SODIUM 40 MG TABLET PO (20:19)
[2022-11-04] MEDS: OXYCODONE 5 MG TABLET 2.5 MG PO ×2 (04:08→20:01)
[2022-11-04] MEDS: ASPIRIN 81 MG TABLET EC PO (08:27)
[2022-11-04] MEDS: ACETAMINOPHEN 500 MG TABLET 1000 MG PO ×3 (08:27→20:01)
[2022-11-04] MEDS: LOSARTAN POTASSIUM 50 MG TABLET PO (08:28)
[2022-11-04] MEDS: APIXABAN 5 MG TABLET 2.5 MG PO ×2 (08:28→15:18)
[2022-11-04] MEDS: FUROSEMIDE 20 MG TABLET PO (08:28)
[2022-11-04] MEDS: MULTIVITAMIN/MINERALS 1 TABLET 1 TAB PO (08:28)
[2022-11-04] MEDS: FOLIC ACID 1 MG TABLET 3 MG PO (08:28)
[2022-11-04] MEDS: FLECAINIDE ACETATE 50 MG TABLET PO ×2 (08:31→20:01)
[2022-11-04] MEDS: NYSTATIN POWDER 1 APPLIC TOPICAL ×2 (08:31→15:28)
[2022-11-04] MEDS: SERTRALINE 100 MG TABLET PO (08:32)
--- NOTE | 2022-11-04 09:29 | PC.NURSE ---
Received a call from the infusion center reclast is cancelled d/t low VIT D3. Will call back for next back.
[2022-11-04 10:41] VITALS: BMI 39.6
[2022-11-04] MEDS: PRAVASTATIN SODIUM 40 MG TABLET PO (20:01)
[2022-11-05] MEDS: OXYCODONE 5 MG TABLET 2.5 MG PO ×2 (03:13→20:08)
[2022-11-05] MEDS: ACETAMINOPHEN 500 MG TABLET 1000 MG PO ×3 (07:23→20:08)
[2022-11-05] MEDS: ASPIRIN 81 MG TABLET EC PO (07:23)
[2022-11-05] MEDS: MULTIVITAMIN/MINERALS 1 TABLET 1 TAB PO (07:24)
[2022-11-05] MEDS: FUROSEMIDE 20 MG TABLET PO (07:24)
[2022-11-05] MEDS: LOSARTAN POTASSIUM 50 MG TABLET PO (07:24)
[2022-11-05] MEDS: FOLIC ACID 1 MG TABLET 3 MG PO (07:24)
[2022-11-05] MEDS: APIXABAN 5 MG TABLET 2.5 MG PO ×2 (07:24→16:13)
[2022-11-05] MEDS: SERTRALINE 100 MG TABLET PO (07:25)
[2022-11-05] MEDS: NYSTATIN POWDER 1 APPLIC TOPICAL ×2 (07:25→16:13)
[2022-11-05] MEDS: FLECAINIDE ACETATE 50 MG TABLET PO ×2 (07:25→20:08)
--- NOTE | 2022-11-05 13:17 | PC.NURSE ---
Outing of facility: Resident left with her and other family members at 1320. She will be back around 1730 for supper.
[2022-11-05] MEDS: PRAVASTATIN SODIUM 40 MG TABLET PO (20:08)
[2022-11-06] MEDS: OXYCODONE 5 MG TABLET 2.5 MG PO ×2 (06:22→19:44)
[2022-11-06] MEDS: ACETAMINOPHEN 500 MG TABLET 1000 MG PO ×3 (07:11→19:44)
[2022-11-06] MEDS: FOLIC ACID 1 MG TABLET 3 MG PO (07:11)
[2022-11-06] MEDS: APIXABAN 5 MG TABLET 2.5 MG PO ×2 (07:11→15:34)
[2022-11-06] MEDS: ASPIRIN 81 MG TABLET EC PO (07:11)
[2022-11-06] MEDS: FUROSEMIDE 20 MG TABLET PO (07:12)
[2022-11-06] MEDS: MULTIVITAMIN/MINERALS 1 TABLET 1 TAB PO (07:12)
[2022-11-06] MEDS: LOSARTAN POTASSIUM 50 MG TABLET PO (07:12)
[2022-11-06] MEDS: NYSTATIN POWDER 1 APPLIC TOPICAL ×2 (07:13→15:36)
[2022-11-06] MEDS: FLECAINIDE ACETATE 50 MG TABLET PO ×2 (07:13→19:44)
[2022-11-06] MEDS: SERTRALINE 100 MG TABLET PO (07:13)
[2022-11-06 16:00] VITALS: BP 111/62; PULSE 66; RESP 18; TEMP 36.3; O2SAT 96
[2022-11-06] MEDS: PRAVASTATIN SODIUM 40 MG TABLET PO (19:44)
[2022-11-07 07:00] VITALS: BMI 40.1
[2022-11-07] MEDS: FUROSEMIDE 20 MG TABLET PO (07:45)
[2022-11-07] MEDS: LOSARTAN POTASSIUM 50 MG TABLET PO (07:45)
[2022-11-07] MEDS: FOLIC ACID 1 MG TABLET 3 MG PO (07:45)
[2022-11-07] MEDS: MULTIVITAMIN/MINERALS 1 TABLET 1 TAB PO (07:45)
[2022-11-07] MEDS: ACETAMINOPHEN 500 MG TABLET 1000 MG PO ×3 (07:45→20:22)
[2022-11-07] MEDS: ASPIRIN 81 MG TABLET EC PO (07:45)
[2022-11-07] MEDS: APIXABAN 5 MG TABLET 2.5 MG PO ×2 (07:45→16:07)
[2022-11-07] MEDS: NYSTATIN POWDER 1 APPLIC TOPICAL ×2 (07:46→16:07)
[2022-11-07] MEDS: SERTRALINE 100 MG TABLET PO (07:46)
[2022-11-07] MEDS: FLECAINIDE ACETATE 50 MG TABLET PO ×2 (07:46→20:23)
--- NOTE | 2022-11-07 17:26 | PC.NURSE ---
Day 2 no BM: Resident refused Milk of Mag for day 2 of no b.m. Resident reports she had bowel movement yesterday and today.
[2022-11-07] MEDS: PRAVASTATIN SODIUM 40 MG TABLET PO (20:23)
[2022-11-07] MEDS: OXYCODONE 5 MG TABLET 2.5 MG PO (20:24)
--- NOTE | 2022-11-07 22:35 | PC.NURSE ---
New order: New order from Desiree Rivero, from [facility]: 1. Start Vitamin d 2,000IU (50 mcg) daily for one month, then reduce to Vitamin d3 1000 IU (25 Mcg) daily and continue on this dose. 2. Take calcium carbonate 500 mg daily (total dose provided by any multivitamin and additional supplement) Calcification is needed w/the order: 1. Is this Vitamin d3? 2. Are we d/c PRN Calcium carbonate?.
[2022-11-08] MEDS: OXYCODONE 5 MG TABLET 2.5 MG PO (02:22)
[2022-11-08] MEDS: ACETAMINOPHEN 500 MG TABLET 1000 MG PO ×3 (08:27→19:55)
[2022-11-08] MEDS: ASPIRIN 81 MG TABLET EC PO (08:28)
[2022-11-08] MEDS: APIXABAN 5 MG TABLET 2.5 MG PO ×2 (08:29→15:46)
[2022-11-08] MEDS: FOLIC ACID 1 MG TABLET 3 MG PO (08:29)
[2022-11-08] MEDS: MULTIVITAMIN/MINERALS 1 TABLET 1 TAB PO (08:30)
[2022-11-08] MEDS: FUROSEMIDE 20 MG TABLET PO (08:30)
[2022-11-08] MEDS: LOSARTAN POTASSIUM 50 MG TABLET PO (08:30)
[2022-11-08] MEDS: FLECAINIDE ACETATE 50 MG TABLET PO ×2 (08:31→19:55)
[2022-11-08] MEDS: NYSTATIN POWDER 1 APPLIC TOPICAL ×2 (08:31→15:46)
[2022-11-08] MEDS: SERTRALINE 100 MG TABLET PO (08:31)
[2022-11-08] MEDS: CALCIUM CARBONATE 500 MG TABLET PO (08:57)
--- NOTE | 2022-11-08 09:52 | PC.NURSE ---
Addendum entered by Diann Leavitt RN 11/09/22 08:24: Correction: Order: Vit D3 50 mcg (2000 IU) PO daily x 1 month, then decrease to 25 mcg ( 1000 IU) daily by Dr. Rivero - Field Operations Technician, approved by SOPHIE Blum. Original Note: Order: Vit D3 250 mcg (2000 Units) PO daily x 1 month, then decrease to 125 mcg (1000 Units) daily by Dr. Rivero, Field Operations Technician approved by Viktoria BARIROS.
[2022-11-08] MEDS: OXYCODONE 5 MG TABLET PO ×2 (10:30→20:27)
--- NOTE | 2022-11-08 10:43 | PC.NURSE ---
Addendum entered by Diann Leavitt RN 11/08/22 14:22: Correction: resident didn't have a recert visit. AIRLINE PILOT updated resident wants to see her regarding her pain, wants LE edema assessed. Resident seen with new order. Increase Oxycodone 2.5mg to 5mg QHS & Q6H PRN. Original Note: Recert Visit: Resident seen by AIRLINE PILOTViktoria. Orders reviewed and renewed for 45 days with changes. Order: Increase Oxycodone 2.5 mg to 5mg QHS & Q6H PRN.
[2022-11-08 15:04] VITALS: BMI 40.1
[2022-11-08] MEDS: PRAVASTATIN SODIUM 40 MG TABLET PO (19:55)
[2022-11-09] MEDS: OXYCODONE 5 MG TABLET PO ×3 (02:28→19:53)
[2022-11-09 07:00] VITALS: BMI 40.8
[2022-11-09 07:42] LABS: Chloride* 98 mmol/L (96-114)
[2022-11-09 07:43] LABS: Potassium* 4.7 mmol/L (3.6-5.1); Sodium* 132 mmol/L (135-149)
[2022-11-09 07:45] LABS: Carbon Dioxide* 31 mmol/L (20-32); Creatinine* 0.5 mg/dL (0.5-1.5); Est. Creatinine Clearance* 35.99; Estimated Glomerular Filt Rate 99 ml/min
[2022-11-09 07:46] LABS: Blood Urea Nitrogen* 19 mg/dL (7-30); Calcium* 8.2 mg/dL (8.4-10.6); Glucose* 119 mg/dL (60-115)
[2022-11-09] MEDS: ACETAMINOPHEN 500 MG TABLET 1000 MG PO ×3 (07:55→19:53)
[2022-11-09] MEDS: ASPIRIN 81 MG TABLET EC PO (07:55)
[2022-11-09] MEDS: FOLIC ACID 1 MG TABLET 3 MG PO (07:56)
[2022-11-09] MEDS: APIXABAN 5 MG TABLET 2.5 MG PO ×2 (07:56→15:54)
[2022-11-09] MEDS: FUROSEMIDE 20 MG TABLET PO (07:56)
[2022-11-09] MEDS: MULTIVITAMIN/MINERALS 1 TABLET 1 TAB PO (07:57)
[2022-11-09] MEDS: LOSARTAN POTASSIUM 50 MG TABLET PO (07:57)
[2022-11-09] MEDS: FLECAINIDE ACETATE 50 MG TABLET PO ×2 (07:57→19:53)
[2022-11-09] MEDS: NYSTATIN POWDER 1 APPLIC TOPICAL ×2 (07:57→15:54)
[2022-11-09] MEDS: SERTRALINE 100 MG TABLET PO (07:59)
[2022-11-09] MEDS: CALCIUM CARBONATE 500 MG TABLET PO (08:05)
--- NOTE | 2022-11-09 10:28 | PC.NURSE ---
BMP result faxed to Viktoria BARRIOS.
--- NOTE | 2022-11-09 16:19 | PC.SPIRITC ---
Addendum entered by Susy Taylor 11/09/22 16:21: Late entry from November 08, 2022 Original Note: Madhuri expressed that she has been experiencing a significant amount of pain lately. She talked about coping through prayer and by remembering, it won't always be like this. I provided time to process her experience, prayer, and support.
[2022-11-09] MEDS: PRAVASTATIN SODIUM 40 MG TABLET PO (19:53)
[2022-11-10] MEDS: OXYCODONE 5 MG TABLET PO ×2 (02:25→20:22)
--- NOTE | 2022-11-10 03:43 | PC.NURSE ---
WEEKLY CHARTING WEEK 2 MOBILITY Vitals reviewed, no concerns regarding BP and HR , continue to check BS four times a day and package checker, low and high some days, receives her insulin as scheduled at mealtime. Temporary and comprehensive care plan remains unchanged. Mobility : resident is independent with transfers , calls for assistance as needed. She rarely uses w/c, but if used, require one extensive assist. She is independent with bed mobility, uses 1/4 siderail on right side of the bed.
--- NOTE | 2022-11-10 07:31 | PC.NURSE ---
Weekly Charting, Week 2 - Mobility: Comprehensive and temporary care plan reviewed. No changes made, and nothing added to temporary care plan. Transfers and ambulates independently with 4WW. Independent with bed mobility. 07/06 right side rail up at all times to aid for bed mobility. Vital signs reviewed, no concerns. Continue with accu checks monitoring QID & @ 0200and reviewed by provider as needed. Fall: No falls the past month. Is a high fall risk according to assessment done on 11/03. Fall interventions: call light within reach, bed in low position with brakes locked, falling star magnet in place.
--- NOTE | 2022-11-10 08:10 | PC.NURSE ---
Infusion Clarification: [facility]ed to [facility]. December 01 lab will come for blood draw. If lab is okay, she will have an infusion on December 02 at 1000.
[2022-11-10] MEDS: CALCIUM CARBONATE 500 MG TABLET PO (08:23)
[2022-11-10] MEDS: ASPIRIN 81 MG TABLET EC PO (08:23)
[2022-11-10] MEDS: ACETAMINOPHEN 500 MG TABLET 1000 MG PO ×3 (08:23→20:20)
[2022-11-10] MEDS: APIXABAN 5 MG TABLET 2.5 MG PO ×2 (08:29→16:11)
[2022-11-10] MEDS: MULTIVITAMIN/MINERALS 1 TABLET 1 TAB PO (08:29)
[2022-11-10] MEDS: FUROSEMIDE 20 MG TABLET PO (08:29)
[2022-11-10] MEDS: FOLIC ACID 1 MG TABLET 3 MG PO (08:29)
[2022-11-10] MEDS: LOSARTAN POTASSIUM 50 MG TABLET PO (08:29)
[2022-11-10] MEDS: SERTRALINE 100 MG TABLET PO (08:30)
[2022-11-10] MEDS: FLECAINIDE ACETATE 50 MG TABLET PO ×2 (08:31→20:22)
[2022-11-10] MEDS: NYSTATIN POWDER 1 APPLIC TOPICAL ×2 (08:31→16:11)
[2022-11-10] MEDS: PRAVASTATIN SODIUM 40 MG TABLET PO (20:22)
[2022-11-11] MEDS: OXYCODONE 5 MG TABLET PO ×2 (02:22→20:16)
[2022-11-11 07:00] VITALS: BMI 40.6
[2022-11-11] MEDS: ACETAMINOPHEN 500 MG TABLET 1000 MG PO ×3 (08:11→20:15)
[2022-11-11] MEDS: ASPIRIN 81 MG TABLET EC PO (08:11)
[2022-11-11] MEDS: CALCIUM CARBONATE 500 MG TABLET PO (08:12)
[2022-11-11] MEDS: FUROSEMIDE 20 MG TABLET PO (08:12)
[2022-11-11] MEDS: APIXABAN 5 MG TABLET 2.5 MG PO ×2 (08:12→16:44)
[2022-11-11] MEDS: FOLIC ACID 1 MG TABLET 3 MG PO (08:12)
[2022-11-11] MEDS: MULTIVITAMIN/MINERALS 1 TABLET 1 TAB PO (08:12)
[2022-11-11] MEDS: LOSARTAN POTASSIUM 50 MG TABLET PO (08:12)
[2022-11-11] MEDS: SERTRALINE 100 MG TABLET PO (08:13)
[2022-11-11] MEDS: FLECAINIDE ACETATE 50 MG TABLET PO ×2 (08:13→20:16)
[2022-11-11] MEDS: NYSTATIN POWDER 1 APPLIC TOPICAL ×2 (08:13→16:44)
--- NOTE | 2022-11-11 12:58 | PC.NURSE ---
Status: Resident's blood sugar at lunch was noted to be 68. Snacks were given and blood sugar rechecked 15 minutes later and was 109 with insulin given and resident eating lunch. Resident had no s/s of hypoglycemia
[2022-11-11] MEDS: PRAVASTATIN SODIUM 40 MG TABLET PO (20:16)
[2022-11-12] MEDS: OXYCODONE 5 MG TABLET PO ×2 (02:07→20:17)
[2022-11-12] MEDS: LOSARTAN POTASSIUM 50 MG TABLET PO (07:42)
[2022-11-12] MEDS: FUROSEMIDE 20 MG TABLET PO (07:42)
[2022-11-12] MEDS: ASPIRIN 81 MG TABLET EC PO (07:42)
[2022-11-12] MEDS: APIXABAN 5 MG TABLET 2.5 MG PO ×2 (07:42→16:44)
[2022-11-12] MEDS: FOLIC ACID 1 MG TABLET 3 MG PO (07:42)
[2022-11-12] MEDS: CALCIUM CARBONATE 500 MG TABLET PO (07:42)
[2022-11-12] MEDS: MULTIVITAMIN/MINERALS 1 TABLET 1 TAB PO (07:42)
[2022-11-12] MEDS: ACETAMINOPHEN 500 MG TABLET 1000 MG PO ×3 (07:42→20:14)
[2022-11-12] MEDS: SERTRALINE 100 MG TABLET PO (07:43)
[2022-11-12] MEDS: FLECAINIDE ACETATE 50 MG TABLET PO ×2 (07:43→20:15)
[2022-11-12] MEDS: NYSTATIN POWDER 1 APPLIC TOPICAL ×2 (07:43→16:44)
[2022-11-12] MEDS: PRAVASTATIN SODIUM 40 MG TABLET PO (20:14)
[2022-11-13] MEDS: OXYCODONE 5 MG TABLET PO ×2 (02:30→20:06)
[2022-11-13] MEDS: ACETAMINOPHEN 500 MG TABLET 1000 MG PO ×3 (07:54→20:05)
[2022-11-13] MEDS: ASPIRIN 81 MG TABLET EC PO (07:55)
[2022-11-13] MEDS: FOLIC ACID 1 MG TABLET 3 MG PO (07:55)
[2022-11-13] MEDS: CALCIUM CARBONATE 500 MG TABLET PO (07:55)
[2022-11-13] MEDS: APIXABAN 5 MG TABLET 2.5 MG PO ×2 (07:55→16:26)
[2022-11-13] MEDS: LOSARTAN POTASSIUM 50 MG TABLET PO (07:55)
[2022-11-13] MEDS: FUROSEMIDE 20 MG TABLET PO (07:55)
[2022-11-13] MEDS: MULTIVITAMIN/MINERALS 1 TABLET 1 TAB PO (07:56)
[2022-11-13] MEDS: NYSTATIN POWDER 1 APPLIC TOPICAL ×2 (07:56→20:05)
[2022-11-13] MEDS: FLECAINIDE ACETATE 50 MG TABLET PO ×2 (07:57→20:06)
[2022-11-13] MEDS: SERTRALINE 100 MG TABLET PO (07:57)
[2022-11-13 16:00] VITALS: BP 132/86; PULSE 67; RESP 19; TEMP 36.6; O2SAT 96
[2022-11-13] MEDS: PRAVASTATIN SODIUM 40 MG TABLET PO (20:06)
[2022-11-14 07:00] VITALS: BMI 40.4
[2022-11-14] MEDS: ACETAMINOPHEN 500 MG TABLET 1000 MG PO ×3 (07:49→20:35)
[2022-11-14] MEDS: CALCIUM CARBONATE 500 MG TABLET PO (07:49)
[2022-11-14] MEDS: ASPIRIN 81 MG TABLET EC PO (07:49)
[2022-11-14] MEDS: FOLIC ACID 1 MG TABLET 3 MG PO (07:49)
[2022-11-14] MEDS: APIXABAN 5 MG TABLET 2.5 MG PO ×2 (07:49→16:33)
[2022-11-14] MEDS: FUROSEMIDE 20 MG TABLET PO (07:50)
[2022-11-14] MEDS: LOSARTAN POTASSIUM 50 MG TABLET PO (07:50)
[2022-11-14] MEDS: MULTIVITAMIN/MINERALS 1 TABLET 1 TAB PO (07:50)
[2022-11-14] MEDS: SERTRALINE 100 MG TABLET PO (07:51)
[2022-11-14] MEDS: FLECAINIDE ACETATE 50 MG TABLET PO ×2 (07:51→20:36)
[2022-11-14] MEDS: NYSTATIN POWDER 1 APPLIC TOPICAL ×2 (08:34→20:35)
[2022-11-14] MEDS: PRAVASTATIN SODIUM 40 MG TABLET PO (20:36)
[2022-11-14] MEDS: OXYCODONE 5 MG TABLET PO (20:37)
[2022-11-15] MEDS: ASPIRIN 81 MG TABLET EC PO (07:25)
[2022-11-15] MEDS: FOLIC ACID 1 MG TABLET 3 MG PO (07:25)
[2022-11-15] MEDS: CALCIUM CARBONATE 500 MG TABLET PO (07:25)
[2022-11-15] MEDS: APIXABAN 5 MG TABLET 2.5 MG PO ×2 (07:25→15:14)
[2022-11-15] MEDS: FUROSEMIDE 20 MG TABLET PO (07:25)
[2022-11-15] MEDS: ACETAMINOPHEN 500 MG TABLET 1000 MG PO ×3 (07:25→19:34)
[2022-11-15] MEDS: MULTIVITAMIN/MINERALS 1 TABLET 1 TAB PO (07:26)
[2022-11-15] MEDS: LOSARTAN POTASSIUM 50 MG TABLET PO (07:26)
[2022-11-15] MEDS: FLECAINIDE ACETATE 50 MG TABLET PO ×2 (07:26→19:34)
[2022-11-15] MEDS: SERTRALINE 100 MG TABLET PO (07:27)
[2022-11-15] MEDS: NYSTATIN POWDER 1 APPLIC TOPICAL ×2 (07:28→19:34)
--- NOTE | 2022-11-15 11:01 | PC.NURSE ---
Order: Discontinue Lasix 20 mg daily, start Torsemide 20 mg daily, BMP on 11/23 by Viktoria BARRIOS.
--- NOTE | 2022-11-15 11:09 | PC.NURSE ---
Recert Visit: resident seen y Viktoria BARRIOS. Orders reviewed and renewed for 45 days with no changes.
--- NOTE | 2022-11-15 11:58 | PC.NURSE ---
MDS Clarification: ADLs ? possible discrepancies noted in GISELLE ADL charting. Staff were interviewed. Bed Mobility ? resident did not require any staff assistance during the lookback. Coded independent. Transfers ? resident did not require any staff assist or oversight. Coded independent. Dressing ? resident is independent with all dressing except requires weight bearing assist with BHUMIKA socks daily. Coded as extensive assistance. Toileting ? resident did not require any staff intervention or oversight. Coded independent. Bathing ? supervision and set up assistance only.
--- NOTE | 2022-11-15 11:59 | PC.NURSE ---
Resident is going to [facility] to have lunch with and sister and will return after lunch. Resident was given scheduled Novolog just before leaving unit.
--- NOTE | 2022-11-15 13:42 | PC.NURSE ---
CARE CONFERENCE: Care conference meeting held with all members of care team present. Resident and her present.?Nursing reviewed that resident continues to be independent in room and in hallway. Reviewed medications and changes that have been made--started Lasix d/t increased weight and edema. Resident was to have a Reclast infusion but it has been delayed d/t low vitamin D levels. Will be rechecked in about a month and determine if resident can proceed with this. Care plan reviewed and updated. POLST reviewed, denies changes. Uses no restraints. Does use R side rail up to assist with positioning per her request. Resident notes that she doesnt like the BHUMIKA socks she was given but would like the measurements of her legs so that she can see if she can order another pair of the ones she likes from [facility] in [facility]. Will have floor nurse obtain and give to her. Resident notes that her pain has improved with increase in Oxy but that she feels fuzzy. Reminded resident to call for assistance if she feels this way. She would like to give it another week to see if the fuzziness goes away. Nursing encourages increased fluids and rest. She notes that they are trying acupuncture treatments for her pain per their daughters request. Resident notes that it helped last time and she will come again on Monday for another treatment and wonders if she can get a do not disturb sign for the door during that appointment. Nursing will provide. Activities provided update on participation, no concerns. Resident is given medications by staff.? Vulnerable due to mobility limitations and cognitive impairment. Weight is stable. Resident denies any concerns. Resident given medication list. No further questions/concerns by family at this time.
--- NOTE | 2022-11-15 15:19 | PC.SOCIAL ---
Resident's care conference was held today. Resident, spouse Roni, and sister Ngoc attended. Resident expressed feeling more foggy with the recent increase in her pain medication. Resident is still having pain so she does not want the dose decreased. Resident does not like the facility BHUMIKA stockings so requests that the nurses measure he size and her spouse will poultry picking machine tender different BHUMIKA stockings at [facility]. Resident's mood is stable no s/s of depression noted. Family is supportive and spouse visits frequently.
[2022-11-15] MEDS: PRAVASTATIN SODIUM 40 MG TABLET PO (19:34)
[2022-11-15] MEDS: OXYCODONE 5 MG TABLET PO (19:34)
[2022-11-16] MEDS: ASPIRIN 81 MG TABLET EC PO (08:03)
[2022-11-16] MEDS: ACETAMINOPHEN 500 MG TABLET 1000 MG PO ×3 (08:03→20:39)
[2022-11-16] MEDS: CALCIUM CARBONATE 500 MG TABLET PO (08:03)
[2022-11-16] MEDS: APIXABAN 5 MG TABLET 2.5 MG PO ×2 (08:04→15:03)
[2022-11-16] MEDS: NYSTATIN POWDER 1 APPLIC TOPICAL ×2 (08:04→20:42)
[2022-11-16] MEDS: LOSARTAN POTASSIUM 50 MG TABLET PO (08:04)
[2022-11-16] MEDS: MULTIVITAMIN/MINERALS 1 TABLET 1 TAB PO (08:04)
[2022-11-16] MEDS: FOLIC ACID 1 MG TABLET 3 MG PO (08:04)
[2022-11-16] MEDS: FLECAINIDE ACETATE 50 MG TABLET PO ×2 (08:05→20:42)
[2022-11-16] MEDS: SERTRALINE 100 MG TABLET PO (08:05)
[2022-11-16] MEDS: TORSEMIDE 20 MG TABLET PO (08:05)
[2022-11-16 08:14] VITALS: BMI 40.6
--- NOTE | 2022-11-16 11:51 | PC.NURSE ---
Per resident request, BHUMIKA stocking measurements completed this morning. Length of posterior knee to heel noted to be approximately 40 cm and calf circumference noted to be approximately 42 cm. These measurements were written down for resident as she has requested that she wants to call [facility] to request supply of brown BHUMIKA stockings be sent for her. She currently has supply of brown BHUMIKA stockings that she states she obtained from [facility]. Resident realizes that she will have to pay for stockings though prefers brown compression stockings instead of white stockings.
[2022-11-16] MEDS: PRAVASTATIN SODIUM 40 MG TABLET PO (20:42)
[2022-11-16] MEDS: OXYCODONE 5 MG TABLET PO (20:42)
--- NOTE | 2022-11-16 22:31 | PC.NURSE ---
Blood Glucose Assessment: Resident requested BS to be checked at 1620 and reading was 67. Resident reported to program writer that she felt her blood sugar was low prior to placing call light, and that she had eaten 2 alejandro's peanut butter cups and drank 4oz of apple juice. Blood sugar was rechecked at 1655 and reading was 133. No further s/s of hypoglycemia.
--- NOTE | 2022-11-17 01:07 | PC.NURSE ---
WEEKLY CHARTING WEEK 3 Vital signs reviewed. stable except the poorly controlled Blood Sugar. Comprehensive care plan and temporary care plan reviewed with changes made. Has redness to groin and abdominal fold, scheduled nystatin powder applied. +1 edema to bilateral lower legs, wear Curtis socks on AM off evening. Skin check done every bath days and during cares. Res is independent with toileting, incontinent pad, ryan cares and clothing management. Able to use call light as needed to used toilet. Wears medium pull up.
--- NOTE | 2022-11-17 07:37 | PC.NURSE ---
Weekly Charting, Week 3 - Toileting: Comprehensive and temporary care plan reviewed. No changes made, nothing added to temporary care plan.Resident is continent of bowel and bladder. Independent with toileting including pad changes, ryan cares, clothing adjustment. Wears medium pull ups. Will ask for assist as needed. Weights monitored 3x/week d/t weight gain & bilateral LE edema. 11/15 Lasix changed to Torsemide 20 mg daily. Blood sugar unstable. Continue with QID & 0200 accu checks. Skin: Has bilateral LE edema. Wears Teds on - am, off - hs. Skin is checked routinely on bath day. And resident is able to report with changes.
[2022-11-17] MEDS: ACETAMINOPHEN 500 MG TABLET 1000 MG PO ×3 (07:55→20:40)
[2022-11-17] MEDS: LOSARTAN POTASSIUM 50 MG TABLET PO (07:56)
[2022-11-17] MEDS: APIXABAN 5 MG TABLET 2.5 MG PO ×2 (07:56→16:26)
[2022-11-17] MEDS: FOLIC ACID 1 MG TABLET 3 MG PO (07:56)
[2022-11-17] MEDS: NYSTATIN POWDER 1 APPLIC TOPICAL ×2 (07:56→20:42)
[2022-11-17] MEDS: ASPIRIN 81 MG TABLET EC PO (07:56)
[2022-11-17] MEDS: MULTIVITAMIN/MINERALS 1 TABLET 1 TAB PO (07:56)
[2022-11-17] MEDS: CALCIUM CARBONATE 500 MG TABLET PO (07:56)
[2022-11-17] MEDS: FLECAINIDE ACETATE 50 MG TABLET PO ×2 (07:57→20:42)
[2022-11-17] MEDS: TORSEMIDE 20 MG TABLET PO (07:57)
[2022-11-17] MEDS: SERTRALINE 100 MG TABLET PO (07:57)
[2022-11-17] MEDS: PRAVASTATIN SODIUM 40 MG TABLET PO (20:42)
[2022-11-17] MEDS: OXYCODONE 5 MG TABLET PO (20:42)
[2022-11-18] MEDS: ACETAMINOPHEN 500 MG TABLET 1000 MG PO ×3 (08:05→20:07)
[2022-11-18] MEDS: ASPIRIN 81 MG TABLET EC PO (08:05)
[2022-11-18] MEDS: CALCIUM CARBONATE 500 MG TABLET PO (08:05)
[2022-11-18] MEDS: FOLIC ACID 1 MG TABLET 3 MG PO (08:06)
[2022-11-18] MEDS: LOSARTAN POTASSIUM 50 MG TABLET PO (08:06)
[2022-11-18] MEDS: MULTIVITAMIN/MINERALS 1 TABLET 1 TAB PO (08:06)
[2022-11-18] MEDS: APIXABAN 5 MG TABLET 2.5 MG PO ×2 (08:06→15:49)
[2022-11-18] MEDS: NYSTATIN POWDER 1 APPLIC TOPICAL ×2 (08:07→20:08)
[2022-11-18] MEDS: FLECAINIDE ACETATE 50 MG TABLET PO ×2 (08:07→20:08)
[2022-11-18] MEDS: TORSEMIDE 20 MG TABLET PO (08:09)
[2022-11-18] MEDS: SERTRALINE 100 MG TABLET PO (08:09)
[2022-11-18 08:43] VITALS: BMI 39.4
[2022-11-18] MEDS: PRAVASTATIN SODIUM 40 MG TABLET PO (20:08)
[2022-11-18] MEDS: OXYCODONE 5 MG TABLET PO (20:08)
[2022-11-19] MEDS: OXYCODONE 5 MG TABLET PO ×2 (02:48→19:45)
[2022-11-19] MEDS: CALCIUM CARBONATE 500 MG TABLET PO (08:15)
[2022-11-19] MEDS: ASPIRIN 81 MG TABLET EC PO (08:15)
[2022-11-19] MEDS: ACETAMINOPHEN 500 MG TABLET 1000 MG PO ×3 (08:15→19:45)
[2022-11-19] MEDS: MULTIVITAMIN/MINERALS 1 TABLET 1 TAB PO (08:16)
[2022-11-19] MEDS: FOLIC ACID 1 MG TABLET 3 MG PO (08:16)
[2022-11-19] MEDS: NYSTATIN POWDER 1 APPLIC TOPICAL ×2 (08:16→19:45)
[2022-11-19] MEDS: FLECAINIDE ACETATE 50 MG TABLET PO ×2 (08:16→19:45)
[2022-11-19] MEDS: APIXABAN 5 MG TABLET 2.5 MG PO ×2 (08:16→15:46)
[2022-11-19] MEDS: LOSARTAN POTASSIUM 50 MG TABLET PO (08:16)
[2022-11-19] MEDS: SERTRALINE 100 MG TABLET PO (08:17)
[2022-11-19] MEDS: TORSEMIDE 20 MG TABLET PO (08:17)
--- NOTE | 2022-11-19 11:55 | PC.NURSE ---
Behavior note: When business writer knocked on resident's door to administer lunch insulin at this time, res was noted to be on a phone call. Rotary Soil Stabilizer Operator offered to come back though resident chose to hang phone call up. Resident was noted to be teary. Rotary Soil Stabilizer Operator then asked resident if she was feeling ok to which she replied, I'm just sad. Rotary Soil Stabilizer Operator offered condolences and asked resident if there was anything staff could do to help. Resident stated, No, I just need to cry. Kleenex provided.
[2022-11-19] MEDS: PRAVASTATIN SODIUM 40 MG TABLET PO (19:45)
[2022-11-20] MEDS: ACETAMINOPHEN 500 MG TABLET 1000 MG PO ×3 (07:33→20:18)
[2022-11-20] MEDS: ASPIRIN 81 MG TABLET EC PO (07:33)
[2022-11-20] MEDS: APIXABAN 5 MG TABLET 2.5 MG PO ×2 (07:34→18:26)
[2022-11-20] MEDS: CALCIUM CARBONATE 500 MG TABLET PO (07:34)
[2022-11-20] MEDS: FOLIC ACID 1 MG TABLET 3 MG PO (07:34)
[2022-11-20] MEDS: MULTIVITAMIN/MINERALS 1 TABLET 1 TAB PO (07:35)
[2022-11-20] MEDS: TORSEMIDE 20 MG TABLET PO (07:35)
[2022-11-20] MEDS: FLECAINIDE ACETATE 50 MG TABLET PO ×2 (07:35→20:19)
[2022-11-20] MEDS: NYSTATIN POWDER 1 APPLIC TOPICAL ×2 (07:35→20:18)
[2022-11-20] MEDS: LOSARTAN POTASSIUM 50 MG TABLET PO (07:35)
[2022-11-20] MEDS: SERTRALINE 100 MG TABLET PO (07:36)
--- NOTE | 2022-11-20 13:04 | PC.NURSE ---
MIRELA: Resident out of facility with her for a ride at 12:55. She will be back around 1700- 1730 for supper. No med sent with Resident.
[2022-11-20 16:00] VITALS: BP 133/78; PULSE 71; RESP 18; TEMP 36.6; O2SAT 93
[2022-11-20] MEDS: OXYCODONE 5 MG TABLET PO (20:18)
[2022-11-20] MEDS: PRAVASTATIN SODIUM 40 MG TABLET PO (20:18)
--- NOTE | 2022-11-20 21:39 | PC.NURSE ---
Skin Concern: Rash noted to bilateral lower extremities during bath day body audit.
[2022-11-21] MEDS: OXYCODONE 5 MG TABLET PO ×2 (02:20→20:17)
--- NOTE | 2022-11-21 03:04 | PC.NURSE ---
Hypoglycemia Resident had a low blood sugar of 49 at 0200. She was asymptomatic. She had 8oz of chocolate milk, cookies, Reeses, Apple juice and 30 minutes after BS 138.
[2022-11-21] MEDS: ACETAMINOPHEN 500 MG TABLET 1000 MG PO ×3 (08:09→20:14)
[2022-11-21] MEDS: APIXABAN 5 MG TABLET 2.5 MG PO ×2 (08:10→16:06)
[2022-11-21] MEDS: FOLIC ACID 1 MG TABLET 3 MG PO (08:10)
[2022-11-21] MEDS: CALCIUM CARBONATE 500 MG TABLET PO (08:10)
[2022-11-21] MEDS: LOSARTAN POTASSIUM 50 MG TABLET PO (08:10)
[2022-11-21] MEDS: ASPIRIN 81 MG TABLET EC PO (08:10)
[2022-11-21] MEDS: MULTIVITAMIN/MINERALS 1 TABLET 1 TAB PO (08:10)
[2022-11-21] MEDS: NYSTATIN POWDER 1 APPLIC TOPICAL ×2 (08:11→20:14)
[2022-11-21] MEDS: TORSEMIDE 20 MG TABLET PO (08:12)
[2022-11-21] MEDS: SERTRALINE 100 MG TABLET PO (08:12)
[2022-11-21] MEDS: FLECAINIDE ACETATE 50 MG TABLET PO ×2 (08:12→20:15)
[2022-11-21 10:30] VITALS: BMI 39.4
[2022-11-21] MEDS: PRAVASTATIN SODIUM 40 MG TABLET PO (20:14)
[2022-11-22] MEDS: ASPIRIN 81 MG TABLET EC PO (08:43)
[2022-11-22] MEDS: ACETAMINOPHEN 500 MG TABLET 1000 MG PO ×3 (08:43→20:30)
[2022-11-22] MEDS: CALCIUM CARBONATE 500 MG TABLET PO (08:43)
[2022-11-22] MEDS: LOSARTAN POTASSIUM 50 MG TABLET PO (08:44)
[2022-11-22] MEDS: MULTIVITAMIN/MINERALS 1 TABLET 1 TAB PO (08:44)
[2022-11-22] MEDS: APIXABAN 5 MG TABLET 2.5 MG PO ×2 (08:44→16:21)
[2022-11-22] MEDS: FOLIC ACID 1 MG TABLET 3 MG PO (08:44)
[2022-11-22] MEDS: NYSTATIN POWDER 1 APPLIC TOPICAL ×2 (08:46→20:30)
[2022-11-22] MEDS: TORSEMIDE 20 MG TABLET PO (08:47)
[2022-11-22] MEDS: FLECAINIDE ACETATE 50 MG TABLET PO ×2 (08:47→20:31)
[2022-11-22] MEDS: SERTRALINE 100 MG TABLET PO (08:47)
--- NOTE | 2022-11-22 12:40 | PC.NURSE ---
Order: Triamcinolone Acetonide to rash LE's bid x 14 days.
--- NOTE | 2022-11-22 15:00 | PC.PHA1 ---
GRINDING AND POLISHING LABORER PHARMACIST'S MEDICATION REVIEW: MEDICATION MONITORING:Sertraline 100 mg daily IRREGULARITY OR COMMENTS:Patient has been dealing with weight gain, furosemide stopped and torsemide started in past weeks. Per review of nursing and provider notes her other medications continue to be indicated and GDR of sertraline not indicated at time of this review as patient is stable yet still adjusting to a new living situation. SUGGESTED COURSE OF ACTION TAKEN:No medication recommendations this review.
[2022-11-22] MEDS: TRIAMCINOLONE ACETONIDE CREAM 0.1 % 1 APPLIC TOPICAL (20:30)
[2022-11-22] MEDS: PRAVASTATIN SODIUM 40 MG TABLET PO (20:31)
[2022-11-22] MEDS: OXYCODONE 5 MG TABLET PO (20:31)
[2022-11-23 07:49] LABS: Chloride* 96 mmol/L (96-114)
[2022-11-23 07:50] LABS: Potassium* 4.5 mmol/L (3.6-5.1); Sodium* 132 mmol/L (135-149)
[2022-11-23 07:53] LABS: Blood Urea Nitrogen* 28 mg/dL (7-30); Calcium* 8.7 mg/dL (8.4-10.6); Carbon Dioxide* 33 mmol/L (20-32); Creatinine* 0.5 mg/dL (0.5-1.5); Est. Creatinine Clearance* 35.99; Estimated Glomerular Filt Rate 99 ml/min; Glucose* 203 mg/dL (60-115)
[2022-11-23] MEDS: CALCIUM CARBONATE 500 MG TABLET PO (07:55)
[2022-11-23] MEDS: APIXABAN 5 MG TABLET 2.5 MG PO ×2 (07:55→16:47)
[2022-11-23] MEDS: ASPIRIN 81 MG TABLET EC PO (07:55)
[2022-11-23] MEDS: ACETAMINOPHEN 500 MG TABLET 1000 MG PO ×3 (07:55→20:03)
[2022-11-23] MEDS: FOLIC ACID 1 MG TABLET 3 MG PO (07:56)
[2022-11-23] MEDS: MULTIVITAMIN/MINERALS 1 TABLET 1 TAB PO (07:56)
[2022-11-23] MEDS: NYSTATIN POWDER 1 APPLIC TOPICAL ×2 (07:56→20:04)
[2022-11-23] MEDS: FLECAINIDE ACETATE 50 MG TABLET PO ×2 (07:56→20:04)
[2022-11-23] MEDS: LOSARTAN POTASSIUM 50 MG TABLET PO (07:56)
[2022-11-23] MEDS: TRIAMCINOLONE ACETONIDE CREAM 0.1 % 1 APPLIC TOPICAL ×2 (07:57→21:34)
[2022-11-23] MEDS: SERTRALINE 100 MG TABLET PO (07:57)
[2022-11-23] MEDS: TORSEMIDE 20 MG TABLET PO (07:57)
[2022-11-23 08:00] VITALS: BMI 38.6
--- NOTE | 2022-11-23 13:37 | PC.NURSE ---
Pharmacy note: Senior Controls Engineer called [facility] to reorder supply of Nystatin Powder as current supply nearly exhausted.
[2022-11-23] MEDS: PRAVASTATIN SODIUM 40 MG TABLET PO (20:04)
[2022-11-23] MEDS: OXYCODONE 5 MG TABLET PO (20:04)
[2022-11-24] MEDS: OXYCODONE 5 MG TABLET PO ×2 (02:34→19:59)
--- NOTE | 2022-11-24 05:39 | PC.NURSE ---
WEEKLY CHARTING WEEK 4 COMMUNICATION, HEARING/VISION, COGNITION/BEHAVIORS, CLINICAL MONITORING. No concerns with vitals , blood sugar was 194 @ 0200. Comprehensive and temporary care plan reviewed ; diet changed to diabetic diet as of 11/01/2022. Resident communicate needs. Hearing difficulty, wears bilateral hearing aids ; Uses reading glasses. She has mild cognitive impairment with some forgetfulness. Chronic health condition stable. Nurse administers all medications except for eye drop that she can self administer and kept with her. Behaviors : resident got no issues ; she is on Zoloft 100mg daily with no adverse effects noted. No changes in medication lately.
[2022-11-24] MEDS: ASPIRIN 81 MG TABLET EC PO (08:47)
[2022-11-24] MEDS: CALCIUM CARBONATE 500 MG TABLET PO (08:47)
[2022-11-24] MEDS: ACETAMINOPHEN 500 MG TABLET 1000 MG PO ×3 (08:47→19:59)
[2022-11-24] MEDS: FOLIC ACID 1 MG TABLET 3 MG PO (08:48)
[2022-11-24] MEDS: APIXABAN 5 MG TABLET 2.5 MG PO ×2 (08:48→16:02)
[2022-11-24] MEDS: LOSARTAN POTASSIUM 50 MG TABLET PO (08:48)
[2022-11-24] MEDS: FLECAINIDE ACETATE 50 MG TABLET PO ×2 (08:49→20:00)
[2022-11-24] MEDS: MULTIVITAMIN/MINERALS 1 TABLET 1 TAB PO (08:49)
[2022-11-24] MEDS: TRIAMCINOLONE ACETONIDE CREAM 0.1 % 1 APPLIC TOPICAL ×2 (08:54→16:02)
[2022-11-24] MEDS: SERTRALINE 100 MG TABLET PO (08:54)
[2022-11-24] MEDS: TORSEMIDE 20 MG TABLET PO (08:54)
[2022-11-24] MEDS: NYSTATIN POWDER 1 APPLIC TOPICAL ×2 (08:57→19:59)
--- NOTE | 2022-11-24 11:33 | PC.NURSE ---
Status/Order: Weights reviewed by DEVELOPMENT ASSISTANTViktoria. Continue 3x/week. Check BMP in 2 weeks.
--- NOTE | 2022-11-24 16:18 | PC.NURSE ---
Weekly Charting: Week 4: Vitals reviewed and remains stable, temporary and permanent care plan reviewed and no changes made, continue on Zoloft 100 mg daily with no side effects or adverse behavior noted, alert and oriented and able to verbalize need with no difficulty, no change in status noted, hearing and WNL and Vision corrected with glasses.
[2022-11-24] MEDS: PRAVASTATIN SODIUM 40 MG TABLET PO (20:00)
[2022-11-25] MEDS: OXYCODONE 5 MG TABLET PO ×2 (04:19→20:42)
--- NOTE | 2022-11-25 04:22 | PC.NURSE ---
Blood Sugar reading at 02:00 is 75. Res is alert and oriented no s/s of hypoglycemia. Offered 1 cup of apple juice, a cookie and small bread. Re check BG after 1 hour. BG reading is 135.
[2022-11-25 07:00] VITALS: BMI 39.0
[2022-11-25] MEDS: FOLIC ACID 1 MG TABLET 3 MG PO (08:19)
[2022-11-25] MEDS: CALCIUM CARBONATE 500 MG TABLET PO (08:19)
[2022-11-25] MEDS: ASPIRIN 81 MG TABLET EC PO (08:19)
[2022-11-25] MEDS: ACETAMINOPHEN 500 MG TABLET 1000 MG PO ×3 (08:19→20:40)
[2022-11-25] MEDS: APIXABAN 5 MG TABLET 2.5 MG PO ×2 (08:19→16:05)
[2022-11-25] MEDS: LOSARTAN POTASSIUM 50 MG TABLET PO (08:19)
[2022-11-25] MEDS: FLECAINIDE ACETATE 50 MG TABLET PO ×2 (08:20→20:40)
[2022-11-25] MEDS: MULTIVITAMIN/MINERALS 1 TABLET 1 TAB PO (08:20)
[2022-11-25] MEDS: NYSTATIN POWDER 1 APPLIC TOPICAL ×2 (08:20→20:40)
[2022-11-25] MEDS: TORSEMIDE 20 MG TABLET PO (08:21)
[2022-11-25] MEDS: TRIAMCINOLONE ACETONIDE CREAM 0.1 % 1 APPLIC TOPICAL ×2 (08:33→16:10)
[2022-11-25] MEDS: SERTRALINE 100 MG TABLET PO (08:58)
--- NOTE | 2022-11-25 11:30 | PC.NURSE ---
Addendum entered by Diann Leavitt RN 11/25/22 11:32: seen on 11/23/25 Original Note: Podiatry: Resident seen by in house webmaster.
--- NOTE | 2022-11-25 17:27 | PC.NURSE ---
Blood Glucose: 16:00 was 75. Asymptomatic. Resident given Prune juice, pudding, granola bar, banana. Blood Glucose recheck @ 17:00 was 193. Insulin administered.
[2022-11-25] MEDS: PRAVASTATIN SODIUM 40 MG TABLET PO (20:40)
--- NOTE | 2022-11-25 22:22 | PC.NURSE ---
Day 2 No B.M./Milk of Mag: Resident refused Milk of Mag for Day 2 of no b.m. Resident reports she had 2 b.m.'s today, 2 yesterday, and 1 day before.
[2022-11-26] MEDS: ACETAMINOPHEN 500 MG TABLET 1000 MG PO ×3 (08:17→20:21)
[2022-11-26] MEDS: CALCIUM CARBONATE 500 MG TABLET PO (08:17)
[2022-11-26] MEDS: ASPIRIN 81 MG TABLET EC PO (08:17)
[2022-11-26] MEDS: FOLIC ACID 1 MG TABLET 3 MG PO (08:18)
[2022-11-26] MEDS: APIXABAN 5 MG TABLET 2.5 MG PO ×2 (08:18→16:17)
[2022-11-26] MEDS: MULTIVITAMIN/MINERALS 1 TABLET 1 TAB PO (08:18)
[2022-11-26] MEDS: LOSARTAN POTASSIUM 50 MG TABLET PO (08:18)
[2022-11-26] MEDS: NYSTATIN POWDER 1 APPLIC TOPICAL ×2 (08:19→20:22)
[2022-11-26] MEDS: FLECAINIDE ACETATE 50 MG TABLET PO ×2 (08:20→20:23)
[2022-11-26] MEDS: TRIAMCINOLONE ACETONIDE CREAM 0.1 % 1 APPLIC TOPICAL ×2 (08:20→16:18)
[2022-11-26] MEDS: SERTRALINE 100 MG TABLET PO (08:20)
[2022-11-26] MEDS: TORSEMIDE 20 MG TABLET PO (08:20)
--- NOTE | 2022-11-26 13:18 | PC.NURSE ---
Outing: Resident left with for outing
[2022-11-26 20:00] VITALS: BP 113/70; PULSE 80; RESP 16; TEMP 36.9; O2SAT 94
[2022-11-26] MEDS: PRAVASTATIN SODIUM 40 MG TABLET PO (20:23)
[2022-11-26] MEDS: OXYCODONE 5 MG TABLET PO (20:38)
--- NOTE | 2022-11-26 21:24 | PC.NURSE ---
Skin Assessment: Resident had shower this shift. No skin concerns noted post bath skin assessment.
[2022-11-26 22:15] VITALS: BMI 38.9
[2022-11-26 22:29] VITALS: BMI 85.9
[2022-11-27] MEDS: OXYCODONE 5 MG TABLET PO ×2 (02:15→20:14)
--- NOTE | 2022-11-27 05:54 | PC.NURSE ---
02:00 BG reading 89. Res had 1 cup of apple juice and 1 cookie. Refused Blood glucose re check.
[2022-11-27] MEDS: LOSARTAN POTASSIUM 50 MG TABLET PO (07:07)
[2022-11-27] MEDS: APIXABAN 5 MG TABLET 2.5 MG PO ×2 (07:07→16:06)
[2022-11-27] MEDS: CALCIUM CARBONATE 500 MG TABLET PO (07:07)
[2022-11-27] MEDS: ACETAMINOPHEN 500 MG TABLET 1000 MG PO ×2 (07:07→20:12)
[2022-11-27] MEDS: FOLIC ACID 1 MG TABLET 3 MG PO (07:07)
[2022-11-27] MEDS: ASPIRIN 81 MG TABLET EC PO (07:07)
[2022-11-27] MEDS: NYSTATIN POWDER 1 APPLIC TOPICAL ×2 (07:08→20:12)
[2022-11-27] MEDS: MULTIVITAMIN/MINERALS 1 TABLET 1 TAB PO (07:08)
[2022-11-27] MEDS: FLECAINIDE ACETATE 50 MG TABLET PO ×2 (07:08→20:12)
[2022-11-27] MEDS: TORSEMIDE 20 MG TABLET PO (07:09)
[2022-11-27] MEDS: TRIAMCINOLONE ACETONIDE CREAM 0.1 % 1 APPLIC TOPICAL ×2 (07:09→16:08)
[2022-11-27] MEDS: SERTRALINE 100 MG TABLET PO (07:19)
--- NOTE | 2022-11-27 09:30 | PC.NURSE ---
Outing: Resident left with for outing, back around 6pm. Insulin and 12 noon medications sent with resident
[2022-11-27] MEDS: PRAVASTATIN SODIUM 40 MG TABLET PO (20:12)
[2022-11-28 07:00] VITALS: BMI 38.5
[2022-11-28] MEDS: APIXABAN 5 MG TABLET 2.5 MG PO ×2 (07:59→15:23)
[2022-11-28] MEDS: CALCIUM CARBONATE 500 MG TABLET PO (07:59)
[2022-11-28] MEDS: ASPIRIN 81 MG TABLET EC PO (07:59)
[2022-11-28] MEDS: ACETAMINOPHEN 500 MG TABLET 1000 MG PO ×3 (07:59→19:44)
[2022-11-28] MEDS: MULTIVITAMIN/MINERALS 1 TABLET 1 TAB PO (08:00)
[2022-11-28] MEDS: FOLIC ACID 1 MG TABLET 3 MG PO (08:00)
[2022-11-28] MEDS: LOSARTAN POTASSIUM 50 MG TABLET PO (08:00)
[2022-11-28] MEDS: NYSTATIN POWDER 1 APPLIC TOPICAL ×2 (08:01→19:44)
[2022-11-28] MEDS: TORSEMIDE 20 MG TABLET PO (08:01)
[2022-11-28] MEDS: TRIAMCINOLONE ACETONIDE CREAM 0.1 % 1 APPLIC TOPICAL ×2 (08:01→15:23)
[2022-11-28] MEDS: SERTRALINE 100 MG TABLET PO (08:01)
[2022-11-28] MEDS: FLECAINIDE ACETATE 50 MG TABLET PO ×2 (08:01→19:45)
[2022-11-28] MEDS: OXYCODONE 5 MG TABLET PO (19:45)
[2022-11-28] MEDS: PRAVASTATIN SODIUM 40 MG TABLET PO (19:45)
[2022-11-29] MEDS: OXYCODONE 5 MG TABLET PO ×2 (01:26→20:27)
--- NOTE | 2022-11-29 05:28 | PC.NURSE ---
Hypoglycemia Resident had a BS 56 and after snack it went up to 123 ; she was asymptomatic. She received also Oxycodone 5 mg for shoulder pain.
[2022-11-29] MEDS: ACETAMINOPHEN 500 MG TABLET 1000 MG PO ×3 (08:16→20:24)
[2022-11-29] MEDS: APIXABAN 5 MG TABLET 2.5 MG PO ×2 (08:17→16:22)
[2022-11-29] MEDS: ASPIRIN 81 MG TABLET EC PO (08:17)
[2022-11-29] MEDS: LOSARTAN POTASSIUM 50 MG TABLET PO (08:17)
[2022-11-29] MEDS: CALCIUM CARBONATE 500 MG TABLET PO (08:17)
[2022-11-29] MEDS: FOLIC ACID 1 MG TABLET 3 MG PO (08:17)
[2022-11-29] MEDS: MULTIVITAMIN/MINERALS 1 TABLET 1 TAB PO (08:17)
[2022-11-29] MEDS: FLECAINIDE ACETATE 50 MG TABLET PO ×2 (08:19→20:25)
[2022-11-29] MEDS: TORSEMIDE 20 MG TABLET PO (08:19)
[2022-11-29] MEDS: NYSTATIN POWDER 1 APPLIC TOPICAL ×2 (08:25→20:24)
[2022-11-29] MEDS: TRIAMCINOLONE ACETONIDE CREAM 0.1 % 1 APPLIC TOPICAL ×2 (08:31→16:22)
[2022-11-29] MEDS: SERTRALINE 100 MG TABLET PO (08:31)
--- NOTE | 2022-11-29 10:04 | PC.NURSE ---
Resident had Acupuncture procedure this morning. Weight was 200lbs and no c/o pain
[2022-11-29] MEDS: PRAVASTATIN SODIUM 40 MG TABLET PO (20:25)
[2022-11-30] MEDS: OXYCODONE 5 MG TABLET PO ×2 (02:22→20:38)
[2022-11-30 08:00] VITALS: BMI 38.8
[2022-11-30] MEDS: ACETAMINOPHEN 500 MG TABLET 1000 MG PO ×3 (08:22→20:37)
[2022-11-30] MEDS: ASPIRIN 81 MG TABLET EC PO (08:22)
[2022-11-30] MEDS: CALCIUM CARBONATE 500 MG TABLET PO (08:23)
[2022-11-30] MEDS: APIXABAN 5 MG TABLET 2.5 MG PO ×2 (08:23→15:52)
[2022-11-30] MEDS: FOLIC ACID 1 MG TABLET 3 MG PO (08:23)
[2022-11-30] MEDS: LOSARTAN POTASSIUM 50 MG TABLET PO (08:23)
[2022-11-30] MEDS: MULTIVITAMIN/MINERALS 1 TABLET 1 TAB PO (08:23)
[2022-11-30] MEDS: TORSEMIDE 20 MG TABLET PO (08:24)
[2022-11-30] MEDS: NYSTATIN POWDER 1 APPLIC TOPICAL ×2 (08:24→20:38)
[2022-11-30] MEDS: FLECAINIDE ACETATE 50 MG TABLET PO ×2 (08:24→20:38)
[2022-11-30] MEDS: TRIAMCINOLONE ACETONIDE CREAM 0.1 % 1 APPLIC TOPICAL ×2 (08:24→20:38)
[2022-11-30] MEDS: SERTRALINE 100 MG TABLET PO (08:25)
--- NOTE | 2022-11-30 13:48 | PC.SPIRITC ---
Visit from 11/29/2022 I provided visit for connection and support.
[2022-11-30] MEDS: PRAVASTATIN SODIUM 40 MG TABLET PO (20:38)
[2022-12-01] MEDS: FOLIC ACID 1 MG TABLET 3 MG PO (08:06)
[2022-12-01] MEDS: ACETAMINOPHEN 500 MG TABLET 1000 MG PO ×3 (08:06→20:45)
[2022-12-01] MEDS: APIXABAN 5 MG TABLET 2.5 MG PO ×2 (08:06→17:55)
[2022-12-01] MEDS: ASPIRIN 81 MG TABLET EC PO (08:06)
[2022-12-01] MEDS: CALCIUM CARBONATE 500 MG TABLET PO (08:06)
[2022-12-01] MEDS: MULTIVITAMIN/MINERALS 1 TABLET 1 TAB PO (08:07)
[2022-12-01] MEDS: NYSTATIN POWDER 1 APPLIC TOPICAL ×2 (08:07→20:46)
[2022-12-01] MEDS: LOSARTAN POTASSIUM 50 MG TABLET PO (08:07)
[2022-12-01] MEDS: FLECAINIDE ACETATE 50 MG TABLET PO ×2 (08:08→20:46)
[2022-12-01] MEDS: SERTRALINE 100 MG TABLET PO (08:08)
[2022-12-01] MEDS: TORSEMIDE 20 MG TABLET PO (08:08)
--- NOTE | 2022-12-01 11:40 | PC.NURSE ---
Status/Order: LE's rash resolved. Change Triamcinolone Cream BID to BID PRN by Viktoria BARRIOS.
--- NOTE | 2022-12-01 12:55 | PC.NURSE ---
Outing: Resident left with and will be back around 5pm
[2022-12-01] MEDS: OXYCODONE 5 MG TABLET PO (20:46)
[2022-12-01] MEDS: PRAVASTATIN SODIUM 40 MG TABLET PO (20:46)
--- NOTE | 2022-12-01 22:20 | PC.NURSE ---
Blood Glucose: Resident's BG reading at 20:00 was 532. Resident had reported that she had eaten the meal and the bun with butter for supper. Brand Coordinator also observed 2 open apple juices and alejandro's peanut butter cup wrappers on bedside table. Resident re-educated on choosing low carb and high protein snacks. Told appeals writer that she was feeling okay and had no s/s of hyperglycemia. Resident asleep in bed at this time.
[2022-12-02] MEDS: CALCIUM CARBONATE 500 MG TABLET PO (08:35)
[2022-12-02] MEDS: FLECAINIDE ACETATE 50 MG TABLET PO ×2 (08:35→20:10)
[2022-12-02] MEDS: SERTRALINE 100 MG TABLET PO (08:35)
[2022-12-02] MEDS: NYSTATIN POWDER 1 APPLIC TOPICAL ×2 (08:35→20:10)
[2022-12-02] MEDS: ACETAMINOPHEN 500 MG TABLET 1000 MG PO ×3 (08:41→20:10)
[2022-12-02] MEDS: ASPIRIN 81 MG TABLET EC PO (08:42)
[2022-12-02] MEDS: FOLIC ACID 1 MG TABLET 3 MG PO (08:42)
[2022-12-02] MEDS: LOSARTAN POTASSIUM 50 MG TABLET PO (08:42)
[2022-12-02] MEDS: APIXABAN 5 MG TABLET 2.5 MG PO ×2 (08:42→16:46)
[2022-12-02] MEDS: MULTIVITAMIN/MINERALS 1 TABLET 1 TAB PO (08:42)
--- NOTE | 2022-12-02 10:05 | PC.NURSE ---
Resident went to Infusion center with satff in wheelchair for RA infusion.
[2022-12-02] MEDS: TORSEMIDE 20 MG TABLET PO (11:15)
--- NOTE | 2022-12-02 11:40 | PC.NURSE ---
Return from RA infusion in wheelchair with staff.
--- NOTE | 2022-12-02 12:37 | PC.NURSE ---
Recert Visit: Resident seen by Dr. Carrillo. Orders reviewed ad renewed of 75 days with changes. Order: Increase PM Novolog to 11 units.
[2022-12-02 14:31] VITALS: BMI 38.7
[2022-12-02] MEDS: OXYCODONE 5 MG TABLET PO (20:10)
[2022-12-02] MEDS: PRAVASTATIN SODIUM 40 MG TABLET PO (20:10)
[2022-12-03] MEDS: ACETAMINOPHEN 500 MG TABLET 1000 MG PO ×3 (07:50→20:08)
[2022-12-03] MEDS: APIXABAN 5 MG TABLET 2.5 MG PO ×2 (07:51→16:28)
[2022-12-03] MEDS: ASPIRIN 81 MG TABLET EC PO (07:51)
[2022-12-03] MEDS: FOLIC ACID 1 MG TABLET 3 MG PO (07:51)
[2022-12-03] MEDS: CALCIUM CARBONATE 500 MG TABLET PO (07:51)
[2022-12-03] MEDS: LOSARTAN POTASSIUM 50 MG TABLET PO (07:51)
[2022-12-03] MEDS: FLECAINIDE ACETATE 50 MG TABLET PO ×2 (07:52→20:09)
[2022-12-03] MEDS: MULTIVITAMIN/MINERALS 1 TABLET 1 TAB PO (07:52)
[2022-12-03] MEDS: NYSTATIN POWDER 1 APPLIC TOPICAL ×2 (07:52→20:09)
[2022-12-03] MEDS: TORSEMIDE 20 MG TABLET PO (07:52)
[2022-12-03] MEDS: SERTRALINE 100 MG TABLET PO (07:53)
--- NOTE | 2022-12-03 13:54 | PC.NURSE ---
MIRELA: Resident went out with at 1330 today after resident and had lunch here together. They plan on returning at approximately 1745.
[2022-12-03] MEDS: PRAVASTATIN SODIUM 40 MG TABLET PO (20:09)
[2022-12-03] MEDS: OXYCODONE 5 MG TABLET PO (20:09)
--- NOTE | 2022-12-04 00:58 | PC.NURSE ---
Pain Resident requested pain med Oxycodone 5 mg at midnight.
--- NOTE | 2022-12-04 05:29 | PC.NURSE ---
HEALTH Resident called around midnight to get her BS checked, BS was 85 ; she got grappe juice, cookies. At her scheduled time at 0200 BS 120.
--- NOTE | 2022-12-04 06:30 | PC.NURSE ---
Health status note: Resident's blood sugar checked at approximately 0615 and noted to be 104.
--- NOTE | 2022-12-04 06:48 | PC.NURSE ---
Health Resident called at 0550, requested blood sugar checked, BS was 55, she said , she feels like her BS was low. She got 8oz Ensure, rice crispy, and 2oz of apple juice. Morning Nurse will follow up with .
[2022-12-04] MEDS: NYSTATIN POWDER 1 APPLIC TOPICAL ×2 (07:57→20:11)
[2022-12-04] MEDS: ASPIRIN 81 MG TABLET EC PO (08:03)
[2022-12-04] MEDS: CALCIUM CARBONATE 500 MG TABLET PO (08:03)
[2022-12-04] MEDS: ACETAMINOPHEN 500 MG TABLET 1000 MG PO ×3 (08:03→20:10)
[2022-12-04] MEDS: LOSARTAN POTASSIUM 50 MG TABLET PO (08:04)
[2022-12-04] MEDS: APIXABAN 5 MG TABLET 2.5 MG PO ×2 (08:04→15:45)
[2022-12-04] MEDS: MULTIVITAMIN/MINERALS 1 TABLET 1 TAB PO (08:04)
[2022-12-04] MEDS: FOLIC ACID 1 MG TABLET 3 MG PO (08:04)
[2022-12-04] MEDS: TORSEMIDE 20 MG TABLET PO (08:05)
[2022-12-04] MEDS: FLECAINIDE ACETATE 50 MG TABLET PO ×2 (08:05→20:11)
[2022-12-04] MEDS: SERTRALINE 100 MG TABLET PO (08:06)
[2022-12-04 13:30] VITALS: BMI 39.2
[2022-12-04 16:00] VITALS: BP 120/76; PULSE 69; RESP 16; TEMP 36.5; O2SAT 95
--- NOTE | 2022-12-04 16:40 | PC.NURSE ---
Resident schedule bath and body audit done, skin remains intact, lower extremities edema noted with BHUMIKA socks applied in the AM and off at HS, continue to self administer nystatin powder to her groin for redness
--- NOTE | 2022-12-04 17:15 | PC.NURSE ---
Resident blood glucose at 1600 is 55 snack and juice given and blood glucose recheck and is 90, will give supper and schedule novolog after supper
--- NOTE | 2022-12-04 18:14 | PC.NURSE ---
Diabetic Monitoring: Resident 1700 Novolog insulin held due to blood glucose of 90 and Resident refused supper
[2022-12-04] MEDS: OXYCODONE 5 MG TABLET PO ×2 (20:11)
[2022-12-04] MEDS: PRAVASTATIN SODIUM 40 MG TABLET PO (20:11)
--- NOTE | 2022-12-04 21:11 | PC.NURSE ---
Status: Vitals are T 96.9 P 89 R 20 BP 137/84 O2 sat 95% on room air Resident did complain of GI upset, abdomen is soft and distended with bowel sounds positive x 4
--- NOTE | 2022-12-04 21:14 | PC.NURSE ---
Status: Vitals are T 96.9 P 89 R 20 BP 137/84 O2 sat 95% on room air Resident did complain of GI upset, abdomen is soft and distended with bowel sounds positive x 4, last BM on 12/03/22, whitley omi given per request and Resident did have a last emesis after, verbalize relief from GI upset after emesis, ate cereal and milk and assisted to bed
[2022-12-05 07:19] VITALS: BMI 38.8
[2022-12-05] MEDS: ACETAMINOPHEN 500 MG TABLET 1000 MG PO ×3 (07:48→21:18)
[2022-12-05] MEDS: CALCIUM CARBONATE 500 MG TABLET PO (07:48)
[2022-12-05] MEDS: ASPIRIN 81 MG TABLET EC PO (07:48)
[2022-12-05] MEDS: APIXABAN 5 MG TABLET 2.5 MG PO ×2 (07:48→15:59)
[2022-12-05] MEDS: NYSTATIN POWDER 1 APPLIC TOPICAL ×2 (07:49→21:19)
[2022-12-05] MEDS: LOSARTAN POTASSIUM 50 MG TABLET PO (07:49)
[2022-12-05] MEDS: MULTIVITAMIN/MINERALS 1 TABLET 1 TAB PO (07:49)
[2022-12-05] MEDS: FOLIC ACID 1 MG TABLET 3 MG PO (07:49)
[2022-12-05] MEDS: FLECAINIDE ACETATE 50 MG TABLET PO ×2 (07:50→21:19)
[2022-12-05] MEDS: SERTRALINE 100 MG TABLET PO (07:50)
[2022-12-05] MEDS: TORSEMIDE 20 MG TABLET PO (07:50)
--- NOTE | 2022-12-05 09:07 | PC.NURSE ---
Order: Received written order from Dr. Rivero, Change Management Director : CBC, ESR, CRP, Cr, AST, Lipid Panel (12/12/22) no more than one week prior to appointment on 12/19/22.
--- NOTE | 2022-12-05 13:55 | PC.NURSE ---
Health status note: Resident noted to have one emesis after lunch after having some soup that was served for lunch. Vital signs checked: B/P 145/75, P 78, R 16, T 98.0, O2 sat 98% on RA. Resident states she did feel nauseous just before throwing up though had had no complaints made to staff. Resident also stated she had one emesis last night. Blood sugar was also checked after emesis and noted to be 162. Resident having Gatorade and grape juice after lunch to help stabilize blood sugar being she was already given lunch insulin before emesis episode. Resident reports she had one stool today though was not loose when asked. Nursing to continue to observe.
[2022-12-05] MEDS: PRAVASTATIN SODIUM 40 MG TABLET PO (21:19)
[2022-12-05] MEDS: OXYCODONE 5 MG TABLET PO (21:22)
--- NOTE | 2022-12-05 22:27 | PC.NURSE ---
Blood Sugars: 16:00 residents b.g was 49, snack given. 17:00 B.G. was 78, snack given. 18:00 BG was 100-dinner and snack given. Resident was asymptomatic. 19:00 BG was 118. Dinner, snack and insulin given. 21:30 BG was 188. Insulin and snack given.
[2022-12-06] MEDS: ACETAMINOPHEN 500 MG TABLET 1000 MG PO ×3 (08:00→19:38)
[2022-12-06] MEDS: FOLIC ACID 1 MG TABLET 3 MG PO (08:00)
[2022-12-06] MEDS: CALCIUM CARBONATE 500 MG TABLET PO (08:00)
[2022-12-06] MEDS: APIXABAN 5 MG TABLET 2.5 MG PO ×2 (08:00→15:28)
[2022-12-06] MEDS: LOSARTAN POTASSIUM 50 MG TABLET PO (08:00)
[2022-12-06] MEDS: ASPIRIN 81 MG TABLET EC PO (08:00)
[2022-12-06] MEDS: NYSTATIN POWDER 1 APPLIC TOPICAL ×2 (08:01→19:38)
[2022-12-06] MEDS: MULTIVITAMIN/MINERALS 1 TABLET 1 TAB PO (08:01)
[2022-12-06] MEDS: SERTRALINE 100 MG TABLET PO (08:02)
[2022-12-06] MEDS: FLECAINIDE ACETATE 50 MG TABLET PO ×2 (08:02→19:38)
[2022-12-06] MEDS: TORSEMIDE 20 MG TABLET PO (08:02)
--- NOTE | 2022-12-06 16:12 | PC.NURSE ---
Received a phone call from [employer] with a change insulin order from Novolog to Humalog due to Novolog not covered by insurance. N.O. D/C Novolog. Humalog Kwik Pen 100/ml same dose and frequency as Novolog per Nicole Blum NP.
[2022-12-06] MEDS: PRAVASTATIN SODIUM 40 MG TABLET PO (19:38)
[2022-12-06] MEDS: OXYCODONE 5 MG TABLET PO (19:38)
[2022-12-07] MEDS: OXYCODONE 5 MG TABLET PO ×2 (03:19→19:46)
[2022-12-07 07:50] LABS: Chloride* 99 mmol/L (96-114); Potassium* 3.9 mmol/L (3.6-5.1); Sodium* 134 mmol/L (135-149)
[2022-12-07 07:52] LABS: Creatinine* 0.6 mg/dL (0.5-1.5); Est. Creatinine Clearance* 35.99; Estimated Glomerular Filt Rate 95 ml/min
[2022-12-07 07:53] LABS: Blood Urea Nitrogen* 17 mg/dL (7-30); Calcium* 8.1 mg/dL (8.4-10.6); Carbon Dioxide* 30 mmol/L (20-32); Glucose* 83 mg/dL (60-115)
[2022-12-07] MEDS: ASPIRIN 81 MG TABLET EC PO (08:02)
[2022-12-07] MEDS: APIXABAN 5 MG TABLET 2.5 MG PO ×2 (08:02→16:33)
[2022-12-07] MEDS: FOLIC ACID 1 MG TABLET 3 MG PO (08:02)
[2022-12-07] MEDS: CALCIUM CARBONATE 500 MG TABLET PO (08:02)
[2022-12-07] MEDS: ACETAMINOPHEN 500 MG TABLET 1000 MG PO ×3 (08:02→19:44)
[2022-12-07] MEDS: NYSTATIN POWDER 1 APPLIC TOPICAL ×2 (08:03→19:44)
[2022-12-07] MEDS: MULTIVITAMIN/MINERALS 1 TABLET 1 TAB PO (08:03)
[2022-12-07] MEDS: LOSARTAN POTASSIUM 50 MG TABLET PO (08:03)
[2022-12-07] MEDS: FLECAINIDE ACETATE 50 MG TABLET PO ×2 (08:04→19:47)
[2022-12-07] MEDS: SERTRALINE 100 MG TABLET PO (08:04)
[2022-12-07] MEDS: TORSEMIDE 20 MG TABLET PO (08:04)
[2022-12-07] MEDS: MAGNESIUM HYDROXIDE 30 ML ORAL.SUSP PO (08:24)
[2022-12-07] MEDS: INSULIN LISPRO 100 UNIT/ML VIAL 9 UNIT SUBCUT ×2 (08:52→12:17)
--- NOTE | 2022-12-07 14:32 | PC.NURSE ---
Health status note: Resident's blood sugar noted to be 65 when checked before lunch. No signs or symptoms of hypoglycemia noted other than resident reporting she felt tired. She then took 4 oz grape juice and shortbread cookies. Blood sugar noted to be 80 upon assessing approximately 15 minutes later. Resident was then served her lunch tray and was given scheduled insulin while eating lunch. Staff have left note in DRIVER EDUCATION ROAD INSTRUCTOR binder requesting provider to address recent blood sugars. Evening staff have been updated.
[2022-12-07] MEDS: PRAVASTATIN SODIUM 40 MG TABLET PO (19:44)
--- NOTE | 2022-12-07 21:59 | PC.NURSE ---
Administered 11 units of Novolog Insulin Aspart at 1745, 0 units of sliding scale coverage. Patient's blood sugar was 109. Insulin administered in lower right abdomen.
[2022-12-08] MEDS: OXYCODONE 5 MG TABLET PO ×2 (02:00→20:29)
--- NOTE | 2022-12-08 02:53 | PC.NURSE ---
Hypoglycemia Resident BS was 50 at 0150 ; gave her 8oz of Ensure , cookies, grape juice. She was shaky, and said she was feeling dizzy. Nurse stayed with her till blood sugar was checked , was BS 96. She is still a little shaky and laid down. Will recheck again.
--- NOTE | 2022-12-08 05:23 | PC.NURSE ---
WEEKLY CHARTING WEEK 1 PAIN AND ADL`S Resident vitals overall are good except her blood sugar ; gets hypoglycemic in the middle of the night, BS is scheduled to be checked at that time. Comprehensive and temporary care plan reviewed no changes made and nothing added to temporary care plan. Resident is independent with dressing, grooming, oral cares, and eats independently. She calls for needs as needed.? Staff? assist with application/removal of TEDS. Needs set up and supervision with bathing. Diet changed to diabetic (5/2) , regular texture, thin liquids. Receives HS snack for blood glucose maintenance. No problems with chewing or swallowing. Pain: Has chronic neck and shoulder pain related to arthritis. Pain controlled with? Tylenol 1000mg TID, Voltaren gel QID to painful joints,? Oxycodone 5mg @ HS & Q6H PRN which she ask mostly around 0200, got a dose last night for instance. Aqua-K pad is also in place. She is able to verbalize need for pain.
[2022-12-08] MEDS: CALCIUM CARBONATE 500 MG TABLET PO (08:36)
[2022-12-08] MEDS: ASPIRIN 81 MG TABLET EC PO (08:36)
[2022-12-08] MEDS: ACETAMINOPHEN 500 MG TABLET 1000 MG PO ×3 (08:36→20:28)
[2022-12-08] MEDS: APIXABAN 5 MG TABLET 2.5 MG PO ×2 (08:37→15:46)
[2022-12-08] MEDS: LOSARTAN POTASSIUM 50 MG TABLET PO (08:37)
[2022-12-08] MEDS: FOLIC ACID 1 MG TABLET 3 MG PO (08:37)
[2022-12-08] MEDS: MULTIVITAMIN/MINERALS 1 TABLET 1 TAB PO (08:38)
[2022-12-08] MEDS: NYSTATIN POWDER 1 APPLIC TOPICAL ×2 (08:38→20:29)
[2022-12-08] MEDS: FLECAINIDE ACETATE 50 MG TABLET PO ×2 (08:40→20:30)
[2022-12-08] MEDS: TORSEMIDE 20 MG TABLET PO (08:40)
[2022-12-08] MEDS: SERTRALINE 100 MG TABLET PO (08:41)
[2022-12-08] MEDS: INSULIN LISPRO 100 UNIT/ML VIAL 9 UNIT SUBCUT ×3 (08:46→16:59)
--- NOTE | 2022-12-08 10:04 | PC.NURSE ---
Status: Per DON okay to use Novolog Insulin until supplies gone.
--- NOTE | 2022-12-08 10:36 | PC.NURSE ---
BMP/Accu checks: Result & blood sugar readings reviewed by Viktoria BARRIOS. Order: Decrease Levemir 20 Units to 15 Units @ HS, Humalog 11 Units to 9 U @ 1730.
[2022-12-08] MEDS: INSULIN LISPRO 100 UNIT/ML VIAL SUBCUT ×3 (12:08→16:57)
[2022-12-08] MEDS: PRAVASTATIN SODIUM 40 MG TABLET PO (20:29)
--- NOTE | 2022-12-08 21:50 | PC.NURSE ---
Weekly charting, Week 1: ADLS: Resident Temporary and permanent care plan reviewed and no changes, does have daily episode of pain in the upper back and neck with pain cream applied also has schedule Oxycodone 5 mg for pain management, independent with dressing, grooming and oral care, need assist assist of one with bathing, continue on diabetic diet, independent with eating after set up, blood glucose monitor five time daily
[2022-12-09] MEDS: OXYCODONE 5 MG TABLET PO ×2 (02:21→20:29)
[2022-12-09 07:00] VITALS: BMI 39.4
[2022-12-09] MEDS: CALCIUM CARBONATE 500 MG TABLET PO (08:09)
[2022-12-09] MEDS: ACETAMINOPHEN 500 MG TABLET 1000 MG PO ×3 (08:09→20:29)
[2022-12-09] MEDS: ASPIRIN 81 MG TABLET EC PO (08:09)
[2022-12-09] MEDS: APIXABAN 5 MG TABLET 2.5 MG PO ×2 (08:09→16:50)
[2022-12-09] MEDS: FLECAINIDE ACETATE 50 MG TABLET PO ×2 (08:10→20:29)
[2022-12-09] MEDS: NYSTATIN POWDER 1 APPLIC TOPICAL ×2 (08:10→20:29)
[2022-12-09] MEDS: FOLIC ACID 1 MG TABLET 3 MG PO (08:10)
[2022-12-09] MEDS: LOSARTAN POTASSIUM 50 MG TABLET PO (08:10)
[2022-12-09] MEDS: MULTIVITAMIN/MINERALS 1 TABLET 1 TAB PO (08:10)
[2022-12-09] MEDS: TORSEMIDE 20 MG TABLET PO (08:11)
[2022-12-09] MEDS: SERTRALINE 100 MG TABLET PO (08:11)
[2022-12-09] MEDS: INSULIN LISPRO 100 UNIT/ML VIAL 9 UNIT SUBCUT ×3 (08:34→18:00)
[2022-12-09] MEDS: PRAVASTATIN SODIUM 40 MG TABLET PO (20:29)
[2022-12-10] MEDS: OXYCODONE 5 MG TABLET PO ×2 (01:47→20:12)
[2022-12-10] MEDS: ASPIRIN 81 MG TABLET EC PO (08:06)
[2022-12-10] MEDS: LOSARTAN POTASSIUM 50 MG TABLET PO (08:06)
[2022-12-10] MEDS: ACETAMINOPHEN 500 MG TABLET 1000 MG PO ×3 (08:06→20:12)
[2022-12-10] MEDS: MULTIVITAMIN/MINERALS 1 TABLET 1 TAB PO (08:06)
[2022-12-10] MEDS: APIXABAN 5 MG TABLET 2.5 MG PO ×2 (08:06→16:57)
[2022-12-10] MEDS: CALCIUM CARBONATE 500 MG TABLET PO (08:06)
[2022-12-10] MEDS: FOLIC ACID 1 MG TABLET 3 MG PO (08:06)
[2022-12-10] MEDS: FLECAINIDE ACETATE 50 MG TABLET PO ×2 (08:07→20:12)
[2022-12-10] MEDS: SERTRALINE 100 MG TABLET PO (08:07)
[2022-12-10] MEDS: NYSTATIN POWDER 1 APPLIC TOPICAL ×2 (08:07→20:12)
[2022-12-10] MEDS: TORSEMIDE 20 MG TABLET PO (08:07)
[2022-12-10] MEDS: INSULIN LISPRO 100 UNIT/ML VIAL 9 UNIT SUBCUT ×3 (08:16→18:01)
[2022-12-10] MEDS: INSULIN LISPRO 100 UNIT/ML VIAL SUBCUT ×2 (08:16→18:01)
--- NOTE | 2022-12-10 12:54 | PC.NURSE ---
Outing: Resident left with family, will be back around 6
[2022-12-10] MEDS: PRAVASTATIN SODIUM 40 MG TABLET PO (20:12)
--- NOTE | 2022-12-10 22:07 | PC.NURSE ---
Resident was MIRELA for outing. Was sent with Novolog pen for dose @ 1730. Returned at 16:40. Did not return with Novolog pen and states she had misplaced it. Resident did call her , son and daughter that were in attendance at the graduation green party that she went out for and it has not been found.
[2022-12-11] MEDS: OXYCODONE 5 MG TABLET PO ×2 (02:15→19:05)
[2022-12-11] MEDS: ACETAMINOPHEN 500 MG TABLET 1000 MG PO ×3 (08:10→19:05)
[2022-12-11] MEDS: CALCIUM CARBONATE 500 MG TABLET PO (08:11)
[2022-12-11] MEDS: APIXABAN 5 MG TABLET 2.5 MG PO ×2 (08:11→15:47)
[2022-12-11] MEDS: ASPIRIN 81 MG TABLET EC PO (08:11)
[2022-12-11] MEDS: FOLIC ACID 1 MG TABLET 3 MG PO (08:11)
[2022-12-11] MEDS: INSULIN LISPRO 100 UNIT/ML VIAL 9 UNIT SUBCUT ×3 (08:14→17:13)
[2022-12-11] MEDS: LOSARTAN POTASSIUM 50 MG TABLET PO (08:15)
[2022-12-11] MEDS: INSULIN LISPRO 100 UNIT/ML VIAL SUBCUT ×2 (08:15→12:38)
[2022-12-11] MEDS: FLECAINIDE ACETATE 50 MG TABLET PO ×2 (08:16→19:05)
[2022-12-11] MEDS: MULTIVITAMIN/MINERALS 1 TABLET 1 TAB PO (08:16)
[2022-12-11] MEDS: SERTRALINE 100 MG TABLET PO (08:16)
[2022-12-11] MEDS: TORSEMIDE 20 MG TABLET PO (08:16)
[2022-12-11] MEDS: NYSTATIN POWDER 1 APPLIC TOPICAL ×2 (08:16→19:05)
[2022-12-11 16:00] VITALS: BP 142/72; PULSE 74; RESP 18; TEMP 36.6; O2SAT 96
[2022-12-11] MEDS: PRAVASTATIN SODIUM 40 MG TABLET PO (19:05)
[2022-12-12] MEDS: OXYCODONE 5 MG TABLET PO ×2 (02:31→20:11)
[2022-12-12] MEDS: FOLIC ACID 1 MG TABLET 3 MG PO (07:33)
[2022-12-12] MEDS: ACETAMINOPHEN 500 MG TABLET 1000 MG PO ×3 (07:33→20:09)
[2022-12-12] MEDS: ASPIRIN 81 MG TABLET EC PO (07:33)
[2022-12-12] MEDS: LOSARTAN POTASSIUM 50 MG TABLET PO (07:33)
[2022-12-12] MEDS: CALCIUM CARBONATE 500 MG TABLET PO (07:33)
[2022-12-12] MEDS: APIXABAN 5 MG TABLET 2.5 MG PO ×2 (07:33→15:50)
[2022-12-12] MEDS: FLECAINIDE ACETATE 50 MG TABLET PO ×2 (07:34→20:10)
[2022-12-12] MEDS: NYSTATIN POWDER 1 APPLIC TOPICAL ×2 (07:34→20:09)
[2022-12-12] MEDS: SERTRALINE 100 MG TABLET PO (07:34)
[2022-12-12] MEDS: TORSEMIDE 20 MG TABLET PO (07:34)
[2022-12-12] MEDS: MULTIVITAMIN/MINERALS 1 TABLET 1 TAB PO (07:34)
[2022-12-12 07:52] VITALS: BMI 38.5
[2022-12-12] MEDS: INSULIN LISPRO 100 UNIT/ML VIAL 9 UNIT SUBCUT ×3 (08:04→17:20)
[2022-12-12] MEDS: INSULIN LISPRO 100 UNIT/ML VIAL SUBCUT (08:04)
--- NOTE | 2022-12-12 09:22 | PC.NURSE ---
Appointment: Resident left with for dentist appointment
--- NOTE | 2022-12-12 12:22 | PC.NURSE ---
Appointment note: Resident returned from dental clinic appointment at this time. Per notes from appointment with Dr. Armond Lombardo: Patient came in with left side jaw pain. We took x-rays, no signs of infection or decay. No dental treatment is needed. Refer patient to [facility] physical therapy due to TMJ issues, also gave patient TMJ exercise sheet that she can use at home. Patient will see us for a cleaning on January 09.
[2022-12-12] MEDS: PRAVASTATIN SODIUM 40 MG TABLET PO (20:09)
--- NOTE | 2022-12-12 21:41 | PC.NURSE ---
bg: bg 16:00 = 72. Snack of banana, yogurt, juice, pudding given, 17:00 - bg = 114. 20:00 bg = 245. Snack of cheese stick, apple sauce, jello, cookies given
[2022-12-13] MEDS: OXYCODONE 5 MG TABLET PO ×2 (02:30→20:46)
--- NOTE | 2022-12-13 02:35 | PC.NURSE ---
Pain Resident requested Oxycodone 5 mg for pain on her jaw , going to her left ear she said and shoulder pain..
[2022-12-13 07:29] LABS: Basophils Absolute Auto 0.05 K/uL (0.00-0.30); Eosinophils Percent Auto 7.4 % (0.0-7.0); Hematocrit 35.3 % (33.0-51.0); Hemoglobin* 12.2 gm/dL (12.0-16.0); Immature Granulocytes Abs Auto 0.01 K/uL (0.00-0.30); Immature Granulocytes Pct Auto 0.2 %; Lymphocytes Absolute Auto 1.88 K/uL (0.90-2.90); Lymphocytes Percent Auto 36.4 % (20-44); Mean Corpuscular HGB Conc 35 gm/dL (32-36); Mean Corpuscular Hemoglobin 35 pg (26-34); Mean Corpuscular Volume 102 fL (80-100); Neutrophils Absolute Auto 2.18 K/uL (1.7-7.0); Platelet Count* 288 K/uL (140-440); Red Blood Count 3.46 m/uL (4.00-5.20); White Blood Count* 5.17 K/uL (4.50-11.00)
[2022-12-13 07:38] LABS: Slide Review Reflex No
[2022-12-13 07:40] LABS: Cholesterol* 164 mg/dL (90-199); Creatinine* 0.8 mg/dL (0.5-1.5); Est. Creatinine Clearance* 35.99; Estimated Glomerular Filt Rate 78 ml/min
[2022-12-13 07:41] LABS: Aspartate Amino Transferase* 49 U/L (12-35); HDL Cholesterol* 35 mg/dL (>=50); LDL Cholesterol Calculated 86 mg/dL (<100); Triglycerides* 216 mg/dL (40-149)
[2022-12-13 07:45] LABS: C Reactive Protein* < 0.5 mg/dL (0.5-1.0)
[2022-12-13 08:19] LABS: Erythrocyte SedimentationRate* 13 mm/hr (2-20)
[2022-12-13] MEDS: APIXABAN 5 MG TABLET 2.5 MG PO ×2 (08:21→16:11)
[2022-12-13] MEDS: ACETAMINOPHEN 500 MG TABLET 1000 MG PO ×3 (08:21→20:46)
[2022-12-13] MEDS: CALCIUM CARBONATE 500 MG TABLET PO (08:21)
[2022-12-13] MEDS: FOLIC ACID 1 MG TABLET 3 MG PO (08:21)
[2022-12-13] MEDS: ASPIRIN 81 MG TABLET EC PO (08:21)
[2022-12-13] MEDS: MULTIVITAMIN/MINERALS 1 TABLET 1 TAB PO (08:22)
[2022-12-13] MEDS: LOSARTAN POTASSIUM 50 MG TABLET PO (08:22)
[2022-12-13] MEDS: TORSEMIDE 20 MG TABLET PO (08:23)
[2022-12-13] MEDS: NYSTATIN POWDER 1 APPLIC TOPICAL ×2 (08:23→20:46)
[2022-12-13] MEDS: FLECAINIDE ACETATE 50 MG TABLET PO ×2 (08:23→20:46)
[2022-12-13] MEDS: SERTRALINE 100 MG TABLET PO (08:29)
[2022-12-13] MEDS: INSULIN LISPRO 100 UNIT/ML VIAL 9 UNIT SUBCUT ×3 (08:33→17:11)
[2022-12-13] MEDS: INSULIN LISPRO 100 UNIT/ML VIAL SUBCUT ×2 (11:53→17:11)
[2022-12-13] MEDS: PRAVASTATIN SODIUM 40 MG TABLET PO (20:46)
--- NOTE | 2022-12-13 21:48 | PC.NURSE ---
Blood Glucose : Resident pre-supper blood glucose check and read HI, schedule and sliding scale insulin given, recheck at 8 pm and is 407.
--- NOTE | 2022-12-14 05:43 | PC.NURSE ---
Resident blood sugar did not get better, was BS 458 at 0200.
[2022-12-14] MEDS: ACETAMINOPHEN 500 MG TABLET 1000 MG PO ×3 (08:33→19:57)
[2022-12-14] MEDS: CALCIUM CARBONATE 500 MG TABLET PO (08:33)
[2022-12-14] MEDS: ASPIRIN 81 MG TABLET EC PO (08:33)
[2022-12-14] MEDS: FOLIC ACID 1 MG TABLET 3 MG PO (08:34)
[2022-12-14] MEDS: MULTIVITAMIN/MINERALS 1 TABLET 1 TAB PO (08:34)
[2022-12-14] MEDS: LOSARTAN POTASSIUM 50 MG TABLET PO (08:34)
[2022-12-14] MEDS: APIXABAN 5 MG TABLET 2.5 MG PO ×2 (08:34→16:04)
[2022-12-14] MEDS: FLECAINIDE ACETATE 50 MG TABLET PO ×2 (08:35→19:57)
[2022-12-14] MEDS: NYSTATIN POWDER 1 APPLIC TOPICAL ×2 (08:35→19:57)
[2022-12-14] MEDS: TORSEMIDE 20 MG TABLET PO (08:36)
[2022-12-14] MEDS: SERTRALINE 100 MG TABLET PO (08:36)
[2022-12-14] MEDS: INSULIN LISPRO 100 UNIT/ML VIAL SUBCUT ×3 (08:41→17:26)
[2022-12-14] MEDS: INSULIN LISPRO 100 UNIT/ML VIAL 9 UNIT SUBCUT ×3 (08:42→17:24)
[2022-12-14 10:44] VITALS: BMI 38.5
--- NOTE | 2022-12-14 13:26 | PC.NURSE ---
Pain medication: Resident requested to have her HS tab Oxycodone 5mg at 2200 hours instead of 2000 hors, as she want to avoid taking her PRN dose.
--- NOTE | 2022-12-14 15:26 | PC.NURSE ---
Resident informed me she is trying to make an appointment with the [facility] to be seen by Agnes Reagan for TMJ treatment and they need a referral. Will request from FORESTRY CONSULTANT tomorrow.
[2022-12-14] MEDS: PRAVASTATIN SODIUM 40 MG TABLET PO (19:57)
[2022-12-14] MEDS: OXYCODONE 5 MG TABLET PO (21:40)
--- NOTE | 2022-12-15 00:18 | PC.NURSE ---
Weekly Charting: Week 2 Reviewed resident's recent vital signs, no concerns noted. Reviewed comprehensive and temporary care plans, no new changes noted/made. Resident is independent with transfers, ambulates with walker. Resident able to get in and out of bed independently. Right 1/4 side rail up at all times to promote independence with repositioning in bed. No other assistive devices used for mobility. Resident is at low risk for falls. Interventions in place to prevent falls include having the bed locked and in low position, call light within reach, non skid footwear, and educating resident to call for help when experiencing weakness. Resident is not on ambulation or ROM program at this time.
[2022-12-15] MEDS: OXYCODONE 5 MG TABLET PO ×2 (02:59→21:46)
[2022-12-15] MEDS: FOLIC ACID 1 MG TABLET 3 MG PO (07:49)
[2022-12-15] MEDS: APIXABAN 5 MG TABLET 2.5 MG PO ×2 (07:49→16:00)
[2022-12-15] MEDS: LOSARTAN POTASSIUM 50 MG TABLET PO (07:49)
[2022-12-15] MEDS: ASPIRIN 81 MG TABLET EC PO (07:49)
[2022-12-15] MEDS: NYSTATIN POWDER 1 APPLIC TOPICAL ×2 (07:49→20:25)
[2022-12-15] MEDS: MULTIVITAMIN/MINERALS 1 TABLET 1 TAB PO (07:49)
[2022-12-15] MEDS: ACETAMINOPHEN 500 MG TABLET 1000 MG PO ×3 (07:49→20:23)
[2022-12-15] MEDS: CALCIUM CARBONATE 500 MG TABLET PO (07:49)
[2022-12-15] MEDS: FLECAINIDE ACETATE 50 MG TABLET PO ×2 (07:49→20:26)
[2022-12-15] MEDS: TORSEMIDE 20 MG TABLET PO (07:50)
[2022-12-15] MEDS: SERTRALINE 100 MG TABLET PO (07:50)
[2022-12-15] MEDS: INSULIN LISPRO 100 UNIT/ML VIAL 9 UNIT SUBCUT ×3 (08:31→17:40)
[2022-12-15] MEDS: INSULIN LISPRO 100 UNIT/ML VIAL SUBCUT ×2 (08:32→11:41)
--- NOTE | 2022-12-15 14:26 | PC.NURSE ---
PT referral order by Viktoria BARRIOS faxed to [facility] rehab services.
[2022-12-15] MEDS: PRAVASTATIN SODIUM 40 MG TABLET PO (20:25)
[2022-12-16] MEDS: OXYCODONE 5 MG TABLET PO ×2 (02:43→21:51)
--- NOTE | 2022-12-16 07:16 | PC.NURSE ---
Weekly Charting, Week 2 - Mobility: Comprehensive and temporary care plan reviewed. No changes made, and nothing added to temporary care plan. Transfers and ambulates independently with 4WW. Independent with bed mobility. 07/06 right side rail up at all times to aid for bed mobility. Vital signs reviewed, few elevated BP's. Is on BP medication. Continue weekly monitoring and refer to provider as needed. Continue with accu checks monitoring QID & @ 0200and reviewed by provider as needed. 12/02 Increase PM Novolog dose. Fall: No falls the past month. Is a high fall risk according to assessment done on 11/03. Fall interventions: call light within reach, bed in low position with brakes locked, falling star magnet in place.
[2022-12-16] MEDS: ASPIRIN 81 MG TABLET EC PO (08:01)
[2022-12-16] MEDS: ACETAMINOPHEN 500 MG TABLET 1000 MG PO ×3 (08:01→19:58)
[2022-12-16] MEDS: CALCIUM CARBONATE 500 MG TABLET PO (08:01)
[2022-12-16] MEDS: FOLIC ACID 1 MG TABLET 3 MG PO (08:02)
[2022-12-16] MEDS: APIXABAN 5 MG TABLET 2.5 MG PO ×2 (08:02→18:52)
[2022-12-16] MEDS: TORSEMIDE 20 MG TABLET PO (08:05)
[2022-12-16] MEDS: FLECAINIDE ACETATE 50 MG TABLET PO ×2 (08:05→19:58)
[2022-12-16] MEDS: LOSARTAN POTASSIUM 50 MG TABLET PO (08:05)
[2022-12-16] MEDS: MULTIVITAMIN/MINERALS 1 TABLET 1 TAB PO (08:05)
[2022-12-16] MEDS: NYSTATIN POWDER 1 APPLIC TOPICAL ×2 (08:05→19:58)
[2022-12-16] MEDS: SERTRALINE 100 MG TABLET PO (08:06)
[2022-12-16] MEDS: INSULIN LISPRO 100 UNIT/ML VIAL SUBCUT ×2 (08:27→11:49)
[2022-12-16] MEDS: INSULIN LISPRO 100 UNIT/ML VIAL 9 UNIT SUBCUT ×3 (08:28→18:56)
[2022-12-16 13:01] VITALS: BMI 38.2
[2022-12-16] MEDS: PRAVASTATIN SODIUM 40 MG TABLET PO (19:58)
[2022-12-17] MEDS: OXYCODONE 5 MG TABLET PO ×2 (02:46→21:23)
--- NOTE | 2022-12-17 03:40 | PC.NURSE ---
Hypoglycemia Resident blood sugar checked at 0200 was BS 37, she was sweaty, shaky and weak. She had cookie, rice crispy, 8oz Ensure, 4oz cranberry juice. In 15 minutes BS 73 and in 30 minutes BS 109. She was able to get up and used the toilet. She requested pain med for her jaw and shoulders. Resident will be checked again at 0400.
--- NOTE | 2022-12-17 05:49 | PC.NURSE ---
Blood sugar Resident BS 270at 7854
[2022-12-17] MEDS: ACETAMINOPHEN 500 MG TABLET 1000 MG PO ×3 (07:59→20:13)
[2022-12-17] MEDS: CALCIUM CARBONATE 500 MG TABLET PO (07:59)
[2022-12-17] MEDS: ASPIRIN 81 MG TABLET EC PO (07:59)
[2022-12-17] MEDS: FOLIC ACID 1 MG TABLET 3 MG PO (08:00)
[2022-12-17] MEDS: LOSARTAN POTASSIUM 50 MG TABLET PO (08:00)
[2022-12-17] MEDS: MULTIVITAMIN/MINERALS 1 TABLET 1 TAB PO (08:00)
[2022-12-17] MEDS: APIXABAN 5 MG TABLET 2.5 MG PO ×2 (08:00→16:13)
[2022-12-17] MEDS: FLECAINIDE ACETATE 50 MG TABLET PO ×2 (08:01→20:13)
[2022-12-17] MEDS: TORSEMIDE 20 MG TABLET PO (08:01)
[2022-12-17] MEDS: NYSTATIN POWDER 1 APPLIC TOPICAL ×2 (08:01→20:13)
[2022-12-17] MEDS: SERTRALINE 100 MG TABLET PO (08:02)
[2022-12-17] MEDS: INSULIN LISPRO 100 UNIT/ML VIAL SUBCUT ×2 (08:50→12:12)
[2022-12-17] MEDS: INSULIN LISPRO 100 UNIT/ML VIAL 9 UNIT SUBCUT ×3 (08:50→17:15)
[2022-12-17] MEDS: bisacodyL 10 MG SUPP.RECT PR (13:31)
--- NOTE | 2022-12-17 13:45 | PC.NURSE ---
Health status note: Resident c/o constipation after lunch and was given PRN Bisacodyl suppository per request. Upon returning to resident's room, resident was noted to be in bathroom and stated she had just had an emesis. Emesis of partially digested Jello noted in trash. Temp noted to be 97.6. Resident stated she had felt nauseous right before vomiting and that emesis had come on suddenly. After emesis she was able to have moderate to large formed BM. Resident stated she felt relief after BM and emesis episode. Financial Aid Manager did check blood glucose which was noted to be 143. Financial Aid Manager then encouraged resident to sip on some of her Gatorade to help promote hydration and keep stable blood sugar. Evening nurse updated. Nursing to continue to observe.
[2022-12-17] MEDS: PRAVASTATIN SODIUM 40 MG TABLET PO (20:13)
--- NOTE | 2022-12-17 21:15 | PC.NURSE ---
BG: BG 16:00- 64. Snacks given. 17:00 bg - 178. Insulin administered. 20:00 BG 241. insulin administered. Snacks provided for NOC shift
[2022-12-18] MEDS: OXYCODONE 5 MG TABLET PO ×2 (02:19→21:22)
[2022-12-18] MEDS: CALCIUM CARBONATE 500 MG TABLET PO (08:08)
[2022-12-18] MEDS: APIXABAN 5 MG TABLET 2.5 MG PO ×2 (08:08→16:25)
[2022-12-18] MEDS: ASPIRIN 81 MG TABLET EC PO (08:08)
[2022-12-18] MEDS: ACETAMINOPHEN 500 MG TABLET 1000 MG PO ×3 (08:08→19:42)
[2022-12-18] MEDS: LOSARTAN POTASSIUM 50 MG TABLET PO (08:09)
[2022-12-18] MEDS: FOLIC ACID 1 MG TABLET 3 MG PO (08:09)
[2022-12-18] MEDS: SERTRALINE 100 MG TABLET PO (08:10)
[2022-12-18] MEDS: FLECAINIDE ACETATE 50 MG TABLET PO ×2 (08:10→19:42)
[2022-12-18] MEDS: MULTIVITAMIN/MINERALS 1 TABLET 1 TAB PO (08:10)
[2022-12-18] MEDS: NYSTATIN POWDER 1 APPLIC TOPICAL ×2 (08:10→19:42)
[2022-12-18] MEDS: TORSEMIDE 20 MG TABLET PO (08:10)
[2022-12-18] MEDS: INSULIN LISPRO 100 UNIT/ML VIAL 9 UNIT SUBCUT ×3 (08:30→16:45)
[2022-12-18] MEDS: INSULIN LISPRO 100 UNIT/ML VIAL SUBCUT ×2 (11:49→16:44)
[2022-12-18 16:00] VITALS: BP 132/77; PULSE 77; RESP 16; TEMP 36.4; O2SAT 97
[2022-12-18] MEDS: PRAVASTATIN SODIUM 40 MG TABLET PO (19:42)
[2022-12-19] MEDS: OXYCODONE 5 MG TABLET PO ×2 (02:57→21:04)
[2022-12-19 07:00] VITALS: BMI 38.8
--- NOTE | 2022-12-19 07:53 | PC.NURSE ---
Appointment: Today's [facility] appointments were cancelled per resident request. Resident will re-schedule.
--- NOTE | 2022-12-19 08:21 | PC.NURSE ---
Call out made to [facility] requesting CT Scan of chest done here in [facility] per resident request.
[2022-12-19] MEDS: ASPIRIN 81 MG TABLET EC PO (08:26)
[2022-12-19] MEDS: CALCIUM CARBONATE 500 MG TABLET PO (08:26)
[2022-12-19] MEDS: ACETAMINOPHEN 500 MG TABLET 1000 MG PO ×3 (08:26→21:02)
[2022-12-19] MEDS: FOLIC ACID 1 MG TABLET 3 MG PO (08:26)
[2022-12-19] MEDS: APIXABAN 5 MG TABLET 2.5 MG PO ×2 (08:26→15:59)
[2022-12-19] MEDS: LOSARTAN POTASSIUM 50 MG TABLET PO (08:27)
[2022-12-19] MEDS: MULTIVITAMIN/MINERALS 1 TABLET 1 TAB PO (08:27)
[2022-12-19] MEDS: NYSTATIN POWDER 1 APPLIC TOPICAL ×2 (08:27→21:03)
[2022-12-19] MEDS: TORSEMIDE 20 MG TABLET PO (08:27)
[2022-12-19] MEDS: FLECAINIDE ACETATE 50 MG TABLET PO ×2 (08:27→21:03)
[2022-12-19] MEDS: SERTRALINE 100 MG TABLET PO (08:28)
[2022-12-19] MEDS: INSULIN LISPRO 100 UNIT/ML VIAL 9 UNIT SUBCUT ×3 (08:34→17:24)
[2022-12-19] MEDS: INSULIN LISPRO 100 UNIT/ML VIAL SUBCUT ×3 (08:35→17:24)
--- NOTE | 2022-12-19 11:34 | PC.NURSE ---
Received order from Dr. Rivero for CT Chest w/o IV contrast and complete pulmonary function test with bronchodilator testing.
--- NOTE | 2022-12-19 12:22 | PC.NURSE ---
Pulmonary function test can not be done here as per respiratory therapist, Jenniffer. Resident notified, she will make an appointment in [place].
--- NOTE | 2022-12-19 14:00 | CRLHL7_ITS ---
For Patients: As a result of the Century Cures Act, medical imaging exams and procedure reports are released immediately into your electronic medical record. You may view this report before your referring provider. If you have questions, please contact your health care provider. INDICATION : Follow up interstitial lung disease reportedly secondary to rheumatoid arthritis. TECHNIQUE: Noncontrast chest CT. COMPARISON: None. No correlative studies either. FINDINGS: Fine linear and curvilinear subpleural interstitial reticular opacities are nonspecific in appearance. The history provided suggests that these are related to rheumatoid arthritis. There is minor bronchiectasis at the extreme lung bases. The trachea and mainstem bronchi are patent and clear. No thoracic lymphadenopathy. The included thyroid gland and breasts are within normal limits. Normal caliber thoracic aorta. Coronary artery calcifications and/or coronary artery stents. Images of the upper abdomen demonstrate an absent or markedly atrophic spleen. Specifically there is a small curvilinear hyperdense structure in the left upper quadrant with associated peripherally calcified focus. Please see for example image 80 series 2. IMPRESSION: 1. Scattered largely peripheral subpleural linear and curvilinear interstitial opacities likely reflecting some degree of fibrosis. Slight bronchiectasis at the lung bases. 2. No acute cardiopulmonary process identified. 3. Atrophic or potentially absent spleen with a curvilinear density in the left upper quadrant. Please note that all CT scans at this facility use dose modulation, iterative reconstruction, and/or weight-based dosing when appropriate to reduce radiation dose to as low as reasonably achievable. Dictated by Avery Martinez MD @ 12/19/2022 4:38:46 PM (Electronically Signed)
[2022-12-19] MEDS: MAGNESIUM HYDROXIDE 30 ML ORAL.SUSP PO (17:32)
[2022-12-19] MEDS: PRAVASTATIN SODIUM 40 MG TABLET PO (21:03)
--- NOTE | 2022-12-20 06:54 | PC.NURSE ---
CT Chest result faxed to Dr. Almas Rivero, [employer] [phone]
[2022-12-20] MEDS: ASPIRIN 81 MG TABLET EC PO (08:31)
[2022-12-20] MEDS: APIXABAN 5 MG TABLET 2.5 MG PO ×2 (08:31→15:00)
[2022-12-20] MEDS: ACETAMINOPHEN 500 MG TABLET 1000 MG PO ×3 (08:31→20:19)
[2022-12-20] MEDS: FOLIC ACID 1 MG TABLET 3 MG PO (08:31)
[2022-12-20] MEDS: CALCIUM CARBONATE 500 MG TABLET PO (08:31)
[2022-12-20] MEDS: NYSTATIN POWDER 1 APPLIC TOPICAL ×2 (08:32→20:20)
[2022-12-20] MEDS: MULTIVITAMIN/MINERALS 1 TABLET 1 TAB PO (08:32)
[2022-12-20] MEDS: LOSARTAN POTASSIUM 50 MG TABLET PO (08:32)
[2022-12-20] MEDS: TORSEMIDE 20 MG TABLET PO (08:32)
[2022-12-20] MEDS: FLECAINIDE ACETATE 50 MG TABLET PO ×2 (08:32→20:20)
[2022-12-20] MEDS: SERTRALINE 100 MG TABLET PO (08:33)
[2022-12-20] MEDS: INSULIN LISPRO 100 UNIT/ML VIAL SUBCUT ×2 (08:42→12:02)
[2022-12-20] MEDS: INSULIN LISPRO 100 UNIT/ML VIAL 9 UNIT SUBCUT ×3 (08:42→18:09)
[2022-12-20] MEDS: OXYCODONE 5 MG TABLET PO ×2 (14:56→21:46)
[2022-12-20] MEDS: PRAVASTATIN SODIUM 40 MG TABLET PO (20:20)
--- NOTE | 2022-12-20 21:46 | PC.NURSE ---
Glucose: Resident 1600 blood glucose is 70 alert and oriented per baseline no signs and symptoms of hypoglycemia noted, snack given, recheck and is 146, did eat 90% of her meal and schedule insulin given, HS blood glucose is 229
[2022-12-21] MEDS: ASPIRIN 81 MG TABLET EC PO (07:47)
[2022-12-21] MEDS: CALCIUM CARBONATE 500 MG TABLET PO (07:47)
[2022-12-21] MEDS: FOLIC ACID 1 MG TABLET 3 MG PO (07:47)
[2022-12-21] MEDS: APIXABAN 5 MG TABLET 2.5 MG PO ×2 (07:47→16:15)
[2022-12-21] MEDS: ACETAMINOPHEN 500 MG TABLET 1000 MG PO ×3 (07:47→20:25)
[2022-12-21] MEDS: NYSTATIN POWDER 1 APPLIC TOPICAL ×2 (07:48→20:25)
[2022-12-21] MEDS: MULTIVITAMIN/MINERALS 1 TABLET 1 TAB PO (07:48)
[2022-12-21] MEDS: LOSARTAN POTASSIUM 50 MG TABLET PO (07:48)
[2022-12-21] MEDS: FLECAINIDE ACETATE 50 MG TABLET PO ×2 (07:48→20:25)
[2022-12-21] MEDS: SERTRALINE 100 MG TABLET PO (07:49)
[2022-12-21] MEDS: TORSEMIDE 20 MG TABLET PO (07:49)
[2022-12-21 07:54] VITALS: BMI 38.8
[2022-12-21] MEDS: INSULIN LISPRO 100 UNIT/ML VIAL 9 UNIT SUBCUT ×3 (08:48→17:22)
[2022-12-21] MEDS: PRAVASTATIN SODIUM 40 MG TABLET PO (20:25)
[2022-12-21] MEDS: OXYCODONE 5 MG TABLET PO (21:27)
--- NOTE | 2022-12-21 21:47 | PC.NURSE ---
Resident c/o TMJ related jaw pain. Using aqua K-pad, warm towels, and Oxycodone to provide relief. Does occasionally try to relieve pain with Tylenol during day with standing order of 650mg, along with scheduled Tylenol 1000mg TID doses. Asked blog writer to be placed on the MATERIALS ENGINEER book for discussion about further management of TMJ associated pain and options.
[2022-12-22] MEDS: OXYCODONE 5 MG TABLET PO ×2 (02:45→21:19)
--- NOTE | 2022-12-22 03:39 | PC.NURSE ---
Pain Resident requested Oxycodone 5mg for shoulders pain and left jaw pain (TMJ).
--- NOTE | 2022-12-22 05:46 | PC.NURSE ---
WEEKLY CHARTING WEEK 3 : Toileting and skin Vital signs reviewed blood glucose stable still not stable ; 0200 was BS 243 . Comprehensive care plan and temporary care plan reviewed with? changes made lately regarding her left side jaw pain ; pain should be managed and controlled .? Skin :Has redness to groin and abdominal fold, scheduled nystatin powder applied. Trace of edema to bilateral lower legs, wears Curtis socks on AM, off evening. Skin check done every bath days and during cares. Resident is independent with toileting, incontinent pad, ryan cares and clothing management. She is able to use call light for bathroom use ; Wears medium pull up.
[2022-12-22] MEDS: ACETAMINOPHEN 500 MG TABLET 1000 MG PO ×2 (08:36→20:12)
[2022-12-22] MEDS: ASPIRIN 81 MG TABLET EC PO (08:36)
[2022-12-22] MEDS: CALCIUM CARBONATE 500 MG TABLET PO (08:36)
[2022-12-22] MEDS: MULTIVITAMIN/MINERALS 1 TABLET 1 TAB PO (08:37)
[2022-12-22] MEDS: FOLIC ACID 1 MG TABLET 3 MG PO (08:37)
[2022-12-22] MEDS: TORSEMIDE 20 MG TABLET PO (08:37)
[2022-12-22] MEDS: LOSARTAN POTASSIUM 50 MG TABLET PO (08:37)
[2022-12-22] MEDS: APIXABAN 5 MG TABLET 2.5 MG PO ×2 (08:37→16:47)
[2022-12-22] MEDS: NYSTATIN POWDER 1 APPLIC TOPICAL ×2 (08:37→20:12)
[2022-12-22] MEDS: SERTRALINE 100 MG TABLET PO (08:37)
[2022-12-22] MEDS: FLECAINIDE ACETATE 50 MG TABLET PO ×2 (08:37→20:12)
[2022-12-22] MEDS: INSULIN LISPRO 100 UNIT/ML VIAL 9 UNIT SUBCUT ×2 (08:44→17:13)
[2022-12-22] MEDS: INSULIN LISPRO 100 UNIT/ML VIAL SUBCUT ×2 (08:44→17:13)
--- NOTE | 2022-12-22 10:57 | PC.NURSE ---
MIRELA: Resident left home with at 1045 and will be back at 1630. Noon and afternoon meds with Insulin and Accu check was sent with her. Sliding scale for insulin was also given to patient`s .
--- NOTE | 2022-12-22 11:43 | PC.NURSE ---
Status: CARDIAC REHABILITATION PROGRAM DIRECTORViktoria here noted resident would like to discuss pain management & options. Has PRN Oxycodone, ans is working with therapy.
--- NOTE | 2022-12-22 14:51 | PC.NURSE ---
Weekly Charting: Week 3: Temporary and permanent careplan review and no changes made, vitals signs remains stable, Nystatin powder order for redness to groin and Resident continue to self administer, fading bruises noted to left lower extremity and monitor every shift, edema noted to bilateral lower extremity with Curtis socks applied in the AM and removed at HS, continent of bowel and bladder, independent to the bath room, wears pullups.
[2022-12-22] MEDS: PRAVASTATIN SODIUM 40 MG TABLET PO (20:12)
[2022-12-23] MEDS: OXYCODONE 5 MG TABLET PO ×2 (02:16→21:28)
[2022-12-23] MEDS: ASPIRIN 81 MG TABLET EC PO (07:59)
[2022-12-23] MEDS: ACETAMINOPHEN 500 MG TABLET 1000 MG PO ×3 (07:59→20:15)
[2022-12-23] MEDS: APIXABAN 5 MG TABLET 2.5 MG PO ×2 (08:00→16:00)
[2022-12-23] MEDS: CALCIUM CARBONATE 500 MG TABLET PO (08:00)
[2022-12-23] MEDS: FOLIC ACID 1 MG TABLET 3 MG PO (08:02)
[2022-12-23] MEDS: MULTIVITAMIN/MINERALS 1 TABLET 1 TAB PO (08:02)
[2022-12-23] MEDS: LOSARTAN POTASSIUM 50 MG TABLET PO (08:02)
[2022-12-23] MEDS: FLECAINIDE ACETATE 50 MG TABLET PO ×2 (08:03→20:16)
[2022-12-23] MEDS: NYSTATIN POWDER 1 APPLIC TOPICAL ×2 (08:03→20:16)
[2022-12-23] MEDS: TORSEMIDE 20 MG TABLET PO (08:03)
[2022-12-23] MEDS: SERTRALINE 100 MG TABLET PO (08:03)
[2022-12-23] MEDS: INSULIN LISPRO 100 UNIT/ML VIAL SUBCUT ×2 (08:14→11:14)
[2022-12-23] MEDS: INSULIN LISPRO 100 UNIT/ML VIAL 9 UNIT SUBCUT ×3 (08:14→17:24)
[2022-12-23 10:26] VITALS: BMI 38.5
--- NOTE | 2022-12-23 11:24 | PC.NURSE ---
Weights: Reviewed by Dr. Carrillo. Carrie for weekly weights.
[2022-12-23] MEDS: PRAVASTATIN SODIUM 40 MG TABLET PO (20:16)
[2022-12-24] MEDS: OXYCODONE 5 MG TABLET PO ×2 (01:57→21:48)
[2022-12-24] MEDS: CALCIUM CARBONATE 500 MG TABLET PO (07:49)
[2022-12-24] MEDS: ACETAMINOPHEN 500 MG TABLET 1000 MG PO ×3 (07:49→20:36)
[2022-12-24] MEDS: FOLIC ACID 1 MG TABLET 3 MG PO (07:49)
[2022-12-24] MEDS: APIXABAN 5 MG TABLET 2.5 MG PO ×2 (07:49→15:26)
[2022-12-24] MEDS: ASPIRIN 81 MG TABLET EC PO (07:49)
[2022-12-24] MEDS: TORSEMIDE 20 MG TABLET PO (07:50)
[2022-12-24] MEDS: LOSARTAN POTASSIUM 50 MG TABLET PO (07:50)
[2022-12-24] MEDS: MULTIVITAMIN/MINERALS 1 TABLET 1 TAB PO (07:50)
[2022-12-24] MEDS: SERTRALINE 100 MG TABLET PO (07:50)
[2022-12-24] MEDS: NYSTATIN POWDER 1 APPLIC TOPICAL ×2 (07:50→21:00)
[2022-12-24] MEDS: FLECAINIDE ACETATE 50 MG TABLET PO ×2 (07:50→20:37)
[2022-12-24] MEDS: INSULIN LISPRO 100 UNIT/ML VIAL SUBCUT ×2 (08:32→11:21)
[2022-12-24] MEDS: INSULIN LISPRO 100 UNIT/ML VIAL 9 UNIT SUBCUT ×3 (08:32→17:19)
--- NOTE | 2022-12-24 12:47 | PC.NURSE ---
Blood sugar: Blood sugar at lunch was noted to be 425 with insulin given. Rechecked 2 hours later and was 333. Resident stated she thinks it is due to stress. Encouraged resident to drink water. Resident also stated she would like a dexcon.
[2022-12-24] MEDS: PRAVASTATIN SODIUM 40 MG TABLET PO (20:37)
[2022-12-25] MEDS: OXYCODONE 5 MG TABLET PO ×2 (01:44→21:51)
[2022-12-25] MEDS: FOLIC ACID 1 MG TABLET 3 MG PO (08:10)
[2022-12-25] MEDS: LOSARTAN POTASSIUM 50 MG TABLET PO (08:10)
[2022-12-25] MEDS: ASPIRIN 81 MG TABLET EC PO (08:10)
[2022-12-25] MEDS: APIXABAN 5 MG TABLET 2.5 MG PO ×2 (08:10→16:05)
[2022-12-25] MEDS: ACETAMINOPHEN 500 MG TABLET 1000 MG PO ×3 (08:10→19:59)
[2022-12-25] MEDS: CALCIUM CARBONATE 500 MG TABLET PO (08:10)
[2022-12-25] MEDS: TORSEMIDE 20 MG TABLET PO (08:11)
[2022-12-25] MEDS: NYSTATIN POWDER 1 APPLIC TOPICAL ×2 (08:11→19:59)
[2022-12-25] MEDS: MULTIVITAMIN/MINERALS 1 TABLET 1 TAB PO (08:11)
[2022-12-25] MEDS: FLECAINIDE ACETATE 50 MG TABLET PO ×2 (08:11→19:59)
[2022-12-25] MEDS: SERTRALINE 100 MG TABLET PO (08:12)
[2022-12-25] MEDS: INSULIN LISPRO 100 UNIT/ML VIAL 9 UNIT SUBCUT ×3 (08:51→17:27)
--- NOTE | 2022-12-25 10:54 | PC.NURSE ---
Blood sugar: Residents blood sugar was noted to be 88 this morning. Was given snacks and breakfast, was rechecked at 166 with insulin given
--- NOTE | 2022-12-25 12:59 | PC.NURSE ---
Behavior: Resident was crying at lunch time, stating she can not sleep at night due to pain. Resident already on HEALTH AND HUMAN PERFORMANCE PROFESSOR book for different pain medication. also expressed concern that resident has an increase in anxiety. This also was placed in HEALTH AND HUMAN PERFORMANCE PROFESSOR book
[2022-12-25 16:00] VITALS: BP 143/76; PULSE 62; RESP 17; TEMP 37; O2SAT 95; BMI 37.5
[2022-12-25] MEDS: PRAVASTATIN SODIUM 40 MG TABLET PO (19:59)
[2022-12-26] MEDS: OXYCODONE 5 MG TABLET PO ×2 (02:26→21:38)
[2022-12-26] MEDS: ASPIRIN 81 MG TABLET EC PO (08:06)
[2022-12-26] MEDS: ACETAMINOPHEN 500 MG TABLET 1000 MG PO ×3 (08:06→20:19)
[2022-12-26] MEDS: CALCIUM CARBONATE 500 MG TABLET PO (08:06)
[2022-12-26] MEDS: MULTIVITAMIN/MINERALS 1 TABLET 1 TAB PO (08:06)
[2022-12-26] MEDS: APIXABAN 5 MG TABLET 2.5 MG PO ×2 (08:06→15:49)
[2022-12-26] MEDS: FOLIC ACID 1 MG TABLET 3 MG PO (08:06)
[2022-12-26] MEDS: LOSARTAN POTASSIUM 50 MG TABLET PO (08:06)
[2022-12-26] MEDS: NYSTATIN POWDER 1 APPLIC TOPICAL ×2 (08:07→20:19)
[2022-12-26] MEDS: TORSEMIDE 20 MG TABLET PO (08:07)
[2022-12-26] MEDS: FLECAINIDE ACETATE 50 MG TABLET PO ×2 (08:07→20:19)
[2022-12-26] MEDS: SERTRALINE 100 MG TABLET PO (08:07)
[2022-12-26] MEDS: INSULIN LISPRO 100 UNIT/ML VIAL 9 UNIT SUBCUT ×3 (08:21→17:19)
[2022-12-26] MEDS: INSULIN LISPRO 100 UNIT/ML VIAL SUBCUT ×2 (08:21→11:25)
--- NOTE | 2022-12-26 12:48 | PC.NURSE ---
Dr appointment: Resident left with for Dr Appointment
--- NOTE | 2022-12-26 12:58 | NUTR.NU ---
RDN visited with resident due to some concerns noted by other staff. Resident reported concerns of receiving carbohydrate heavy meals. This is happening inconsistently, however more often at breakfast. Resident reported she has been having more difficulty chewing lately due to pain with TMJ; she requested receiving milk, fruit, and oatmeal at breakfast only until this improves. This would provide ~3 CHO choices at breakfast which is appropriate for resident. She is on a diabetic diet and requested small portions at meals. She has a desire for weight loss (RDN provided diet education regarding this in October 2022), receiving ~3 CHO choices per meal would be appropriate for this goal. Resident also requested diet juice only when she asks for juice. Noted on resident's diet card. RDN passed this information along to IDT and culinary services. RDN encouraged patient to let staff know of any concerns she may have in the future.
--- NOTE | 2022-12-26 14:07 | PC.NURSE ---
Outing: Resident back from outing
--- NOTE | 2022-12-26 14:15 | PC.NURSE ---
Chiropractor note: Resident went out at approximately 1245 in order to attend chiropractor appointment with present. Per chiropractor notes: Today we worked her L TMJ & related muscles. She will have a mild bruise on the L TMJ area. We also worked her R neck and upper back. She will also have a bruise in that area. She is recommended to follow-up on Mon.
--- NOTE | 2022-12-26 15:04 | PC.PHA1 ---
SPECIALTY SALES REPRESENTATIVE PHARMACIST'S MEDICATION REVIEW: MEDICATION MONITORING:Sertraline 100 mg po daily IRREGULARITY OR COMMENTS:Patient recently had tramadol for pain stopped. Oxycodone started scheduled and prn, with prn daily max not being required by patient for pain control. Patient continues to deal with fluctuations in blood sugars and is being well monitored with frequent provider orders for insulin adjustment. GDR of sertraline still seems like a disservice to patient at this time with her current medical problem list. SUGGESTED COURSE OF ACTION TAKEN: No medication recommendations at this time.
[2022-12-26] MEDS: MAGNESIUM HYDROXIDE 30 ML ORAL.SUSP PO (15:54)
[2022-12-26] MEDS: PRAVASTATIN SODIUM 40 MG TABLET PO (20:19)
[2022-12-27] MEDS: OXYCODONE 5 MG TABLET PO ×2 (03:05→21:02)
[2022-12-27] MEDS: ASPIRIN 81 MG TABLET EC PO (07:04)
[2022-12-27] MEDS: APIXABAN 5 MG TABLET 2.5 MG PO ×2 (07:04→16:01)
[2022-12-27] MEDS: ACETAMINOPHEN 500 MG TABLET 1000 MG PO ×3 (07:04→20:14)
[2022-12-27] MEDS: CALCIUM CARBONATE 500 MG TABLET PO (07:04)
[2022-12-27] MEDS: FOLIC ACID 1 MG TABLET 3 MG PO (07:05)
[2022-12-27] MEDS: NYSTATIN POWDER 1 APPLIC TOPICAL ×2 (07:05→20:14)
[2022-12-27] MEDS: LOSARTAN POTASSIUM 50 MG TABLET PO (07:05)
[2022-12-27] MEDS: FLECAINIDE ACETATE 50 MG TABLET PO ×2 (07:05→20:14)
[2022-12-27] MEDS: MULTIVITAMIN/MINERALS 1 TABLET 1 TAB PO (07:05)
[2022-12-27] MEDS: SERTRALINE 100 MG TABLET PO (07:06)
[2022-12-27] MEDS: TORSEMIDE 20 MG TABLET PO (07:06)
[2022-12-27] MEDS: INSULIN LISPRO 100 UNIT/ML VIAL 9 UNIT SUBCUT ×3 (07:10→17:11)
--- NOTE | 2022-12-27 08:30 | PC.NURSE ---
Appointments: Resident left with at approximately 0800 in order to attend two appointments in [place]. Staff sent consult paperwork including copy of current orders, 2x2 gauze, lancet, pen needle, alcohol swabs, glucometer, glucometer test strips, Humalog pen and noon dose of 1000 mg Tylenol. Finance And Administration Manager also sent extra sealed needles and lancets in case resident needs extra. Last appointment is scheduled after lunch today.
--- NOTE | 2022-12-27 08:32 | PC.NURSE ---
Appointment: Resident went to [place] with , ambulatory with a walker. RA appointment.
--- NOTE | 2022-12-27 11:05 | PC.NURSE ---
Order: Melatonin 3 mg @ HS by Viktoria BARRIOS.
[2022-12-27] MEDS: PRAVASTATIN SODIUM 40 MG TABLET PO (20:14)
--- NOTE | 2022-12-27 22:33 | PC.NURSE ---
Resident returned to facility from [facility] at 17:00 w/following orders: 1. Please give prednisone 20mg daily for 5 days. Patient should call to let me know if her joint swelling, stiffness, & pain (in the hands, feet and knees) have improved significantly with this. If so, we will be making additional changes to her RA medication 2. Please monitor blood sugar closely on prednisone. 3. Recommend physical therapy for bilateral knee pain. 4. Recommending Spine Clinic (ordered) so that she can see a specialist able to offer epidural injection or radiofrequency oblation if appropriate for her cervical radiculopathy. 5. Please obtain bilateral hand, feet, & knee xrays (orders attached). 6. Okay to use voltaren gel 4 times a day for bilateral knees. 7. We are going reassess after a short burst of prednisone if we should change her RA therapy. She should call our clinic in 5 days to update us with how she is doing after taking prednisone. See additional recommendations for managing persistent cervical radiculopathy, etc. Testing requested: 3 view Bilateral Hand xrays (indication: RA, persistent hand pain, evaluate for radiographic progression, secondary OA). 3 view foot bilateral xrays (AP foot, lateral, oblique) (indication: RA persistent foot pain, evaluate for radiographic progression, secondary OA). 3 view standing bilateral knee xray (AP, lateral, patella) indication: knee pain, RA, evaluate for secondary osteoarthritis. Please fax results to [place] [facility] [phone].
[2022-12-28] MEDS: OXYCODONE 5 MG TABLET PO ×2 (03:05→21:50)
--- NOTE | 2022-12-28 06:29 | PC.NURSE ---
Pain management Resident got Oxycodone 5mg at 0305 for left jaw pain and shoulders pain.
[2022-12-28] MEDS: ACETAMINOPHEN 500 MG TABLET 1000 MG PO ×3 (08:06→20:20)
[2022-12-28] MEDS: CALCIUM CARBONATE 500 MG TABLET PO (08:06)
[2022-12-28] MEDS: ASPIRIN 81 MG TABLET EC PO (08:06)
[2022-12-28] MEDS: APIXABAN 5 MG TABLET 2.5 MG PO ×2 (08:06→15:56)
[2022-12-28] MEDS: MULTIVITAMIN/MINERALS 1 TABLET 1 TAB PO (08:07)
[2022-12-28] MEDS: FOLIC ACID 1 MG TABLET 3 MG PO (08:07)
[2022-12-28] MEDS: NYSTATIN POWDER 1 APPLIC TOPICAL ×2 (08:07→20:21)
[2022-12-28] MEDS: LOSARTAN POTASSIUM 50 MG TABLET PO (08:07)
[2022-12-28] MEDS: FLECAINIDE ACETATE 50 MG TABLET PO ×2 (08:08→20:21)
[2022-12-28] MEDS: TORSEMIDE 20 MG TABLET PO (08:08)
[2022-12-28] MEDS: predniSONE 20 MG TABLET PO (08:08)
[2022-12-28] MEDS: SERTRALINE 100 MG TABLET PO (08:09)
[2022-12-28] MEDS: INSULIN LISPRO 100 UNIT/ML VIAL 9 UNIT SUBCUT ×3 (08:43→17:23)
--- NOTE | 2022-12-28 08:51 | PC.NURSE ---
Med note: First dose of 20 mg Prednisone removed from Ekit as order was faxed to [facility] later last evening.
--- NOTE | 2022-12-28 09:49 | PC.NURSE ---
Bowel note: Resident requested prune juice with breakfast which was provided. Resident currently on day 2 with no BM. Will continue to observe and update lore shift.
--- NOTE | 2022-12-28 10:00 | CRLHL7_ITS ---
For Patients: As a result of the Century Cures Act, medical imaging exams and procedure reports are released immediately into your electronic medical record. You may view this report before your referring provider. If you have questions, please contact your health care provider. Indication: Rheumatoid arthritis Technique: Three views of the right hand IMPRESSION: Narrowing and spurring at the thumb IP joint. Similar findings at the 1st carpometacarpal joint with subchondral cyst at the base of the 1st metacarpal. Ulnar styloid intact. Vascular calcifications. Osteopenia. Mild degenerative changes at the interphalangeal joints. No erosions. Dictated by Adriel Lamas MD @ 12/28/2022 11:15:06 AM (Electronically Signed)
--- NOTE | 2022-12-28 10:00 | CRLHL7_ITS ---
For Patients: As a result of the Century Cures Act, medical imaging exams and procedure reports are released immediately into your electronic medical record. You may view this report before your referring provider. If you have questions, please contact your health care provider. Indication: Rheumatoid arthritis Technique: Left hand three views IMPRESSION: Osteopenia. Vascular calcifications. Intact ulnar styloid. Degenerative arthrosis at the radioscaphoid, triscaphe and 1st carpometacarpal joints. No erosions or fracture. Mild degenerative changes at the interphalangeal joints. Mild synovial hypertrophy about the 2nd MCP joint. Dictated by Adriel Lamas MD @ 12/28/2022 11:26:43 AM (Electronically Signed)
--- NOTE | 2022-12-28 10:00 | CRLHL7_ITS ---
For Patients: As a result of the Century Cures Act, medical imaging exams and procedure reports are released immediately into your electronic medical record. You may view this report before your referring provider. If you have questions, please contact your health care provider. Indication: Rheumatoid arthritis Technique: Right foot three views IMPRESSION: Plantar calcaneal spur. Vascular calcifications. Subchondral erosion at the first MTP joint and 2nd MTP joint. Midfoot alignment normal. No fracture. Dictated by Adriel Lamas MD @ 12/28/2022 11:27:48 AM (Electronically Signed)
--- NOTE | 2022-12-28 10:00 | CRLHL7_ITS ---
For Patients: As a result of the Cures Act, medical imaging exams and procedure reports are released immediately into your electronic medical record. You may view this report before your referring provider. If you have questions, please contact your health care provider. Indication: Rheumatoid arthritis Technique: Three views left foot IMPRESSION: Vascular calcifications. No fracture. Mild degenerative arthrosis of the 1st MTP joint with hallux valgus/bunion. No erosions. Dictated by Adriel Lamas MD @ 12/28/2022 11:12:00 AM (Electronically Signed)
--- NOTE | 2022-12-28 10:00 | CRLHL7_ITS ---
For Patients: As a result of the Century Cures Act, medical imaging exams and procedure reports are released immediately into your electronic medical record. You may view this report before your referring provider. If you have questions, please contact your health care provider. Indication: Rheumatoid arthritis Technique: Bilateral knee AP, lateral and sunrise 6 views Comparison: None Findings: Right knee: Mild spurring of the medial tibial spine. Small density adjacent to the medial femoral condyle. Patellofemoral spurring. No joint effusion. Dense vascular calcifications. Left knee: Mild patellofemoral spurring. No joint effusion. No fracture. Vascular calcifications. Mild spurring of the tibial spines. Chronic density adjacent to the medial femoral condyle. Impression: : Mild patellofemoral degenerative arthrosis bilaterally. Dictated by Adriel Lamas MD @ 12/28/2022 11:17:32 AM (Electronically Signed)
--- NOTE | 2022-12-28 11:43 | PC.NURSE ---
Xray results: Left hand three views Impression: Osteopenia. Vascular calcifications. Intact ulnar styloid. Degenerative arthrosis at the radioscaphoid, triscaphe and 1st carpometacarpal joints. No erosions or fracture. Mild degenerative changes at the interphalangeal joints. Mild synovial hypertrophy about the 2nd MCP joint. Three views of the right hand impression: Narrowing and spurring of the thump IP joint. Similar findings at the 1st carpometacarpal joint with subchondral cyst at the base of the 1st metacarpal. Ulnar styloid intact. Vascular calcifications. Osteopenia. Mild degenerative changes at the interphalangeal joints. No erosions. Right foot three views Impression: Plantar calcaneal spur. Vascular calcifications. Subchondral erosion at the first MTP joint and 2nd MTP joint. Midfoot alignment normal. No fracture. Three views left foot Impression: Vascular calcifications. No fracture. Mild degenerative arthrosis of the 1st MTP joint with hallux valgus/bunion. No erosions. Bilateral knee AP, lateral and sunrise 6 views. Impression: Mild patellofemoral degenerative arthrosis bilaterally. All xray results faxed to [place] [facility] at [phone] per instruction from yesterday's appointment and placed in COLOR EXPERT binder for review.
--- NOTE | 2022-12-28 14:10 | PC.NURSE ---
Appointment note: Resident reported not feeling well today and unable to take her to afternoon chiropractic appointment. Resident has rescheduled next appointment for 12/30/22 at 1100. Outreach Team Member updated unit calendar with this information and has updated lore staff.
--- NOTE | 2022-12-28 16:30 | PC.SPIRITC ---
I provided visit for connection, support, and to process of a friend on the unit along with health issues Madhuri is experiencing lately and the challenges that has presented to her.
[2022-12-28] MEDS: MELATONIN 3 MG TABLET PO (20:21)
[2022-12-28] MEDS: PRAVASTATIN SODIUM 40 MG TABLET PO (20:21)
--- NOTE | 2022-12-28 22:45 | PC.NURSE ---
Order: PT evaluation on 12/29/22. Resident was seen at external appt for difficulty walking with associated right knee pain.
--- NOTE | 2022-12-29 01:16 | PC.NURSE ---
Weekly Charting week 4: Vital signs reviewed. Few elevated BP, unstable blood glucose reading. FINANCIAL REPORT SERVICE SALES AGENT aware, Continue weekly Vital signs monitoring and Blood glucose check qid, update provided as needed. Comprehensive and temporary care plan reviewed with no changes made. No behavior recorded. Receives Zoloft 100 mg daily with no side effects or adverse behavior noted. Res alert and oriented, able to communicate needs verbally, able to use call light effectively. No changes of mental status noted. Has hearing impairment use bilateral hearing aids. Vision corrected with glasses. Chronic health condition is stable. Had referral to [facility] TMJ left jaw pain management.
[2022-12-29] MEDS: OXYCODONE 5 MG TABLET PO ×2 (02:20→21:45)
--- NOTE | 2022-12-29 07:33 | PC.NURSE ---
Weekly Charting - Week 4: Comprehensive and temporary care plan reviewed. No changes made. Nothing added to temporary care plan. No changes noted in communication, hearing, vision, or orientation. She does communicate her needs. Has some hearing difficulty. Wears bilateral hearing aids which she kept in her room and manage herself. Visual deficit corrected by glasses. Has mild cognitive impairment with some forgetfulness. 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 Nurse administers all medications except for eye drop that she can self administer and kept with her. Vital signs reviewed. Blood sugar readings currently is unstable. Accu checks done QID & @ 02 & PRN and refer to provider as needed. Insulin adjustment done as needed. Mood/Behavior: Has had no issues. Is on Zoloft 100mg daily with no adverse effects noted. No changes in medication.
[2022-12-29] MEDS: CALCIUM CARBONATE 500 MG TABLET PO (08:11)
[2022-12-29] MEDS: ACETAMINOPHEN 500 MG TABLET 1000 MG PO ×3 (08:11→20:22)
[2022-12-29] MEDS: ASPIRIN 81 MG TABLET EC PO (08:11)
[2022-12-29] MEDS: APIXABAN 5 MG TABLET 2.5 MG PO ×2 (08:12→16:12)
[2022-12-29] MEDS: FOLIC ACID 1 MG TABLET 3 MG PO (08:12)
[2022-12-29] MEDS: LOSARTAN POTASSIUM 50 MG TABLET PO (08:12)
[2022-12-29] MEDS: MULTIVITAMIN/MINERALS 1 TABLET 1 TAB PO (08:12)
[2022-12-29] MEDS: NYSTATIN POWDER 1 APPLIC TOPICAL ×2 (08:13→20:23)
[2022-12-29] MEDS: SERTRALINE 100 MG TABLET PO (08:13)
[2022-12-29] MEDS: predniSONE 20 MG TABLET PO (08:13)
[2022-12-29] MEDS: FLECAINIDE ACETATE 50 MG TABLET PO ×2 (08:13→20:23)
[2022-12-29] MEDS: TORSEMIDE 20 MG TABLET PO (08:13)
[2022-12-29] MEDS: INSULIN LISPRO 100 UNIT/ML VIAL SUBCUT ×3 (08:24→17:08)
[2022-12-29] MEDS: INSULIN LISPRO 100 UNIT/ML VIAL 9 UNIT SUBCUT ×3 (08:24→17:08)
--- NOTE | 2022-12-29 12:53 | PC.NURSE ---
Status: Residents blood sugar at lunch was noted to be 433 with no s/s of hyperglycemia noted with sliding scale insulin given. Rechecked 2 hours last and was 383.
--- NOTE | 2022-12-29 13:33 | PC.NURSE ---
Order: Viktoria BARRIOS here. Orders from [facility]ATUM noted and approved by her.
--- NOTE | 2022-12-29 13:53 | PC.SOCIAL ---
Resident requested a ride to her appointment at [facility]. Phone call to [facility] transit to make transportation request. [facility] will sweet pickled fruit maker at 10:40 am and drop off at 11:45 am. Resident will need $1.[address] Provided information to resident.
[2022-12-29] MEDS: MELATONIN 3 MG TABLET PO (20:23)
[2022-12-29] MEDS: PRAVASTATIN SODIUM 40 MG TABLET PO (20:23)
--- NOTE | 2022-12-29 22:28 | PC.NURSE ---
Resident's blood sugar reading at 1999 is 513. Resident encouraged to drink water. She refused an evening snack from staff d/t blood sugar being high. Resident is newly taking prednisone. Asymptomatic of hyperglycemia.
[2022-12-30] MEDS: OXYCODONE 5 MG TABLET PO ×2 (02:17→21:08)
[2022-12-30] MEDS: ASPIRIN 81 MG TABLET EC PO (08:09)
[2022-12-30] MEDS: ACETAMINOPHEN 500 MG TABLET 1000 MG PO ×3 (08:09→20:12)
[2022-12-30] MEDS: CALCIUM CARBONATE 500 MG TABLET PO (08:09)
[2022-12-30] MEDS: LOSARTAN POTASSIUM 50 MG TABLET PO (08:10)
[2022-12-30] MEDS: FOLIC ACID 1 MG TABLET 3 MG PO (08:10)
[2022-12-30] MEDS: APIXABAN 5 MG TABLET 2.5 MG PO ×2 (08:10→15:44)
[2022-12-30] MEDS: NYSTATIN POWDER 1 APPLIC TOPICAL ×2 (08:11→20:12)
[2022-12-30] MEDS: MULTIVITAMIN/MINERALS 1 TABLET 1 TAB PO (08:11)
[2022-12-30] MEDS: predniSONE 20 MG TABLET PO (08:11)
[2022-12-30] MEDS: SERTRALINE 100 MG TABLET PO (08:12)
[2022-12-30] MEDS: FLECAINIDE ACETATE 50 MG TABLET PO ×2 (08:12→20:13)
[2022-12-30] MEDS: TORSEMIDE 20 MG TABLET PO (08:12)
[2022-12-30] MEDS: INSULIN LISPRO 100 UNIT/ML VIAL SUBCUT ×2 (08:36→17:01)
[2022-12-30] MEDS: INSULIN LISPRO 100 UNIT/ML VIAL 9 UNIT SUBCUT ×3 (08:37→17:02)
--- NOTE | 2022-12-30 10:19 | REH.PT ---
Pt seen for PT this am and reports that her knee pain is significantly better. Doesn't think she needs a PT evaluation. D/C PT eval & treat order.
--- NOTE | 2022-12-30 10:35 | PC.NURSE ---
Addendum entered by Diann Leavitt RN 12/30/22 11:50: Correction: Went to appointment via transport Original Note: Appointment: Resident went to Chiropractor with . Ambulatory with a walker.
--- NOTE | 2022-12-30 11:50 | PC.NURSE ---
Return: Back from Chiro appointment with no orders. F/U on 01/05 @ 1100.
--- NOTE | 2022-12-30 14:31 | PC.NURSE ---
Patient had appointment with Neurology Specialist, Desiree Wells MD at [facility] on 12/27/22. Per , recommendation for patient to follow up at Spine Clinic for epidural injection or radiofrequency ablation for cervical radiculopathy. This hand sign writer called MD office ([phone]) to find where referral was sent for patient. Per Alla, Medical Property Appraiser, /Russell sent a referral to [facility] in [facility]. They are currently reviewing referral and will reach out to patient's preferred phone ([phone]) when able to schedule her. If [facility] staff would like to follow up on referral, call can be made to: [phone] and ask to check on progress of spine center referral. Staff to follow up.
[2022-12-30] MEDS: MELATONIN 3 MG TABLET PO (20:12)
[2022-12-30] MEDS: PRAVASTATIN SODIUM 40 MG TABLET PO (20:12)
[2022-12-31] MEDS: OXYCODONE 5 MG TABLET PO ×2 (03:07→23:25)
[2022-12-31] MEDS: ACETAMINOPHEN 500 MG TABLET 1000 MG PO ×3 (08:28→19:57)
[2022-12-31] MEDS: FOLIC ACID 1 MG TABLET 3 MG PO (08:29)
[2022-12-31] MEDS: APIXABAN 5 MG TABLET 2.5 MG PO ×2 (08:29→18:47)
[2022-12-31] MEDS: LOSARTAN POTASSIUM 50 MG TABLET PO (08:29)
[2022-12-31] MEDS: ASPIRIN 81 MG TABLET EC PO (08:29)
[2022-12-31] MEDS: CALCIUM CARBONATE 500 MG TABLET PO (08:29)
[2022-12-31] MEDS: MULTIVITAMIN/MINERALS 1 TABLET 1 TAB PO (08:30)
[2022-12-31] MEDS: predniSONE 20 MG TABLET PO (08:30)
[2022-12-31] MEDS: NYSTATIN POWDER 1 APPLIC TOPICAL ×2 (08:30→19:57)
[2022-12-31] MEDS: FLECAINIDE ACETATE 50 MG TABLET PO ×2 (08:31→19:57)
[2022-12-31] MEDS: TORSEMIDE 20 MG TABLET PO (08:31)
[2022-12-31] MEDS: SERTRALINE 100 MG TABLET PO (08:31)
[2022-12-31] MEDS: INSULIN LISPRO 100 UNIT/ML VIAL 9 UNIT SUBCUT ×2 (08:48→18:48)
--- NOTE | 2022-12-31 11:24 | PC.NURSE ---
MIRELA note: Resident is going out with at this time in order to go to sister's house in [place]. She will be having lunch while she is out. Mortgage Advisor sent copy of current orders for to follow current insulin orders, 2x2 gauze, lancet, pen needle, alcohol swabs, glucometer, glucometer test strips, Humalog pen and noon dose of 1000 mg Tylenol. Mortgage Advisor also sent extra sealed needles and lancets in case resident needs extra. reports resident will be back for supper by 1800. Mortgage Advisor offered to send 1600 medication with though resident choosing to take upon return. Will update lore staff at shift change.
[2022-12-31] MEDS: INSULIN LISPRO 100 UNIT/ML VIAL SUBCUT (18:47)
[2022-12-31] MEDS: PRAVASTATIN SODIUM 40 MG TABLET PO (19:57)
[2022-12-31] MEDS: MELATONIN 3 MG TABLET PO (19:57)
[2023-01-01] MEDS: ASPIRIN 81 MG TABLET EC PO (07:41)
[2023-01-01] MEDS: ACETAMINOPHEN 500 MG TABLET 1000 MG PO ×3 (07:41→19:41)
[2023-01-01] MEDS: CALCIUM CARBONATE 500 MG TABLET PO (07:41)
[2023-01-01] MEDS: LOSARTAN POTASSIUM 50 MG TABLET PO (07:41)
[2023-01-01] MEDS: APIXABAN 5 MG TABLET 2.5 MG PO ×2 (07:41→15:34)
[2023-01-01] MEDS: FOLIC ACID 1 MG TABLET 3 MG PO (07:41)
[2023-01-01] MEDS: FLECAINIDE ACETATE 50 MG TABLET PO ×2 (07:42→19:41)
[2023-01-01] MEDS: NYSTATIN POWDER 1 APPLIC TOPICAL ×2 (07:42→19:41)
[2023-01-01] MEDS: predniSONE 20 MG TABLET PO (07:42)
[2023-01-01] MEDS: MULTIVITAMIN/MINERALS 1 TABLET 1 TAB PO (07:42)
[2023-01-01] MEDS: TORSEMIDE 20 MG TABLET PO (07:42)
[2023-01-01] MEDS: SERTRALINE 100 MG TABLET PO (07:43)
[2023-01-01] MEDS: INSULIN LISPRO 100 UNIT/ML VIAL 9 UNIT SUBCUT ×3 (09:06→17:18)
--- NOTE | 2023-01-01 15:27 | PC.SPIRITC ---
Teletypesetter provided supportive visit to resident. Teletypesetter had the pleasure of knowing Madhuri's mother who was a former resident. Madhuri shared about her parents, how she misses them and her mom in particular and the cherished memories they have together. Resident is grateful for the excellent care at the [facility] and also adjusting to the loss of independence and ability to drive to go see her children and grandchildren. Resident became tearful talking about family who means so much to hear. Teletypesetter provided emotional support and prayer.
[2023-01-01 16:00] VITALS: BP 121/73; PULSE 77; RESP 16; TEMP 36.3; O2SAT 97
[2023-01-01] MEDS: INSULIN LISPRO 100 UNIT/ML VIAL SUBCUT (17:18)
[2023-01-01] MEDS: PRAVASTATIN SODIUM 40 MG TABLET PO (19:41)
[2023-01-01] MEDS: MELATONIN 3 MG TABLET PO (19:41)
[2023-01-01] MEDS: OXYCODONE 5 MG TABLET PO (21:13)
[2023-01-02] MEDS: ACETAMINOPHEN 500 MG TABLET 1000 MG PO ×3 (07:56→20:21)
[2023-01-02] MEDS: ASPIRIN 81 MG TABLET EC PO (07:56)
[2023-01-02] MEDS: CALCIUM CARBONATE 500 MG TABLET PO (07:56)
[2023-01-02] MEDS: FOLIC ACID 1 MG TABLET 3 MG PO (07:57)
[2023-01-02] MEDS: APIXABAN 5 MG TABLET 2.5 MG PO ×2 (07:57→15:42)
[2023-01-02] MEDS: LOSARTAN POTASSIUM 50 MG TABLET PO (07:59)
[2023-01-02] MEDS: MULTIVITAMIN/MINERALS 1 TABLET 1 TAB PO (08:00)
[2023-01-02] MEDS: SERTRALINE 100 MG TABLET PO (08:00)
[2023-01-02] MEDS: FLECAINIDE ACETATE 50 MG TABLET PO ×2 (08:00→20:22)
[2023-01-02] MEDS: NYSTATIN POWDER 1 APPLIC TOPICAL ×2 (08:00→20:22)
[2023-01-02] MEDS: TORSEMIDE 20 MG TABLET PO (08:00)
[2023-01-02] MEDS: INSULIN LISPRO 100 UNIT/ML VIAL SUBCUT (08:53)
[2023-01-02] MEDS: INSULIN LISPRO 100 UNIT/ML VIAL 9 UNIT SUBCUT ×3 (08:53→17:35)
[2023-01-02] MEDS: PRAVASTATIN SODIUM 40 MG TABLET PO (20:22)
[2023-01-02] MEDS: MELATONIN 3 MG TABLET PO (20:22)
[2023-01-02] MEDS: OXYCODONE 5 MG TABLET PO (21:24)
[2023-01-03] MEDS: ACETAMINOPHEN 500 MG TABLET 1000 MG PO ×3 (08:28→20:10)
[2023-01-03] MEDS: CALCIUM CARBONATE 500 MG TABLET PO (08:29)
[2023-01-03] MEDS: ASPIRIN 81 MG TABLET EC PO (08:29)
[2023-01-03] MEDS: FOLIC ACID 1 MG TABLET 3 MG PO (08:29)
[2023-01-03] MEDS: APIXABAN 5 MG TABLET 2.5 MG PO ×2 (08:29→15:29)
[2023-01-03] MEDS: NYSTATIN POWDER 1 APPLIC TOPICAL ×2 (08:30→20:10)
[2023-01-03] MEDS: MULTIVITAMIN/MINERALS 1 TABLET 1 TAB PO (08:30)
[2023-01-03] MEDS: LOSARTAN POTASSIUM 50 MG TABLET PO (08:30)
[2023-01-03] MEDS: SERTRALINE 100 MG TABLET PO (08:32)
[2023-01-03] MEDS: FLECAINIDE ACETATE 50 MG TABLET PO ×2 (08:32→20:10)
[2023-01-03] MEDS: TORSEMIDE 20 MG TABLET PO (08:32)
[2023-01-03] MEDS: INSULIN LISPRO 100 UNIT/ML VIAL 9 UNIT SUBCUT ×3 (08:40→18:01)
--- NOTE | 2023-01-03 13:11 | PC.NURSE ---
MIRELA: Resident went out with family and will be back at 1730, 1600 hours medications Juno was send with resident.
[2023-01-03] MEDS: INSULIN LISPRO 100 UNIT/ML VIAL SUBCUT (18:01)
[2023-01-03] MEDS: MELATONIN 3 MG TABLET PO (20:10)
[2023-01-03] MEDS: PRAVASTATIN SODIUM 40 MG TABLET PO (20:10)
[2023-01-03] MEDS: OXYCODONE 5 MG TABLET PO (21:10)
[2023-01-04] MEDS: ASPIRIN 81 MG TABLET EC PO (07:53)
[2023-01-04] MEDS: CALCIUM CARBONATE 500 MG TABLET PO (07:53)
[2023-01-04] MEDS: ACETAMINOPHEN 500 MG TABLET 1000 MG PO ×3 (07:53→20:28)
[2023-01-04] MEDS: FOLIC ACID 1 MG TABLET 3 MG PO (07:54)
[2023-01-04] MEDS: MULTIVITAMIN/MINERALS 1 TABLET 1 TAB PO (07:54)
[2023-01-04] MEDS: FLECAINIDE ACETATE 50 MG TABLET PO ×2 (07:54→20:29)
[2023-01-04] MEDS: NYSTATIN POWDER 1 APPLIC TOPICAL ×2 (07:54→20:29)
[2023-01-04] MEDS: APIXABAN 5 MG TABLET 2.5 MG PO ×2 (07:54→16:05)
[2023-01-04] MEDS: LOSARTAN POTASSIUM 50 MG TABLET PO (07:54)
[2023-01-04] MEDS: TORSEMIDE 20 MG TABLET PO (07:55)
[2023-01-04] MEDS: SERTRALINE 100 MG TABLET PO (07:55)
[2023-01-04] MEDS: INSULIN LISPRO 100 UNIT/ML VIAL 9 UNIT SUBCUT ×3 (08:43→17:27)
[2023-01-04] MEDS: INSULIN LISPRO 100 UNIT/ML VIAL SUBCUT ×2 (08:44→11:52)
--- NOTE | 2023-01-04 10:15 | PC.NURSE ---
Order: Okay to utilize Dexcom G6 sensor to monitor blood sugars QID & PRN, Change Dexcom sensor Q 10 days.
--- NOTE | 2023-01-04 13:12 | PC.NURSE ---
Order Clarification: Contacted [facility] RA staff, Julieta regarding labs ordered for 02/26 & 03/22. [facility] will get us back once clarified.
--- NOTE | 2023-01-04 18:42 | PC.NURSE ---
Resident asked filing writer to check blood sugar d/t feeling lightheaded. Checked @ 16:25 and reading was 50. Resident requested she wanted to eat rice krispie bar she had in her room and filing writer gave her 4 oz of apple juice per her request as well. Rechecked blood sugar at 14:45 and reading was 109. Resident stated she was no longer lightheaded and had no symptoms of hypoglycemia.
[2023-01-04] MEDS: MELATONIN 3 MG TABLET PO (20:28)
[2023-01-04] MEDS: PRAVASTATIN SODIUM 40 MG TABLET PO (20:29)
[2023-01-04] MEDS: OXYCODONE 5 MG TABLET PO (21:11)
--- NOTE | 2023-01-05 01:01 | PC.NURSE ---
WEEKLY CHARTING? WEEK 1 PAIN AND ADL`S Resident vitals overall are good except her blood sugar ; gets hypoglycemic sometimes in the middle of the night, Blood sugar is scheduled to be checked at that time. Comprehensive and temporary care plan reviewed no changes made and nothing added to temporary care plan. Resident is independent with dressing, grooming, oral cares, and eats independently. She calls for needs as needed.? Staff? assist with application et removal of TEDS. Needs set up and supervision with bathing. Diet changed to diabetic (5/) , regular texture, thin liquids. Receives HS snack for blood glucose maintenance. No problems with chewing or swallowing. Pain: Has chronic neck and shoulder pain related to? arthritis and lately left side jaw pain (TMJ). Pain controlled with? Tylenol 1000mg TID, Voltaren gel QID to painful joints,? Oxycodone? 5mg @ HS & Q6H PRN which she asks mostly around 0200. Aqua-K pad is also in place. She is able to verbalize pain.
[2023-01-05] MEDS: OXYCODONE 5 MG TABLET PO ×2 (02:50→21:34)
--- NOTE | 2023-01-05 07:28 | PC.NURSE ---
Weekly Charting, Week 1 - ADL's: Comprehensive and temporary care plan reviewed. No changes made and nothing added to temporary care plan. Resident is independent with dressing, grooming, oral cares, and feeding. Will ask for assist as needed. Staff assist with application/removal of teds. Needs set up and supervision with bathing. / Diet changed to diabetic, regular texture, thin liquids. Receives HS snack for blood glucose maintenance. No problems with chewing/swallowing reported. Vital signs reviewed, no concerns. Lately accu checks unstable. Continue accu checks monitoring & Insulin as ordered. Update providers as needed. Pain: Has chronic neck and shoulder pain r/t arthritis, and lately left jaw pain (TMJ). Pain is managed with Tylenol 1000mg TID, Voltaren gel QID to painful joints, Oxycodone 2.5mg @ HS & Q6H PRN which she ask mostly around 0200. aqua-K pad is also in place. And she's been seen by Chiropractor. She is able to verbalize need for pain.
[2023-01-05] MEDS: APIXABAN 5 MG TABLET 2.5 MG PO ×2 (07:55→16:10)
[2023-01-05] MEDS: CALCIUM CARBONATE 500 MG TABLET PO (07:55)
[2023-01-05] MEDS: ASPIRIN 81 MG TABLET EC PO (07:55)
[2023-01-05] MEDS: ACETAMINOPHEN 500 MG TABLET 1000 MG PO ×3 (07:55→19:28)
[2023-01-05] MEDS: FOLIC ACID 1 MG TABLET 3 MG PO (07:55)
[2023-01-05] MEDS: MULTIVITAMIN/MINERALS 1 TABLET 1 TAB PO (07:56)
[2023-01-05] MEDS: LOSARTAN POTASSIUM 50 MG TABLET PO (07:56)
[2023-01-05] MEDS: TORSEMIDE 20 MG TABLET PO (07:56)
[2023-01-05] MEDS: FLECAINIDE ACETATE 50 MG TABLET PO ×2 (07:56→19:28)
[2023-01-05] MEDS: NYSTATIN POWDER 1 APPLIC TOPICAL ×2 (07:56→19:28)
[2023-01-05] MEDS: SERTRALINE 100 MG TABLET PO (07:57)
[2023-01-05] MEDS: INSULIN LISPRO 100 UNIT/ML VIAL SUBCUT ×2 (08:34→11:56)
[2023-01-05] MEDS: INSULIN LISPRO 100 UNIT/ML VIAL 9 UNIT SUBCUT ×3 (08:34→17:29)
--- NOTE | 2023-01-05 10:28 | PC.NURSE ---
Appointment note: Resident leaving at this time to attend 1100 chiropractic appointment in [facility]. Consult paperwork sent with resident including copy of current orders. Resident taking community bus for transportation.
--- NOTE | 2023-01-05 11:57 | PC.NURSE ---
Return: Back from Chiro appointment. Treatment went well as noted. F/U on 01/12 @ 1030.
--- NOTE | 2023-01-05 12:57 | PC.NURSE ---
Order Clarification: Received written order from Dr. Rivero ([place]) only needs to have CRP & sed rate prior to her 03/22 appointment.
--- NOTE | 2023-01-05 13:12 | PC.NURSE ---
Appointment Clarification: Dr. Rivero's clinic contacted for clarification. Resident has two appt. dates on Mar 22 & . Correct date is .
--- NOTE | 2023-01-05 16:04 | PC.NURSE ---
Resident did complain of hypoglycemia episode during activity, taken to her room blood glucose check and is 47, alert and oriented per baseline, snack given will recheck later
[2023-01-05] MEDS: PRAVASTATIN SODIUM 40 MG TABLET PO (19:28)
[2023-01-05] MEDS: MELATONIN 3 MG TABLET PO (19:28)
[2023-01-06] MEDS: ASPIRIN 81 MG TABLET EC PO (08:09)
[2023-01-06] MEDS: ACETAMINOPHEN 500 MG TABLET 1000 MG PO ×3 (08:09→19:55)
[2023-01-06] MEDS: CALCIUM CARBONATE 500 MG TABLET PO (08:09)
[2023-01-06] MEDS: FOLIC ACID 1 MG TABLET 3 MG PO (08:10)
[2023-01-06] MEDS: MULTIVITAMIN/MINERALS 1 TABLET 1 TAB PO (08:10)
[2023-01-06] MEDS: LOSARTAN POTASSIUM 50 MG TABLET PO (08:10)
[2023-01-06] MEDS: APIXABAN 5 MG TABLET 2.5 MG PO ×2 (08:10→16:13)
[2023-01-06] MEDS: TORSEMIDE 20 MG TABLET PO (08:11)
[2023-01-06] MEDS: SERTRALINE 100 MG TABLET PO (08:11)
[2023-01-06] MEDS: FLECAINIDE ACETATE 50 MG TABLET PO ×2 (08:11→19:55)
[2023-01-06] MEDS: NYSTATIN POWDER 1 APPLIC TOPICAL ×2 (08:11→19:55)
[2023-01-06] MEDS: INSULIN LISPRO 100 UNIT/ML VIAL 9 UNIT SUBCUT ×3 (08:19→17:39)
[2023-01-06] MEDS: PRAVASTATIN SODIUM 40 MG TABLET PO (19:55)
[2023-01-06] MEDS: MELATONIN 3 MG TABLET PO (19:55)
[2023-01-06] MEDS: OXYCODONE 5 MG TABLET PO (21:54)
--- NOTE | 2023-01-06 22:28 | PC.NURSE ---
Blood Glucose: Fabrication Engineer checked resident's blood glucose at 16:35. Was 69. Resident given juice and crackers. No s/s of hypoglycemia. Rechecked at 16:55 and blood glucose at 113. Scheduled Humalog given.
[2023-01-07] MEDS: ACETAMINOPHEN 500 MG TABLET 1000 MG PO ×3 (08:10→19:58)
[2023-01-07] MEDS: ASPIRIN 81 MG TABLET EC PO (08:10)
[2023-01-07] MEDS: APIXABAN 5 MG TABLET 2.5 MG PO ×2 (08:10→17:37)
[2023-01-07] MEDS: CALCIUM CARBONATE 500 MG TABLET PO (08:10)
[2023-01-07] MEDS: FOLIC ACID 1 MG TABLET 3 MG PO (08:10)
[2023-01-07] MEDS: INSULIN LISPRO 100 UNIT/ML VIAL SUBCUT ×2 (08:17→11:13)
[2023-01-07] MEDS: INSULIN LISPRO 100 UNIT/ML VIAL 9 UNIT SUBCUT ×3 (08:17→17:35)
[2023-01-07] MEDS: SERTRALINE 100 MG TABLET PO (08:18)
[2023-01-07] MEDS: LOSARTAN POTASSIUM 50 MG TABLET PO (08:18)
[2023-01-07] MEDS: NYSTATIN POWDER 1 APPLIC TOPICAL ×2 (08:18→19:58)
[2023-01-07] MEDS: MULTIVITAMIN/MINERALS 1 TABLET 1 TAB PO (08:18)
[2023-01-07] MEDS: FLECAINIDE ACETATE 50 MG TABLET PO ×2 (08:18→19:58)
[2023-01-07] MEDS: TORSEMIDE 20 MG TABLET PO (08:18)
--- NOTE | 2023-01-07 11:20 | PC.NURSE ---
Outing: Resident left with for outing, back by supper
[2023-01-07] MEDS: MELATONIN 3 MG TABLET PO (19:58)
[2023-01-07] MEDS: PRAVASTATIN SODIUM 40 MG TABLET PO (19:58)
[2023-01-07] MEDS: OXYCODONE 5 MG TABLET PO (21:59)
--- NOTE | 2023-01-07 22:16 | PC.NURSE ---
Bruise: Resident has bruise measuring 2cm x 2cm on mid ABD above navel. Tells administrative underwriter it is either from previous insulin injections this week or Actemra injection on . No c/o pain or discomfort. Intervention in place to monitor until bruise resolves.
[2023-01-08] MEDS: APIXABAN 5 MG TABLET 2.5 MG PO ×2 (08:05→16:15)
[2023-01-08] MEDS: ASPIRIN 81 MG TABLET EC PO (08:05)
[2023-01-08] MEDS: CALCIUM CARBONATE 500 MG TABLET PO (08:05)
[2023-01-08] MEDS: FOLIC ACID 1 MG TABLET 3 MG PO (08:05)
[2023-01-08] MEDS: ACETAMINOPHEN 500 MG TABLET 1000 MG PO ×3 (08:05→21:18)
[2023-01-08] MEDS: LOSARTAN POTASSIUM 50 MG TABLET PO (08:06)
[2023-01-08] MEDS: SERTRALINE 100 MG TABLET PO (08:07)
[2023-01-08] MEDS: NYSTATIN POWDER 1 APPLIC TOPICAL ×2 (08:07→21:19)
[2023-01-08] MEDS: MULTIVITAMIN/MINERALS 1 TABLET 1 TAB PO (08:07)
[2023-01-08] MEDS: TORSEMIDE 20 MG TABLET PO (08:07)
[2023-01-08] MEDS: FLECAINIDE ACETATE 50 MG TABLET PO ×2 (08:07→21:19)
[2023-01-08] MEDS: INSULIN LISPRO 100 UNIT/ML VIAL 9 UNIT SUBCUT ×3 (08:20→17:24)
[2023-01-08 16:00] VITALS: BP 119/71; PULSE 69; RESP 18; TEMP 36.2; O2SAT 94; BMI 39.3
[2023-01-08] MEDS: OXYCODONE 5 MG TABLET PO (21:19)
[2023-01-08] MEDS: MELATONIN 3 MG TABLET PO (21:19)
[2023-01-08] MEDS: PRAVASTATIN SODIUM 40 MG TABLET PO (21:19)
[2023-01-09] MEDS: CALCIUM CARBONATE 500 MG TABLET PO (07:47)
[2023-01-09] MEDS: ACETAMINOPHEN 500 MG TABLET 1000 MG PO ×3 (07:47→20:37)
[2023-01-09] MEDS: ASPIRIN 81 MG TABLET EC PO (07:47)
[2023-01-09] MEDS: APIXABAN 5 MG TABLET 2.5 MG PO ×2 (07:48→16:05)
[2023-01-09] MEDS: FOLIC ACID 1 MG TABLET 3 MG PO (07:48)
[2023-01-09] MEDS: LOSARTAN POTASSIUM 50 MG TABLET PO (07:48)
[2023-01-09] MEDS: MULTIVITAMIN/MINERALS 1 TABLET 1 TAB PO (07:48)
[2023-01-09] MEDS: NYSTATIN POWDER 1 APPLIC TOPICAL ×2 (07:49→20:38)
[2023-01-09] MEDS: FLECAINIDE ACETATE 50 MG TABLET PO ×2 (07:49→20:38)
[2023-01-09] MEDS: TORSEMIDE 20 MG TABLET PO (07:55)
[2023-01-09] MEDS: SERTRALINE 100 MG TABLET PO (07:55)
[2023-01-09] MEDS: INSULIN LISPRO 100 UNIT/ML VIAL 9 UNIT SUBCUT ×3 (08:07→17:41)
[2023-01-09] MEDS: INSULIN LISPRO 100 UNIT/ML VIAL SUBCUT ×2 (08:08→17:41)
--- NOTE | 2023-01-09 11:55 | PC.NURSE ---
MIRELA/appointment note: Resident is going to cafe at this time to have lunch with and will then be leaving with to attend afternoon dental appointment. Consult paperwork being sent with resident and including copy of current orders. expects resident will return around 1700 this evening as they will do some shopping after resident's appointment.
--- NOTE | 2023-01-09 12:10 | PC.NURSE ---
Order note: SOPHIE Blum signed written order okay to send Dexcom transmitter & rope maker.
--- NOTE | 2023-01-09 13:54 | PC.NURSE ---
Called [phone] to follow up on referral status. Resident has been placed on a wait list to be scheduled at [facility] in [facility]. Clinic will contact resident when there is availability to schedule.
[2023-01-09] MEDS: MAGNESIUM HYDROXIDE 30 ML ORAL.SUSP PO (17:44)
[2023-01-09] MEDS: PRAVASTATIN SODIUM 40 MG TABLET PO (20:38)
[2023-01-09] MEDS: MELATONIN 3 MG TABLET PO (20:38)
[2023-01-09] MEDS: OXYCODONE 5 MG TABLET PO (21:32)
--- NOTE | 2023-01-09 22:02 | PC.NURSE ---
Resident returned to facility from Dental appt. 17:00. Instructions: Return to clinic in 6 months for - Prophy cleaning, exam, fluoride. per Dr. Grupo OWENS DDS.
[2023-01-10] MEDS: APIXABAN 5 MG TABLET 2.5 MG PO ×2 (08:17→16:12)
[2023-01-10] MEDS: ACETAMINOPHEN 500 MG TABLET 1000 MG PO ×3 (08:17→19:41)
[2023-01-10] MEDS: ASPIRIN 81 MG TABLET EC PO (08:17)
[2023-01-10] MEDS: CALCIUM CARBONATE 500 MG TABLET PO (08:17)
[2023-01-10] MEDS: TORSEMIDE 20 MG TABLET PO (08:18)
[2023-01-10] MEDS: FOLIC ACID 1 MG TABLET 3 MG PO (08:18)
[2023-01-10] MEDS: FLECAINIDE ACETATE 50 MG TABLET PO ×2 (08:18→19:41)
[2023-01-10] MEDS: LOSARTAN POTASSIUM 50 MG TABLET PO (08:18)
[2023-01-10] MEDS: MULTIVITAMIN/MINERALS 1 TABLET 1 TAB PO (08:18)
[2023-01-10] MEDS: NYSTATIN POWDER 1 APPLIC TOPICAL ×2 (08:18→19:41)
[2023-01-10] MEDS: SERTRALINE 100 MG TABLET PO (08:19)
[2023-01-10] MEDS: INSULIN LISPRO 100 UNIT/ML VIAL 9 UNIT SUBCUT ×3 (08:49→17:15)
[2023-01-10] MEDS: INSULIN LISPRO 100 UNIT/ML VIAL SUBCUT ×2 (08:50→17:10)
[2023-01-10] MEDS: MELATONIN 3 MG TABLET PO (19:41)
[2023-01-10] MEDS: PRAVASTATIN SODIUM 40 MG TABLET PO (19:41)
[2023-01-10] MEDS: OXYCODONE 5 MG TABLET PO (21:29)
[2023-01-11] MEDS: FLECAINIDE ACETATE 50 MG TABLET PO ×2 (08:44→20:16)
[2023-01-11] MEDS: APIXABAN 5 MG TABLET 2.5 MG PO ×2 (08:44→17:03)
[2023-01-11] MEDS: ASPIRIN 81 MG TABLET EC PO (08:44)
[2023-01-11] MEDS: LOSARTAN POTASSIUM 50 MG TABLET PO (08:44)
[2023-01-11] MEDS: MULTIVITAMIN/MINERALS 1 TABLET 1 TAB PO (08:44)
[2023-01-11] MEDS: FOLIC ACID 1 MG TABLET 3 MG PO (08:44)
[2023-01-11] MEDS: SERTRALINE 100 MG TABLET PO (08:44)
[2023-01-11] MEDS: ACETAMINOPHEN 500 MG TABLET 1000 MG PO ×3 (08:45→20:16)
[2023-01-11] MEDS: CALCIUM CARBONATE 500 MG TABLET PO (08:46)
[2023-01-11] MEDS: TORSEMIDE 20 MG TABLET PO (08:46)
[2023-01-11] MEDS: INSULIN LISPRO 100 UNIT/ML VIAL 9 UNIT SUBCUT ×3 (08:46→17:32)
[2023-01-11] MEDS: NYSTATIN POWDER 1 APPLIC TOPICAL ×2 (08:46→20:16)
[2023-01-11] MEDS: INSULIN LISPRO 100 UNIT/ML VIAL SUBCUT (11:50)
[2023-01-11] MEDS: MELATONIN 3 MG TABLET PO (20:16)
[2023-01-11] MEDS: PRAVASTATIN SODIUM 40 MG TABLET PO (20:16)
[2023-01-11] MEDS: OXYCODONE 5 MG TABLET PO (21:33)
--- NOTE | 2023-01-12 00:33 | PC.NURSE ---
Weekly Charting Week 2: Mobility. Vital signs reviewed with no concerns. Comprehensive and temporary care plan reviewed with no changes made. Resident is independent with transfers, ambulates with 2ww. Resident able to get in and out of bed independently. staff assist of 1 of bed mobility as needed. Has right 1/4 side rail up at all times as enabler of independent in bed. No other assistive devices used for mobility. Resident is high risk for falls. Fall prevention Interventions: call light within reach, bed locked and in low position, non skid footwear, free clutter in room.
--- NOTE | 2023-01-12 06:31 | PC.NURSE ---
WEEKLY CHARTING -WEEK 2 - MOBILITY:: Comprehensive and temporary care plan reviewed. No changes made, and nothing added to temporary care plan. Transfers and ambulates independently with 4WW. Independent with bed mobility. 07/06 right side rail up at all times to aid for bed mobility. Vital signs reviewed, few elevated BP's which she is on medication. Continue weekly monitoring and refer to provider as needed. Continue with Accu checks monitoring QID & @ 0200and reviewed by provider as needed. Weight stable and reducing gradually Fall: No falls the past month. Is a high fall risk according to assessment done on 11/03. Fall interventions: call light within reach, bed in low position with brakes locked, falling star magnet in place.
[2023-01-12] MEDS: FOLIC ACID 1 MG TABLET 3 MG PO (07:54)
[2023-01-12] MEDS: APIXABAN 5 MG TABLET 2.5 MG PO ×2 (07:54→16:05)
[2023-01-12] MEDS: CALCIUM CARBONATE 500 MG TABLET PO (07:54)
[2023-01-12] MEDS: ACETAMINOPHEN 500 MG TABLET 1000 MG PO ×3 (07:54→20:20)
[2023-01-12] MEDS: ASPIRIN 81 MG TABLET EC PO (07:54)
[2023-01-12] MEDS: LOSARTAN POTASSIUM 50 MG TABLET PO (07:55)
[2023-01-12] MEDS: MULTIVITAMIN/MINERALS 1 TABLET 1 TAB PO (07:55)
[2023-01-12] MEDS: TORSEMIDE 20 MG TABLET PO (07:55)
[2023-01-12] MEDS: NYSTATIN POWDER 1 APPLIC TOPICAL ×2 (07:55→20:21)
[2023-01-12] MEDS: FLECAINIDE ACETATE 50 MG TABLET PO ×2 (07:55→20:21)
[2023-01-12] MEDS: SERTRALINE 100 MG TABLET PO (07:57)
[2023-01-12] MEDS: INSULIN LISPRO 100 UNIT/ML VIAL SUBCUT ×2 (08:08→12:36)
[2023-01-12] MEDS: INSULIN LISPRO 100 UNIT/ML VIAL 9 UNIT SUBCUT ×3 (08:08→17:28)
--- NOTE | 2023-01-12 09:45 | PC.NURSE ---
Appointment: Resident left with for an appointment
--- NOTE | 2023-01-12 12:00 | PC.NURSE ---
Outing: Resident back from appointment with not new orders
--- NOTE | 2023-01-12 13:06 | PC.NURSE ---
Seen by Chiropractor today and commented that progress was made working on her neck and left jaw. No new orders.
[2023-01-12] MEDS: PRAVASTATIN SODIUM 40 MG TABLET PO (20:21)
[2023-01-12] MEDS: MELATONIN 3 MG TABLET PO (20:21)
[2023-01-12] MEDS: OXYCODONE 5 MG TABLET PO (21:12)
[2023-01-13] MEDS: ASPIRIN 81 MG TABLET EC PO (07:45)
[2023-01-13] MEDS: FLECAINIDE ACETATE 50 MG TABLET PO ×2 (07:45→19:58)
[2023-01-13] MEDS: NYSTATIN POWDER 1 APPLIC TOPICAL ×2 (07:45→19:57)
[2023-01-13] MEDS: CALCIUM CARBONATE 500 MG TABLET PO (07:45)
[2023-01-13] MEDS: ACETAMINOPHEN 500 MG TABLET 1000 MG PO ×3 (07:45→19:57)
[2023-01-13] MEDS: FOLIC ACID 1 MG TABLET 3 MG PO (07:45)
[2023-01-13] MEDS: LOSARTAN POTASSIUM 50 MG TABLET PO (07:45)
[2023-01-13] MEDS: TORSEMIDE 20 MG TABLET PO (07:45)
[2023-01-13] MEDS: SERTRALINE 100 MG TABLET PO (07:45)
[2023-01-13] MEDS: MULTIVITAMIN/MINERALS 1 TABLET 1 TAB PO (07:45)
[2023-01-13] MEDS: APIXABAN 5 MG TABLET 2.5 MG PO ×2 (07:45→16:00)
[2023-01-13] MEDS: INSULIN LISPRO 100 UNIT/ML VIAL 9 UNIT SUBCUT ×3 (08:42→17:43)
[2023-01-13] MEDS: INSULIN LISPRO 100 UNIT/ML VIAL SUBCUT ×2 (08:43→11:48)
[2023-01-13] MEDS: PRAVASTATIN SODIUM 40 MG TABLET PO (19:57)
[2023-01-13] MEDS: MELATONIN 3 MG TABLET PO (19:57)
[2023-01-13] MEDS: OXYCODONE 5 MG TABLET PO (21:44)
--- NOTE | 2023-01-13 21:59 | PC.NURSE ---
Blood glucose: Resident did have a hypoglycemic episode at the start of shift, complain of dizziness and weakness blood glucose results if 51, snack given recheck and is 151, supper and schedule insulin given
[2023-01-14] MEDS: CALCIUM CARBONATE 500 MG TABLET PO (07:59)
[2023-01-14] MEDS: ASPIRIN 81 MG TABLET EC PO (07:59)
[2023-01-14] MEDS: ACETAMINOPHEN 500 MG TABLET 1000 MG PO ×3 (07:59→19:48)
[2023-01-14] MEDS: FOLIC ACID 1 MG TABLET 3 MG PO (08:00)
[2023-01-14] MEDS: MULTIVITAMIN/MINERALS 1 TABLET 1 TAB PO (08:00)
[2023-01-14] MEDS: LOSARTAN POTASSIUM 50 MG TABLET PO (08:00)
[2023-01-14] MEDS: APIXABAN 5 MG TABLET 2.5 MG PO ×2 (08:00→10:07)
[2023-01-14] MEDS: TORSEMIDE 20 MG TABLET PO (08:01)
[2023-01-14] MEDS: SERTRALINE 100 MG TABLET PO (08:01)
[2023-01-14] MEDS: FLECAINIDE ACETATE 50 MG TABLET PO ×2 (08:01→19:48)
[2023-01-14] MEDS: NYSTATIN POWDER 1 APPLIC TOPICAL ×2 (08:01→19:48)
[2023-01-14] MEDS: INSULIN LISPRO 100 UNIT/ML VIAL SUBCUT ×2 (08:33→17:18)
[2023-01-14] MEDS: INSULIN LISPRO 100 UNIT/ML VIAL 9 UNIT SUBCUT ×3 (08:33→17:18)
--- NOTE | 2023-01-14 10:09 | PC.NURSE ---
MIRELA note: Resident left with family at 1000 as she is going out to celebrate her birthday tomorrow. Resident has glucometer & supplies, insulin needles, alcohol wipes, Humalog pen, noon dose of Tylenol 1000 mg and 1600 dose of Eliquis 2.5 mg with resident along with current orders including Humalog scheduled & sliding scale orders. Resident expects to return around supper time. Staff will save supper tray for resident.
[2023-01-14] MEDS: MELATONIN 3 MG TABLET PO (19:48)
[2023-01-14] MEDS: PRAVASTATIN SODIUM 40 MG TABLET PO (19:48)
[2023-01-14] MEDS: OXYCODONE 5 MG TABLET PO (21:13)
--- NOTE | 2023-01-15 06:31 | PC.NURSE ---
Hypoglycemia Resident BS 42 when checked at 0200. Snack was given and went to BS 104.
[2023-01-15] MEDS: LOSARTAN POTASSIUM 50 MG TABLET PO (07:55)
[2023-01-15] MEDS: FOLIC ACID 1 MG TABLET 3 MG PO (07:55)
[2023-01-15] MEDS: ASPIRIN 81 MG TABLET EC PO (07:55)
[2023-01-15] MEDS: APIXABAN 5 MG TABLET 2.5 MG PO ×2 (07:55→16:39)
[2023-01-15] MEDS: ACETAMINOPHEN 500 MG TABLET 1000 MG PO ×3 (07:55→20:18)
[2023-01-15] MEDS: CALCIUM CARBONATE 500 MG TABLET PO (07:55)
[2023-01-15] MEDS: TORSEMIDE 20 MG TABLET PO (07:56)
[2023-01-15] MEDS: SERTRALINE 100 MG TABLET PO (07:56)
[2023-01-15] MEDS: NYSTATIN POWDER 1 APPLIC TOPICAL ×2 (07:56→20:18)
[2023-01-15] MEDS: MULTIVITAMIN/MINERALS 1 TABLET 1 TAB PO (07:56)
[2023-01-15] MEDS: FLECAINIDE ACETATE 50 MG TABLET PO ×2 (07:56→20:18)
[2023-01-15] MEDS: INSULIN LISPRO 100 UNIT/ML VIAL 9 UNIT SUBCUT ×3 (08:46→17:34)
[2023-01-15] MEDS: INSULIN LISPRO 100 UNIT/ML VIAL SUBCUT ×2 (08:46→11:44)
--- NOTE | 2023-01-15 11:45 | PC.NURSE ---
MIRELA note: Resident's is taking resident to cafe for lunch at this time and then they state they will be going out for a couple of hours. Resident just received lunch insulin and states she will take afternoon medications once she returns before supper. Will update oncoming staff at shift change.
[2023-01-15 16:00] VITALS: BP 115/68; PULSE 73; RESP 18; TEMP 36.5; O2SAT 98; BMI 39.2; BMI 39.6
[2023-01-15] MEDS: MELATONIN 3 MG TABLET PO (20:18)
[2023-01-15] MEDS: PRAVASTATIN SODIUM 40 MG TABLET PO (20:18)
[2023-01-15] MEDS: OXYCODONE 5 MG TABLET PO (21:42)
--- NOTE | 2023-01-16 05:29 | PC.NURSE ---
Hypoglycemia Resident BS 60 2 0200. Gave Ensure, juice, rice crispy and in 15 minutes went BS 71 ; will recheck again .
[2023-01-16] MEDS: FOLIC ACID 1 MG TABLET 3 MG PO (08:12)
[2023-01-16] MEDS: ASPIRIN 81 MG TABLET EC PO (08:12)
[2023-01-16] MEDS: ACETAMINOPHEN 500 MG TABLET 1000 MG PO ×3 (08:12→20:08)
[2023-01-16] MEDS: APIXABAN 5 MG TABLET 2.5 MG PO ×2 (08:12→15:52)
[2023-01-16] MEDS: CALCIUM CARBONATE 500 MG TABLET PO (08:12)
[2023-01-16] MEDS: INSULIN LISPRO 100 UNIT/ML VIAL 9 UNIT SUBCUT ×3 (08:13→17:16)
[2023-01-16] MEDS: INSULIN LISPRO 100 UNIT/ML VIAL SUBCUT (08:13)
[2023-01-16] MEDS: MULTIVITAMIN/MINERALS 1 TABLET 1 TAB PO (08:14)
[2023-01-16] MEDS: LOSARTAN POTASSIUM 50 MG TABLET PO (08:14)
[2023-01-16] MEDS: NYSTATIN POWDER 1 APPLIC TOPICAL ×2 (08:14→20:11)
[2023-01-16] MEDS: TORSEMIDE 20 MG TABLET PO (08:15)
[2023-01-16] MEDS: SERTRALINE 100 MG TABLET PO (08:15)
[2023-01-16] MEDS: FLECAINIDE ACETATE 50 MG TABLET PO ×2 (08:15→20:11)
[2023-01-16] MEDS: MELATONIN 3 MG TABLET PO (20:10)
[2023-01-16] MEDS: PRAVASTATIN SODIUM 40 MG TABLET PO (20:11)
[2023-01-16] MEDS: OXYCODONE 5 MG TABLET PO (21:10)
[2023-01-17] MEDS: CALCIUM CARBONATE 500 MG TABLET PO (08:51)
[2023-01-17] MEDS: ASPIRIN 81 MG TABLET EC PO (08:51)
[2023-01-17] MEDS: ACETAMINOPHEN 500 MG TABLET 1000 MG PO ×3 (08:51→19:54)
[2023-01-17] MEDS: APIXABAN 5 MG TABLET 2.5 MG PO ×2 (08:52→16:16)
[2023-01-17] MEDS: FOLIC ACID 1 MG TABLET 3 MG PO (08:52)
[2023-01-17] MEDS: LOSARTAN POTASSIUM 50 MG TABLET PO (08:52)
[2023-01-17] MEDS: MULTIVITAMIN/MINERALS 1 TABLET 1 TAB PO (08:53)
[2023-01-17] MEDS: FLECAINIDE ACETATE 50 MG TABLET PO ×2 (08:54→19:54)
[2023-01-17] MEDS: TORSEMIDE 20 MG TABLET PO (08:54)
[2023-01-17] MEDS: SERTRALINE 100 MG TABLET PO (08:55)
[2023-01-17] MEDS: INSULIN LISPRO 100 UNIT/ML VIAL 9 UNIT SUBCUT ×3 (09:07→17:21)
[2023-01-17] MEDS: INSULIN LISPRO 100 UNIT/ML VIAL SUBCUT ×3 (09:08→17:21)
[2023-01-17] MEDS: NYSTATIN POWDER 1 APPLIC TOPICAL ×2 (09:09→19:54)
--- NOTE | 2023-01-17 11:36 | PC.NURSE ---
Status/Order : Resident was seen by SOPHIE barr and ordered Hydrocortisone 1% cream tropical application for rash and itch.
--- NOTE | 2023-01-17 14:15 | PC.NURSE ---
Appointment note: Staff from [facility] called this afternoon to report that resident will be unable to have infusion completed until second week of January. Casework Specialist updated STUDIO TECHNICIAN and charge nurse.
--- NOTE | 2023-01-17 14:39 | PC.NURSE ---
Blood glucose note: Resident's blood glucose noted to be 505 before lunch today. No signs of hyperglycemia noted with resident denying signs when asked. Water encouraged. Resident was given lunch insulin including scheduled Humalog and sliding scale Humalog. When blood glucose was rechecked approximately 2 hours later per order, resident's blood sugar was noted to be decreased to 493. Resident continued to deny hyperglycemia symptoms with no signs noted. Water continues to be encouraged. Evening shift updated.
[2023-01-17] MEDS: MELATONIN 3 MG TABLET PO (19:54)
[2023-01-17] MEDS: PRAVASTATIN SODIUM 40 MG TABLET PO (19:54)
[2023-01-17] MEDS: OXYCODONE 5 MG TABLET PO (21:19)
[2023-01-17] MEDS: HYDROCORTISONE 1 % CREAM 1 APPLIC TOPICAL (21:19)
[2023-01-18] MEDS: CALCIUM CARBONATE 500 MG TABLET PO (07:46)
[2023-01-18] MEDS: ASPIRIN 81 MG TABLET EC PO (07:46)
[2023-01-18] MEDS: APIXABAN 5 MG TABLET 2.5 MG PO ×2 (07:46→16:40)
[2023-01-18] MEDS: FOLIC ACID 1 MG TABLET 3 MG PO (07:46)
[2023-01-18] MEDS: ACETAMINOPHEN 500 MG TABLET 1000 MG PO ×3 (07:46→20:23)
[2023-01-18] MEDS: MULTIVITAMIN/MINERALS 1 TABLET 1 TAB PO (07:48)
[2023-01-18] MEDS: LOSARTAN POTASSIUM 50 MG TABLET PO (07:48)
[2023-01-18] MEDS: TORSEMIDE 20 MG TABLET PO (07:49)
[2023-01-18] MEDS: FLECAINIDE ACETATE 50 MG TABLET PO ×2 (07:49→20:24)
[2023-01-18] MEDS: SERTRALINE 100 MG TABLET PO (07:49)
[2023-01-18] MEDS: INSULIN LISPRO 100 UNIT/ML VIAL 9 UNIT SUBCUT ×3 (08:31→17:11)
[2023-01-18] MEDS: INSULIN LISPRO 100 UNIT/ML VIAL SUBCUT ×2 (08:31→11:51)
--- NOTE | 2023-01-18 10:50 | PC.NURSE ---
Skin: Resident has no noted redness in the groin. Nystatin held. Note left in PARTY BUS DRIVER book to change from scheduled to PRN.
--- NOTE | 2023-01-18 12:53 | PC.NURSE ---
Appointment note: Resident is leaving to attend afternoon therapy appointment in [facility]. Transportation is being provided by a friend. Resident has had lunch and is being sent with consult paperwork.
[2023-01-18] MEDS: MELATONIN 3 MG TABLET PO (20:23)
[2023-01-18] MEDS: PRAVASTATIN SODIUM 40 MG TABLET PO (20:24)
--- NOTE | 2023-01-18 21:21 | PC.NURSE ---
Return: Resident returned from appt @ 5297. Was provided with print outs for TMJ exercises to begin.
[2023-01-18] MEDS: OXYCODONE 5 MG TABLET PO (22:05)
--- NOTE | 2023-01-19 04:29 | PC.NURSE ---
WEEKLY CHARTING WEEK 3 : Toileting and skin Vital signs reviewed blood glucose stable still not stable, had some very low this week ; 0200 today was BS 268. Comprehensive care plan and temporary care plan reviewed with? changes made lately regarding her left side jaw pain ; pain should be managed and controlled .? Skin :Has redness to groin and abdominal fold, scheduled nystatin powder applied. Trace of edema to bilateral lower legs, wears Curtis socks on AM, off evening. Skin check done every bath days and during cares. Resident is independent with toileting, stand by assist overnight for safety : incontinent pad, ryan cares and clothing managed by staff. She is able to use call light for bathroom use ; Wears medium pull up.
--- NOTE | 2023-01-19 06:41 | PC.NURSE ---
WEEKLY CHARTING WEEK 3 : TOILETING & SKIN Vital signs reviewed and there is no concern at this moment. Comprehensive care plan and temporary care plan reviewed with?no changes regarding toileting and skin. Resident is independent with toileting and all her cares including grooming and self care. She is able to ambulate using walker. She uses call light for her needs. Her blood glucose are still not stable with fluctuating results. Skin :Has redness to groin and abdominal fold whereby she self applies scheduled nystatin powder, she has an itch and rash ( looks like bug bite) on left feet where by hydrocot cream is being applied. Resident also has edema to bilateral lower legs whereby she wears Curtis socks on AM, off at bedtime. Staff will continue to conduct skin check every bath days and during cares.
[2023-01-19] MEDS: FOLIC ACID 1 MG TABLET 3 MG PO (07:47)
[2023-01-19] MEDS: LOSARTAN POTASSIUM 50 MG TABLET PO (07:47)
[2023-01-19] MEDS: ACETAMINOPHEN 500 MG TABLET 1000 MG PO ×2 (07:47→19:56)
[2023-01-19] MEDS: TORSEMIDE 20 MG TABLET PO (07:47)
[2023-01-19] MEDS: SERTRALINE 100 MG TABLET PO (07:47)
[2023-01-19] MEDS: ASPIRIN 81 MG TABLET EC PO (07:47)
[2023-01-19] MEDS: APIXABAN 5 MG TABLET 2.5 MG PO ×2 (07:47→17:11)
[2023-01-19] MEDS: CALCIUM CARBONATE 500 MG TABLET PO (07:47)
[2023-01-19] MEDS: FLECAINIDE ACETATE 50 MG TABLET PO ×2 (07:47→19:56)
[2023-01-19] MEDS: MULTIVITAMIN/MINERALS 1 TABLET 1 TAB PO (07:47)
[2023-01-19] MEDS: INSULIN LISPRO 100 UNIT/ML VIAL 9 UNIT SUBCUT ×2 (08:28→17:34)
--- NOTE | 2023-01-19 12:09 | PC.NURSE ---
Outing: Resident going out with Chace at 1000 this morning. Gave residents her noon Tylenol, glucose reader and Humalog insulin. Chace will be giving insulin and is aware of the dosing and sliding scale.
[2023-01-19] MEDS: PRAVASTATIN SODIUM 40 MG TABLET PO (19:56)
[2023-01-19] MEDS: NYSTATIN POWDER 1 APPLIC TOPICAL (19:56)
[2023-01-19] MEDS: MELATONIN 3 MG TABLET PO (19:56)
[2023-01-19] MEDS: OXYCODONE 5 MG TABLET PO (21:11)
[2023-01-20] MEDS: ACETAMINOPHEN 500 MG TABLET 1000 MG PO ×3 (08:11→20:23)
[2023-01-20] MEDS: APIXABAN 5 MG TABLET 2.5 MG PO ×2 (08:12→16:05)
[2023-01-20] MEDS: CALCIUM CARBONATE 500 MG TABLET PO (08:12)
[2023-01-20] MEDS: ASPIRIN 81 MG TABLET EC PO (08:12)
[2023-01-20] MEDS: LOSARTAN POTASSIUM 50 MG TABLET PO (08:13)
[2023-01-20] MEDS: MULTIVITAMIN/MINERALS 1 TABLET 1 TAB PO (08:13)
[2023-01-20] MEDS: FOLIC ACID 1 MG TABLET 3 MG PO (08:13)
[2023-01-20] MEDS: NYSTATIN POWDER 1 APPLIC TOPICAL ×2 (08:14→20:23)
[2023-01-20] MEDS: TORSEMIDE 20 MG TABLET PO (08:14)
[2023-01-20] MEDS: FLECAINIDE ACETATE 50 MG TABLET PO ×2 (08:14→20:23)
[2023-01-20] MEDS: SERTRALINE 100 MG TABLET PO (08:15)
[2023-01-20] MEDS: INSULIN LISPRO 100 UNIT/ML VIAL 9 UNIT SUBCUT ×3 (08:28→17:24)
[2023-01-20] MEDS: INSULIN LISPRO 100 UNIT/ML VIAL SUBCUT (08:29)
[2023-01-20] MEDS: PRAVASTATIN SODIUM 40 MG TABLET PO (20:23)
[2023-01-20] MEDS: MELATONIN 3 MG TABLET PO (20:23)
[2023-01-20] MEDS: OXYCODONE 5 MG TABLET PO (21:05)
[2023-01-21] MEDS: APIXABAN 5 MG TABLET 2.5 MG PO ×2 (08:08→15:55)
[2023-01-21] MEDS: FOLIC ACID 1 MG TABLET 3 MG PO (08:08)
[2023-01-21] MEDS: ASPIRIN 81 MG TABLET EC PO (08:08)
[2023-01-21] MEDS: ACETAMINOPHEN 500 MG TABLET 1000 MG PO ×3 (08:08→20:08)
[2023-01-21] MEDS: CALCIUM CARBONATE 500 MG TABLET PO (08:08)
[2023-01-21] MEDS: LOSARTAN POTASSIUM 50 MG TABLET PO (08:10)
[2023-01-21] MEDS: FLECAINIDE ACETATE 50 MG TABLET PO ×2 (08:10→20:09)
[2023-01-21] MEDS: NYSTATIN POWDER 1 APPLIC TOPICAL ×2 (08:10→20:09)
[2023-01-21] MEDS: MULTIVITAMIN/MINERALS 1 TABLET 1 TAB PO (08:10)
[2023-01-21] MEDS: SERTRALINE 100 MG TABLET PO (08:11)
[2023-01-21] MEDS: TORSEMIDE 20 MG TABLET PO (08:11)
[2023-01-21] MEDS: INSULIN LISPRO 100 UNIT/ML VIAL SUBCUT ×2 (08:26→17:17)
[2023-01-21] MEDS: INSULIN LISPRO 100 UNIT/ML VIAL 9 UNIT SUBCUT ×3 (08:26→17:17)
[2023-01-21] MEDS: PRAVASTATIN SODIUM 40 MG TABLET PO (20:09)
[2023-01-21] MEDS: MELATONIN 3 MG TABLET PO (20:09)
[2023-01-21] MEDS: OXYCODONE 5 MG TABLET PO (21:08)
[2023-01-22] MEDS: ACETAMINOPHEN 500 MG TABLET 1000 MG PO ×3 (08:27→20:42)
[2023-01-22] MEDS: CALCIUM CARBONATE 500 MG TABLET PO (08:27)
[2023-01-22] MEDS: FOLIC ACID 1 MG TABLET 3 MG PO (08:27)
[2023-01-22] MEDS: APIXABAN 5 MG TABLET 2.5 MG PO ×2 (08:27→15:58)
[2023-01-22] MEDS: ASPIRIN 81 MG TABLET EC PO (08:27)
[2023-01-22] MEDS: INSULIN LISPRO 100 UNIT/ML VIAL SUBCUT ×3 (08:28→17:26)
[2023-01-22] MEDS: INSULIN LISPRO 100 UNIT/ML VIAL 9 UNIT SUBCUT ×3 (08:28→17:26)
[2023-01-22] MEDS: MULTIVITAMIN/MINERALS 1 TABLET 1 TAB PO (08:29)
[2023-01-22] MEDS: LOSARTAN POTASSIUM 50 MG TABLET PO (08:29)
[2023-01-22] MEDS: TORSEMIDE 20 MG TABLET PO (08:29)
[2023-01-22] MEDS: FLECAINIDE ACETATE 50 MG TABLET PO ×2 (08:29→20:43)
[2023-01-22] MEDS: SERTRALINE 100 MG TABLET PO (08:29)
[2023-01-22] MEDS: NYSTATIN POWDER 1 APPLIC TOPICAL ×2 (08:29→20:42)
[2023-01-22 16:00] VITALS: BP 128/74; PULSE 72; RESP 18; TEMP 36.8; O2SAT 94; BMI 38.8
[2023-01-22] MEDS: PRAVASTATIN SODIUM 40 MG TABLET PO (20:42)
[2023-01-22] MEDS: MELATONIN 3 MG TABLET PO (20:42)
[2023-01-22] MEDS: OXYCODONE 5 MG TABLET PO (20:51)
[2023-01-23] MEDS: MULTIVITAMIN/MINERALS 1 TABLET 1 TAB PO (07:46)
[2023-01-23] MEDS: FOLIC ACID 1 MG TABLET 3 MG PO (07:46)
[2023-01-23] MEDS: ASPIRIN 81 MG TABLET EC PO (07:46)
[2023-01-23] MEDS: ACETAMINOPHEN 500 MG TABLET 1000 MG PO ×3 (07:46→20:18)
[2023-01-23] MEDS: APIXABAN 5 MG TABLET 2.5 MG PO ×2 (07:46→16:15)
[2023-01-23] MEDS: LOSARTAN POTASSIUM 50 MG TABLET PO (07:46)
[2023-01-23] MEDS: CALCIUM CARBONATE 500 MG TABLET PO (07:46)
[2023-01-23] MEDS: FLECAINIDE ACETATE 50 MG TABLET PO ×2 (07:47→20:19)
[2023-01-23] MEDS: TORSEMIDE 20 MG TABLET PO (07:47)
[2023-01-23] MEDS: NYSTATIN POWDER 1 APPLIC TOPICAL ×2 (07:47→20:19)
[2023-01-23] MEDS: SERTRALINE 100 MG TABLET PO (07:47)
[2023-01-23] MEDS: INSULIN LISPRO 100 UNIT/ML VIAL 9 UNIT SUBCUT ×3 (08:38→16:43)
[2023-01-23] MEDS: INSULIN LISPRO 100 UNIT/ML VIAL SUBCUT ×2 (08:38→11:22)
--- NOTE | 2023-01-23 12:10 | PC.NURSE ---
Appointment note: Resident went to cafe with to have lunch at 1145 and is going to afternoon therapy appointment after lunch. Consult Paperwork sent with resident.
--- NOTE | 2023-01-23 14:17 | PC.NURSE ---
Resident return from appointment
--- NOTE | 2023-01-23 14:50 | URNOTE ---
Request received for authorization for?Golimumab (J1602). Prior authorization is approved for Simponi Aria (J1602) 50mg/4ml (1472units = 8 doses) from 02/06/2023 to 02/06/2024 per [facility].
[2023-01-23] MEDS: MELATONIN 3 MG TABLET PO (20:19)
[2023-01-23] MEDS: PRAVASTATIN SODIUM 40 MG TABLET PO (20:19)
--- NOTE | 2023-01-23 21:05 | PC.NURSE ---
Resident returned from therapy w/no consult paperwork.
--- NOTE | 2023-01-23 21:11 | PC.NURSE ---
Resident came back from therapy appt. w/mouth guard, resident requested mouth guard be fitted and help her place in mouth @ HS. No order is available for it, sheet writer/nurse did not administer mouthguard. Resident will contact dentist 01/24 for written order.
[2023-01-23] MEDS: OXYCODONE 5 MG TABLET PO (21:14)
[2023-01-24] MEDS: ASPIRIN 81 MG TABLET EC PO (08:12)
[2023-01-24] MEDS: CALCIUM CARBONATE 500 MG TABLET PO (08:12)
[2023-01-24] MEDS: ACETAMINOPHEN 500 MG TABLET 1000 MG PO ×3 (08:12→19:42)
[2023-01-24] MEDS: LOSARTAN POTASSIUM 50 MG TABLET PO (08:13)
[2023-01-24] MEDS: FOLIC ACID 1 MG TABLET 3 MG PO (08:13)
[2023-01-24] MEDS: MULTIVITAMIN/MINERALS 1 TABLET 1 TAB PO (08:13)
[2023-01-24] MEDS: APIXABAN 5 MG TABLET 2.5 MG PO ×2 (08:13→16:12)
[2023-01-24] MEDS: SERTRALINE 100 MG TABLET PO (08:14)
[2023-01-24] MEDS: TORSEMIDE 20 MG TABLET PO (08:14)
[2023-01-24] MEDS: FLECAINIDE ACETATE 50 MG TABLET PO ×2 (08:14→19:43)
[2023-01-24] MEDS: INSULIN LISPRO 100 UNIT/ML VIAL 9 UNIT SUBCUT ×3 (08:25→17:26)
[2023-01-24] MEDS: INSULIN LISPRO 100 UNIT/ML VIAL SUBCUT ×2 (08:25→12:24)
--- NOTE | 2023-01-24 10:25 | PC.NURSE ---
Appointment note: Journeyman Operator Assistant contacted [facility] at this time to request written order from Dr. Lombardo for mouthguard be faxed to [facility]. Fax number provided to dental clinic.
--- NOTE | 2023-01-24 13:03 | PC.NURSE ---
Order note: SOPHIE Blum gave order to change Nystatin Powder to BID PRN.
[2023-01-24] MEDS: PRAVASTATIN SODIUM 40 MG TABLET PO (19:43)
[2023-01-24] MEDS: MELATONIN 3 MG TABLET PO (19:43)
[2023-01-24] MEDS: OXYCODONE 5 MG TABLET PO (22:10)
[2023-01-25] MEDS: ASPIRIN 81 MG TABLET EC PO (07:54)
[2023-01-25] MEDS: ACETAMINOPHEN 500 MG TABLET 1000 MG PO ×3 (07:54→20:35)
[2023-01-25] MEDS: APIXABAN 5 MG TABLET 2.5 MG PO ×2 (07:55→16:40)
[2023-01-25] MEDS: CALCIUM CARBONATE 500 MG TABLET PO (07:55)
[2023-01-25] MEDS: LOSARTAN POTASSIUM 50 MG TABLET PO (07:55)
[2023-01-25] MEDS: FOLIC ACID 1 MG TABLET 3 MG PO (07:55)
[2023-01-25] MEDS: MULTIVITAMIN/MINERALS 1 TABLET 1 TAB PO (07:55)
[2023-01-25] MEDS: TORSEMIDE 20 MG TABLET PO (07:56)
[2023-01-25] MEDS: FLECAINIDE ACETATE 50 MG TABLET PO ×2 (07:56→20:36)
[2023-01-25] MEDS: SERTRALINE 100 MG TABLET PO (07:57)
[2023-01-25] MEDS: INSULIN LISPRO 100 UNIT/ML VIAL 9 UNIT SUBCUT ×3 (08:55→17:14)
[2023-01-25] MEDS: MAGNESIUM HYDROXIDE 30 ML ORAL.SUSP PO (11:35)
--- NOTE | 2023-01-25 13:11 | PC.NURSE ---
Resident reported constipation and requested milk of mag with prune juice at 1134. Resident pulled call light in bathroom and stated she threw up due to, drinking prune juice too fast. Resident had results with Milk of mag and stated they were feeling much better. Resident is eating lunch now in room. Insulin was given.
[2023-01-25] MEDS: INSULIN LISPRO 100 UNIT/ML VIAL SUBCUT (17:14)
[2023-01-25] MEDS: MELATONIN 3 MG TABLET PO (20:36)
[2023-01-25] MEDS: PRAVASTATIN SODIUM 40 MG TABLET PO (20:36)
[2023-01-25] MEDS: OXYCODONE 5 MG TABLET PO (21:40)
--- NOTE | 2023-01-26 01:36 | PC.NURSE ---
Weekly Charting Week 4; Vital signs reviewed with no concerns. Comprehensive and temporary care plan reviewed with no changes made. No behavior recorded this month. Receives Zoloft 100 mg daily and melatonin 3mg at HS with no side effects or adverse behavior noted. Res alert and oriented, able to communicate needs verbally, able to use call light effectively. No changes of mental status noted. Has hearing impairment use bilateral hearing aids. Vision corrected with glasses. All medications administered by license nurse with no side effects noted. Chronic health condition is stable.
--- NOTE | 2023-01-26 06:45 | PC.NURSE ---
WEEKLY CHARTING-WEEK 4: Communication,Hearing/vision,cognition/Behaviors & Clinical Monitoring: Vital signs reviewed with no concerns. Comprehensive and temporary care plan reviewed with no changes made. No behavior recorded since admission, She has very polite and pleasant personality. Receives Zoloft 100 mg daily and melatonin 3mg at HS with no side effects or adverse behavior noted. Resident is alert and oriented. She is able to communicate needs verbally and use call light effectively.Able to ambulate using walker. No changes of mental status noted. Has bilateral hearing impairment and uses bilateral hearing aids. Vision corrected with glasses. All medications administered by license nurse with no side effects noted.Resident has diabetes type 1 with fluctuating blood sugar with chronic pain which requires constant monitoring and stabilization.She is usually compliance with her medication and treatment.
[2023-01-26] MEDS: CALCIUM CARBONATE 500 MG TABLET PO (07:46)
[2023-01-26] MEDS: FOLIC ACID 1 MG TABLET 3 MG PO (07:46)
[2023-01-26] MEDS: ASPIRIN 81 MG TABLET EC PO (07:46)
[2023-01-26] MEDS: ACETAMINOPHEN 500 MG TABLET 1000 MG PO ×3 (07:46→20:45)
[2023-01-26] MEDS: APIXABAN 5 MG TABLET 2.5 MG PO ×2 (07:46→16:35)
[2023-01-26] MEDS: LOSARTAN POTASSIUM 50 MG TABLET PO (07:47)
[2023-01-26] MEDS: MULTIVITAMIN/MINERALS 1 TABLET 1 TAB PO (07:47)
[2023-01-26] MEDS: TORSEMIDE 20 MG TABLET PO (07:48)
[2023-01-26] MEDS: FLECAINIDE ACETATE 50 MG TABLET PO ×2 (07:48→20:46)
[2023-01-26] MEDS: SERTRALINE 100 MG TABLET PO (07:48)
[2023-01-26] MEDS: INSULIN LISPRO 100 UNIT/ML VIAL 9 UNIT SUBCUT ×3 (08:26→17:33)
[2023-01-26] MEDS: INSULIN LISPRO 100 UNIT/ML VIAL SUBCUT ×2 (08:26→17:33)
--- NOTE | 2023-01-26 15:50 | PC.NURSE ---
Order: Resident is to wear an [id number] nightguard while sleeping due to her TMJ. [place] guard with liquid hand soap upon removal in the morning and keep dry when out of the mouth. If new discomfort arises, discontinue use of the nightguard, per Dr. Armond Lombardo, JUANITA.
[2023-01-26] MEDS: MELATONIN 3 MG TABLET PO (20:45)
[2023-01-26] MEDS: PRAVASTATIN SODIUM 40 MG TABLET PO (20:46)
[2023-01-26] MEDS: OXYCODONE 5 MG TABLET PO (21:50)
--- NOTE | 2023-01-26 22:28 | PC.NURSE ---
Nurse fitted nightguard this evening. Resident did complain of ill-fitting. Asked resident to trial nightguard for a few days. Will continue to monitor.
[2023-01-27] MEDS: ACETAMINOPHEN 500 MG TABLET 1000 MG PO ×3 (07:49→19:43)
[2023-01-27] MEDS: APIXABAN 5 MG TABLET 2.5 MG PO ×2 (07:49→16:00)
[2023-01-27] MEDS: LOSARTAN POTASSIUM 50 MG TABLET PO (07:49)
[2023-01-27] MEDS: MULTIVITAMIN/MINERALS 1 TABLET 1 TAB PO (07:49)
[2023-01-27] MEDS: CALCIUM CARBONATE 500 MG TABLET PO (07:49)
[2023-01-27] MEDS: FOLIC ACID 1 MG TABLET 3 MG PO (07:49)
[2023-01-27] MEDS: ASPIRIN 81 MG TABLET EC PO (07:49)
[2023-01-27] MEDS: SERTRALINE 100 MG TABLET PO (07:50)
[2023-01-27] MEDS: FLECAINIDE ACETATE 50 MG TABLET PO ×2 (07:50→19:44)
[2023-01-27] MEDS: TORSEMIDE 20 MG TABLET PO (07:50)
[2023-01-27] MEDS: INSULIN LISPRO 100 UNIT/ML VIAL SUBCUT ×2 (08:26→11:44)
[2023-01-27] MEDS: INSULIN LISPRO 100 UNIT/ML VIAL 9 UNIT SUBCUT ×3 (08:26→17:58)
[2023-01-27] MEDS: MELATONIN 3 MG TABLET PO (19:44)
[2023-01-27] MEDS: PRAVASTATIN SODIUM 40 MG TABLET PO (19:44)
[2023-01-27] MEDS: OXYCODONE 5 MG TABLET PO (21:24)
[2023-01-28] MEDS: ACETAMINOPHEN 500 MG TABLET 1000 MG PO ×3 (08:06→20:07)
[2023-01-28] MEDS: ASPIRIN 81 MG TABLET EC PO (08:06)
[2023-01-28] MEDS: CALCIUM CARBONATE 500 MG TABLET PO (08:07)
[2023-01-28] MEDS: LOSARTAN POTASSIUM 50 MG TABLET PO (08:07)
[2023-01-28] MEDS: APIXABAN 5 MG TABLET 2.5 MG PO ×2 (08:07→15:15)
[2023-01-28] MEDS: FOLIC ACID 1 MG TABLET 3 MG PO (08:07)
[2023-01-28] MEDS: MULTIVITAMIN/MINERALS 1 TABLET 1 TAB PO (08:07)
[2023-01-28] MEDS: SERTRALINE 100 MG TABLET PO (08:08)
[2023-01-28] MEDS: TORSEMIDE 20 MG TABLET PO (08:08)
[2023-01-28] MEDS: FLECAINIDE ACETATE 50 MG TABLET PO ×2 (08:08→20:08)
[2023-01-28] MEDS: INSULIN LISPRO 100 UNIT/ML VIAL 9 UNIT SUBCUT ×3 (09:02→17:31)
--- NOTE | 2023-01-28 09:07 | PC.NURSE ---
Bowel note: Res requesting to take prune juice with breakfast for no BM within the last 2 days.
[2023-01-28] MEDS: INSULIN LISPRO 100 UNIT/ML VIAL SUBCUT (17:31)
[2023-01-28] MEDS: PRAVASTATIN SODIUM 40 MG TABLET PO (20:08)
[2023-01-28] MEDS: MELATONIN 3 MG TABLET PO (20:08)
[2023-01-28] MEDS: OXYCODONE 5 MG TABLET PO (21:19)
[2023-01-29] MEDS: ACETAMINOPHEN 500 MG TABLET 1000 MG PO ×3 (07:52→19:39)
[2023-01-29] MEDS: SERTRALINE 100 MG TABLET PO (07:53)
[2023-01-29] MEDS: TORSEMIDE 20 MG TABLET PO (07:53)
[2023-01-29] MEDS: MULTIVITAMIN/MINERALS 1 TABLET 1 TAB PO (07:53)
[2023-01-29] MEDS: APIXABAN 5 MG TABLET 2.5 MG PO ×2 (07:53→15:28)
[2023-01-29] MEDS: CALCIUM CARBONATE 500 MG TABLET PO (07:53)
[2023-01-29] MEDS: FOLIC ACID 1 MG TABLET 3 MG PO (07:53)
[2023-01-29] MEDS: FLECAINIDE ACETATE 50 MG TABLET PO ×2 (07:53→19:39)
[2023-01-29] MEDS: ASPIRIN 81 MG TABLET EC PO (07:53)
[2023-01-29] MEDS: LOSARTAN POTASSIUM 50 MG TABLET PO (07:53)
[2023-01-29] MEDS: INSULIN LISPRO 100 UNIT/ML VIAL 9 UNIT SUBCUT ×3 (08:29→17:29)
[2023-01-29] MEDS: MAGNESIUM HYDROXIDE 30 ML ORAL.SUSP PO (09:44)
[2023-01-29 16:00] VITALS: BP 113/71; PULSE 65; RESP 18; TEMP 36.3; O2SAT 95; BMI 37.7
[2023-01-29] MEDS: PRAVASTATIN SODIUM 40 MG TABLET PO (19:39)
[2023-01-29] MEDS: MELATONIN 3 MG TABLET PO (19:39)
[2023-01-29] MEDS: OXYCODONE 5 MG TABLET PO (21:15)
[2023-01-30] MEDS: CALCIUM CARBONATE 500 MG TABLET PO (07:54)
[2023-01-30] MEDS: ACETAMINOPHEN 500 MG TABLET 1000 MG PO ×3 (07:54→19:04)
[2023-01-30] MEDS: ASPIRIN 81 MG TABLET EC PO (07:54)
[2023-01-30] MEDS: APIXABAN 5 MG TABLET 2.5 MG PO ×2 (07:54→15:47)
[2023-01-30] MEDS: FOLIC ACID 1 MG TABLET 3 MG PO (07:54)
[2023-01-30] MEDS: SERTRALINE 100 MG TABLET PO (07:55)
[2023-01-30] MEDS: FLECAINIDE ACETATE 50 MG TABLET PO ×2 (07:55→19:05)
[2023-01-30] MEDS: TORSEMIDE 20 MG TABLET PO (07:55)
[2023-01-30] MEDS: LOSARTAN POTASSIUM 50 MG TABLET PO (07:55)
[2023-01-30] MEDS: MULTIVITAMIN/MINERALS 1 TABLET 1 TAB PO (07:55)
[2023-01-30] MEDS: INSULIN LISPRO 100 UNIT/ML VIAL 9 UNIT SUBCUT ×3 (08:11→17:05)
--- NOTE | 2023-01-30 11:06 | PC.NURSE ---
Appointment note: Resident left for therapy appointment at 1000 and will return before lunch. [facility]fusion [facility] called to schedule appointment for next infusion of RA medication. Resident to receive infusion on 02/07/23 at 1 PM. Information placed on unit calendar. Will update resident of appointment when she returns from therapy appointment.
--- NOTE | 2023-01-30 11:11 | PC.NURSE ---
Orders note: Information received from Dr. Desiree Rivero MD with Division of Rheumatology in [place], [place] to discontinue tocilizumab one week prior to first golimumab infusion. Begin the following (first infusion to be scheduled at least one week after last tocilizumab injection): Medication: Golimumab IV infusion Dose: 2 mg/kg Frequency: 2 mg/kg infusion at week 0, week 4, then every 8 weeks thereafter For infusion related reactions (if needed): Acetaminophen (Tylenol 650 mg, PO, once as needed for infusion reaction Diphenhydramine (Benadryl), 25 mg, IV once as needed for infusion reaction Methylprednisolone intravenous 40mg once as needed for infusion reaction Reproductive Surgeon spoke with hospital pharmacist Jordyn who stated she will input this information under resident's orders. Reproductive Surgeon also faxed information to hospital pharmacy.
--- NOTE | 2023-01-30 12:44 | PC.NURSE ---
Appointment note: Resident has returned from therapy appointment. Per progress note: Diann reports 98% improvement in symptoms. She will continue with exercises and use of mouth guard at night. She has follow up in 2 weeks. She may be appropriate to d/c if continuing to progress well.
[2023-01-30] MEDS: INSULIN LISPRO 100 UNIT/ML VIAL SUBCUT (12:46)
[2023-01-30] MEDS: PRAVASTATIN SODIUM 40 MG TABLET PO (19:04)
[2023-01-30] MEDS: MELATONIN 3 MG TABLET PO (19:04)
[2023-01-30] MEDS: OXYCODONE 5 MG TABLET PO (21:06)
[2023-01-31] MEDS: ACETAMINOPHEN 500 MG TABLET 1000 MG PO ×3 (07:55→19:46)
[2023-01-31] MEDS: CALCIUM CARBONATE 500 MG TABLET PO (07:55)
[2023-01-31] MEDS: FOLIC ACID 1 MG TABLET 3 MG PO (07:55)
[2023-01-31] MEDS: ASPIRIN 81 MG TABLET EC PO (07:55)
[2023-01-31] MEDS: APIXABAN 5 MG TABLET 2.5 MG PO ×2 (07:55→16:03)
[2023-01-31] MEDS: SERTRALINE 100 MG TABLET PO (07:56)
[2023-01-31] MEDS: TORSEMIDE 20 MG TABLET PO (07:56)
[2023-01-31] MEDS: MULTIVITAMIN/MINERALS 1 TABLET 1 TAB PO (07:56)
[2023-01-31] MEDS: LOSARTAN POTASSIUM 50 MG TABLET PO (07:56)
[2023-01-31] MEDS: FLECAINIDE ACETATE 50 MG TABLET PO ×2 (07:56→19:46)
[2023-01-31] MEDS: INSULIN LISPRO 100 UNIT/ML VIAL 9 UNIT SUBCUT ×3 (08:48→17:14)
[2023-01-31] MEDS: INSULIN LISPRO 100 UNIT/ML VIAL SUBCUT (17:13)
[2023-01-31] MEDS: MELATONIN 3 MG TABLET PO (19:46)
[2023-01-31] MEDS: PRAVASTATIN SODIUM 40 MG TABLET PO (19:46)
[2023-01-31] MEDS: OXYCODONE 5 MG TABLET PO (21:18)
--- NOTE | 2023-02-01 06:15 | PC.NURSE ---
Addendum entered by Irene Walls RN 02/01/23 06:52: Note from evening nurse on 01/31/23 specified [facility] though facility podiatry service is called [facility] with correct fax number of [phone]. Original Note: NOC nurse reported that [facility] requested evening nurse on 01/31/23 fax RA abrams and note to them at fax number [phone]. Gold Leaf Printer completed this task at this time.
[2023-02-01] MEDS: CALCIUM CARBONATE 500 MG TABLET PO (07:43)
[2023-02-01] MEDS: ASPIRIN 81 MG TABLET EC PO (07:43)
[2023-02-01] MEDS: ACETAMINOPHEN 500 MG TABLET 1000 MG PO ×3 (07:43→20:56)
[2023-02-01] MEDS: APIXABAN 5 MG TABLET 2.5 MG PO ×2 (07:44→16:22)
[2023-02-01] MEDS: MULTIVITAMIN/MINERALS 1 TABLET 1 TAB PO (07:44)
[2023-02-01] MEDS: FOLIC ACID 1 MG TABLET 3 MG PO (07:44)
[2023-02-01] MEDS: LOSARTAN POTASSIUM 50 MG TABLET PO (07:44)
[2023-02-01] MEDS: FLECAINIDE ACETATE 50 MG TABLET PO ×2 (07:45→20:57)
[2023-02-01] MEDS: SERTRALINE 100 MG TABLET PO (07:45)
[2023-02-01] MEDS: TORSEMIDE 20 MG TABLET PO (07:45)
[2023-02-01] MEDS: INSULIN LISPRO 100 UNIT/ML VIAL 9 UNIT SUBCUT ×3 (08:35→17:43)
[2023-02-01] MEDS: MELATONIN 3 MG TABLET PO (20:56)
[2023-02-01] MEDS: PRAVASTATIN SODIUM 40 MG TABLET PO (20:56)
[2023-02-01] MEDS: OXYCODONE 5 MG TABLET PO (21:14)
[2023-02-02] MEDS: ACETAMINOPHEN 500 MG TABLET 1000 MG PO ×3 (07:13→20:06)
[2023-02-02] MEDS: ASPIRIN 81 MG TABLET EC PO (07:14)
[2023-02-02] MEDS: CALCIUM CARBONATE 500 MG TABLET PO (07:14)
[2023-02-02] MEDS: LOSARTAN POTASSIUM 50 MG TABLET PO (07:15)
[2023-02-02] MEDS: MULTIVITAMIN/MINERALS 1 TABLET 1 TAB PO (07:15)
[2023-02-02] MEDS: FOLIC ACID 1 MG TABLET 3 MG PO (07:15)
[2023-02-02] MEDS: APIXABAN 5 MG TABLET 2.5 MG PO ×2 (07:15→16:05)
[2023-02-02] MEDS: FLECAINIDE ACETATE 50 MG TABLET PO ×2 (07:15→20:06)
[2023-02-02] MEDS: SERTRALINE 100 MG TABLET PO (07:16)
[2023-02-02] MEDS: TORSEMIDE 20 MG TABLET PO (07:16)
[2023-02-02] MEDS: INSULIN LISPRO 100 UNIT/ML VIAL 9 UNIT SUBCUT ×3 (08:32→17:30)
[2023-02-02] MEDS: MELATONIN 3 MG TABLET PO (20:06)
[2023-02-02] MEDS: PRAVASTATIN SODIUM 40 MG TABLET PO (20:06)
[2023-02-02] MEDS: OXYCODONE 5 MG TABLET PO (21:21)
--- NOTE | 2023-02-03 03:11 | PC.NURSE ---
Blood sugar reading at 02:00 was 61, No signs of hypoglycemia. Offered juice and 1 fig, BG recheck after 30 minutes, went up to 133.
[2023-02-03] MEDS: ACETAMINOPHEN 500 MG TABLET 1000 MG PO ×3 (07:58→19:28)
[2023-02-03] MEDS: FLECAINIDE ACETATE 50 MG TABLET PO ×2 (07:59→19:29)
[2023-02-03] MEDS: SERTRALINE 100 MG TABLET PO (07:59)
[2023-02-03] MEDS: ASPIRIN 81 MG TABLET EC PO (07:59)
[2023-02-03] MEDS: LOSARTAN POTASSIUM 50 MG TABLET PO (07:59)
[2023-02-03] MEDS: APIXABAN 5 MG TABLET 2.5 MG PO ×2 (07:59→15:36)
[2023-02-03] MEDS: MULTIVITAMIN/MINERALS 1 TABLET 1 TAB PO (07:59)
[2023-02-03] MEDS: CALCIUM CARBONATE 500 MG TABLET PO (07:59)
[2023-02-03] MEDS: FOLIC ACID 1 MG TABLET 3 MG PO (07:59)
[2023-02-03] MEDS: TORSEMIDE 20 MG TABLET PO (07:59)
[2023-02-03] MEDS: INSULIN LISPRO 100 UNIT/ML VIAL 9 UNIT SUBCUT ×3 (08:11→16:39)
--- NOTE | 2023-02-03 11:28 | PC.NURSE ---
Diabetic Shoes: Reached out to Podiatry unit regarding certification form to be signed by provider to get the diabetic shoes and was informed that thePodiatry services will reached out to the primary care physician to get the form signed and purchase the shoes for the resident.
--- NOTE | 2023-02-03 15:47 | PC.SOCIAL ---
Met with resident in room to complete PHQ-9. Resident scored a 4 on assessment. Resident discussed that she has been struggling some since her is sick with shingles and she typically goes on outings with her , but he is not able to do so. Resident discussed that the changes have been somewhat hard for her to adjust to. Informed resident that social work can make a referral to a mental health therapist if she thinks she needs some therapy support. Resident states that she does not think she needs it at this time but states it is good for her to know that information. Resident will follow up with social work if she thinks she wants to speak with a therapist. Informed resident that a mental health therapist comes into the facility every other [facility] to see others, so if she decides she would like to see the therapist she can let social work know. Social work will follow up as needed.
[2023-02-03] MEDS: INSULIN LISPRO 100 UNIT/ML VIAL SUBCUT (16:39)
[2023-02-03] MEDS: MELATONIN 3 MG TABLET PO (19:29)
[2023-02-03] MEDS: PRAVASTATIN SODIUM 40 MG TABLET PO (19:29)
[2023-02-03] MEDS: OXYCODONE 5 MG TABLET PO (21:02)
[2023-02-04] MEDS: CALCIUM CARBONATE 500 MG TABLET PO (08:15)
[2023-02-04] MEDS: FOLIC ACID 1 MG TABLET 3 MG PO (08:15)
[2023-02-04] MEDS: ACETAMINOPHEN 500 MG TABLET 1000 MG PO ×3 (08:15→19:10)
[2023-02-04] MEDS: APIXABAN 5 MG TABLET 2.5 MG PO ×2 (08:15→15:27)
[2023-02-04] MEDS: ASPIRIN 81 MG TABLET EC PO (08:15)
[2023-02-04] MEDS: MULTIVITAMIN/MINERALS 1 TABLET 1 TAB PO (08:16)
[2023-02-04] MEDS: LOSARTAN POTASSIUM 50 MG TABLET PO (08:16)
[2023-02-04] MEDS: INSULIN LISPRO 100 UNIT/ML VIAL 9 UNIT SUBCUT ×3 (08:16→16:45)
[2023-02-04] MEDS: INSULIN LISPRO 100 UNIT/ML VIAL SUBCUT ×3 (08:16→16:45)
[2023-02-04] MEDS: TORSEMIDE 20 MG TABLET PO (08:17)
[2023-02-04] MEDS: SERTRALINE 100 MG TABLET PO (08:17)
[2023-02-04] MEDS: FLECAINIDE ACETATE 50 MG TABLET PO ×2 (08:17→19:10)
[2023-02-04] MEDS: MELATONIN 3 MG TABLET PO (19:10)
[2023-02-04] MEDS: PRAVASTATIN SODIUM 40 MG TABLET PO (19:10)
[2023-02-04] MEDS: OXYCODONE 5 MG TABLET PO (21:04)
[2023-02-05] MEDS: ASPIRIN 81 MG TABLET EC PO (07:58)
[2023-02-05] MEDS: CALCIUM CARBONATE 500 MG TABLET PO (07:58)
[2023-02-05] MEDS: ACETAMINOPHEN 500 MG TABLET 1000 MG PO ×3 (07:58→19:26)
[2023-02-05] MEDS: APIXABAN 5 MG TABLET 2.5 MG PO ×2 (07:59→15:38)
[2023-02-05] MEDS: FOLIC ACID 1 MG TABLET 3 MG PO (07:59)
[2023-02-05] MEDS: LOSARTAN POTASSIUM 50 MG TABLET PO (08:00)
[2023-02-05] MEDS: MULTIVITAMIN/MINERALS 1 TABLET 1 TAB PO (08:00)
[2023-02-05] MEDS: SERTRALINE 100 MG TABLET PO (08:02)
[2023-02-05] MEDS: INSULIN LISPRO 100 UNIT/ML VIAL 9 UNIT SUBCUT ×3 (08:02→17:00)
[2023-02-05] MEDS: TORSEMIDE 20 MG TABLET PO (08:02)
[2023-02-05] MEDS: FLECAINIDE ACETATE 50 MG TABLET PO ×2 (08:02→19:27)
[2023-02-05] MEDS: INSULIN LISPRO 100 UNIT/ML VIAL SUBCUT (08:03)
[2023-02-05 16:00] VITALS: BP 118/78; PULSE 76; RESP 18; TEMP 37; O2SAT 95; BMI 37.7
[2023-02-05] MEDS: MELATONIN 3 MG TABLET PO (19:26)
[2023-02-05] MEDS: PRAVASTATIN SODIUM 40 MG TABLET PO (19:27)
[2023-02-05] MEDS: OXYCODONE 5 MG TABLET PO (21:15)
[2023-02-06] MEDS: CALCIUM CARBONATE 500 MG TABLET PO (08:01)
[2023-02-06] MEDS: FOLIC ACID 1 MG TABLET 3 MG PO (08:01)
[2023-02-06] MEDS: ACETAMINOPHEN 500 MG TABLET 1000 MG PO ×3 (08:01→20:19)
[2023-02-06] MEDS: INSULIN LISPRO 100 UNIT/ML VIAL 9 UNIT SUBCUT ×3 (08:01→17:45)
[2023-02-06] MEDS: ASPIRIN 81 MG TABLET EC PO (08:01)
[2023-02-06] MEDS: APIXABAN 5 MG TABLET 2.5 MG PO ×2 (08:01→15:44)
[2023-02-06] MEDS: TORSEMIDE 20 MG TABLET PO (08:02)
[2023-02-06] MEDS: MULTIVITAMIN/MINERALS 1 TABLET 1 TAB PO (08:02)
[2023-02-06] MEDS: LOSARTAN POTASSIUM 50 MG TABLET PO (08:02)
[2023-02-06] MEDS: FLECAINIDE ACETATE 50 MG TABLET PO ×2 (08:02→20:20)
[2023-02-06] MEDS: SERTRALINE 100 MG TABLET PO (08:02)
[2023-02-06] MEDS: INSULIN LISPRO 100 UNIT/ML VIAL SUBCUT ×2 (11:55→17:44)
[2023-02-06] MEDS: MELATONIN 3 MG TABLET PO (20:19)
[2023-02-06] MEDS: PRAVASTATIN SODIUM 40 MG TABLET PO (20:20)
[2023-02-06] MEDS: OXYCODONE 5 MG TABLET PO (21:49)
--- NOTE | 2023-02-07 05:26 | PC.NURSE ---
Hypoglycemia Resident had BS 62 at 0200 ; gave her 4 oz of Ensure , cookie and 4 oz of apple juice. Rechecked couple hours later , BS 164.
[2023-02-07] MEDS: CALCIUM CARBONATE 500 MG TABLET PO (08:42)
[2023-02-07] MEDS: ACETAMINOPHEN 500 MG TABLET 1000 MG PO ×3 (08:42→20:29)
[2023-02-07] MEDS: ASPIRIN 81 MG TABLET EC PO (08:42)
[2023-02-07] MEDS: LOSARTAN POTASSIUM 50 MG TABLET PO (08:43)
[2023-02-07] MEDS: APIXABAN 5 MG TABLET 2.5 MG PO ×2 (08:43→16:13)
[2023-02-07] MEDS: FOLIC ACID 1 MG TABLET 3 MG PO (08:43)
[2023-02-07] MEDS: MULTIVITAMIN/MINERALS 1 TABLET 1 TAB PO (08:44)
[2023-02-07] MEDS: SERTRALINE 100 MG TABLET PO (08:44)
[2023-02-07] MEDS: FLECAINIDE ACETATE 50 MG TABLET PO ×2 (08:44→20:29)
[2023-02-07] MEDS: TORSEMIDE 20 MG TABLET PO (08:44)
[2023-02-07] MEDS: INSULIN LISPRO 100 UNIT/ML VIAL 9 UNIT SUBCUT ×3 (08:47→17:32)
[2023-02-07] MEDS: INSULIN LISPRO 100 UNIT/ML VIAL SUBCUT ×3 (08:47→17:32)
[2023-02-07] MEDS: PRAVASTATIN SODIUM 40 MG TABLET PO (20:29)
[2023-02-07] MEDS: MELATONIN 3 MG TABLET PO (20:29)
--- NOTE | 2023-02-07 21:23 | PC.NURSE ---
Post Infusion: Temp 97.9 alert and oriented per baseline no complain of pain
[2023-02-07] MEDS: OXYCODONE 5 MG TABLET PO (21:25)
[2023-02-08] MEDS: CALCIUM CARBONATE 500 MG TABLET PO (08:15)
[2023-02-08] MEDS: ASPIRIN 81 MG TABLET EC PO (08:15)
[2023-02-08] MEDS: FOLIC ACID 1 MG TABLET 3 MG PO (08:15)
[2023-02-08] MEDS: APIXABAN 5 MG TABLET 2.5 MG PO ×2 (08:15→16:49)
[2023-02-08] MEDS: ACETAMINOPHEN 500 MG TABLET 1000 MG PO ×3 (08:15→20:43)
[2023-02-08] MEDS: INSULIN LISPRO 100 UNIT/ML VIAL SUBCUT ×3 (08:16→17:52)
[2023-02-08] MEDS: INSULIN LISPRO 100 UNIT/ML VIAL 9 UNIT SUBCUT ×3 (08:16→17:52)
[2023-02-08] MEDS: MULTIVITAMIN/MINERALS 1 TABLET 1 TAB PO (08:17)
[2023-02-08] MEDS: FLECAINIDE ACETATE 50 MG TABLET PO ×2 (08:17→20:44)
[2023-02-08] MEDS: LOSARTAN POTASSIUM 50 MG TABLET PO (08:17)
[2023-02-08] MEDS: TORSEMIDE 20 MG TABLET PO (08:17)
[2023-02-08] MEDS: SERTRALINE 100 MG TABLET PO (08:17)
--- NOTE | 2023-02-08 14:08 | PC.SPIRITC ---
Madhuri here with her sister to help navigate termite control representative care center closing. I normalized feelings, reiterated supports present, and helped to begin processing changes ahead.
[2023-02-08 14:56] VITALS: BMI 38.7
[2023-02-08] MEDS: MELATONIN 3 MG TABLET PO (20:44)
[2023-02-08] MEDS: PRAVASTATIN SODIUM 40 MG TABLET PO (20:44)
[2023-02-08] MEDS: OXYCODONE 5 MG TABLET PO (21:03)
--- NOTE | 2023-02-09 00:56 | PC.NURSE ---
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 PAIN: has chronic neck and shoulder pain r/t arthritis, Left jaw pain (TMJ). Pain is managed with Tylenol 1000mg TID, Voltaren gel QID PRN to painful joints, Oxycodone 2.5mg @ HS & Q6H PRN. ADLs: Requires one staff assist with application/removal of Teds. Needs set up and supervision with bathing. On diabetic diet, regular texture, thin liquids. Receives HS snack for blood glucose maintenance. No problems with chewing/swallowing reported.
--- NOTE | 2023-02-09 07:38 | PC.NURSE ---
Weekly Charting, Week 1 - ADL's: Comprehensive and temporary care plan reviewed. No changes made and nothing added to temporary care plan. Resident is independent with dressing, grooming, oral cares, and feeding. Will ask for assist as needed. Staff assist with application/removal of teds. Needs set up and supervision with bathing. Is on diabetic diet, regular texture, thin liquids. Receives HS snack for blood glucose maintenance. No problems with chewing/swallowing reported. Vital signs reviewed. Accu checks unstable. Continue accu checks monitoring & Insulin as ordered. Update providers as needed. Pain: Has chronic neck and shoulder pain r/t arthritis, and lately left jaw pain (TMJ). Pain is managed with Tylenol 1000mg TID, Voltaren gel QID to painful joints, Oxycodone 5 mg @ HS & Q6H PRN & has used occasionally with relief. Aqua-K pad is also in place. And she's been seen by a Chiropractor. She is able to verbalize need for pain.
[2023-02-09] MEDS: ACETAMINOPHEN 500 MG TABLET 1000 MG PO ×3 (08:28→20:43)
[2023-02-09] MEDS: LOSARTAN POTASSIUM 50 MG TABLET PO (08:29)
[2023-02-09] MEDS: CALCIUM CARBONATE 500 MG TABLET PO (08:29)
[2023-02-09] MEDS: INSULIN LISPRO 100 UNIT/ML VIAL SUBCUT ×2 (08:29→11:24)
[2023-02-09] MEDS: FOLIC ACID 1 MG TABLET 3 MG PO (08:29)
[2023-02-09] MEDS: INSULIN LISPRO 100 UNIT/ML VIAL 9 UNIT SUBCUT ×3 (08:29→17:16)
[2023-02-09] MEDS: APIXABAN 5 MG TABLET 2.5 MG PO ×2 (08:29→17:13)
[2023-02-09] MEDS: ASPIRIN 81 MG TABLET EC PO (08:29)
[2023-02-09] MEDS: FLECAINIDE ACETATE 50 MG TABLET PO ×2 (08:30→20:44)
[2023-02-09] MEDS: TORSEMIDE 20 MG TABLET PO (08:30)
[2023-02-09] MEDS: MULTIVITAMIN/MINERALS 1 TABLET 1 TAB PO (08:30)
[2023-02-09] MEDS: SERTRALINE 100 MG TABLET PO (08:30)
[2023-02-09] MEDS: MELATONIN 3 MG TABLET PO (20:44)
[2023-02-09] MEDS: PRAVASTATIN SODIUM 40 MG TABLET PO (20:44)
[2023-02-09] MEDS: OXYCODONE 5 MG TABLET PO (21:17)
[2023-02-10] MEDS: LOSARTAN POTASSIUM 50 MG TABLET PO (07:37)
[2023-02-10] MEDS: FOLIC ACID 1 MG TABLET 3 MG PO (07:37)
[2023-02-10] MEDS: ASPIRIN 81 MG TABLET EC PO (07:37)
[2023-02-10] MEDS: MULTIVITAMIN/MINERALS 1 TABLET 1 TAB PO (07:37)
[2023-02-10] MEDS: APIXABAN 5 MG TABLET 2.5 MG PO ×2 (07:37→15:44)
[2023-02-10] MEDS: CALCIUM CARBONATE 500 MG TABLET PO (07:37)
[2023-02-10] MEDS: ACETAMINOPHEN 500 MG TABLET 1000 MG PO ×3 (07:37→19:59)
[2023-02-10] MEDS: SERTRALINE 100 MG TABLET PO (07:38)
[2023-02-10] MEDS: TORSEMIDE 20 MG TABLET PO (07:38)
[2023-02-10] MEDS: FLECAINIDE ACETATE 50 MG TABLET PO ×2 (07:38→19:59)
[2023-02-10] MEDS: INSULIN LISPRO 100 UNIT/ML VIAL 9 UNIT SUBCUT ×3 (08:18→17:28)
[2023-02-10] MEDS: INSULIN LISPRO 100 UNIT/ML VIAL SUBCUT ×2 (08:18→11:55)
[2023-02-10] MEDS: MELATONIN 3 MG TABLET PO (19:59)
[2023-02-10] MEDS: PRAVASTATIN SODIUM 40 MG TABLET PO (19:59)
[2023-02-10] MEDS: OXYCODONE 5 MG TABLET PO (21:02)
[2023-02-11] MEDS: APIXABAN 5 MG TABLET 2.5 MG PO ×2 (07:43→15:33)
[2023-02-11] MEDS: ASPIRIN 81 MG TABLET EC PO (07:43)
[2023-02-11] MEDS: MULTIVITAMIN/MINERALS 1 TABLET 1 TAB PO (07:43)
[2023-02-11] MEDS: ACETAMINOPHEN 500 MG TABLET 1000 MG PO ×3 (07:43→19:47)
[2023-02-11] MEDS: CALCIUM CARBONATE 500 MG TABLET PO (07:43)
[2023-02-11] MEDS: FOLIC ACID 1 MG TABLET 3 MG PO (07:43)
[2023-02-11] MEDS: LOSARTAN POTASSIUM 50 MG TABLET PO (07:43)
[2023-02-11] MEDS: FLECAINIDE ACETATE 50 MG TABLET PO ×2 (07:44→19:47)
[2023-02-11] MEDS: TORSEMIDE 20 MG TABLET PO (07:44)
[2023-02-11] MEDS: SERTRALINE 100 MG TABLET PO (07:44)
[2023-02-11] MEDS: INSULIN LISPRO 100 UNIT/ML VIAL 9 UNIT SUBCUT ×3 (08:22→17:47)
--- NOTE | 2023-02-11 13:52 | PC.NURSE ---
Blood sugar: Resident stated that she needed sugar several times. When asked resident stated that she was feeling light headed and confused. When blood sugars were checked she was at 33. Was given 15mg of dextrose gel when rechecked 10 min later resident was at 77. And continues to eat yogurt, sprite and other snacks. Resident also stated I feel better, I'm fine now.
[2023-02-11] MEDS: MELATONIN 3 MG TABLET PO (19:47)
[2023-02-11] MEDS: PRAVASTATIN SODIUM 40 MG TABLET PO (19:47)
[2023-02-11] MEDS: OXYCODONE 5 MG TABLET PO (21:19)
[2023-02-12] MEDS: ACETAMINOPHEN 500 MG TABLET 1000 MG PO ×3 (08:17→19:55)
[2023-02-12] MEDS: APIXABAN 5 MG TABLET 2.5 MG PO ×2 (08:17→15:43)
[2023-02-12] MEDS: ASPIRIN 81 MG TABLET EC PO (08:17)
[2023-02-12] MEDS: FOLIC ACID 1 MG TABLET 3 MG PO (08:17)
[2023-02-12] MEDS: CALCIUM CARBONATE 500 MG TABLET PO (08:17)
[2023-02-12] MEDS: MULTIVITAMIN/MINERALS 1 TABLET 1 TAB PO (08:19)
[2023-02-12] MEDS: FLECAINIDE ACETATE 50 MG TABLET PO ×2 (08:19→19:55)
[2023-02-12] MEDS: TORSEMIDE 20 MG TABLET PO (08:19)
[2023-02-12] MEDS: SERTRALINE 100 MG TABLET PO (08:19)
[2023-02-12] MEDS: LOSARTAN POTASSIUM 50 MG TABLET PO (08:19)
[2023-02-12] MEDS: INSULIN LISPRO 100 UNIT/ML VIAL 9 UNIT SUBCUT ×3 (11:38→17:15)
[2023-02-12] MEDS: INSULIN LISPRO 100 UNIT/ML VIAL SUBCUT (12:03)
[2023-02-12 16:00] VITALS: BP 120/75; PULSE 65; RESP 18; TEMP 36.6; O2SAT 97
[2023-02-12] MEDS: PRAVASTATIN SODIUM 40 MG TABLET PO (19:55)
[2023-02-12] MEDS: MELATONIN 3 MG TABLET PO (19:55)
[2023-02-12] MEDS: OXYCODONE 5 MG TABLET PO (21:22)
[2023-02-13] MEDS: ACETAMINOPHEN 500 MG TABLET 1000 MG PO ×3 (07:44→20:20)
[2023-02-13] MEDS: LOSARTAN POTASSIUM 50 MG TABLET PO (07:45)
[2023-02-13] MEDS: FOLIC ACID 1 MG TABLET 3 MG PO (07:45)
[2023-02-13] MEDS: CALCIUM CARBONATE 500 MG TABLET PO (07:45)
[2023-02-13] MEDS: MULTIVITAMIN/MINERALS 1 TABLET 1 TAB PO (07:45)
[2023-02-13] MEDS: APIXABAN 5 MG TABLET 2.5 MG PO ×2 (07:45→16:01)
[2023-02-13] MEDS: ASPIRIN 81 MG TABLET EC PO (07:45)
[2023-02-13] MEDS: SERTRALINE 100 MG TABLET PO (07:46)
[2023-02-13] MEDS: TORSEMIDE 20 MG TABLET PO (07:46)
[2023-02-13] MEDS: FLECAINIDE ACETATE 50 MG TABLET PO ×2 (07:46→20:21)
[2023-02-13] MEDS: INSULIN LISPRO 100 UNIT/ML VIAL 9 UNIT SUBCUT ×3 (08:31→17:18)
[2023-02-13] MEDS: INSULIN LISPRO 100 UNIT/ML VIAL SUBCUT (11:16)
[2023-02-13] MEDS: MELATONIN 3 MG TABLET PO (20:21)
[2023-02-13] MEDS: PRAVASTATIN SODIUM 40 MG TABLET PO (20:21)
[2023-02-13] MEDS: OXYCODONE 5 MG TABLET PO (21:27)
[2023-02-14] MEDS: APIXABAN 5 MG TABLET 2.5 MG PO ×2 (08:20→15:09)
[2023-02-14] MEDS: CALCIUM CARBONATE 500 MG TABLET PO (08:20)
[2023-02-14] MEDS: ASPIRIN 81 MG TABLET EC PO (08:20)
[2023-02-14] MEDS: ACETAMINOPHEN 500 MG TABLET 1000 MG PO ×3 (08:20→20:16)
[2023-02-14] MEDS: FOLIC ACID 1 MG TABLET 3 MG PO (08:21)
[2023-02-14] MEDS: INSULIN LISPRO 100 UNIT/ML VIAL 9 UNIT SUBCUT ×3 (08:21→17:27)
[2023-02-14] MEDS: MULTIVITAMIN/MINERALS 1 TABLET 1 TAB PO (08:22)
[2023-02-14] MEDS: SERTRALINE 100 MG TABLET PO (08:22)
[2023-02-14] MEDS: FLECAINIDE ACETATE 50 MG TABLET PO ×2 (08:22→20:16)
[2023-02-14] MEDS: LOSARTAN POTASSIUM 50 MG TABLET PO (08:22)
[2023-02-14] MEDS: TORSEMIDE 20 MG TABLET PO (08:22)
[2023-02-14] MEDS: INSULIN LISPRO 100 UNIT/ML VIAL SUBCUT ×2 (11:46→17:26)
--- NOTE | 2023-02-14 14:06 | PC.NURSE ---
Quarterly care conference held with nursing, SS, household manager, life enrichment, resident and her . Discussed her BS's and meal choices. Plan to discharge to [facility] on 03/01/23. Requested some boxes to start going through her things.
[2023-02-14] MEDS: PRAVASTATIN SODIUM 40 MG TABLET PO (20:16)
[2023-02-14] MEDS: MELATONIN 3 MG TABLET PO (20:16)
[2023-02-14] MEDS: OXYCODONE 5 MG TABLET PO (22:01)
[2023-02-15] MEDS: LOSARTAN POTASSIUM 50 MG TABLET PO (08:02)
[2023-02-15] MEDS: ASPIRIN 81 MG TABLET EC PO (08:02)
[2023-02-15] MEDS: APIXABAN 5 MG TABLET 2.5 MG PO ×2 (08:02→15:58)
[2023-02-15] MEDS: FOLIC ACID 1 MG TABLET 3 MG PO (08:02)
[2023-02-15] MEDS: CALCIUM CARBONATE 500 MG TABLET PO (08:02)
[2023-02-15] MEDS: ACETAMINOPHEN 500 MG TABLET 1000 MG PO ×3 (08:02→20:05)
[2023-02-15] MEDS: SERTRALINE 100 MG TABLET PO (08:03)
[2023-02-15] MEDS: TORSEMIDE 20 MG TABLET PO (08:03)
[2023-02-15] MEDS: FLECAINIDE ACETATE 50 MG TABLET PO ×2 (08:03→20:05)
[2023-02-15] MEDS: MULTIVITAMIN/MINERALS 1 TABLET 1 TAB PO (08:03)
[2023-02-15] MEDS: INSULIN LISPRO 100 UNIT/ML VIAL 9 UNIT SUBCUT ×3 (09:03→17:18)
[2023-02-15] MEDS: INSULIN LISPRO 100 UNIT/ML VIAL SUBCUT (11:56)
[2023-02-15] MEDS: MELATONIN 3 MG TABLET PO (20:05)
[2023-02-15] MEDS: PRAVASTATIN SODIUM 40 MG TABLET PO (20:05)
[2023-02-15] MEDS: OXYCODONE 5 MG TABLET PO (21:01)
--- NOTE | 2023-02-16 02:05 | PC.NURSE ---
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 Temporary and comprehensive care plan remains unchanged. Mobility : resident is independent with transfers , calls for assistance as needed. She rarely uses wheel chair, but if used, requires one extensive assist. She is independent with bed mobility, uses 1/4 side rail on right side of the bed.
--- NOTE | 2023-02-16 06:42 | PC.NURSE ---
Weekly Charting, Week 2 - Mobility: Comprehensive and temporary care plan reviewed. No changes made, and nothing added to temporary care plan. Transfers and ambulates independently with 4WW. Independent with bed mobility. 1/4 right side rail up at all times to aid for bed mobility. Vital signs reviewed. Continue weekly monitoring and refer to provider as needed. Continue with accu checks monitoring QID & @ 0200 & reviewed by provider as needed. Insulin as ordered. Fall: No falls the past month. Remains a high fall risk according to assessment done on 02/08/23. Fall interventions: call light within reach, bed in low position with brakes locked, falling star magnet in place.
[2023-02-16] MEDS: ACETAMINOPHEN 500 MG TABLET 1000 MG PO ×3 (08:14→20:15)
[2023-02-16] MEDS: FLECAINIDE ACETATE 50 MG TABLET PO ×2 (08:15→20:15)
[2023-02-16] MEDS: SERTRALINE 100 MG TABLET PO (08:15)
[2023-02-16] MEDS: ASPIRIN 81 MG TABLET EC PO (08:15)
[2023-02-16] MEDS: APIXABAN 5 MG TABLET 2.5 MG PO ×2 (08:15→15:52)
[2023-02-16] MEDS: CALCIUM CARBONATE 500 MG TABLET PO (08:15)
[2023-02-16] MEDS: TORSEMIDE 20 MG TABLET PO (08:15)
[2023-02-16] MEDS: MULTIVITAMIN/MINERALS 1 TABLET 1 TAB PO (08:15)
[2023-02-16] MEDS: FOLIC ACID 1 MG TABLET 3 MG PO (08:15)
[2023-02-16] MEDS: LOSARTAN POTASSIUM 50 MG TABLET PO (08:15)
[2023-02-16] MEDS: INSULIN LISPRO 100 UNIT/ML VIAL SUBCUT ×2 (08:41→11:42)
[2023-02-16] MEDS: INSULIN LISPRO 100 UNIT/ML VIAL 9 UNIT SUBCUT ×3 (08:41→17:39)
--- NOTE | 2023-02-16 13:05 | PC.PHA1 ---
PARTS SALESPERSON PHARMACIST'S MEDICATION REVIEW: MEDICATION MONITORING:Sertraline 100 mg daily IRREGULARITY OR COMMENTS:Since Review of blood sugars December-, blood sugars were well controlled last week of December - first week of January on insulin regimen that was adjusted in December. Review of nursing notes say she did attend meals with family and she did start new rheumatoid arthritis regimen first week of January. Furthermore, she is coping with back pain being managed with topical diclofenac, scheduled acetaminophen and hs dose of oxycodone 5 mg. Patient also has prior history of using insulin pump prior to admit to LTC setting. Sertraline continues and GDR is clinically contraindicated at time of review noting patient is expressing feelings of depression and anxiety due to recent snf living news. SUGGESTED COURSE OF ACTION TAKEN:No medication recommendations this review, December-.
[2023-02-16] MEDS: MELATONIN 3 MG TABLET PO (20:15)
[2023-02-16] MEDS: PRAVASTATIN SODIUM 40 MG TABLET PO (20:15)
[2023-02-16] MEDS: OXYCODONE 5 MG TABLET PO (22:02)
[2023-02-17] MEDS: ACETAMINOPHEN 500 MG TABLET 1000 MG PO ×3 (08:26→19:37)
[2023-02-17] MEDS: ASPIRIN 81 MG TABLET EC PO (08:26)
[2023-02-17] MEDS: CALCIUM CARBONATE 500 MG TABLET PO (08:27)
[2023-02-17] MEDS: APIXABAN 5 MG TABLET 2.5 MG PO ×2 (08:27→16:03)
[2023-02-17] MEDS: FOLIC ACID 1 MG TABLET 3 MG PO (08:27)
[2023-02-17] MEDS: INSULIN LISPRO 100 UNIT/ML VIAL 9 UNIT SUBCUT ×3 (08:28→17:05)
[2023-02-17] MEDS: MULTIVITAMIN/MINERALS 1 TABLET 1 TAB PO (08:29)
[2023-02-17] MEDS: LOSARTAN POTASSIUM 50 MG TABLET PO (08:29)
[2023-02-17] MEDS: TORSEMIDE 20 MG TABLET PO (08:30)
[2023-02-17] MEDS: FLECAINIDE ACETATE 50 MG TABLET PO ×2 (08:30→19:37)
[2023-02-17] MEDS: SERTRALINE 100 MG TABLET PO (08:31)
--- NOTE | 2023-02-17 16:47 | PC.SOCIAL ---
Application for placement at [facility] sent to [facility] via secure email. Insurance card copies sent also. [facility] responded and states she will know in the next 1 to 2 weeks if they are able to accept any LT placements. Social work will follow up as needed.
[2023-02-17] MEDS: INSULIN LISPRO 100 UNIT/ML VIAL SUBCUT (17:04)
[2023-02-17] MEDS: MELATONIN 3 MG TABLET PO (19:37)
[2023-02-17] MEDS: PRAVASTATIN SODIUM 40 MG TABLET PO (19:37)
[2023-02-17] MEDS: OXYCODONE 5 MG TABLET PO (21:36)
[2023-02-18] MEDS: FOLIC ACID 1 MG TABLET 3 MG PO (07:52)
[2023-02-18] MEDS: ASPIRIN 81 MG TABLET EC PO (07:52)
[2023-02-18] MEDS: APIXABAN 5 MG TABLET 2.5 MG PO ×2 (07:52→15:52)
[2023-02-18] MEDS: ACETAMINOPHEN 500 MG TABLET 1000 MG PO ×3 (07:52→19:51)
[2023-02-18] MEDS: INSULIN LISPRO 100 UNIT/ML VIAL 9 UNIT SUBCUT ×3 (07:52→17:13)
[2023-02-18] MEDS: CALCIUM CARBONATE 500 MG TABLET PO (07:52)
[2023-02-18] MEDS: FLECAINIDE ACETATE 50 MG TABLET PO ×2 (07:53→19:52)
[2023-02-18] MEDS: LOSARTAN POTASSIUM 50 MG TABLET PO (07:53)
[2023-02-18] MEDS: MULTIVITAMIN/MINERALS 1 TABLET 1 TAB PO (07:53)
[2023-02-18] MEDS: TORSEMIDE 20 MG TABLET PO (07:54)
[2023-02-18] MEDS: SERTRALINE 100 MG TABLET PO (07:54)
[2023-02-18] MEDS: INSULIN LISPRO 100 UNIT/ML VIAL SUBCUT ×2 (11:39→17:13)
[2023-02-18] MEDS: PRAVASTATIN SODIUM 40 MG TABLET PO (19:51)
[2023-02-18] MEDS: MELATONIN 3 MG TABLET PO (19:51)
[2023-02-18] MEDS: OXYCODONE 5 MG TABLET PO (21:01)
[2023-02-19] MEDS: ACETAMINOPHEN 500 MG TABLET 1000 MG PO ×3 (07:03→19:28)
[2023-02-19] MEDS: CALCIUM CARBONATE 500 MG TABLET PO (07:03)
[2023-02-19] MEDS: ASPIRIN 81 MG TABLET EC PO (07:03)
[2023-02-19] MEDS: MULTIVITAMIN/MINERALS 1 TABLET 1 TAB PO (07:04)
[2023-02-19] MEDS: LOSARTAN POTASSIUM 50 MG TABLET PO (07:04)
[2023-02-19] MEDS: APIXABAN 5 MG TABLET 2.5 MG PO ×2 (07:04→15:33)
[2023-02-19] MEDS: FOLIC ACID 1 MG TABLET 3 MG PO (07:04)
[2023-02-19] MEDS: SERTRALINE 100 MG TABLET PO (07:05)
[2023-02-19] MEDS: TORSEMIDE 20 MG TABLET PO (07:05)
[2023-02-19] MEDS: FLECAINIDE ACETATE 50 MG TABLET PO ×2 (07:05→19:28)
[2023-02-19] MEDS: INSULIN LISPRO 100 UNIT/ML VIAL 9 UNIT SUBCUT ×3 (08:35→17:12)
[2023-02-19] MEDS: INSULIN LISPRO 100 UNIT/ML VIAL SUBCUT ×2 (08:35→17:11)
--- NOTE | 2023-02-19 11:55 | PC.NURSE ---
Outing: Resident left with for outing
[2023-02-19 16:00] VITALS: BP 99/64; PULSE 73; RESP 17; TEMP 36.7; O2SAT 94; BMI 39.5
[2023-02-19] MEDS: PRAVASTATIN SODIUM 40 MG TABLET PO (19:28)
[2023-02-19] MEDS: MELATONIN 3 MG TABLET PO (19:28)
[2023-02-19] MEDS: OXYCODONE 5 MG TABLET PO (21:12)
[2023-02-20] MEDS: ASPIRIN 81 MG TABLET EC PO (07:50)
[2023-02-20] MEDS: CALCIUM CARBONATE 500 MG TABLET PO (07:50)
[2023-02-20] MEDS: ACETAMINOPHEN 500 MG TABLET 1000 MG PO ×3 (07:50→19:19)
[2023-02-20] MEDS: FOLIC ACID 1 MG TABLET 3 MG PO (07:51)
[2023-02-20] MEDS: APIXABAN 5 MG TABLET 2.5 MG PO ×2 (07:51→15:33)
[2023-02-20] MEDS: LOSARTAN POTASSIUM 50 MG TABLET PO (07:51)
[2023-02-20] MEDS: SERTRALINE 100 MG TABLET PO (07:53)
[2023-02-20] MEDS: FLECAINIDE ACETATE 50 MG TABLET PO ×2 (07:53→19:19)
[2023-02-20] MEDS: TORSEMIDE 20 MG TABLET PO (07:53)
[2023-02-20] MEDS: MULTIVITAMIN/MINERALS 1 TABLET 1 TAB PO (07:53)
[2023-02-20] MEDS: INSULIN LISPRO 100 UNIT/ML VIAL 9 UNIT SUBCUT ×3 (08:18→17:07)
[2023-02-20] MEDS: INSULIN LISPRO 100 UNIT/ML VIAL SUBCUT ×2 (08:18→17:06)
[2023-02-20] MEDS: PRAVASTATIN SODIUM 40 MG TABLET PO (19:19)
[2023-02-20] MEDS: MELATONIN 3 MG TABLET PO (19:19)
[2023-02-20] MEDS: OXYCODONE 5 MG TABLET PO (21:22)
[2023-02-21] MEDS: APIXABAN 5 MG TABLET 2.5 MG PO ×2 (08:11→15:41)
[2023-02-21] MEDS: FOLIC ACID 1 MG TABLET 3 MG PO (08:11)
[2023-02-21] MEDS: ASPIRIN 81 MG TABLET EC PO (08:11)
[2023-02-21] MEDS: CALCIUM CARBONATE 500 MG TABLET PO (08:11)
[2023-02-21] MEDS: ACETAMINOPHEN 500 MG TABLET 1000 MG PO ×3 (08:11→20:18)
[2023-02-21] MEDS: LOSARTAN POTASSIUM 50 MG TABLET PO (08:12)
[2023-02-21] MEDS: SERTRALINE 100 MG TABLET PO (08:12)
[2023-02-21] MEDS: FLECAINIDE ACETATE 50 MG TABLET PO ×2 (08:12→20:18)
[2023-02-21] MEDS: MULTIVITAMIN/MINERALS 1 TABLET 1 TAB PO (08:12)
[2023-02-21] MEDS: TORSEMIDE 20 MG TABLET PO (08:12)
[2023-02-21] MEDS: INSULIN LISPRO 100 UNIT/ML VIAL 9 UNIT SUBCUT ×3 (08:54→17:33)
--- NOTE | 2023-02-21 13:00 | PC.NURSE ---
Clarification note: Ticket Chopper Assembler placed call to [facility] Department of Rheumatology to clarify whether resident should restart on Actemra injections after starting on IV golimumab infusion. Last note from Dr. Desiree Rivero written on 01/17/23 states to discontinue tocilizumab one week prior to first golimumab infusion. Dept. of Rheumatology was given both [facility]'s phone number and fax number and is supposed to return phone call providing clarification.
--- NOTE | 2023-02-21 13:48 | PC.NURSE ---
Clarification note: Welder Production Line Gas received return phone call from ZENAI Hooks with [facility] Rheumatology at this time to clarify that resident will not be restarted on Actemra and will solely be on IV infusion to manage RA going forward.
[2023-02-21] MEDS: PRAVASTATIN SODIUM 40 MG TABLET PO (20:18)
[2023-02-21] MEDS: MELATONIN 3 MG TABLET PO (20:18)
[2023-02-21] MEDS: OXYCODONE 5 MG TABLET PO (21:18)
[2023-02-22] MEDS: LOSARTAN POTASSIUM 50 MG TABLET PO (08:07)
[2023-02-22] MEDS: ACETAMINOPHEN 500 MG TABLET 1000 MG PO ×3 (08:07→20:21)
[2023-02-22] MEDS: CALCIUM CARBONATE 500 MG TABLET PO (08:07)
[2023-02-22] MEDS: APIXABAN 5 MG TABLET 2.5 MG PO ×2 (08:07→15:41)
[2023-02-22] MEDS: FLECAINIDE ACETATE 50 MG TABLET PO ×2 (08:07→20:21)
[2023-02-22] MEDS: ASPIRIN 81 MG TABLET EC PO (08:07)
[2023-02-22] MEDS: MULTIVITAMIN/MINERALS 1 TABLET 1 TAB PO (08:07)
[2023-02-22] MEDS: FOLIC ACID 1 MG TABLET 3 MG PO (08:07)
[2023-02-22] MEDS: TORSEMIDE 20 MG TABLET PO (08:08)
[2023-02-22] MEDS: SERTRALINE 100 MG TABLET PO (08:08)
[2023-02-22] MEDS: INSULIN LISPRO 100 UNIT/ML VIAL 9 UNIT SUBCUT ×3 (08:16→17:50)
--- NOTE | 2023-02-22 10:44 | PC.PHA1 ---
CONTRACT SERVICEMAN PHARMACIST'S MEDICATION REVIEW: MEDICATION MONITORING:Sertraline 100 mg daily IRREGULARITY OR COMMENTS:Patient admitted with sertraline on medication list. She has been doing well but did have to adjust to this setting after living in her own home so sertraline GDR has not been attempted. Patient will now have another adjustment so will not recommend a GDR for January review. No recent insulin adjustments, patient continues to have fluctuations in blood glucose making adjustments difficult to recommend at this time. Sliding scale order on profile. SUGGESTED COURSE OF ACTION TAKEN:No medication recommendations this review.
--- NOTE | 2023-02-22 13:36 | PC.SOCIAL ---
Resident informed this worker that she set a tour with [facility] for tomorrow at 2:00 pm as resident's son was taking resident to the tour. Resident informs that her son can no longer take her to the tour. This worker will work with [facility] to coordinate a new date/time this week to complete a tour. New tour date/time is this Monday (02/24) at 1:00 pm. [facility] staff will accompany resident on tour. [facility] staff will transport resident to [facility], leaving the facility around 12:50 pm. Provided update to resident. Social work will follow up as needed.
[2023-02-22] MEDS: MELATONIN 3 MG TABLET PO (20:21)
[2023-02-22] MEDS: PRAVASTATIN SODIUM 40 MG TABLET PO (20:21)
--- NOTE | 2023-02-23 00:19 | PC.NURSE ---
Weekly Charting Week 3 Toileting and Skin Vital signs reviewed with no concerns. Continue to check vitals weekly and refer to Provider as needed. Comprehensive and temporary care plan reviewed with no changes made. Toileting: Resident is continent of bowel and bladder. Independent with toileting, able to perform ryan cares independently. Res able to ambulate to bathroom using walker. Use call light for help as needed. Wears medium pull ups. Skin: Has intermittent redness to groin, nystatin applied as needed. Resident also has edema to bilateral lower legs. Wears TEDs socks on AM, off at bedtime. Skin assessment on bath days and during cares.
[2023-02-23] MEDS: ASPIRIN 81 MG TABLET EC PO (08:01)
[2023-02-23] MEDS: LOSARTAN POTASSIUM 50 MG TABLET PO (08:01)
[2023-02-23] MEDS: APIXABAN 5 MG TABLET 2.5 MG PO ×2 (08:01→15:53)
[2023-02-23] MEDS: MULTIVITAMIN/MINERALS 1 TABLET 1 TAB PO (08:01)
[2023-02-23] MEDS: CALCIUM CARBONATE 500 MG TABLET PO (08:01)
[2023-02-23] MEDS: FOLIC ACID 1 MG TABLET 3 MG PO (08:01)
[2023-02-23] MEDS: ACETAMINOPHEN 500 MG TABLET 1000 MG PO ×3 (08:01→19:46)
[2023-02-23] MEDS: SERTRALINE 100 MG TABLET PO (08:02)
[2023-02-23] MEDS: TORSEMIDE 20 MG TABLET PO (08:02)
[2023-02-23] MEDS: FLECAINIDE ACETATE 50 MG TABLET PO ×2 (08:02→19:46)
[2023-02-23] MEDS: INSULIN LISPRO 100 UNIT/ML VIAL 9 UNIT SUBCUT ×3 (08:15→17:34)
--- NOTE | 2023-02-23 12:05 | PC.NURSE ---
Weekly Charting, Week 3 - Toileting: Comprehensive and temporary care plan reviewed. No changes made, nothing added to temporary care plan.Resident is continent of bowel and bladder. Independent with toileting including pad changes, ryan cares, clothing adjustment. Wears medium pull ups. Will ask for assist as needed. Vital signs reviewed. Continue with accu checks QID & 0200. Refer to providers as needed. Skin: Has bilateral LE edema. Wears Teds on - am, off - hs. Skin is checked routinely on bath day. And resident is able to report with changes.
--- NOTE | 2023-02-23 16:47 | PC.NURSE ---
Oxycodone Given: On February 22 at 2200 resident was given her scheduled Oxycodone but this nurse forgot to sign it out.
[2023-02-23] MEDS: OXYCODONE 5 MG TABLET PO (17:33)
[2023-02-23] MEDS: MELATONIN 3 MG TABLET PO (19:46)
[2023-02-23] MEDS: PRAVASTATIN SODIUM 40 MG TABLET PO (19:46)
--- NOTE | 2023-02-23 21:02 | PC.NURSE ---
Due to Charting error from 02/22/23, charting of 22:00 oxycodone is incorrect. 02/22/23 22:00 oxycodone was administered by C.[facility]. 02/22/23 but was not charted. 02/23/23 N.K. charted that administration by C.H. 02/23/23 22:00 Oxycodone was actually administered by N.K. @ 21:00 but was unable to chart it at that time.
[2023-02-24] MEDS: ACETAMINOPHEN 500 MG TABLET 1000 MG PO ×3 (07:40→19:19)
[2023-02-24] MEDS: CALCIUM CARBONATE 500 MG TABLET PO (07:41)
[2023-02-24] MEDS: LOSARTAN POTASSIUM 50 MG TABLET PO (07:41)
[2023-02-24] MEDS: APIXABAN 5 MG TABLET 2.5 MG PO ×2 (07:41→15:35)
[2023-02-24] MEDS: ASPIRIN 81 MG TABLET EC PO (07:41)
[2023-02-24] MEDS: FOLIC ACID 1 MG TABLET 3 MG PO (07:41)
[2023-02-24] MEDS: SERTRALINE 100 MG TABLET PO (07:42)
[2023-02-24] MEDS: FLECAINIDE ACETATE 50 MG TABLET PO ×2 (07:42→19:19)
[2023-02-24] MEDS: MULTIVITAMIN/MINERALS 1 TABLET 1 TAB PO (07:42)
[2023-02-24] MEDS: TORSEMIDE 20 MG TABLET PO (07:42)
[2023-02-24] MEDS: INSULIN LISPRO 100 UNIT/ML VIAL 9 UNIT SUBCUT ×3 (08:22→17:33)
[2023-02-24] MEDS: INSULIN LISPRO 100 UNIT/ML VIAL SUBCUT (11:37)
[2023-02-24] MEDS: MELATONIN 3 MG TABLET PO (19:19)
[2023-02-24] MEDS: PRAVASTATIN SODIUM 40 MG TABLET PO (19:19)
[2023-02-24] MEDS: OXYCODONE 5 MG TABLET PO (21:03)
[2023-02-25] MEDS: ACETAMINOPHEN 500 MG TABLET 1000 MG PO ×3 (07:34→20:25)
[2023-02-25] MEDS: ASPIRIN 81 MG TABLET EC PO (07:34)
[2023-02-25] MEDS: CALCIUM CARBONATE 500 MG TABLET PO (07:34)
[2023-02-25] MEDS: APIXABAN 5 MG TABLET 2.5 MG PO ×2 (07:35→15:20)
[2023-02-25] MEDS: FOLIC ACID 1 MG TABLET 3 MG PO (07:35)
[2023-02-25] MEDS: MULTIVITAMIN/MINERALS 1 TABLET 1 TAB PO (07:35)
[2023-02-25] MEDS: LOSARTAN POTASSIUM 50 MG TABLET PO (07:35)
[2023-02-25] MEDS: TORSEMIDE 20 MG TABLET PO (07:36)
[2023-02-25] MEDS: FLECAINIDE ACETATE 50 MG TABLET PO ×2 (07:36→20:25)
[2023-02-25] MEDS: SERTRALINE 100 MG TABLET PO (07:36)
[2023-02-25] MEDS: INSULIN LISPRO 100 UNIT/ML VIAL 9 UNIT SUBCUT ×3 (08:51→18:14)
[2023-02-25] MEDS: PRAVASTATIN SODIUM 40 MG TABLET PO (20:25)
[2023-02-25] MEDS: MELATONIN 3 MG TABLET PO (20:25)
[2023-02-25] MEDS: OXYCODONE 5 MG TABLET PO (21:12)
[2023-02-26 07:49] LABS: Basophils Absolute Auto 0.07 K/uL (0.00-0.30); Basophils Percent Auto 1.4 % (0.0-3.0); Eosinophils Absolute Auto 0.27 K/uL (0.00-0.50); Eosinophils Percent Auto 5.5 % (0.0-7.0); Hematocrit 36.4 % (33.0-51.0); Hemoglobin* 12.4 gm/dL (12.0-16.0); Immature Granulocytes Abs Auto 0.01 K/uL (0.00-0.30); Immature Granulocytes Pct Auto 0.2 %; Lymphocytes Absolute Auto 2.18 K/uL (0.90-2.90); Mean Corpuscular HGB Conc 34 gm/dL (32-36); Mean Corpuscular Hemoglobin 36 pg (26-34); Mean Corpuscular Volume 105 fL (80-100); Monocytes Percent Auto 12.9 % (0.0-11.0); Platelet Count* 270 K/uL (140-440); RDW Coefficient of Variation % 15.8 % (11.5-15.5); Red Blood Count 3.48 m/uL (4.00-5.20); White Blood Count* 4.95 K/uL (4.50-11.00)
[2023-02-26] MEDS: ACETAMINOPHEN 500 MG TABLET 1000 MG PO ×3 (07:53→19:20)
[2023-02-26] MEDS: LOSARTAN POTASSIUM 50 MG TABLET PO (07:54)
[2023-02-26] MEDS: CALCIUM CARBONATE 500 MG TABLET PO (07:54)
[2023-02-26] MEDS: FOLIC ACID 1 MG TABLET 3 MG PO (07:54)
[2023-02-26] MEDS: ASPIRIN 81 MG TABLET EC PO (07:54)
[2023-02-26] MEDS: MULTIVITAMIN/MINERALS 1 TABLET 1 TAB PO (07:54)
[2023-02-26] MEDS: APIXABAN 5 MG TABLET 2.5 MG PO ×2 (07:54→15:17)
[2023-02-26] MEDS: TORSEMIDE 20 MG TABLET PO (07:55)
[2023-02-26] MEDS: FLECAINIDE ACETATE 50 MG TABLET PO ×2 (07:55→19:20)
[2023-02-26] MEDS: SERTRALINE 100 MG TABLET PO (07:55)
[2023-02-26 07:59] LABS: Slide Review Reflex No
[2023-02-26 08:24] LABS: Alanine Aminotransferase* 52 U/L (4-35); Aspartate Amino Transferase* 54 U/L (12-35); Cholesterol* 215 mg/dL (90-199); Creatinine* 0.6 mg/dL (0.5-1.5); Est. Creatinine Clearance* 35.45; Estimated Glomerular Filt Rate 94 ml/min; HDL Cholesterol* 48 mg/dL (>=50); LDL Cholesterol Calculated 117 mg/dL (<100); Triglycerides* 251 mg/dL (40-149)
[2023-02-26] MEDS: INSULIN LISPRO 100 UNIT/ML VIAL 9 UNIT SUBCUT ×3 (08:40→17:10)
[2023-02-26 09:17] VITALS: BP 111/69; PULSE 73; RESP 16; TEMP 36.7; O2SAT 95
--- NOTE | 2023-02-26 09:28 | PC.NURSE ---
Lab note: Resident had routine ALT, AST, Creatinine with eGFR, CBC and lipid panel labs completed this morning. All results have been received and are in electronic chart. [employer] has faxed all results to Dr. Desiree Rivero with [facility] at [phone] per order.
--- NOTE | 2023-02-26 14:05 | PC.NURSE ---
Bath note: Resident has requested to have weekly bath, weight and skin check completed after leaves this afternoon as she has previously been scheduled Monday evening bath. Director Of Nuclear Medicine already trimmed fingernails and checked toenails this morning when assisting resident with putting BHUMIKA stockings on. The only skin concern script writer was able to visualize this morning was bruising to abdomen related to receiving multiple insulin injections in abdomen daily. Director Of Nuclear Medicine asked evening nurse to complete full skin check after bath this evening due to resident refusing when approached this morning.
[2023-02-26 15:00] VITALS: BMI 39.9
[2023-02-26] MEDS: PRAVASTATIN SODIUM 40 MG TABLET PO (19:20)
[2023-02-26] MEDS: MELATONIN 3 MG TABLET PO (19:20)
[2023-02-26 19:40] VITALS: BP 115/66; PULSE 74; RESP 18; TEMP 36.4; O2SAT 96
[2023-02-26] MEDS: OXYCODONE 5 MG TABLET PO (21:31)
--- NOTE | 2023-02-27 07:18 | PC.NURSE ---
Requested lab: Results faxed to Dr. Almas Rivero ([place]ante).
[2023-02-27] MEDS: ACETAMINOPHEN 500 MG TABLET 1000 MG PO ×3 (07:35→20:07)
[2023-02-27] MEDS: CALCIUM CARBONATE 500 MG TABLET PO (07:35)
[2023-02-27] MEDS: APIXABAN 5 MG TABLET 2.5 MG PO ×2 (07:35→15:01)
[2023-02-27] MEDS: FOLIC ACID 1 MG TABLET 3 MG PO (07:35)
[2023-02-27] MEDS: ASPIRIN 81 MG TABLET EC PO (07:35)
[2023-02-27] MEDS: FLECAINIDE ACETATE 50 MG TABLET PO ×2 (07:36→20:08)
[2023-02-27] MEDS: LOSARTAN POTASSIUM 50 MG TABLET PO (07:36)
[2023-02-27] MEDS: MULTIVITAMIN/MINERALS 1 TABLET 1 TAB PO (07:36)
[2023-02-27] MEDS: TORSEMIDE 20 MG TABLET PO (07:37)
[2023-02-27] MEDS: SERTRALINE 100 MG TABLET PO (07:37)
[2023-02-27] MEDS: INSULIN LISPRO 100 UNIT/ML VIAL 9 UNIT SUBCUT ×3 (08:23→16:43)
--- NOTE | 2023-02-27 13:15 | PC.NURSE ---
Appointment: Resident went out for therapy.
[2023-02-27] MEDS: INSULIN LISPRO 100 UNIT/ML VIAL SUBCUT (16:43)
[2023-02-27] MEDS: MELATONIN 3 MG TABLET PO (20:08)
[2023-02-27] MEDS: PRAVASTATIN SODIUM 40 MG TABLET PO (20:08)
[2023-02-27] MEDS: OXYCODONE 5 MG TABLET PO (21:19)
[2023-02-28] MEDS: ASPIRIN 81 MG TABLET EC PO (07:33)
[2023-02-28] MEDS: ACETAMINOPHEN 500 MG TABLET 1000 MG PO ×3 (07:33→19:50)
[2023-02-28] MEDS: MULTIVITAMIN/MINERALS 1 TABLET 1 TAB PO (07:34)
[2023-02-28] MEDS: LOSARTAN POTASSIUM 50 MG TABLET PO (07:34)
[2023-02-28] MEDS: APIXABAN 5 MG TABLET 2.5 MG PO ×2 (07:34→15:16)
[2023-02-28] MEDS: FOLIC ACID 1 MG TABLET 3 MG PO (07:34)
[2023-02-28] MEDS: CALCIUM CARBONATE 500 MG TABLET PO (07:34)
[2023-02-28] MEDS: FLECAINIDE ACETATE 50 MG TABLET PO ×2 (07:35→19:50)
[2023-02-28] MEDS: TORSEMIDE 20 MG TABLET PO (07:35)
[2023-02-28] MEDS: SERTRALINE 100 MG TABLET PO (07:35)
[2023-02-28] MEDS: INSULIN LISPRO 100 UNIT/ML VIAL 9 UNIT SUBCUT ×3 (08:38→17:11)
--- NOTE | 2023-02-28 11:08 | PC.NURSE ---
Order: Viktoria BARRIOS here. Calcium Carbonate, Refresh Plus, Hydrocortisone Cream & Oxycodone PRN discontinued.
--- NOTE | 2023-02-28 12:48 | PC.SOCIAL ---
Completed preadmission screening for resident to admit to [facility] on 03/01/2023. Confirmation #[id number].
[2023-02-28] MEDS: PRAVASTATIN SODIUM 40 MG TABLET PO (19:50)
[2023-02-28] MEDS: MELATONIN 3 MG TABLET PO (19:50)
[2023-02-28] MEDS: OXYCODONE 5 MG TABLET PO (21:04)
--- NOTE | 2023-02-28 23:56 | PC.NURSE ---
Weekly Charting Week 4: Vitals signs reviewed with no concerns. Staff to continue weekly Vital signs monitoring and Blood glucose check QID, update provided as needed. Comprehensive and temporary care plan reviewed with no changes made. No behavior recorded in the past month. Receives Zoloft 100 mg daily and Melatonin 3mg with no side effects or adverse behavior noted. Resident alert and oriented, able to communicate needs verbally, able to use call light effectively. No changes of mental status noted. Has hearing impairment use bilateral hearing aids. Vision corrected with glasses. Chronic health condition is stable.
[2023-03-01] MEDS: CALCIUM CARBONATE 500 MG TABLET PO (07:28)
[2023-03-01] MEDS: ACETAMINOPHEN 500 MG TABLET 1000 MG PO (07:28)
[2023-03-01] MEDS: ASPIRIN 81 MG TABLET EC PO (07:28)
[2023-03-01] MEDS: FOLIC ACID 1 MG TABLET 3 MG PO (07:29)
[2023-03-01] MEDS: LOSARTAN POTASSIUM 50 MG TABLET PO (07:29)
[2023-03-01] MEDS: MULTIVITAMIN/MINERALS 1 TABLET 1 TAB PO (07:29)
[2023-03-01] MEDS: APIXABAN 5 MG TABLET 2.5 MG PO (07:29)
[2023-03-01] MEDS: FLECAINIDE ACETATE 50 MG TABLET PO (07:29)
[2023-03-01] MEDS: SERTRALINE 100 MG TABLET PO (07:30)
[2023-03-01] MEDS: TORSEMIDE 20 MG TABLET PO (07:30)
[2023-03-01] MEDS: INSULIN LISPRO 100 UNIT/ML VIAL 9 UNIT SUBCUT (08:34)
--- NOTE | 2023-03-01 12:04 | PC.NURSE ---
RECAPITULATION NOTE: Resident was admitted to [facility] on 08/08/2022. They have an extensive medical history including: Type 1 Diabetes, rheumatoid arthritis, osteoporosis, degenerative disc disease of the cerival spine, radiculopathy, chronic pain syndrome, mild cognitive impairment, osteoarthritis, depression, obstructive sleep apnea, and swelling of both lower extremities. They discharged today to [facility] for ongoing care needs since [facility] is closing. Resident was sent with discharge orders, remaining supply of medications, POLST/Advance directives, signed active med list, active care plan and MDS. They did required controlled medication. Belongings were inventoried and signed. Discharge summary completed by provider. Resident remains DNR/DNI - selective treatment. Discharge orders and pertinent notes faxed to [facility] at [phone]. Resident was accompanied by RN/Madhuri to the care center. All questions answered.?
== END 2023-03-01 11:00 | DRG 346 ==
PROVIDERS: Family Medicine; Admitting Provider Family Medicine; Family Provider Nurse Practitioner Gerontology; PCP Internal Medicine; Visit Provider Nurse Practitioner Gerontology
DX: M06.9 Rheumatoid arthritis, unspecified (principal); R60.9 Edema, unspecified
CPT/HCPCS: 36415; 71250; 72040; 72141; 73130; 73562; 73630; 80048; 80061; 82565; 84450; 84460; 85025; 85651; 86140; 87635; 97110; 97116; 97161; 97165; 97530; 97535

== ENCOUNTER 2022-09-06 14:29 | Outpatient (CLI) | payer BC, SELFPAY ==
--- NOTE | 2022-09-06 14:40 | CRLHL7_ITS ---
For Patients: As a result of the Century Cures Act, medical imaging exams and procedure reports are released immediately into your electronic medical record. You may view this report before your referring provider. If you have questions, please contact your health care provider. BILATERAL SCREENING MAMMOGRAM WITH COMPUTER-AIDED DETECTION AND TOMOSYNTHESIS TECHNIQUE: CC and MLO views were obtained. These mammographic images have been obtained using full-field digital technique. These mammographic images were interpreted with the benefit of computer-aided detection. Breast Tomosynthesis was used in this interpretation. COMPARISON FILM: 05/12/2021, 02/10/2020, 05/01/2018. FINDINGS: There are scattered areas of fibroglandular density IMPRESSION: There is no radiographic evidence for malignancy. ASSESSMENT: BI-RADS Category 2: Benign RECOMMENDATION: Routine screening mammogram in 1 year. A lay language report of this examination will be provided to the patient. Adriel Lamas M.D. Diagnostic Radiologist [email or web address] NICHOL/Dictated by: Adriel Lamas MD @ 09/07/2022 11:22:00 AM (Electronically Signed)
== END 2022-09-06 14:30 | disposition home or self-care (01) ==
LOC: MAMMO 14:32
PROVIDERS: PCP Internal Medicine; Visit Provider Internal Medicine
DX: Z12.31 Encounter for screening mammogram for malignant neoplasm of breast (principal)
CPT/HCPCS: 77063; 77067

== ENCOUNTER 2023-03-10 13:00 | Outpatient (RCR) | payer BC, SELFPAY ==
--- NOTE | 2022-10-20 14:33 | URNOTE ---
Zoledronic Acid ([id number]) has been approved x1, 10/21/2022-10/21/2023. Auth #[id number]
[2022-11-03 11:31] LABS: Vitamin D 25 Hydroxy* 27 ng/mL (30-80)
[2022-11-03 13:40] LABS: Calcium* 8.7 mg/dL (8.4-10.6)
[2022-12-01 10:55] LABS: Calcium* 9.2 mg/dL (8.4-10.6); Creatinine* 0.7 mg/dL (0.5-1.5); Estimated Glomerular Filt Rate 91 ml/min
[2022-12-01 11:15] LABS: Vitamin D 25 Hydroxy* 31 ng/mL (30-80)
[2022-12-02 10:14] VITALS: BP 132/84; PULSE 84; RESP 16; TEMP 35.6; O2SAT 96
--- NOTE | 2023-01-19 11:00 | URNOTE ---
Request received for authorization for?Golimumab (J1602). Prior authorization is approved for Simponi Aria (J1602) 50mg/4ml (1472units = 8 doses) from 02/06/2023 to 02/06/2024 per [facility].
--- NOTE | 2023-01-30 10:12 | ONC.NURNOTE ---
Dx: Rheumatoid Arthritis
--- NOTE | 2023-02-07 13:23 | ONC.NURNOTE ---
Patient had tylenol PO 1000mg at 1120 in [facility]. Did not premed as it is too close to the time. Did order 25mg PO benadryl.
[2023-02-07 13:26] LABS: Basophils Absolute Auto 0.06 K/uL (0.00-0.30); Basophils Percent Auto 0.9 % (0.0-3.0); Eosinophils Absolute Auto 0.08 K/uL (0.00-0.50); Eosinophils Percent Auto 1.2 % (0.0-7.0); Hematocrit 37.8 % (33.0-51.0); Hemoglobin* 12.8 gm/dL (12.0-16.0); Immature Granulocytes Abs Auto 0.01 K/uL (0.00-0.30); Immature Granulocytes Pct Auto 0.1 %; Lymphocytes Absolute Auto 1.55 K/uL (0.90-2.90); Mean Corpuscular HGB Conc 34 gm/dL (32-36); Mean Corpuscular Hemoglobin 35 pg (26-34); Mean Corpuscular Volume 103 fL (80-100); Neutrophils Absolute Auto 4.51 K/uL (1.7-7.0); Neutrophils Percent Auto 66.8 % (42.0-72.0); Platelet Count* 289 K/uL (140-440); RDW Coefficient of Variation % 15.6 % (11.5-15.5); Red Blood Count 3.66 m/uL (4.00-5.20); White Blood Count* 6.75 K/uL (4.50-11.00)
[2023-02-07 13:27] LABS: Slide Review Reflex No
[2023-02-07] MEDS: diphenhydrAMINE 25 MG CAPSULE PO (13:27)
[2023-02-07 13:32] VITALS: PULSE 77; RESP 16; TEMP 36.2; O2SAT 93
[2023-02-07 13:36] LABS: Cholesterol* 229 mg/dL (90-199); Creatinine* 0.9 mg/dL (0.5-1.5); Estimated Glomerular Filt Rate 67 ml/min
[2023-02-07 13:37] LABS: Alanine Aminotransferase* 44 U/L (4-35); Aspartate Amino Transferase* 44 U/L (12-35); HDL Cholesterol* 47 mg/dL (>=50); LDL Cholesterol Calculated 149 mg/dL (<100); Triglycerides* 167 mg/dL (40-149)
[2023-02-07] MEDS: SODIUM CHLORIDE 0.9 % (FLUSH) 10 ML SYRINGE IVF (14:08)
[2023-02-07] MEDS: 0.9 % SODIUM CHLORIDE 250 ml IV (14:08)
[2023-03-10 13:15] VITALS: BP 119/75; PULSE 80; RESP 16; TEMP 36.8; O2SAT 93
== END 2023-05-02 23:59 | disposition home or self-care (01) ==
LOC: CCIC 13:00
PROVIDERS: PCP Internal Medicine; Referring Provider Internal Medicine; Visit Provider Clinical Nurse Specialist
DX: M06.9 Rheumatoid arthritis, unspecified (principal)
CPT/HCPCS: 36415; 80061; 82306; 82310; 82565; 82652; 84450; 84460; 85025; 96365; A9270; J1602; J3489; J7050

== ENCOUNTER 2023-03-13 13:00 | Outpatient (RCR) | payer BC, SELFPAY ==
--- NOTE | 2023-01-18 14:42 | PT.OPEX ---
PT [place] Out[facility] Eval PT [facility] Out[facility] Eval Start: 01/18/23 07:53 Freq: Status: Active Protocol: Document 01/18/23 07:56 CHICATez (Rec: 01/18/23 14:40 CHICA [id number]) E-signed By Agnes Silverio, PT Physical Therapy Outpatient Evaluation Insurance Information Recert Due Date 04/14/23 Insurance Name Medicare B,Medicaid Medical Diagnosis TMD Treating Diagnosis TMJ pain, muscular restriction , limited jaw mobility Referring Nicole Clemons Subjective Subjective Diann reports to PT with primary complaint of TMJ pain with gradual onset over the past 1.5 months. No known injury. She notes difficulty opening her jaw to eat/yawn, pain getting comfortable to sleep at night. She does note some clenching at night. Has not tried a guardian ad litem/splint . Notes pain is mostly on left side of jaw and into her ear. Denies ringing in her ears. Currently seeing chiropractor 1 time per week for neck related issues-has been doing adjustments and tried release of inside of left jaw. Goals are to improve mobility with eating and reduce pain with sleeping at night. Currently taking 1 oxycodone to sleep at night. PMH: DM1, CVA October 2021, RA, osteoporosis, HTN Pain Comments 11/09 Date of Last Physician Visit 12/15/22 Current Work Status Retired Objective Other/Pertinent Objective Cervical -Postural Observation: forward head/rounded shoulder Palpation: R/L: -increased tone L masseter, L lateral pterygoid, R UT AROM: R/L -Mandibular opening (norm 40- 50mm/3fingerwidths): 34mm, deviated toward L side -Mandibular lateral deviation (norm 8-10mm): 6mm R, 4 mm L -cervical SB 16/24 -cervical rotation 48/55 Functional Test Performed & Score PSFS: -eating 5 -yawn 3 -sleep 8 Assessment Assessment/Impression Patient is a 73 year old female presenting to physical therapy for evaluation and treatment of TMJ pain. Patient presents with TMJ pain, muscular restriction, limited jaw mobility. These impairments are limiting the patients ability to eat, yawn and sleep comfortably at night . Patient appears motivated to participate in PT and presents with good prognosis to improve mobility, strength, proprioception and return to functional activities with skilled physical therapy intervention. Primary Functional Limitations eat, yawn and sleep comfortably at night Plan of Care Rehabilitation Potential Good Physical Therapy Goals Short-term goals to be completed in 4 weeks (02/15/23) : Pt will demonstrate WNL of mandibular opening and lateral deviation with <2/10 pain in order to demonstrate improved functional mobility of TMJ. Pt will demonstrate improved sitting posture without cueing in consecutive sessions in order to decrease strain on neck and TMJ. Long-term goals to be completed in 8 weeks (03/15/23) : Pt will be independent and compliant with HEP Pt will report <2/10 pain in jaw with eating Pt will be able to sleep through the night for 3 consecutive nights with <2/10 pain Treatment Plan/Direct Interventions Ice/Cold/Vasopneumatic,Joint Mobilization,Manual Therapy, Neuromuscular Re-ed,Self-Care/ Home Management,Therapeutic Activities,Therapeutic Exercises Frequency/Duration 1x/wk for 6 weeks with additional 4 sessions prn based on progress Patient Will Be Discharged From Therapy Completion of LTG(s), Independent w/HEP, Independently Progressing Evaluation Billing Untimed Code Treatment Minutes 18 Complexity Low Certification Information Initial Certification Date 01/18/23 Ending Certification Date 04/14/23 Provider Signature Shows Agreement With POC & Medical Necessity Physician Signature & Date Requested Please Sign/Date Here Physician Comment/Change : Physician NPI Number #
== END 2023-06-02 15:58 | disposition home or self-care (01) ==
PROVIDERS: PCP Internal Medicine; Visit Provider Nurse Practitioner Gerontology
DX: M26.609 Unspecified temporomandibular joint disorder, unspecified side (principal); R68.84 Jaw pain; Z74.09 Other reduced mobility; Z51.89 Encounter for other specified aftercare
CPT/HCPCS: 97110; 97140; 97161

== ENCOUNTER 2023-05-16 12:37 | Outpatient (REF) | payer BC, SELFPAY ==
[2023-05-16 13:11] LABS: Appearance Urine Slightly Cloudy (Clear); Bilirubin Urine Negative (Negative); Blood Urine Negative (Negative); Color Urine Yellow (Yellow); Glucose Urine Trace (Negative); Ketones Urine Negative (Negative); Leukocyte Esterase Urine Negative (Negative); Nitrite Urine Negative (Negative); Protein Urine Negative (Negative); Specific Gravity Urine 1.015 (1.000-1.030); Urobilinogen Urine 0.2 (0.2-1.0)
[2023-05-16 14:23] LABS: Amorphous Sediment Urine Few; RBC Urine 0-2 (0-2); Squamous Epithelial Cell Urine Few (None-Few); WBC Urine 0-2 (0-5)
== END 2023-05-16 12:38 | disposition home or self-care (01) ==
LOC: NPINS 12:37
PROVIDERS: PCP Family Medicine; Visit Provider Nurse Practitioner Adult Health
DX: R39.15 Urgency of urination (principal)
CPT/HCPCS: 81001; 87086

== ENCOUNTER 2023-10-19 10:15 | Outpatient (RCR) | payer BC, SELFPAY ==
[2023-05-05 13:00] VITALS: BP 124/74; PULSE 70; RESP 16; TEMP 36.6; O2SAT 95
[2023-05-05] MEDS: ACETAMINOPHEN 325 MG TABLET 650 MG PO (13:12)
[2023-05-05] MEDS: diphenhydrAMINE 25 MG CAPSULE PO (13:12)
[2023-05-05 14:45] LABS: Basophils Absolute Auto 0.05 K/uL (0.00-0.30); Basophils Percent Auto 0.6 % (0.0-3.0); Eosinophils Absolute Auto 0.16 K/uL (0.00-0.50); Hematocrit 36.5 % (33.0-51.0); Hemoglobin* 12.3 gm/dL (12.0-16.0); Immature Granulocytes Abs Auto 0.01 K/uL (0.00-0.30); Immature Granulocytes Pct Auto 0.1 %; Lymphocytes Absolute Auto 2.12 K/uL (0.90-2.90); Mean Corpuscular HGB Conc 34 gm/dL (32-36); Mean Corpuscular Hemoglobin 35 pg (26-34); Mean Corpuscular Volume 103 fL (80-100); Monocytes Percent Auto 9.6 % (0.0-11.0); Neutrophils Absolute Auto 5.03 K/uL (1.7-7.0); Neutrophils Percent Auto 61.7 % (42.0-72.0); Platelet Count* 287 K/uL (140-440); RDW Coefficient of Variation % 13.8 % (11.5-15.5); Red Blood Count 3.53 m/uL (4.00-5.20); White Blood Count* 8.15 K/uL (4.50-11.00)
[2023-05-05 14:54] LABS: Slide Review Reflex No
[2023-05-05 15:31] LABS: Creatinine* 0.6 mg/dL (0.5-1.5); Estimated Glomerular Filt Rate 94 ml/min
[2023-05-05 15:32] LABS: Alanine Aminotransferase* 38 U/L (4-35); Aspartate Amino Transferase* 42 U/L (12-35)
[2023-06-30 10:12] VITALS: BP 122/74; PULSE 67; RESP 16; TEMP 35.7; O2SAT 93
[2023-06-30 10:38] LABS: Basophils Absolute Auto 0.04 K/uL (0.00-0.30); Basophils Percent Auto 0.6 % (0.0-3.0); Eosinophils Percent Auto 1.4 % (0.0-7.0); Hematocrit 37.1 % (33.0-51.0); Hemoglobin* 12.4 gm/dL (12.0-16.0); Immature Granulocytes Abs Auto 0.01 K/uL (0.00-0.30); Immature Granulocytes Pct Auto 0.1 %; Lymphocytes Absolute Auto 1.78 K/uL (0.90-2.90); Lymphocytes Percent Auto 25.4 % (20-44); Mean Corpuscular HGB Conc 33 gm/dL (32-36); Mean Corpuscular Hemoglobin 35 pg (26-34); Mean Corpuscular Volume 103 fL (80-100); Monocytes Percent Auto 9.4 % (0.0-11.0); Neutrophils Absolute Auto 4.42 K/uL (1.7-7.0); Neutrophils Percent Auto 63.1 % (42.0-72.0); Platelet Count* 297 K/uL (140-440); RDW Coefficient of Variation % 16.2 % (11.5-15.5); Red Blood Count 3.59 m/uL (4.00-5.20); White Blood Count* 7.01 K/uL (4.50-11.00)
[2023-06-30] MEDS: diphenhydrAMINE 25 MG CAPSULE PO (10:41)
[2023-06-30] MEDS: ACETAMINOPHEN 325 MG TABLET 650 MG PO (10:41)
[2023-06-30 10:46] LABS: Alanine Aminotransferase* 46 U/L (4-35); Aspartate Amino Transferase* 42 U/L (12-35)
[2023-06-30 10:47] LABS: Slide Review Reflex No
[2023-06-30 11:02] LABS: Creatinine* 0.7 mg/dL (0.5-1.5); Estimated Glomerular Filt Rate 91 ml/min
[2023-08-25 10:31] VITALS: BP 119/76; PULSE 63; RESP 18; TEMP 36.5; O2SAT 94
[2023-08-25 10:48] LABS: Basophils Absolute Auto 0.03 K/uL (0.00-0.30); Basophils Percent Auto 0.5 % (0.0-3.0); Eosinophils Absolute Auto 0.11 K/uL (0.00-0.50); Eosinophils Percent Auto 1.7 % (0.0-7.0); Hematocrit 35.5 % (33.0-51.0); Immature Granulocytes Abs Auto 0.03 K/uL (0.00-0.30); Immature Granulocytes Pct Auto 0.5 %; Lymphocytes Percent Auto 26.3 % (20-44); Mean Corpuscular HGB Conc 34 gm/dL (32-36); Mean Corpuscular Hemoglobin 35 pg (26-34); Mean Corpuscular Volume 102 fL (80-100); Monocytes Percent Auto 10.4 % (0.0-11.0); Neutrophils Absolute Auto 3.93 K/uL (1.7-7.0); Neutrophils Percent Auto 60.6 % (42.0-72.0); Platelet Count* 239 K/uL (140-440); RDW Coefficient of Variation % 15.3 % (11.5-15.5); Red Blood Count 3.47 m/uL (4.00-5.20); White Blood Count* 6.47 K/uL (4.50-11.00)
[2023-08-25 10:50] LABS: Slide Review Reflex No
[2023-08-25] MEDS: diphenhydrAMINE 25 MG CAPSULE PO (11:00)
[2023-08-25 11:07] LABS: Alanine Aminotransferase* 38 U/L (4-35); Aspartate Amino Transferase* 38 U/L (12-35); Cholesterol* 175 mg/dL (90-199); Creatinine* 0.6 mg/dL (0.5-1.5); Estimated Glomerular Filt Rate 94 ml/min; HDL Cholesterol* 48 mg/dL (>=50); LDL Cholesterol Calculated 98 mg/dL (<100); Triglycerides* 144 mg/dL (40-149)
[2023-08-25] MEDS: 0.9 % SODIUM CHLORIDE 250 ml IV (11:26)
[2023-08-25] MEDS: SODIUM CHLORIDE 0.9 % (FLUSH) 10 ML SYRINGE IVF (11:26)
--- NOTE | 2023-08-25 13:16 | PC.NURSE ---
Pt was present at [facility] for Golimumab infusion. She had gained weight so the dose given (184mg) was more than 10% less than the dose calculated for her current weight (204 mg). ZENIA Delvalle got OK to give 184mg dose from Hilda Hopson APRN. After completion of the infusion, this RN talked to Dr. Rivero's nurse to relay the message about her weight change and asked the question as to whether we should calculate the dose each time or does MD want her to stay at the same dose? Of note, pt has increased LE edema which may be contributing to weight gain. Also, pt states that this drug is not working for her. This was also communicated to Dr. Rivero's nurse too. Pt seeing Dr. Rivero at [place] on 10/04. Due for next infusion at [facility] on 10/19. Additionally, pt is on a wait list at a halfway in [place], [place] as her daughter lives there. She may have moved to [place] by 10/20/2023 in which case she will not come to [facility] for infusion any longer.
--- NOTE | 2023-10-09 14:57 | PC.NURSE ---
Contacted pt today to check in prior to 10/19 injection appointment. Diann states that she is still in [place] (hasn't moved to [place] yet) and has the appt on the calendar. RN reviewed [facility] records and had Rheumatology MD note scanned.
[2023-10-19 10:16] VITALS: BP 124/65; PULSE 68; RESP 16; TEMP 35.5; O2SAT 92
[2023-10-19] MEDS: diphenhydrAMINE 25 MG CAPSULE PO (10:30)
--- NOTE | 2023-10-19 10:31 | ONC.NURNOTE ---
Took Tylenol 650mg PO at 0930 at home
[2023-10-19 10:44] LABS: Basophils Absolute Auto 0.06 K/uL (0.00-0.30); Eosinophils Percent Auto 1.6 % (0.0-7.0); Hematocrit 34.7 % (33.0-51.0); Hemoglobin* 11.7 gm/dL (12.0-16.0); Immature Granulocytes Abs Auto 0.01 K/uL (0.00-0.30); Immature Granulocytes Pct Auto 0.2 %; Lymphocytes Absolute Auto 1.53 K/uL (0.90-2.90); Lymphocytes Percent Auto 24.9 % (20-44); Mean Corpuscular HGB Conc 34 gm/dL (32-36); Mean Corpuscular Hemoglobin 35 pg (26-34); Mean Corpuscular Volume 103 fL (80-100); Monocytes Percent Auto 8.3 % (0.0-11.0); Neutrophils Absolute Auto 3.93 K/uL (1.7-7.0); Platelet Count* 270 K/uL (140-440); Red Blood Count 3.36 m/uL (4.00-5.20); White Blood Count* 6.14 K/uL (4.50-11.00)
[2023-10-19 10:48] LABS: Slide Review Reflex No
[2023-10-19] MEDS: 0.9 % SODIUM CHLORIDE 250 ml IV (10:53)
[2023-10-19] MEDS: SODIUM CHLORIDE 0.9 % (FLUSH) 10 ML SYRINGE IVF (10:53)
[2023-10-19 10:54] LABS: Aspartate Amino Transferase* 31 U/L (12-35); Creatinine* 0.7 mg/dL (0.5-1.5); Estimated Glomerular Filt Rate 91 ml/min
[2023-10-19 10:55] LABS: Alanine Aminotransferase* 33 U/L (4-35)
--- NOTE | 2023-10-19 11:41 | ONC.NURNOTE ---
Patient complained of shortness of break in the night and a little this morning. Also having left knee pain. No swelling, warmth or hardness noted. Oxygen sats within normal limits. Patient did not appear to be in any distress. Weight continues to go up and will talk with DIRECTOR NETWORK DEVELOPMENT about dose change for her next appointment. Patient tolerated infusion. Will mention her shortness of breath and knee pain to her PCP.
--- NOTE | 2023-10-19 11:54 | ONC.NURNOTE ---
Labs faxed to Dr. Rivero and [facility] per their request.
== END 2023-11-01 23:59 | disposition home or self-care (01) ==
LOC: CCIC 10:15
PROVIDERS: PCP Family Medicine; Referring Provider Family Medicine; Visit Provider Clinical Nurse Specialist
DX: M06.9 Rheumatoid arthritis, unspecified (principal)
CPT/HCPCS: 36415; 80061; 82565; 84450; 84460; 85025; 96365; A9270; J1602; J7050

== ENCOUNTER 2023-12-15 10:00 | Outpatient (RCR) | payer BC, SELFPAY ==
[2023-12-01 09:54] VITALS: BP 106/69; PULSE 76; RESP 16; TEMP 37; O2SAT 90
[2023-12-01 10:31] LABS: Basophils Absolute Auto 0.05 K/uL (0.00-0.30); Basophils Percent Auto 0.9 % (0.0-3.0); Eosinophils Absolute Auto 0.12 K/uL (0.00-0.50); Eosinophils Percent Auto 2.1 % (0.0-7.0); Hematocrit 35.6 % (33.0-51.0); Lymphocytes Absolute Auto 1.27 K/uL (0.90-2.90); Lymphocytes Percent Auto 22.6 % (20-44); Mean Corpuscular HGB Conc 34 gm/dL (32-36); Mean Corpuscular Hemoglobin 35 pg (26-34); Mean Corpuscular Volume 104 fL (80-100); Monocytes Percent Auto 10.7 % (0.0-11.0); Neutrophils Absolute Auto 3.59 K/uL (1.7-7.0); Neutrophils Percent Auto 63.7 % (42.0-72.0); Platelet Count* 317 K/uL (140-440); RDW Coefficient of Variation % 16.9 % (11.5-15.5); Red Blood Count 3.43 m/uL (4.00-5.20); White Blood Count* 5.63 K/uL (4.50-11.00)
[2023-12-01 10:32] LABS: Slide Review Reflex No
[2023-12-01 10:54] LABS: Creatinine* 0.6 mg/dL (0.5-1.5); Estimated Glomerular Filt Rate 94 ml/min
[2023-12-01 10:55] LABS: Alanine Aminotransferase* 36 U/L (4-35); Aspartate Amino Transferase* 41 U/L (12-35)
--- NOTE | 2023-12-01 11:27 | ONC.NURNOTE ---
Pt here for Golimumab, however, last infusion 6 weeks ago and it is ordered every 8 weeks. Pt scheduled to return to [facility] in 2 weeks. Pt verbalized understanding of plan of care.
[2023-12-15] MEDS: diphenhydrAMINE 25 MG CAPSULE PO (10:42)
[2023-12-15] MEDS: MICRON FILTER SET IVPB (11:17)
[2023-12-15] MEDS: TUBING PRIMARY IVPB (11:17)
[2023-12-15] MEDS: [UNRECOGNIZED DRUG - OTHER] IVPB (11:17)
[2023-12-15] MEDS: GOLIMUMAB IVPB (11:17)
[2023-12-15] MEDS: IN LINE IVPB (11:17)
--- NOTE | 2024-01-15 16:29 | ONC.NURNOTE ---
Pt called stating she is moving to [place] to be closer to family and will not be receiving her infusions here at [facility] anymore. Cancelled 02/09/2024 infusion.
== END 2024-05-29 23:59 | disposition home or self-care (01) ==
LOC: CCIC 10:00
PROVIDERS: PCP Family Medicine; Referring Provider Family Medicine; Visit Provider Clinical Nurse Specialist
DX: M06.9 Rheumatoid arthritis, unspecified (principal)
CPT/HCPCS: 36415; 82565; 84450; 84460; 85025; 96365; 96413; A9270; J1602